=== PATIENT | female | born 1940 | race Caucasian/White ===

== ENCOUNTER → 2016-11-06 | Outpatient (CLI) | payer BC ==
[~2016-11-06] MED LIST: AMLO-114 PO; ATEN25TA PO; CALC-279 PO; CHOLCAP5 PO; CYAN100020 PO; DICL-201 PO; DICL1GEL12 TOP; LEVO88TA3 PO; MULTTAB58 PO; NEPA0.6D OPR; OMEG100046 PO; PANT1TAB48 PO; PRED1SUS3 OPR; SIMV10TA5 PO
[2016-11-06 11:33] LABS: BLOOD UREA NITROGEN 28 mg/dl (7-18); BUN/CREATININE RATIO 33.3 (10-20); CALCIUM 9.2 mg/dl (8.5-10.1); CARBON DIOXIDE 29 mmol/L (21-32); CHLORIDE 109 mmol/L (98-107); CREATININE 0.84 mg/dl (0.60-1.20); GLUCOSE 101 mg/dl (70-99); HDL CHOLESTEROL 52 mg/dl; POTASSIUM 5.1 mmol/L (3.5-5.1); SODIUM 142 mmol/L (136-145)
[2016-11-06 11:45] LABS: CHOLESTEROL 123 mg/dl (0-200); CHOLESTEROL/HDL RATIO 2.4; LDL CHOLESTEROL CALCULATED 47 mg/dl; THYROID STIMULATING HORMONE 0.797 uIu/ml (0.300-4.500); TRIGLYCERIDES 122 mg/dl (0-150); VERY LOW DENSITY LIPOPROT CALC 24 mg/dl
--- NOTE | 2016-11-11 11:12 | CODING QUERY MEDICAL NECESSITY ---
SUPPORTING DIAGNOSIS NEEDED A supporting diagnosis is required for the test/procedure performed on this patient in order for us to be reimbursed by the patient's insurance. Please provide a supporting diagnosis for the following test/procedure listed below next to the test name along with your signature. *If there is no additional diagnosis for this patient that would support the following test/procedure please document that below next to the test/procedure. Test(s)/Procedure(s) that require a supporting diagnosis: DOS 11/06 * Vitamin B12 DIAGNOSIS: Provider Signature: Date: Thank you Mary Anne Martinez Health Information Management Once completed, please kindly fax back to [phone] For questions please call [phone]
== END | disposition home or self-care (01) ==
LOC: C.LABBC 08:35
PROVIDERS: ATTEND Internal Medicine
DX: E03.9 Hypothyroidism, unspecified (principal); E78.00 Pure hypercholesterolemia, unspecified; G62.9 Polyneuropathy, unspecified

== ENCOUNTER → 2016-11-17 | Outpatient (CLI) | payer BC ==
--- NOTE | 2016-11-17 18:08 | DIAGNOSTIC IMAGING REPORT ---
MRI OF THE CERVICAL SPINE WITHOUT IV CONTRAST CLINICAL HISTORY: Cervical radiculopathy. COMPARISON STUDY: No priors. TECHNIQUE: MRI of the cervical spine is performed utilizing various T1 and T2-weighted sequences in the axial and sagittal planes. IV contrast was not administered for this examination. FINDINGS: Cervical spine: Vertebral body height is maintained throughout the cervical spine. There is 7 mm of anterolisthesis at C7-T1. Minimal retrolisthesis is seen at C5-C6 and C6-C7. There is straightening of cervical lordosis with reversal centered at C6. The spinous processes appear intact. Atlantodental articulation appears preserved. Degenerative endplate sclerosis and edema is present at C7-T1. Milder degenerative changes seen from C4-C5 through C6-C7. No destructive bony lesion is identified. Intervertebral discs: There is advanced degenerative disc desiccation and loss of height throughout the cervical spine. This is severe from C4-C5 through C7-T1. Spinal cord: There is significant myelomalacia identified in the lower cervical cord seen from C5 through T1, likely related to severe spinal stenosis. C2-C3: Unremarkable. C3-C4: Uncovertebral and facet arthropathy cause mild to moderate right neural foraminal stenosis. The left neural foramen and the central canal appears clear. C4-C5: A posterior disc osteophyte complex eccentric to the left abuts the ventral cord. Uncovertebral and facet arthropathy cause severe bilateral neural foraminal stenosis. C5-C6: A posterior disc osteophyte complex effaces the ventral cord. Uncovertebral and facet arthropathy cause severe bilateral neural foraminal stenosis. C6-C7: A posterior disc osteophyte complex effaces the ventral subarachnoid space. Uncovertebral and facet arthropathy cause mild to moderate bilateral neural foraminal stenosis, left greater than right. C7-T1: Anterolisthesis and degenerative disc disease cause severe spinal stenosis with effacement of the ventral cord. There is also severe bilateral neural foraminal stenosis at this level. T1-T2: Unremarkable. Soft tissues: The prevertebral and paraspinous soft tissues are normal as visualized. Brain parenchyma: Partially imaged brain parenchyma at the skull base is within normal limits. IMPRESSION: 1. Advanced multilevel cervical spondylosis, greatest at C7-T1 where anterolisthesis and disc disease cause severe acquired compromise of the central canal and effacement of the cord. 2. See above discussion for detailed level by level analysis. 3. There is myelomalacia involving the cervical cord seen extending from C5 through T1, likely related to severe spinal stenosis. Dictated: 11/17/2016 5:00 PM Transcribed: 11/17/2016 6:08 PM [email or web address] Electronically signed by: David Sheth M.D. 11/17/2016 7:08 PM Dictated Date/Time: 11/17/2016 5:00 PM
== END | disposition home or self-care (01) ==
LOC: C.MRIBC 14:58
PROVIDERS: ATTEND Psychiatry & Neurology Neurology
DX: M48.02 Spinal stenosis, cervical region (principal); M47.22 Other spondylosis with radiculopathy, cervical region; M47.23 Other spondylosis with radiculopathy, cervicothoracic region; G95.89 Other specified diseases of spinal cord

== ENCOUNTER → 2016-12-23 | Outpatient (CLI) | payer BC ==
[2016-12-23 14:47] LABS: URINE APPEARANCE CLEAR (CLEAR); URINE BILIRUBIN NEG (NEG); URINE COLOR DK YELLOW; URINE EPITHELIAL CELL AUTO >30 /lpf (0-5); URINE NITRITE NEG (NEG); URINE SPECIFIC GRAVITY 1.021 (1.000-1.030); UROBILINOGEN NEG (NEG); ZZUR CULT IF INDIC CLEAN CATCH NO
[2016-12-23 15:02] LABS: MANUAL MICROSCOPIC REQUIRED? NO; REVIEW REQ? NO
== END | disposition home or self-care (01) ==
LOC: C.LABSPEC 13:41
PROVIDERS: ATTEND Physician Assistant
DX: R35.0 Frequency of micturition (principal)

== ENCOUNTER → 2016-12-30 | Outpatient (CLI) | payer BC ==
[2016-12-30 16:42] LABS: URINE APPEARANCE CLEAR (CLEAR); URINE BILIRUBIN NEG (NEG); URINE COLOR YELLOW; URINE EPITHELIAL CELL AUTO >30 /lpf (0-5); URINE NITRITE POS (NEG); URINE SPECIFIC GRAVITY 1.022 (1.000-1.030); UROBILINOGEN NEG (NEG)
[2016-12-30 16:43] LABS: MANUAL MICROSCOPIC REQUIRED? NO; REVIEW REQ? NO
== END | disposition home or self-care (01) ==
LOC: C.LABSPEC 14:22
PROVIDERS: ATTEND Physician Assistant
DX: N39.0 Urinary tract infection, site not specified (principal)

== ENCOUNTER → 2017-01-15 | Outpatient (CLI) | payer BC ==
[2017-01-15 12:54] LABS: URINE APPEARANCE CLEAR (CLEAR); URINE BILIRUBIN NEG (NEG); URINE COLOR YELLOW; URINE EPITHELIAL CELL AUTO >30 /lpf (0-5); URINE NITRITE POS (NEG); URINE SPECIFIC GRAVITY 1.018 (1.000-1.030); UROBILINOGEN NEG (NEG); ZZUR CULT IF INDIC CLEAN CATCH YES
[2017-01-15 12:59] LABS: MANUAL MICROSCOPIC REQUIRED? NO; REVIEW REQ? NO
== END | disposition home or self-care (01) ==
LOC: C.LABSPEC 12:13
PROVIDERS: ATTEND Physician Assistant
DX: N39.0 Urinary tract infection, site not specified (principal)

== ENCOUNTER → 2017-01-30 | Outpatient (CLI) | payer BC ==
[2017-01-30 12:11] LABS: URINE APPEARANCE CLEAR (CLEAR); URINE BILIRUBIN NEG (NEG); URINE COLOR YELLOW; URINE EPITHELIAL CELL AUTO 20-30 /lpf (0-5); URINE NITRITE POS (NEG); URINE SPECIFIC GRAVITY 1.017 (1.000-1.030); UROBILINOGEN NEG (NEG); ZZUR CULT IF INDIC CLEAN CATCH YES
[2017-01-30 12:19] LABS: MANUAL MICROSCOPIC REQUIRED? NO; REVIEW REQ? NO
== END | disposition home or self-care (01) ==
LOC: C.LABSPEC 10:02
PROVIDERS: ATTEND Physician Assistant
DX: N39.0 Urinary tract infection, site not specified (principal); A49.8 Other bacterial infections of unspecified site

== ENCOUNTER → 2017-03-06 | Outpatient (CLI) | payer BC ==
[2017-03-06 12:53] LABS: URINE APPEARANCE CLEAR (CLEAR); URINE BILIRUBIN NEG (NEG); URINE COLOR YELLOW; URINE NITRITE POS (NEG); URINE PH 5.5 (4.5-7.5); URINE SPECIFIC GRAVITY 1.017 (1.000-1.030); UROBILINOGEN NEG (NEG)
[2017-03-06 13:13] LABS: MANUAL MICROSCOPIC REQUIRED? NO; REVIEW REQ? NO; URINE EPITHELIAL CELL AUTO >30 /lpf (0-5)
[2017-03-06 13:14] LABS: ZZUR CULT IF INDIC CLEAN CATCH YES
== END | disposition home or self-care (01) ==
LOC: C.LABSPEC 10:47
PROVIDERS: ATTEND Internal Medicine
DX: N39.0 Urinary tract infection, site not specified (principal)

== ENCOUNTER → 2017-05-04 | Outpatient (CLI) | payer BC ==
[2017-05-04 11:38] LABS: ESTIMATED AVERAGE GLUCOSE 111 mg/dl; HA1C FLAG Normal (Normal)
[2017-05-04 11:53] LABS: ALT/SGPT 17 U/L (12-78); AST/SGOT 10 U/L (15-37); BLOOD UREA NITROGEN 27 mg/dl (7-18); BUN/CREATININE RATIO 35.4 (10-20); CALCIUM 8.5 mg/dl (8.5-10.1); CARBON DIOXIDE 24 mmol/L (21-32); CHLORIDE 110 mmol/L (98-107); CREATININE 0.76 mg/dl (0.60-1.20); GLUCOSE 89 mg/dl (70-99); POTASSIUM 4.5 mmol/L (3.5-5.1); SODIUM 142 mmol/L (136-145); TRIGLYCERIDES 145 mg/dl (0-150); VERY LOW DENSITY LIPOPROT CALC 29 mg/dl
[2017-05-04 12:15] LABS: CHOLESTEROL 119 mg/dl (0-200); CHOLESTEROL/HDL RATIO 2.4; HDL CHOLESTEROL 49 mg/dl; LDL CHOLESTEROL CALCULATED 41 mg/dl
== END | disposition home or self-care (01) ==
LOC: C.LABBC 08:41
PROVIDERS: ATTEND Internal Medicine
DX: E78.00 Pure hypercholesterolemia, unspecified (principal); E03.9 Hypothyroidism, unspecified; I10 Essential (primary) hypertension; R73.9 Hyperglycemia, unspecified

== ENCOUNTER → 2017-05-12 | Outpatient (CLI) | payer BC ==
--- NOTE | 2017-05-12 15:17 | MAMMOGRAPHY REPORT ---
BILATERAL DIGITAL SCREENING MAMMOGRAM WITH CAD: 05/12/2017 CLINICAL HISTORY: Routine screening. TECHNIQUE: Bilateral CC, MLO cannot repeat right CC and MLO views were obtained. Current study was a lso evaluated with a Computer Aided Detection (CAD) system. COMPARISON: Comparison is made to exams dated: 05/06/2016 mammogram, 05/01/2015 mammogram, 04/25/2014 mammogram, 04/19/2013 mammogram, 04/15/2012 mammogram, and 04/14/2011 mammogram - [facility]. BREAST COMPOSITION: The tissue of both breasts is almost entirely fatty. FINDINGS: There are mild vascular calcifications in the breasts. A few benign rim calcifications in the right breast, and a stable asymmetry and lymph node in the lateral left breast. No new suspiciou s mass, architectural distortion or cluster of microcalcifications is seen. IMPRESSION: ACR BI-RADS CATEGORY 2: BENIGN There is no mammographic evidence of malignancy. A 1 year screening mammogram is recommended. The pa tient will receive written notification of the results. Approximately 10% of breast cancers are not detected with mammography. A negative mammographic report should not delay biopsy if a clinically suggestive mass is present. Mita Mock M.D. ay/:05/12/2017 14:06:44 Clinical Dietetic Technician: Cecy ARMSTRONG)(M), [facility] letter sent: Normal 1/2 BI-RADS Code: ACR BI-RADS Category 2: Benign
== END | disposition home or self-care (01) ==
LOC: C.MAMM 08:58
PROVIDERS: ATTEND Obstetrics & Gynecology
DX: Z12.31 Encounter for screening mammogram for malignant neoplasm of breast (principal)

== ENCOUNTER → 2017-10-29 | Outpatient (CLI) | payer BC ==
[~2017-10-29] MED LIST changes: +PANT1TAB3 PO; -PANT1TAB48 PO
[2017-10-29 13:35] LABS: HEMOGLOBIN A1C 5.8 % (4.5-5.6)
[2017-10-29 14:09] LABS: ALT/SGPT 17 U/L (12-78); AST/SGOT 11 U/L (15-37); BLOOD UREA NITROGEN 27 mg/dl (7-18); CARBON DIOXIDE 25 mmol/L (21-32); CHOLESTEROL 116 mg/dl (0-200); CREATININE 0.74 mg/dl (0.60-1.20); GLUCOSE 96 mg/dl (70-99); SODIUM 141 mmol/L (136-145)
[2017-10-29 14:20] LABS: LDL CHOLESTEROL CALCULATED 38 mg/dl
== END | disposition home or self-care (01) ==
LOC: C.LABBC 08:55
PROVIDERS: ATTEND Internal Medicine
DX: R73.9 Hyperglycemia, unspecified (principal); I10 Essential (primary) hypertension; E87.5 Hyperkalemia; E03.9 Hypothyroidism, unspecified

== ENCOUNTER → 2017-11-09 | Outpatient (CLI) | payer BC | END | disposition home or self-care (01) | LOC: C.LABSPEC 16:40 | PROVIDERS: ATTEND Internal Medicine | DX: R35.0 Frequency of micturition (principal) ==

== ENCOUNTER → 2018-02-16 | Outpatient (CLI) | payer BC ==
[~2018-02-16] MED LIST changes: -AMLO-114 PO; +AMLO10TA3 PO; +ASPI81TA28 PO; +CLBPO15 TOP; +CYM/30 PO; -MULTTAB58 PO; -NEPA0.6D OPR; -PRED1SUS3 OPR
--- NOTE | 2018-02-16 11:04 | DIAGNOSTIC IMAGING REPORT ---
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 FINDINGS: Lumbar scoliosis. Grade 1 anterolisthesis of L4 on L5 as well as L5 on S1. Considerable degenerative disc change throughout. No evidence for compression deformity. IMPRESSION: Considerable degenerative change. Grade 1 anterolisthesis of L4 on L5 as well as L5 on S1 considered degenerative. Scoliosis. The above report was generated using voice recognition software. It may contain grammatical, syntax or spelling errors. Electronically signed by: Reagan Pathak M.D. 02/16/2018 11:03 AM Dictated Date/Time: 02/16/2018 11:02 AM
== END | disposition home or self-care (01) ==
LOC: C.RADBC 10:34
PROVIDERS: ATTEND Neurological Surgery
DX: M47.816 Spondylosis without myelopathy or radiculopathy, lumbar region (principal); M43.16 Spondylolisthesis, lumbar region; M48.061 Spinal stenosis, lumbar region without neurogenic claudication

== ENCOUNTER 2021-07-05 20:29 | Inpatient (IN) ==
--- NOTE | 2021-07-05 21:14 | XRay Report ---
XR chest 1V portable HISTORY: 81 years-old Female Fever acute fever COMPARISON: Chest radiograph 12/20/2018 TECHNIQUE: Semierect AP view of the chest FINDINGS: Cardiac silhouette is enlarged. Chronic interstitial coarsening. No pneumothorax. Unchanged blunting of the costophrenic angles with mild bibasilar densities. Eventration of the right hemidiaphragm. Deg enerative changes of the shoulders and spine. Cervical spinal fusion hardware. Calcified left hilar l ymph nodes. IMPRESSION: 1. Cardiomegaly without pulmonary edema. 2. Chronic interstitial coarsening with unchanged bibasilar densities, likely atelectatic. ACT 112: Negative or not required by law. The above report was generated using voice recognition software. It may contain grammatical, syntax o r spelling errors. Electronically signed by: Olegario Merida M.D. 07/05/2021 9:13 PM
[2021-07-05] MEDS ORDERED: cefTRIAXone SODIUM 2,000 MG/70 ML BAG IV STA (21:17)
[2021-07-05 21:22] LABS: Eosinophils # (auto) 0.11 K/uL (0-0.5); Eosinophils % (auto) 0.9 %; Hematocrit (blood only) 36.5 % (37-47); Hemoglobin 11.5 g/dL (12.0-16.0); Immature Granulocytes # (auto) 0.04 K/uL (0.00-0.02); Immature Granulocytes % (auto) 0.3 %; Lymphocytes # (auto) 0.78 K/uL (1.2-3.4); Lymphocytes % (auto) 6.5 %; Mean Corpuscular Hemoglobin 30.2 pg (25-34); Mean Corpuscular Hgb Conc 31.5 g/dL (32-36); Mean Corpuscular Volume 95.8 fL (80-100); Monocytes % (auto) 7.5 %; Neutrophils % (auto) 84.8 %; Platelet Count 319 K/uL (130-400); RDW Coefficient of Variation 13.7 % (11.5-14.5); RDW Standard Deviation 47.8 fL (36.4-46.3); Red Blood Count 3.81 M/uL (4.2-5.4); White Blood Count 12.03 K/uL (4.8-10.8)
[2021-07-05 21:38] LABS: Albumin Level 2.8 gm/dl (3.4-5.0); BUN Creatinine Ratio 38.1 (10-20); Calcium 9.4 mg/dl (8.5-10.1); Creatinine Clr Calc Pharmacy 45.3 ml/min; Est GFR (African American) 55.1 ml/min; Est GFR (Non-African American) 47.6 ml/min; Potassium 4.6 mmol/L (3.5-5.1)
[2021-07-05 21:45] LABS: Albumin Globulin Ratio 0.6 (0.9-2); Bilirubin,Total 0.5 mg/dl (0.2-1); C Reactive Protein 23.2 mg/dl (0-0.29); Globulin 4.9 gm/dl (2.5-4.0); Total Protein 7.7 gm/dl (6.4-8.2)
--- NOTE | 2021-07-05 21:45 | CT Scan Report ---
CT head/brain wo con CLINICAL HISTORY: 81 years-old Female with fall, CHI. Acute head trauma status post fall TECHNIQUE: Multiple axial CT images of the head were obtained without contrast. A dose lowering tech nique was utilized adhering to the principles of ALARA. CT DOSE: 773.57 mGy.cm COMPARISON: Brain MRI 06/25/2021 FINDINGS: No acute intracranial hemorrhage, midline shift, intracranial mass, hydrocephalus, territorial ischem ia or abnormal extra-axial collection. Age-related involutional changes. White matter hypodensities s uggest chronic microvascular ischemic disease. Cerebral vascular calcifications. Chronic lacunar infa rct of the left cerebellar hemisphere redemonstrated. The calvarium is intact. The paranasal sinuses, mastoid air cells, and middle ear cavities are clear . IMPRESSION: No acute intracranial abnormality. ACT 112: Negative or not required by law. The above report was generated using voice recognition software. It may contain grammatical, syntax o r spelling errors. Electronically signed by: Olegario Merida M.D. 07/05/2021 9:44 PM
--- NOTE | 2021-07-05 21:56 | Emergency Department Note ---
Impression & Plan Cellulitis of right lower leg, Lymphedema of lower extremity, Fever, Fall, CHI (closed head injury) ED Provider Note INFORMANT: Patient and EMS ED PROVIDER(S): Bruce Sy MD CHIEF COMPLAINT: Leg swelling PLAN: Disposition: Admitted Condition: Good Outpatient prescription management: none Referral: None MEDICAL DECISION MAKING: Patient presented because of leg swelling, weakness and falls. She underwent head CT imaging which was negative. Chest x-ray did not show any acute f indings. Physical examination was concerning for cellulitis. Patient has a leukocytosis on her CBC. She was treated with IV Rocephin after blood cultures. The patient underwent ultrasound imaging to rule out DVT. She does have an elevated BNP concerning for a component of CHF given the lower extremity edema. Further management in the hospital will be necessary. Consultation was made with Dr. Bojorquez of the hospitalist service. Patient was evaluated in the ER and admitted. We did discuss antibiotic regimen and she did ask for a dose of daptomycin. This was ordered. Triage Nursing notes reviewed and agree them. Vital Signs: reviewed and remarkable for no significant abnormalities Differential diagnosis: Infection, dehydration, metabolic abnormality, hypo/hyperglycemia, electrolyte disturbance, anemia, hypoxia, cardiac sources, intracerebral event, toxicologic, neurologic, as well as other pathologies. Diagnostics interpreted by me: ECG: none Cardiac Monitoring: Cardiac monitoring ordered by me: The patient was placed on continuous cardiac monitoring and observed. It revealed a normal sinus rhythm at a 78 beats per minute without ectopy or evidence of dysrhythmia. Imaging studies: Chest x-ray reveals cardiomegaly without overt pulmonary edema. There is mild bibasilar atelectasis. Ultrasound imaging negative for DVT. HPI: The patient is a 81 year old female who presents to the Emergency Room with complaints of right leg swelling. This started this week and is worsening. The patient also notes the following associated symptoms, fever, generalized weakness and 2 falls this evening. The patient was diagnosed with cellulitis of the right lower extremity. She notes she always has more edema on the right than the left but this has worsened this week. She was placed on Keflex. She was feeling weak and wobbly tonight and fell. She did bump her head on the cabinet. She takes aspirin but denies any other blood thinners. The patient states she fell a second time but denies any injury at that point. EMS was summoned and she was brought to the ER for further evaluation. The patient has been given no medication by EMS for relieving factors. Current pain is rated as 2/10. Pt denies LOC, headache, diaphoresis, visual changes, neck pain, chest pain, breathing difficulties, nausea, vomiting, abdominal pain, back pain, melena, hematochezia, urinary symptoms, numbness, weakness, lymphadenopathy, rash, or other complaints. ROS: See above HPI for pertinent positives & negatives. A total of 10 systems reviewed and were otherwise negative. PAST MEDICAL HISTORY:See Below , hypertension, diabetes PAST SURGICAL HISTORY:See Below, cervical laminectomy FAMILY HISTORY:See Below SOCIAL HISTORY:See Below, retired HOME MEDICATIONS:See Below ALLERGIES:See Below VITALS:See Below PHYSICAL EXAMINATION: GENERAL: Awake, alert, well-appearing, in no distress HENT: Normocephalic, atraumatic in appearance Oropharynx unremarkable. EYES: Normal conjunctiva. Sclera non-icteric. NECK: Inspection normal. Non-tender. Supple. No nuchal rigidity. FROM. No masses. RESPIRATORY: Clear to auscultation. No wheezes. No rales. Normal respiratory effort. CARDIAC: Normal rate. Normal rhythm. No murmurs. No rubs. Extremities warm and well perfused. Pulses equal. No JVD. GI: Soft, non-distended. No tenderness to palpation. No rebound or guarding. No masses. RECTAL: Deferred. MUSCULOSKELETAL: Atraumatic. Chest examination reveals no tenderness. The back is symmetrical on inspection without obvious abnormality. There is no CVA tenderness to palpation. No joint edema. LOWER EXTREMITIES: There is erythema, warmth and tenderness of the right lower extremity involving the foot up to the knee. There is no knee joint involv ement. There is 3+ lower extremity edema on the right and 1-2+ on the left. No hip tenderness. NEURO: Normal sensorium. No focal sensory or motor deficits noted. SKIN: No rash or jaundice noted. Bruce Sy MD Past Med/Surg History Medical History Anxiety Cervical cord myelomalacia Depression Diverticulosis of colon (without mention of hemorrhage) Exposure to COVID-19 virus History of gastrointestinal ulcer History of pancreatitis Hypercholesterolemia Hypertension Hypothyroidism IBS (irritable bowel syndrome) Osteoarthritis Peripheral neuropathy Spinal stenosis Tremor Surgical History H/O gastric bypass History of bilateral tubal ligation History of cataract surgery History of cholecystectomy History of colonoscopy History of esophagogastroduodenoscopy (EGD) History of eyelid surgery History of fusion of cervical spine History of hysterectomy History of pharyngoplasty History of tonsillectomy History of total knee arthroplasty S/P laminectomy with spinal fusion Family History Mother Family history of diabetes mellitus Breast cancer Father Family history of diabetes mellitus Heart disease Family/Other Family history of diabetes mellitus Sister Congestive heart failure Breast cancer Stroke syndrome Brother Coronary heart disease Myocardial infarction Denies family history of Ovarian cancer Prostate cancer Colorectal cancer Social History Smoking Status: Never smoker Second Hand Exposure: No; Hx Alcohol Use: Yes Alcohol type: wine Hx Substance Use: No Preferred Language: Nauruan Communication Ability: Effective Visual Impairment: No Limitations Hearing Ability: Normal Inventory Representative Required: No Beliefs That Will Affect Care: None and Shinto Shinto Beliefs: CONFUCIANISM marital status: Current Living Situation: Spouse Current Living Situation Comment: LIVES AT [facility], [place] current occupational status: retired Feels Safe at Home: Yes Childhood Exposure to Second-Hand Smoke: No Dental Care, Regularly: Yes Physical Activity Frequency: Does not Exercise Seatbelt Use: always Sunscreen Use: Yes Assistive Devices: Glasses, Hearing Aid - Bilateral and Walker Allergies Allergies Allergy/AdvReac Type Severity Reaction Status Date / Time Bactrim Allergy Intermediate RASH Verified 01/28/18 14:04 pneumococcal vaccine Allergy Unknown REDNESS , Verified 07/05/21 21:42 CHILLS, HIVES sulfamethoxazole Allergy Unknown RASH Verified 07/05/21 21:42 trimethoprim Allergy Unknown RASH Verified 07/05/21 21:42 Home Meds Home Medications Medication Instructions Recorded Confirmed aspirin 81 mg tablet,delayed 81 mg PO HS 03/29/18 07/05/21 release calcium citrate 200 mg 1 tab PO BID 03/29/18 07/05/21 calcium-vitamin D3 6.25 mcg (250 unit) tablet omega-3 fatty acids 1,000 mg 1,000 mg PO BID 03/29/18 07/05/21 capsule cholecalciferol (vitamin D3) 125 5,000 units PO 5XWK cap 05/31/18 07/05/21 mcg (5,000 unit) capsule mecobalamin (vitamin B12) 1,000 1,000 mcg SL 3XWK tab 05/31/18 07/05/21 mcg disintegrating tablet,sublingual ferrous sulfate 27 mg iron tablet 27 mg PO DAILY tab 12/27/18 07/05/21 (High Potency Iron) cranberry 500 mg capsule 500 mg PO DAILY cap 11/07/19 07/05/21 latanoprost 0.005 % eye drops 1 drops OP HS 02/21/20 07/05/21 levothyroxine 88 mcg tablet 88 mcg PO QAM 02/21/21 07/05/21 propranolol 160 mg capsule,24 160 mg PO QAM 02/21/21 07/05/21 hr,extended release amlodipine 10 mg tablet 20 mg PO QAM tab 07/01/21 07/05/21 Previous Rx's Medication Instructions Recorded diclofenac sodium 1 % topical gel 1 - 2 gm TOP BID PRN #100 gm 10/13/19 (Voltaren) pantoprazole 40 mg tablet,delayed 40 mg PO QAM #90 tab 07/05/20 release (Protonix) simvastatin 10 mg tablet (Zocor) 10 mg PO HS #90 tab 08/03/20 diclofenac sodium 75 mg 75 mg PO BID #180 tab 08/21/20 tablet,delayed release fluoxetine 20 mg tablet 20 mg PO DAILY #30 tab 05/28/21 gabapentin 100 mg capsule 100 mg PO TID #90 cap 06/05/21 diazepam 5 mg tablet (Valium) 5 mg PO .COMPLEX PRN #2 tab 06/25/21 fluoxetine 10 mg capsule 10 mg PO DAILY #30 cap 06/27/21 cephalexin 500 mg capsule 500 mg PO TID #30 cap 07/01/21 furosemide 20 mg tablet 20 mg PO DAILY #5 tab 07/01/21 Results & Data (ED) Vital Signs Vital Signs - 24 hr 07/05/21 20:20 Temperature 37.1 C Temperature Source Oral Pulse Rate 78 Pulse Rhythm Regular Pulse Strength Normal Respiratory Rate 20 Respiratory Effort / Characteristics Non-Labored Respiratory Depth Normal Blood Pressure 149/6 H Blood Pressure Mean 53 Blood Pressure Position Lying Pulse Oximetry 96 Oxygen Delivery Method Room Air Sepsis Recent Fever Within 48 Hours Yes Sepsis New/Unexplained Change in Mental Status No Sepsis Action Taken by Nursing No Action Required Laboratory Data Result diagrams: 07/05/21 21:00 07/05/21 21:00 Lab Results 07/05/21 07/05/21 07/05/21 Range/Units 21:00 21:00 21:00 WBC 12.03 H (4.8-10.8) K/uL RBC 3.81 L (4.2-5.4) M/uL Hgb 11.5 L (12.0-16.0) g/dL Hct 36.5 L (37-47) % MCV 95.8 (80-100) fL MCH 30.2 (25-34) pg MCHC 31.5 L (32-36) g/dL RDW Std Deviation 47.8 H (36.4-46.3) fL RDW Coeff of Danielle 13.7 (11.5-14.5) % Plt Count 319 (130-400) K/uL MPV 9.0 (7.4-10.4) fL Immature Gran % (Auto) 0.3 % Neut % (Auto) 84.8 % Lymph % (Auto) 6.5 % Bond % (Auto) 7.5 % Eos % (Auto) 0.9 % Baso % (Auto) 0.0 % Neut # (Auto) 10.20 H (1.4-6.5) K/uL Lymph # (Auto) 0.78 L (1.2-3.4) K/uL Bond # (Auto) 0.90 H (0.11-0.59) K/uL Eos # (Auto) 0.11 (0-0.5) K/uL Baso # (Auto) 0.00 (0-0.2) K/uL Immature Gran # (Auto) 0.04 H (0.00-0.02) K/uL Sodium 136 (136-145) mmol/L Potassium 4.6 (3.5-5.1) mmol/L Chloride 105 (98-107) mmol/L Carbon Dioxide 24 (21-32) mmol/L Anion Gap 8.0 (3-11) BUN 42 H (7-18) mg/dl Creatinine 1.09 (0.6-1.2) mg/dl Est Cr Clr Drug Dosing 45.3 ml/min Est GFR ( Amer) 55.1 ml/min Est GFR (Non-Af Amer) 47.6 ml/min BUN/Creatinine Ratio 38.1 H (10-20) Glucose 110 H (70-99) mg/dl Lactate 0.8 (0.4-2.0) mmol/L Calcium 9.4 (8.5-10.1) mg/dl Total Bilirubin 0.5 (0.2-1) mg/dl AST 30 (15-37) U/L ALT 58 (12-78) Alkaline Phosphatase 125 H D (45-117) U/L C-Reactive Protein 23.20 H (0-0.29) mg/dl NT-Pro-B Natriuret Pep 3498 H (0-1800) pg/ml Total Protein 7.7 (6.4-8.2) gm/dl Albumin 2.8 L (3.4-5.0) gm/dl Globulin 4.9 H (2.5-4.0) gm/dl Albumin/Globulin Ratio 0.6 L (0.9-2) SARS-CoV-2, RNA, NAAT (NEGATIVE) 07/05/21 Range/Units 21:00 WBC (4.8-10.8) K/uL RBC (4.2-5.4) M/uL Hgb (12.0-16.0) g/dL Hct (37-47) % MCV (80-100) fL MCH (25-34) pg MCHC (32-36) g/dL RDW Std Deviation (36.4-46.3) fL RDW Coeff of Danielle (11.5-14.5) % Plt Count (130-400) K/uL MPV (7.4-10.4) fL Immature Gran % (Auto) % Neut % (Auto) % Lymph % (Auto) % Bond % (Auto) % Eos % (Auto) % Baso % (Auto) % Neut # (Auto) (1.4-6.5) K/uL Lymph # (Auto) (1.2-3.4) K/uL Bond # (Auto) (0.11-0.59) K/uL Eos # (Auto) (0-0.5) K/uL Baso # (Auto) (0-0.2) K/uL Immature Gran # (Auto) (0.00-0.02) K/uL Sodium (136-145) mmol/L Potassium (3.5-5.1) mmol/L Chloride (98-107) mmol/L Carbon Dioxide (21-32) mmol/L Anion Gap (3-11) BUN (7-18) mg/dl Creatinine (0.6-1.2) mg/dl Est Cr Clr Drug Dosing ml/min Est GFR ( Amer) ml/min Est GFR (Non-Af Amer) ml/min BUN/Creatinine Ratio (10-20) Glucose (70-99) mg/dl Lactate (0.4-2.0) mmol/L Calcium (8.5-10.1) mg/dl Total Bilirubin (0.2-1) mg/dl AST (15-37) U/L ALT (12-78) Alkaline Phosphatase (45-117) U/L C-Reactive Protein (0-0.29) mg/dl NT-Pro-B Natriuret Pep (0-1800) pg/ml Total Protein (6.4-8.2) gm/dl Albumin (3.4-5.0) gm/dl Globulin (2.5-4.0) gm/dl Albumin/Globulin Ratio (0.9-2) SARS-CoV-2, RNA, NAAT NEGATIVE (NEGATIVE) Administered Medications Discontinued Medications Ceftriaxone Sodium (Rocephin) 2,000 mg in 70 mls @ 140 mls/hr IV NOW STA Stop: 07/05/21 21:46 Last Admin: 07/05/21 21:55 Dose: 140 mls/hr Documented by: [id number] Imaging Data Radiologist's Impression: Venous Doppler Study 07/05/21 20:43 US venous doppler LE RT HISTORY: 81 years-old Female swelling, eval for DVT acute pain and swelling of the right lower leg COMPARISON: Doppler study 07/01/2021 TECHNIQUE: Multiple real-time sonographic images of the right lower extremity deep venous structures were obtained assessing grayscale appearance, color and spectral flow. FINDINGS: Normal flow, compressibility, phasicity and augmentation. Subcutaneous edema limits evaluation of the calf veins. IMPRESSION: No sonographic evidence of deep venous thrombosis. ACT 112: Negative or not required by law. The above report was generated using voice recognition software. It may contain grammatical, syntax or spelling errors. Electronically signed by: Olegario Merida M.D. 07/05/2021 10:33 PM Chest X-Ray 07/05/21 20:45 XR chest 1V portable HISTORY: 81 years-old Female Fever acute fever COMPARISON: Chest radiograph 12/20/2018 TECHNIQUE: Semierect AP view of the chest FINDINGS: Cardiac silhouette is enlarged. Chronic interstitial coarsening. No pneumothor ax. Unchanged blunting of the costophrenic angles with mild bibasilar densities. Eventration of the right hemidiaphragm. Degenerative changes of the shoulders and spine. Cervical spinal fusion hardware. Calcified left hilar lymph nodes. IMPRESSION: 1. Cardiomegaly without pulmonary edema. 2. Chronic interstitial coarsening with unchanged bibasilar densities, likely atelectatic. ACT 112: Negative or not required by law. The above report was generated using voice recognition software. It may contain grammatical, syntax or spelling errors. Electronically signed by: Olegario Merida M.D. 07/05/2021 9:[address] 07/05/21 20:45 CT head/brain wo con CLINICAL HISTORY: 81 years-old Female with fall, CHI. Acute head trauma status post fall TECHNIQUE: Multiple axial CT images of the head were obtained without contrast. A dose lowering technique was utilized adhering to the principles of ALARA. CT DOSE: 773.57 mGy.cm COMPARISON: Brain MRI 06/25/2021 FINDINGS: No acute intracranial hemorrhage, midline shift, intracranial mass, hydrocephalus, territorial ischemia or abnormal extra-axial collection. Age- related involutional changes. White matter hypodensities suggest chronic microvascular ischemic disease. Cerebral vascular calcifications. Chronic lacunar infarct of the left cerebellar hemisphere redemonstrated. The calvarium is intact. The paranasal sinuses, mastoid air cells, and middle ear cavities are clear. IMPRESSION: No acute intracranial abnormality. ACT 112: Negative or not required by law. The above report was generated using voice recognition software. It may contain grammatical, syntax or spelling errors. Electronically signed by: Olegario Merida M.D. 07/05/2021 9:44 PM Discharge Plan Visit Data Chief Complaint: Swelling/Edema to Extremity Stated Complaint: Fall, Weakness, Fever ED Provider: Bruce Sy Discharge Problem: Cellulitis of right lower leg, Lymphedema of lower extremity, Fever, Fall, CHI (closed head injury) Forms Stand Alone Forms: My [facility] Prescriptions Prescriptions: No Action cholecalciferol (vitamin D3) 5,000 unit capsule 5,000 units PO 5XWK RF: 0 omega-3 fatty acids 1,000 mg capsule 1,000 mg PO BID RF: 0 aspirin 81 mg tablet,delayed release (DR/EC) 81 mg PO HS RF: 0 calcium citrate-vitamin D3 200 mg calcium -250 unit tablet 1 tab PO BID RF: 0 mecobalamin (vitamin B12) 1,000 mcg tablet,disintegrating 1,000 mcg SL 3XWK RF: 0 diclofenac sodium [Voltaren] 1 % gel 1 - 2 gm TOP BID PRN (Reason: Pain) Qty: 100 RF: 12 pantoprazole [Protonix] 40 mg tablet,delayed release (DR/EC) 40 mg PO QAM Qty: 90 RF: 3 simvastatin [Zocor] 10 mg tablet 10 mg PO HS Qty: 90 RF: 3 diclofenac sodium 75 mg tablet,delayed release (DR/EC) 75 mg PO BID Qty: 180 RF: 3 diazepam [Valium] 5 mg tablet 5 mg PO .COMPLEX PRN (Reason: anxiety) Qty: 2 RF: 0 High Potency Iron 27 mg iron tablet 27 mg PO DAILY RF: 0 cranberry 500 mg capsule 500 mg PO DAILY RF: 0 fluoxetine 10 mg capsule 10 mg PO DAILY Qty: 30 RF: 0 amlodipine 10 mg tablet 20 mg PO QAM RF: 0 cephalexin 500 mg capsule 500 mg PO TID Qty: 30 RF: 0 furosemide 20 mg tablet 20 mg PO DAILY Qty: 5 RF: 0 fluoxetine 20 mg tablet 20 mg PO DAILY Qty: 30 RF: 2 latanoprost 0.005 % drops 1 drops OP HS RF: 0 gabapentin 100 mg capsule 100 mg PO TID Qty: 90 RF: 2 propranolol 160 mg capsule,extended release 24 hr 160 mg PO QAM RF: 0 levothyroxine 88 mcg tablet 88 mcg PO QAM RF: 0 Referrals Referrals: Stefano Rodriguez MD [Primary Care Provider] -
--- NOTE | 2021-07-05 22:34 | Ultrasound Report ---
US venous doppler LE RT HISTORY: 81 years-old Female swelling, eval for DVT acute pain and swelling of the right lower leg COMPARISON: Doppler study 07/01/2021 TECHNIQUE: Multiple real-time sonographic images of the right lower extremity deep venous structures were obtained assessing grayscale appearance, color and spectral flow. FINDINGS: Normal flow, compressibility, phasicity and augmentation. Subcutaneous edema limits evaluation of the calf veins. IMPRESSION: No sonographic evidence of deep venous thrombosis. ACT 112: Negative or not required by law. The above report was generated using voice recognition software. It may contain grammatical, syntax o r spelling errors. Electronically signed by: Olegario Merida M.D. 07/05/2021 10:33 PM
[2021-07-05] MEDS ORDERED: DAPTOmycin 275 MG in SYRINGE 0 ML IV ONE (23:00)
[2021-07-05] MEDS ORDERED: FUROSEMIDE 40 MG/4 ML VIAL IV STA (23:18)
--- NOTE | 2021-07-05 23:28 | History & Physical Report ---
Date of Service July 05, 2021 Assessment & Plan (1) Lymphedema of lower extremity: Plan: 81 yo F with hx HFpEF, TIA, depression admitted for cellulitis and lower extremity swelling that failed outpatient treatment. Cellulitis - reportedly febrile at home, no fevers thus far in hospital stay. WBC elevated to 12k, CRP 23 - not septic appearing. Blood cultures drawn in ER - MRSA nares pending, on Daptomycin daily for G+ coverage including MRSA. Failed outpatient treatment with keflex - trend CBC, CRP Peripheral Edema with hx HFpEF - hold amlodipine 20 mg daily, likely contibuting to edema - lasix 40 mg x1, possible component of fluid build up however no signs of decompensated heart failure - TTE in 2019 showing mild MR, EF 55-60% - external urinary catheter for I/O monitoring - proBNP 3498, CXR negative for pulmonary edema - elevate lower extremities, BREANA stockings, pressure ulcer precautions Weakness - progressively worse this last week with worsening cellulitis/swelling - uses walker at baseline for ambulation - PT eval - lives at [facility] with , no home health or PT services at this time Chronic Conditions hx TIA - continue daily ASA, statin HTN - holding amlodipine as above, continue propranolol. may benefit from switch to metoprolol. GERD - continue pantoprazole daily Hypothyroidism - continue levothyroxine Peripheral Neuropathy - continue gabapentin 100 mg TID Depression/Anxiety - continue fluoxetine 30 mg daily Arthritis - diclofenac 75 mg BID PRN DVT ppx: heparin sq bid FEN/GI: low salt diet, on pantoprazole Bowel regimen: prn milk of mag Code Status: Full Code Dispo: med/surg, PT eval for difficulty ambulating. (2) Cellulitis of right lower leg: (3) Anxiety: (4) Depressive disorder: (5) DM w/o complication type II: History of Present Illness Primary Care Provider: Stefano Rodriguez MD 81 yo F with PMH HFpEF (55-60%) in ER for complaints of worsening peripheral edema and cellulitis. Was seen by her PCP on 07/01, started on lasix 20 mg PO daily and keflex 500 TID. She attests to having taken the medications as prescribed, but denies any improvements in symptoms. Has been trying to elevate legs during the day, but without much improvement in swelling. Denies any sx of orthopnea, PND, SOB, MENDES. 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 She did have a fever of 100.7 at home measured by oral thermometer, but has been afebrile thus far in the ER. ER Course: CT head negative, LE US negative, Daptomycin x1, Ceftriaxone x1, Lasix 40 mg x1 Allergies Allergy/AdvReac Type Severity Reaction Status Date / Time Bactrim Allergy Intermediate RASH Verified 01/28/18 14:04 pneumococcal vaccine Allergy Unknown REDNESS , Verified 07/05/21 21:42 CHILLS, HIVES sulfamethoxazole Allergy Unknown RASH Verified 07/05/21 21:42 trimethoprim Allergy Unknown RASH Verified 07/05/21 21:42 Home Medications Medication Instructions Recorded Confirmed Type aspirin 81 mg tablet,delayed 81 mg PO HS 03/29/18 07/05/21 History release calcium citrate 200 mg 1 tab PO BID 03/29/18 07/05/21 History calcium-vitamin D3 6.25 mcg (250 unit) tablet omega-3 fatty acids 1,000 mg 1,000 mg PO BID 03/29/18 07/05/21 History capsule cholecalciferol (vitamin D3) 125 5,000 units PO 5XWK cap 05/31/18 07/05/21 History mcg (5,000 unit) capsule mecobalamin (vitamin B12) 1,000 1,000 mcg SL 3XWK tab 05/31/18 07/05/21 History mcg disintegrating tablet,sublingual ferrous sulfate 27 mg iron tablet 27 mg PO DAILY tab 12/27/18 07/05/21 History (High Potency Iron) diclofenac sodium 1 % topical gel 1 - 2 gm TOP BID PRN #100 gm 10/13/19 07/05/21 Rx (Voltaren) cranberry 500 mg capsule 500 mg PO DAILY cap 11/07/19 07/05/21 History latanoprost 0.005 % eye drops 1 drops OP HS 02/21/20 07/05/21 History pantoprazole 40 mg tablet,delayed 40 mg PO QAM #90 tab 07/05/20 07/05/21 Rx release (Protonix) simvastatin 10 mg tablet (Zocor) 10 mg PO HS #90 tab 08/03/20 07/05/21 Rx diclofenac sodium 75 mg 75 mg PO BID #180 tab 08/21/20 07/05/21 Rx tablet,delayed release levothyroxine 88 mcg tablet 88 mcg PO QAM 02/21/21 07/05/21 History propranolol 160 mg capsule,24 160 mg PO QAM 02/21/21 07/05/21 History hr,extended release fluoxetine 20 mg tablet 20 mg PO DAILY #30 tab 05/28/21 07/05/21 Rx gabapentin 100 mg capsule 100 mg PO TID #90 cap 06/05/21 07/05/21 Rx diazepam 5 mg tablet (Valium) 5 mg PO .COMPLEX PRN #2 tab 06/25/21 07/05/21 Rx fluoxetine 10 mg capsule 10 mg PO DAILY #30 cap 06/27/21 07/05/21 Rx amlodipine 10 mg tablet 20 mg PO QAM tab 07/01/21 07/05/21 History cephalexin 500 mg capsule 500 mg PO TID #30 cap 07/01/21 07/05/21 Rx furosemide 20 mg tablet 20 mg PO DAILY #5 tab 07/01/21 07/05/21 Rx Past Med/Surg History Medical History Anxiety Cervical cord myelomalacia Depression Diverticulosis of colon (without mention of hemorrhage) Exposure to COVID-19 virus History of gastrointestinal ulcer History of pancreatitis Hypercholesterolemia Hypertension Hypothyroidism IBS (irritable bowel syndrome) Osteoarthritis Peripheral neuropathy Spinal stenosis Tremor Surgical History H/O gastric bypass History of bilateral tubal ligation History of cataract surgery History of cholecystectomy History of colonoscopy History of esophagogastroduodenoscopy (EGD) History of eyelid surgery History of fusion of cervical spine History of hysterectomy History of pharyngoplasty History of tonsillectomy History of total knee arthroplasty S/P laminectomy with spinal fusion Family History Mother Family history of diabetes mellitus Breast cancer Father Family history of diabetes mellitus Heart disease Family/Other Family history of diabetes mellitus Sister Congestive heart failure Breast cancer Stroke syndrome Brother Coronary heart disease Myocardial infarction Denies family history of Ovarian cancer Prostate cancer Colorectal cancer Social History Smoking Status: Never smoker Second Hand Exposure: No; Hx Alcohol Use: Yes Alcohol type: wine Hx Substance Use: No Preferred Language: [place] Communication Ability: Effective Visual Impairment: No Limitations Hearing Ability: Normal Conservation Science Officer Required: No Beliefs That Will Affect Care: None and Religion 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 marital status: Current Living Situation: Spouse Current Living Situation Comment: LIVES AT [facility] current occupational status: retired Feels Safe at Home: Yes Childhood Exposure to Second-Hand Smoke: No Dental Care, Regularly: Yes Physical Activity Frequency: Does not Exercise Seatbelt Use: always Sunscreen Use: Yes Assistive Devices: Glasses, Hearing Aid - Bilateral and Walker Review of Systems Constitutional: + fever and + weakness; no chills, no body aches and no fatigue Respiratory: no cough and no dyspnea Cardiovascular: no chest pain, no dyspnea and no edema Gastrointestinal: no abdominal pain, no nausea, no vomiting, no constipation and no diarrhea/loose stools Genitourinary: no dysuria Integumentary: + erythema Neurologic: no tingling, no numbness, no dizziness and no confusion Physical Exam Physical Exam: Constitutional: pleasant obese elderly female, in no apparent distress,laying comfortably in bed. Eyes: EOMI, pupils equal and reactive bilaterally, no scleral icterus Cardiac: RRR, 3/6 murmur at LLSB, no gallops or rubs. Normal S1, S2 Pulm: CTA BL, no wheezes, rhonchi, crackles or rubs, moving air well throughout both lungs Abd: soft, nontender, nondistended, normal bowel sounds, no rebound or guarding Extremities:pulses difficult to palpate due to severe edema, 4+ pitting edema of right foot, 2+ pitting edema of left foot, Skin: erythematous, warm, tender area over right anterior martinez Neuro: no focal deficits, moving all 4 limbs, A&Ox3 Results & Data Results & Data ([facility]) Vital Signs (Past 12 Hours) Vital Signs Temp Pulse Resp BP Pulse Ox 07/05/21 20:20 37.1 C 78 20 149/6 H 96 Laboratory Results Laboratory Results WBC 12.03 K/uL (4.8-10.8) H 07/05/21 21:00 RBC 3.81 M/uL (4.2-5.4) L 07/05/21 21:00 Hgb 11.5 g/dL (12.0-16.0) L 07/05/21 21:00 Hct 36.5 % (37-47) L 07/05/21 21:00 MCV 95.8 fL (80-100) 07/05/21 21:00 MCH 30.2 pg (25-34) 07/05/21 21:00 MCHC 31.5 g/dL (32-36) L 07/05/21 21:00 RDW Std Deviation 47.8 fL (36.4-46.3) H 07/05/21 21:00 RDW Coeff of Danielle 13.7 % (11.5-14.5) 07/05/21 21:00 Plt Count 319 K/uL (130-400) 07/05/21 21:00 MPV 9.0 fL (7.4-10.4) 07/05/21 21:00 Immature Gran % (Auto) 0.3 % 07/05/21 21:00 Neut % (Auto) 84.8 % 07/05/21 21:00 Lymph % (Auto) 6.5 % 07/05/21 21:00 [place] % (Auto) 7.5 % 07/05/21 21:00 Eos % (Auto) 0.9 % 07/05/21 21:00 Baso % (Auto) 0.0 % 07/05/21 21:00 Neut # (Auto) 10.20 K/uL (1.4-6.5) H 07/05/21 21:00 Lymph # (Auto) 0.78 K/uL (1.2-3.4) L 07/05/21 21:00 [place] # (Auto) 0.90 K/uL (0.11-0.59) H 07/05/21 21:00 Eos # (Auto) 0.11 K/uL (0-0.5) 07/05/21 21:00 Baso # (Auto) 0.00 K/uL (0-0.2) 07/05/21 21:00 Immature Gran # (Auto) 0.04 K/uL (0.00-0.02) H 07/05/21 21:00 Sodium 136 mmol/L (136-145) 07/05/21 21:00 Potassium 4.6 mmol/L (3.5-5.1) 07/05/21 21:00 Chloride 105 mmol/L (98-107) 07/05/21 21:00 Carbon Dioxide 24 mmol/L (21-32) 07/05/21 21:00 Anion Gap 8.0 (3-11) 07/05/21 21:00 BUN 42 mg/dl (7-18) H 07/05/21 21:00 Creatinine 1.09 mg/dl (0.6-1.2) 07/05/21 21:00 Est Cr Clr Drug Dosing 45.3 ml/min 07/05/21 21:00 Est GFR ( Amer) 55.1 ml/min 07/05/21 21:00 Est GFR (Non-Af Amer) 47.6 ml/min 07/05/21 21:00 BUN/Creatinine Ratio 38.1 (10-20) H 07/05/21 21:00 Glucose 110 mg/dl (70-99) H 07/05/21 21:00 Lactate 0.8 mmol/L (0.4-2.0) 07/05/21 21:00 Calcium 9.4 mg/dl (8.5-10.1) 07/05/21 21:00 Total Bilirubin 0.5 mg/dl (0.2-1) 07/05/21 21:00 AST 30 U/L (15-37) 07/05/21 21:00 ALT 58 (12-78) 07/05/21 21:00 Alkaline Phosphatase 125 U/L (45-117) H D 07/05/21 21:00 C-Reactive Protein 23.20 mg/dl (0-0.29) H 07/05/21 21:00 NT-Pro-B Natriuret Pep 3498 pg/ml (0-1800) H 07/05/21 21:00 Total Protein 7.7 gm/dl (6.4-8.2) 07/05/21 21:00 Albumin 2.8 gm/dl (3.4-5.0) L 07/05/21 21:00 Globulin 4.9 gm/dl (2.5-4.0) H 07/05/21 21:00 Albumin/Globulin Ratio 0.6 (0.9-2) L 07/05/21 21:00 SARS-CoV-2, RNA, NAAT NEGATIVE (NEGATIVE) 07/05/21 21:00 Impressions Venous Doppler Study 07/05/21 20:43 US venous doppler LE RT HISTORY: 81 years-old Female swelling, eval for DVT acute pain and swelling of the right lower leg COMPARISON: Doppler study 07/01/2021 TECHNIQUE: Multiple real-time sonographic images of the right lower extremity deep venous structures were obtained assessing grayscale appearance, color and spectral flow. FINDINGS: Normal flow, compressibility, phasicity and augmentation. Subcutaneous edema limits evaluation of the calf veins. IMPRESSION: No sonographic evidence of deep venous thrombosis. ACT 112: Negative or not required by law. The above report was generated using voice recognition software. It may contain grammatical, syntax or spelling errors. Electronically signed by: Olegario Merida M.D. 07/05/2021 10:33 PM Chest X-Ray 07/05/21 20:45 XR chest 1V portable HISTORY: 81 years-old Female Fever acute fever COMPARISON: Chest radiograph 12/20/2018 TECHNIQUE: Semierect AP view of the chest FINDINGS: Cardiac silhouette is enlarged. Chronic interstitial coarsening. No pneumothorax. Unchanged blunting of the costophrenic angles with mild bibasilar densities. Eventration of the right hemidiaphragm. Degenerative changes of the shoulders and spine. Cervical spinal fusion hardware. Calcified left hilar lymph nodes. IMPRESSION: 1. Cardiomegaly without pulmonary edema. 2. Chronic interstitial coarsening with unchanged bibasilar densities, likely atelectatic. ACT 112: Negative or not required by law. The above report was generated using voice recognition software. It may contain grammatical, syntax or spelling errors. Electronically signed by: Olegario Merida M.D. 07/05/2021 9:[address] 07/05/21 20:45 CT head/brain wo con CLINICAL HISTORY: 81 years-old Female with fall, CHI. Acute head trauma status post fall TECHNIQUE: Multiple axial CT images of the head were obtained without contrast. A dose lowering technique was utilized adhering to the principles of ALARA. CT DOSE: 773.57 mGy.cm COMPARISON: Brain MRI 06/25/2021 FINDINGS: No acute intracranial hemorrhage, midline shift, intracranial mass, hydrocephalus, territorial ischemia or abnormal extra-axial collection. Age- related involutional changes. White matter hypodensities suggest chronic microvascular ischemic disease. Cerebral vascular calcifications. Chronic lacunar infarct of the left cerebellar hemisphere redemonstrated. The calvarium is intact. The paranasal sinuses, mastoid air cells, and middle ear cavities are clear. IMPRESSION: No acute intracranial abnormality. ACT 112: Negative or not required by law. The above report was generated using voice recognition software. It may contain grammatical, syntax or spelling errors. Electronically signed by: Olegario Merida M.D. 07/05/2021 9:44 PM Supervising Physician Co-Signing Physician Notes Patient seen and examined, chart reviewed, case discussed with Dr. Sales and I agree with her assessment and plan as documented above. In brief, patient is an 81yo female with history of lymphedema, CHF presenting with worsening LE edema, redness and pain in RLE as well as documented fever at home. Patient had been on Keflex as well as PO lasix per PCP with no improvement. On exams she is afebrile, HD stable, NAD Skin - RLE with small amount of redness on lateral leg, warmth and tenderness to touch, no crepitus/bullae/lymphangitic streaking HEENT - NC/AT, PERRL, MMM, Neck supple Heart - +S1/S2, regular, no m/r/g Lungs - CTA Abd - +BS, soft, NT/ND Ext - 3+ edema of RLE with warmth, redness and tenderness, 2+ edema of LLE Labs and images reviewed - WBC=12.03, CRP=23.2 Doppler NEGATIVE for acute DVT Assessment/Plan - RLE cellulitis with leukocytosis, elevated CRP, documented fever from home - failed outpatient keflex Patient is afebrile, HD stable, NAD nd non-toxic in appearance -Follow cultures -Patient may benefit from being taken off Amlodipine in the outpatient setting - may be contributing to her peripheral edema -Daptomycin -Management of chronic medical problems as above Resident Activity Tracking Resident Involvement: Resident Care Provided Care Provided: Adult Hospital Medicine
--- NOTE | 2021-07-05 23:48 | Billing Data ---
Date of Service July 05, 2021 Coding Level of Care Code 93533 Initial Inpt Care Lvl 3
[2021-07-06] MEDS ORDERED: ONDANSETRON INJ 2 MG/ML 2 ML VIAL IV PRN (03:20)
[2021-07-06] MEDS ORDERED: MELATONIN 3 MG TAB PO PRN (03:20)
[2021-07-06] MEDS ORDERED: MAGNESIUM HYDROXIDE SUSP 30 ML UDC PO PRN (03:20)
[2021-07-06] MEDS: LEVOTHYROXINE SODIUM 88 MCG TABLET PO SCH (06:18)
[2021-07-06 07:47] LABS: Basophils # (auto) 0.01 K/uL (0-0.2); Basophils % (auto) 0.1 %; Eosinophils # (auto) 0.11 K/uL (0-0.5); Eosinophils % (auto) 1.2 %; Hematocrit (blood only) 34.5 % (37-47); Hemoglobin 10.8 g/dL (12.0-16.0); Immature Granulocytes # (auto) 0.02 K/uL (0.00-0.02); Immature Granulocytes % (auto) 0.2 %; Lymphocytes # (auto) 1.11 K/uL (1.2-3.4); Lymphocytes % (auto) 11.7 %; Mean Corpuscular Hemoglobin 30.3 pg (25-34); Mean Corpuscular Hgb Conc 31.3 g/dL (32-36); Mean Corpuscular Volume 96.9 fL (80-100); Monocytes # (auto) 0.87 K/uL (0.11-0.59); Monocytes % (auto) 9.2 %; Neutrophils # (auto) 7.38 K/uL (1.4-6.5); Neutrophils % (auto) 77.6 %; Platelet Count 312 K/uL (130-400); RDW Coefficient of Variation 13.6 % (11.5-14.5); Red Blood Count 3.56 M/uL (4.2-5.4)
[2021-07-06 08:15] LABS: Calcium 9.3 mg/dl (8.5-10.1); Creatinine Clr Calc Pharmacy 55.7 ml/min; Est GFR (African American) 75.5 ml/min; Est GFR (Non-African American) 65.2 ml/min; Potassium 4.2 mmol/L (3.5-5.1)
[2021-07-06] MEDS: PANTOprazole 40 MG TAB PO SCH (09:41)
[2021-07-06] MEDS: FLUoxetine HCL 10 MG CAP PO SCH (09:41)
[2021-07-06] MEDS: GABAPENTIN 100 MG CAP PO SCH ×3 (09:42→20:30)
[2021-07-06] MEDS: PROPRANOLOL HCL LA 80 MG CAPCR PO SCH (09:42)
[2021-07-06] MEDS: HEPARIN SOD 5,000 UNIT/0.5 ML VIAL SQ SCH ×2 (09:42→20:33)
[2021-07-06] MEDS: FLUoxetine HCL 20 MG CAP PO SCH (09:42)
--- NOTE | 2021-07-06 11:31 | Hospitalist Progress Note ---
Date of Service July 06, 2021 Assessment & Plan (1) Lymphedema of lower extremity: Plan: 81 yo F with hx HFpEF, TIA, depression admitted for cellulitis and lower extremity swelling that failed outpatient treatment. Cellulitis - Reportedly febrile at home but has been afebrile since hospital admission. - WBC elevated at 12.03 on admission, resolved and is 9.5 this morning. - Lactate wnl. - CRP elevated at 23.2 on admission. - RLE doppler 07/05 negative for DVT - Patient not septic on admission. Blood cultures are pending. - MRSA nares negative. However, given that she failed outpatient management with Keflex, will continue Daptomycin at this point. - Trend CBC and CRP Peripheral Edema sec to acute on chronic HFpEF - Hold amlodipine 20 mg daily, likely contributing to edema - Lasix 40 mg x1 on admission due to possible component of fluid build. Additional dose of lasix 40mg x1 administered today, 07/06. - TTE in 2019 showing mild MR, EF 55-60% - External urinary catheter for I/O monitoring - proBNP 3498, CXR negative for pulmonary edema - Recommend that patient continue to elevate lower extremities and use BREANA stockings. Pressure ulcer precautions. Weakness - Progressively worsening over the past week w/ worsening cellulitis/swelling - Uses walker at baseline for ambulation - PT/OT evals, pending - lives at [facility] with , no home health or PT services at this time Chronic Conditions hx TIA - continue daily ASA, statin HTN - holding amlodipine as above, continue propranolol. Can consider switch to metoprolol. GERD - continue pantoprazole daily Hypothyroidism - continue levothyroxine Peripheral Neuropathy - continue gabapentin 100 mg TID Depression/Anxiety - continue fluoxetine 30 mg daily Arthritis - diclofenac 75 mg BID PRN DVT ppx: heparin sq bid FEN/GI: low salt diet, on pantoprazole Bowel regimen: prn milk of mag Code Status: Full Code Dispo: med/surg, PT eval for difficulty ambulating. (2) Cellulitis of right lower leg: (3) Anxiety: (4) Depressive disorder: (5) DM w/o complication type II: Admission and Anticipated Discharge Date Admission Date: July 05, 2021 Supervising Physician Co-Signing Physician Notes Resident Physician Supervision Note: I independently interviewed and examined the patient and verified the varma history and physical, reviewed labs and image studies and agree with resident Dr. Nick findings and care plan. Subjective Patient admitted overnight for cellulitis and LE edema that failed outpatient management. Patient reports overall doing well today. No acute events overnight since admission. Is eating well w/o abdominal pain, nausea, or vomiting. Notes persistent pain, warmth, swelling, and erythema over the right martinez. Denies CP or SOB. Review of Systems Review of Systems: See HPI Physical Exam Physical Exam: GENERAL: Pleasant elderly female in no acute distress. Well developed and well nourished. Vital signs reviewed as above. EYES: EOMI. Anicteric sclerae. HENT: Moist mucous membranes. RESPIRATORY: Clear to auscultation bilaterally. No wheezing, rales, or rhonchi. CARDIOVASCULAR: Regular rate and rhythm. + murmur. ABDOMEN: Soft, non-tender and non-distended. No palpable masses. Normal bowel sounds. EXTREMITIES: 3-4+ pitting edema to RLE w/ tenderness to palpation. 2+ pitting edema to LLE w/o tenderness to palpation. . SKIN: Warm, dry. Erythema, warmth, and tenderness over right anterior martinez. NEUROLOGIC: A/O x3. No focal neurological deficits. PSYCHIATRIC: Cooperative. Appropriate mood and affect. Results & Data Results & Data ([facility]) Vital Signs (Past 12 Hours) Vital Signs Temp Pulse Pulse Resp BP BP Pulse Ox 07/06/21 06:59 37.1 C 68 18 128/76 97 07/06/21 03:20 37.2 C 75 20 129/74 97 07/06/21 00:43 68 16 127/63 89 L Laboratory Results 07/06/21 07/06/21 07/06/21 Range/Units 07:22 07:22 00:01 WBC 9.50 (4.8-10.8) K/uL RBC 3.56 L (4.2-5.4) M/uL Hgb 10.8 L (12.0-16.0) g/dL Hct 34.5 L (37-47) % MCV 96.9 (80-100) fL MCH 30.3 (25-34) pg MCHC 31.3 L (32-36) g/dL RDW Std Deviation 49.0 H (36.4-46.3) fL RDW Coeff of Danielle 13.6 (11.5-14.5) % Plt Count 312 (130-400) K/uL MPV 9.0 (7.4-10.4) fL Immature Gran % (Auto) 0.2 % Neut % (Auto) 77.6 % Lymph % (Auto) 11.7 % [place] % (Auto) 9.2 % Eos % (Auto) 1.2 % Baso % (Auto) 0.1 % Neut # (Auto) 7.38 H (1.4-6.5) K/uL Lymph # (Auto) 1.11 L (1.2-3.4) K/uL [place] # (Auto) 0.87 H (0.11-0.59) K/uL Eos # (Auto) 0.11 (0-0.5) K/uL Baso # (Auto) 0.01 (0-0.2) K/uL Immature Gran # (Auto) 0.02 (0.00-0.02) K/uL Sodium 140 (136-145) mmol/L Potassium 4.2 (3.5-5.1) mmol/L Chloride 106 (98-107) mmol/L Carbon Dioxide 26 (21-32) mmol/L Anion Gap 8.0 (3-11) BUN 36 H (7-18) mg/dl Creatinine 0.84 (0.6-1.2) mg/dl Est Cr Clr Drug Dosing 55.7 ml/min Est GFR ( Amer) 75.5 ml/min Est GFR (Non-Af Amer) 65.2 ml/min BUN/Creatinine Ratio 43.0 H (10-20) Glucose 98 (70-99) mg/dl Lactate (0.4-2.0) mmol/L Calcium 9.3 (8.5-10.1) mg/dl Total Bilirubin (0.2-1) mg/dl AST (15-37) U/L ALT (12-78) Alkaline Phosphatase (45-117) U/L C-Reactive Protein (0-0.29) mg/dl NT-Pro-B Natriuret Pep (0-1800) pg/ml Total Protein (6.4-8.2) gm/dl Albumin (3.4-5.0) gm/dl Globulin (2.5-4.0) gm/dl Albumin/Globulin Ratio (0.9-2) Nasal Screen MRSA (PCR) Negative (Negative) SARS-CoV-2, RNA, NAAT (NEGATIVE) 07/05/21 07/05/21 07/05/21 Range/Units 21:00 21:00 21:00 WBC 12.03 H (4.8-10.8) K/uL RBC 3.81 L (4.2-5.4) M/uL Hgb 11.5 L (12.0-16.0) g/dL Hct 36.5 L (37-47) % MCV 95.8 (80-100) fL MCH 30.2 (25-34) pg MCHC 31.5 L (32-36) g/dL RDW Std Deviation 47.8 H (36.4-46.3) fL RDW Coeff of Danielle 13.7 (11.5-14.5) % Plt Count 319 (130-400) K/uL MPV 9.0 (7.4-10.4) fL Immature Gran % (Auto) 0.3 % Neut % (Auto) 84.8 % Lymph % (Auto) 6.5 % [place] % (Auto) 7.5 % Eos % (Auto) 0.9 % Baso % (Auto) 0.0 % Neut # (Auto) 10.20 H (1.4-6.5) K/uL Lymph # (Auto) 0.78 L (1.2-3.4) K/uL [place] # (Auto) 0.90 H (0.11-0.59) K/uL Eos # (Auto) 0.11 (0-0.5) K/uL Baso # (Auto) 0.00 (0-0.2) K/uL Immature Gran # (Auto) 0.04 H (0.00-0.02) K/uL Sodium (136-145) mmol/L Potassium (3.5-5.1) mmol/L Chloride (98-107) mmol/L Carbon Dioxide (21-32) mmol/L Anion Gap (3-11) BUN (7-18) mg/dl Creatinine (0.6-1.2) mg/dl Est Cr Clr Drug Dosing ml/min Est GFR ( Amer) ml/min Est GFR (Non-Af Amer) ml/min BUN/Creatinine Ratio (10-20) Glucose (70-99) mg/dl Lactate 0.8 (0.4-2.0) mmol/L Calcium (8.5-10.1) mg/dl Total Bilirubin (0.2-1) mg/dl AST (15-37) U/L ALT (12-78) Alkaline Phosphatase (45-117) U/L C-Reactive Protein (0-0.29) mg/dl NT-Pro-B Natriuret Pep (0-1800) pg/ml Total Protein (6.4-8.2) gm/dl Albumin (3.4-5.0) gm/dl Globulin (2.5-4.0) gm/dl Albumin/Globulin Ratio (0.9-2) Nasal Screen MRSA (PCR) (Negative) SARS-CoV-2, RNA, NAAT NEGATIVE (NEGATIVE) 07/05/21 Range/Units 21:00 WBC (4.8-10.8) K/uL RBC (4.2-5.4) M/uL Hgb (12.0-16.0) g/dL Hct (37-47) % MCV (80-100) fL MCH (25-34) pg MCHC (32-36) g/dL RDW Std Deviation (36.4-46.3) fL RDW Coeff of Danielle (11.5-14.5) % Plt Count (130-400) K/uL MPV (7.4-10.4) fL Immature Gran % (Auto) % Neut % (Auto) % Lymph % (Auto) % [place] % (Auto) % Eos % (Auto) % Baso % (Auto) % Neut # (Auto) (1.4-6.5) K/uL Lymph # (Auto) (1.2-3.4) K/uL [place] # (Auto) (0.11-0.59) K/uL Eos # (Auto) (0-0.5) K/uL Baso # (Auto) (0-0.2) K/uL Immature Gran # (Auto) (0.00-0.02) K/uL Sodium 136 (136-145) mmol/L Potassium 4.6 (3.5-5.1) mmol/L Chloride 105 (98-107) mmol/L Carbon Dioxide 24 (21-32) mmol/L Anion Gap 8.0 (3-11) BUN 42 H (7-18) mg/dl Creatinine 1.09 (0.6-1.2) mg/dl Est Cr Clr Drug Dosing 45.3 ml/min Est GFR ( Amer) 55.1 ml/min Est GFR (Non-Af Amer) 47.6 ml/min BUN/Creatinine Ratio 38.1 H (10-20) Glucose 110 H (70-99) mg/dl Lactate (0.4-2.0) mmol/L Calcium 9.4 (8.5-10.1) mg/dl Total Bilirubin 0.5 (0.2-1) mg/dl AST 30 (15-37) U/L ALT 58 (12-78) Alkaline Phosphatase 125 H D (45-117) U/L C-Reactive Protein 23.20 H (0-0.29) mg/dl NT-Pro-B Natriuret Pep 3498 H (0-1800) pg/ml Total Protein 7.7 (6.4-8.2) gm/dl Albumin 2.8 L (3.4-5.0) gm/dl Globulin 4.9 H (2.5-4.0) gm/dl Albumin/Globulin Ratio 0.6 L (0.9-2) Nasal Screen MRSA (PCR) (Negative) SARS-CoV-2, RNA, NAAT (NEGATIVE) Diagnostic Findings US venous doppler LE RT HISTORY: 81 years-old Female swelling, eval for DVT acute pain and swelling of the right lower leg COMPARISON: Doppler study 07/01/2021 TECHNIQUE: Multiple real-time sonographic images of the right lower extremity deep venous structures were obtained assessing grayscale appearance, color and spectral flow. FINDINGS: Normal flow, compressibility, phasicity and augmentation. Subcutaneous edema limits evaluation of the calf veins. IMPRESSION: No sonographic evidence of deep venous thrombosis. ACT 112: Negative or not required by law. The above report was generated using voice recognition software. It may contain grammatical, syntax or spelling errors. Electronically signed by: Olegario Merida M.D. 07/05/2021 10:33 PM XR chest 1V portable HISTORY: 81 years-old Female Fever acute fever COMPARISON: Chest radiograph 12/20/2018 TECHNIQUE: Semierect AP view of the chest FINDINGS: Cardiac silhouette is enlarged. Chronic interstitial coarsening. No pneumoth orax. Unchanged blunting of the costophrenic angles with mild bibasilar densities. Eventration of the right hemidiaphragm. Degenerative changes of the shoulders and spine. Cervical spinal fusion hardware. Calcified left hilar lymph nodes. IMPRESSION: 1. Cardiomegaly without pulmonary edema. 2. Chronic interstitial coarsening with unchanged bibasilar densities, likely atelectatic. ACT 112: Negative or not required by law. The above report was generated using voice recognition software. It may contain grammatical, syntax or spelling errors. Electronically signed by: Olegario Merida M.D. 07/05/2021 9:[address] head/brain wo con CLINICAL HISTORY: 81 years-old Female with fall, CH[facility]. Acute head trauma status post fall TECHNIQUE: Multiple axial CT images of the head were obtained without contrast. A dose lowering technique was utilized adhering to the principles of ALARA. CT DOSE: 773.57 mGy.cm COMPARISON: Brain MRI 06/25/2021 FINDINGS: No acute intracranial hemorrhage, midline shift, intracranial mass, hydrocephalus, territorial ischemia or abnormal extra-axial collection. Age- related involutional changes. White matter hypodensities suggest chronic microvascular ischemic disease. Cerebral vascular calcifications. Chronic lacunar infarct of the left cerebellar hemisphere redemonstrated. The calvarium is intact. The paranasal sinuses, mastoid air cells, and middle ear cavities are clear. IMPRESSION: No acute intracranial abnormality. ACT 112: Negative or not required by law. The above report was generated using voice recognition software. It may contain grammatical, syntax or spelling errors. Electronically signed by: Olegario Merida M.D. 07/05/2021 9:44 PM Resident Activity Tracking Resident Involvement: Resident Care Provided Care Provided: [facility]
[2021-07-06] MEDS ORDERED: FUROSEMIDE 40 MG/4 ML VIAL IV ONE ×2 (12:59→15:32)
[2021-07-06] MEDS: SIMVASTATIN 10 MG TAB PO SCH (20:30)
[2021-07-06] MEDS: ASPIRIN 81 MG ECTAB PO SCH (20:30)
[2021-07-06] MEDS: LATANOPROST 0.005% OP SOLN 2.5 ML BTL OP SCH (22:35)
[2021-07-06] MEDS: DAPTOmycin 275 MG in SYRINGE 0 ML IV SCH (22:39)
[2021-07-06] MEDS: ACETAMINOPHEN 325 MG TAB PO PRN (22:43)
[2021-07-07] MEDS: LEVOTHYROXINE SODIUM 88 MCG TABLET PO SCH (05:34)
[2021-07-07 06:27] LABS: Hematocrit (blood only) 35.5 % (37-47); Hemoglobin 11.2 g/dL (12.0-16.0); Mean Corpuscular Hemoglobin 30.3 pg (25-34); Mean Corpuscular Hgb Conc 31.5 g/dL (32-36); Mean Corpuscular Volume 95.9 fL (80-100); Mean Platelet Volume 9.2 fL (7.4-10.4); Platelet Count 344 K/uL (130-400); RDW Coefficient of Variation 13.6 % (11.5-14.5); RDW Standard Deviation 48.3 fL (36.4-46.3); White Blood Count 10.57 K/uL (4.8-10.8)
--- NOTE | 2021-07-07 06:51 | Hospitalist Progress Note ---
Date of Service July 07, 2021 Assessment & Plan (1) Lymphedema of lower extremity: Plan: 81 yo F with hx HFpEF, TIA, depression admitted for cellulitis and lower extremity swelling that failed outpatient treatment. Cellulitis of RLE w/ lymphedema. Clinically improving - Spiked fever 38.6C 07/06 PM. Ordered UA. - WBC elevated at 12.03 on admission, resolved and is 9.5 this morning. - Lactate wnl. - CRP elevated at 23.2 on admission. Improving. - RLE doppler 07/05 negative for DVT - Patient not septic on admission. Blood cultures neg x 24 hrs - MRSA nares negative. However, given that she failed outpatient management with Keflex, will continue Daptomycin at this point. - Trend CBC Acute hospital delirium, resolved Overnight 07/06-07/07, s/p room change Peripheral Edema sec to acute on chronic HFpEF - Hold amlodipine 20 mg daily, likely contributing to edema - TTE in 2018 showing mild MR, EF 55-60% - Lasix 40 mg x1 on admission due to possible component of fluid build. A dditional doses of lasix 40mg IV provided 07/06 and 07/07 - External urinary catheter for I/O monitoring - proBNP 3498, CXR negative for pulmonary edema - Recommend that patient continue to elevate lower extremities and use BREANA stockings. Pressure ulcer precautions. Weakness - Progressively worsening over the past week w/ worsening cellulitis/swelling - Uses walker at baseline for ambulation - PT/OT evals, pending - lives at [facility] with , no home health or PT services at this time Chronic Conditions hx TIA - continue daily ASA, statin HTN - holding amlodipine as above, continue propranolol. Can consider switch to metoprolol. Propranolol 160 mg ER halved to 80mg in setting of soft BP 93/59; hold parameter 100 systolic GERD - continue pantoprazole daily Hypothyroidism - continue levothyroxine Peripheral Neuropathy - continue gabapentin 100 mg TID Depression/Anxiety - continue fluoxetine 30 mg daily Arthritis - diclofenac 75 mg BID PRN DVT ppx: heparin sq bid FEN/GI: low salt diet, on pantoprazole. Not on IV fluids. Bowel regimen: prn milk of mag Code Status: Full Code Dispo: med/surg, PT eval for difficulty ambulating. (2) Cellulitis of right lower leg: (3) Anxiety: (4) Depressive disorder: (5) DM w/o complication type II: Admission and Anticipated Discharge Date Admission Date: July 05, 2021 Supervising Physician Co-Signing Physician Notes Resident Physician Supervision Note: I independently interviewed and examined the patient and verified the varma history and physical, reviewed labs and image studies and agree with resident Dr Gustabo Ag findings and care plan. Subjective Main complaint is leg is very sore. Wobbly when ambulating. Ate breakfast. + BM today. Had confusion overnight during room change. No current confusion. Review of Systems Review of Systems: All systems reviewed & are unremarkable except as noted in HPI & below Constitutional: Denies fever, chills. chills yesterday, rsolved Eyes: Denies blurry vision, vision changes ENT: Denies sore throat Cardiovascular: Denies chest pain, palpitations Respiratory: Denies shortness of breath Gastrointestinal: Denies abdominal pain, nausea, vomiting, constipation, diarrhea Genitourinary: Denies urinary symptoms including dysuria Musculoskeletal: See HPI Neurological: Denies headache, numbness, tingling, focal weakness Physical Exam Physical Exam: General: A&Ox4. NAD. Cooperative. HEENT: Atraumatic, normocephalic. EOMI Pulm: CTAB. -wheezes, -rales, -rhonchi. No respiratory distress. Cardiac: RRR, -mrg. Radial pulses intact and symmetrical. Abdominal: Nontender, nondistended, soft. Integ: Chronic lymphadema of R. R leg swollen,sore. Mild erythema. mostly dull, w/ slight bright. Results & Data Results & Data ([facility]) Vital Signs (Past 12 Hours) Vital Signs Tmax 38.6C 2307. afebrile this AM. Intermittent HR ~100. weaned from 2L to room air 90-94 sat. Temp Pulse Resp BP Pulse Ox 07/07/21 02:03 37.7 C H 78 16 107/71 90 07/07/21 01:08 37.1 C 07/06/21 23:07 38.6 C H 102 H 20 129/75 90 Laboratory Results wbc 12.03->9.5->10.57. Hb stable 11.2. bmp reviewed. Cr .8. BUN/Cr 36.4H. CRP 32.2->17.9. BNP 3498 on 07/05/21. nasal mrsa neg. Diagnostic Findings 07/05/[address] for fall: no acute. 07/05 neg dvt on venous doppler. 07/05 cxr: see previous note. 07/05 BC NG x24hrs. 04/11/19 echo EF 55-60 Resident Activity Tracking Resident Involvement: Resident Care Provided Care Provided: Adult Hospital Medicine
[2021-07-07 07:10] LABS: BUN Creatinine Ratio 36.4 (10-20); C Reactive Protein 17.9 mg/dl (0-0.29); Calcium 9.2 mg/dl (8.5-10.1); Creatinine Clr Calc Pharmacy 58.5 ml/min; Est GFR (African American) 80.1 ml/min; Est GFR (Non-African American) 69.1 ml/min
[2021-07-07] MEDS: FLUoxetine HCL 20 MG CAP PO SCH (08:22)
[2021-07-07] MEDS: PANTOprazole 40 MG TAB PO SCH (08:22)
[2021-07-07] MEDS: GABAPENTIN 100 MG CAP PO SCH ×3 (08:22→21:19)
[2021-07-07] MEDS: FLUoxetine HCL 10 MG CAP PO SCH (08:22)
[2021-07-07] MEDS: PROPRANOLOL HCL LA 80 MG CAPCR PO SCH (08:23)
[2021-07-07] MEDS: DICLOFENAC SODIUM 75 MG TABCR PO PRN (08:23)
[2021-07-07] MEDS: HEPARIN SOD 5,000 UNIT/0.5 ML VIAL SQ SCH ×2 (08:24→21:19)
[2021-07-07] MEDS ORDERED: FUROSEMIDE 40 MG/4 ML VIAL IV STA (14:01)
[2021-07-07] MEDS: ASPIRIN 81 MG ECTAB PO SCH (21:19)
[2021-07-07] MEDS: SIMVASTATIN 10 MG TAB PO SCH (21:20)
[2021-07-07] MEDS: LATANOPROST 0.005% OP SOLN 2.5 ML BTL OP SCH (21:20)
[2021-07-07 21:29] LABS: Appearance Urine Cloudy (Clear); Bacteria Urine Automated Negative (Negative); Bilirubin Urine Negative (Negative); Blood Urine Negative (Negative); Color Urine Yellow; Epithelial Cell Urine Auto >30 /lpf (0-5); Glucose Urine UA Negative (Negative); Ketones Urine Negative (Negative); Leukocyte Esterase Urine Negative (Negative); Nitrite Urine Negative (Negative); Protein Urine Negative (Negative); Specific Gravity Urine 1.011 (1.000-1.030); Urobilinogen Urine Negative (Negative)
[2021-07-08] MEDS: LEVOTHYROXINE SODIUM 88 MCG TABLET PO SCH (05:29)
--- NOTE | 2021-07-08 07:04 | Hospitalist Progress Note ---
Date of Service July 08, 2021 Assessment & Plan (1) Cellulitis of right lower leg: Plan: Patient is an 81 year old female with PMHx Anxiety, Depression, DM2, HTN, admitted for R lower extremity cellulitis after failing outpatient Keflex 500mg TID started on 07/01/21. RLE Cellulitis -Failed outpatient course of Keflex 500mg TID -CRP elevated 23.2 on admission - down to 15.86 this AM -RLE Doppler 07/05 negative for DVT -Blood cultures negative x48 hours -Improving on Daptomycin IV, though still fairly tender and erythematous today -Will add CTX 2g loading dose now and continue CTX 1g QD -Plan for treatment total course 10-14 days of antibiotic therapy pending patients clinical status in AM -Repeat CRP and CBC in AM, if both labs and over all clinically improved, consider transition to PO Doxy and Omnicef for discharge home Peripheral Edema -Holding home amlodipine, pressures appropriate -Continue LE elevation -As cellulitis improves, recommend resuming BREANA stockings -Had received Lasix 40mg IV on admission and further doses on 07/06, 07/07 Weakness -PT/OT ordered HTN -Holding Amlodipine -Propranolol 80mg QD, reduced from home dose of 160mg for soft pressures while inpatient GERD -Continue Pantoprazole Hypothyroidism -Continue Levothyroxine Peripheral Neuropathy -Continue Gabapentin Anxiety/Depression -Continue Fluoxetine Dispo: Med/Surg FEN: HH low Na diet DVT: Heparin subq Code: Full Admission and Anticipated Discharge Date Admission Date: July 05, 2021 Supervising Physician Co-Signing Physician Notes Patient seen and examined, chart reviewed, case discussed with Dr. Cerda and I agree with the assessment and plan as above except as otherwise noted 81-year-old female with a history of depression, diabetes type 2, hypertension, and heart failure with preserved ejection fraction admitted for right lower extremity cellulitis which did not improve on Keflex. CRP downtrending, on clinical exam patient reports leg does not seem to have changed and remains erythematous and tender on exam. Given lack of clinical improvement on Dapto monotherapy, will broaden to include gram-negative coverage with ceftriaxone. Blood cultures remain negative.? Stasis fluid with difficult mobilization contributing to presentation, although surface of skin is notably tender and warm today. Once improving, gentle compression to help mobilize fluid and continue Lasix as tolerated. Amlodipine held for contribution to edema, remains normotensive today with propranolol also dose reduced. Ultrasound negative for DVT. Subjective Patient evaluated at the bedside this AM. Patient noting that her RLE was still fairly tender to palpation and felt her swelling had changed minimally since yesterday. She does note over all improvement in her redness, however, since starting the daptomycin. Patient does continue to note over all weakness, and is glad to hear that she will be seeing PT and OT. She otherwise feels wells, deneldon s any NVD, SOB, fever, chills, chest pain, chest pressure, abdominal pain. Review of Systems Review of Systems: All systems reviewed & are unremarkable except as noted in Subjective Physical Exam Constitutional: WD/WN, vitals as above Eyes: PERRL, conjunctivae normal, anicteric sclerae ENMT: external ear and nose normal, oropharynx normal Neck: trachea midline, no thyromegaly Respiratory: normal respiratory effort, lungs clear to auscultation Cardiovascular: Rate/Rhythm: regular rate and regular rhythm Extremities: + edema (trace to 1+ b/l, R>L ) Gastrointestinal (Abdomen): normal bowel sounds, soft, nontender, no hepatosplenomegaly Musculoskeletal: Head/Neck/Chest: normocephalic and head atraumatic Skin: + erythema (RLE mid martinez to post ankle with TTP ) Neurologic: moves all extremities Psychiatric: A+Ox3, euthymic affect Resident Activity Tracking Resident Involvement: Resident Care Provided Care Provided: Adult Hospital Medicine
[2021-07-08 08:10] LABS: Basophils # (auto) 0.02 K/uL (0-0.2); Basophils % (auto) 0.2 %; Eosinophils # (auto) 0.19 K/uL (0-0.5); Eosinophils % (auto) 1.9 %; Hemoglobin 10.7 g/dL (12.0-16.0); Immature Granulocytes # (auto) 0.08 K/uL (0.00-0.02); Immature Granulocytes % (auto) 0.8 %; Lymphocytes # (auto) 1.25 K/uL (1.2-3.4); Lymphocytes % (auto) 12.5 %; Mean Corpuscular Hemoglobin 30.1 pg (25-34); Mean Corpuscular Hgb Conc 31.5 g/dL (32-36); Mean Corpuscular Volume 95.8 fL (80-100); Mean Platelet Volume 9.2 fL (7.4-10.4); Monocytes # (auto) 0.98 K/uL (0.11-0.59); Monocytes % (auto) 9.8 %; Neutrophils # (auto) 7.47 K/uL (1.4-6.5); Neutrophils % (auto) 74.8 %; Platelet Count 328 K/uL (130-400); RDW Coefficient of Variation 13.6 % (11.5-14.5); RDW Standard Deviation 47.5 fL (36.4-46.3); Red Blood Count 3.55 M/uL (4.2-5.4); White Blood Count 9.99 K/uL (4.8-10.8)
[2021-07-08 08:29] LABS: Albumin Level 2.1 gm/dl (3.4-5.0); BUN Creatinine Ratio 31.3 (10-20); C Reactive Protein 15.8 mg/dl (0-0.29); Calcium 9.2 mg/dl (8.5-10.1); Creatinine Clr Calc Pharmacy 56.4 ml/min; Est GFR (African American) 76.6 ml/min; Est GFR (Non-African American) 66.1 ml/min; Potassium 4.5 mmol/L (3.5-5.1)
[2021-07-08 08:35] LABS: Albumin Globulin Ratio 0.5 (0.9-2); Bilirubin,Total 0.4 mg/dl (0.2-1); Globulin 4.6 gm/dl (2.5-4.0); Total Protein 6.7 gm/dl (6.4-8.2)
[2021-07-08] MEDS: FLUoxetine HCL 20 MG CAP PO SCH (09:01)
[2021-07-08] MEDS: FLUoxetine HCL 10 MG CAP PO SCH (09:01)
[2021-07-08] MEDS: GABAPENTIN 100 MG CAP PO SCH ×3 (09:01→20:22)
[2021-07-08] MEDS: HEPARIN SOD 5,000 UNIT/0.5 ML VIAL SQ SCH ×2 (09:02→20:23)
[2021-07-08] MEDS: PROPRANOLOL HCL LA 80 MG CAPCR PO SCH (09:04)
[2021-07-08] MEDS: ACETAMINOPHEN 325 MG TAB PO PRN (09:05)
[2021-07-08] MEDS: PANTOprazole 40 MG TAB PO SCH (09:05)
[2021-07-08] MEDS ORDERED: cefTRIAXone SODIUM 2,000 MG in DEXTROSE 5% 50 ML IV ONE (12:00)
[2021-07-08] MEDS: SIMVASTATIN 10 MG TAB PO SCH (20:22)
[2021-07-08] MEDS: ASPIRIN 81 MG ECTAB PO SCH (20:23)
[2021-07-08] MEDS: LATANOPROST 0.005% OP SOLN 2.5 ML BTL OP SCH (20:23)
[2021-07-08] MEDS: DAPTOmycin 275 MG in SYRINGE 0 ML IV SCH ×2 (22:17)
[2021-07-09] MEDS: LEVOTHYROXINE SODIUM 88 MCG TABLET PO SCH (05:49)
[2021-07-09 06:07] LABS: Basophils # (auto) 0.02 K/uL (0-0.2); Basophils % (auto) 0.2 %; Eosinophils # (auto) 0.19 K/uL (0-0.5); Eosinophils % (auto) 2.1 %; Hematocrit (blood only) 33.2 % (37-47); Hemoglobin 10.4 g/dL (12.0-16.0); Immature Granulocytes # (auto) 0.12 K/uL (0.00-0.02); Immature Granulocytes % (auto) 1.3 %; Lymphocytes # (auto) 1.34 K/uL (1.2-3.4); Lymphocytes % (auto) 14.9 %; Mean Corpuscular Hemoglobin 30.1 pg (25-34); Mean Corpuscular Hgb Conc 31.3 g/dL (32-36); Mean Corpuscular Volume 96.2 fL (80-100); Mean Platelet Volume 8.8 fL (7.4-10.4); Monocytes # (auto) 0.76 K/uL (0.11-0.59); Monocytes % (auto) 8.5 %; Neutrophils # (auto) 6.56 K/uL (1.4-6.5); Platelet Count 343 K/uL (130-400); RDW Coefficient of Variation 13.6 % (11.5-14.5); RDW Standard Deviation 48.1 fL (36.4-46.3); Red Blood Count 3.45 M/uL (4.2-5.4); White Blood Count 8.99 K/uL (4.8-10.8)
[2021-07-09 06:39] LABS: BUN Creatinine Ratio 29.7 (10-20); Calcium 9.2 mg/dl (8.5-10.1); Creatinine Clr Calc Pharmacy 70.9 ml/min; Est GFR (Non-African American) 82.8 ml/min; Potassium 4.3 mmol/L (3.5-5.1)
[2021-07-09 06:42] LABS: C Reactive Protein 14.7 mg/dl (0-0.29)
[2021-07-09] MEDS ORDERED: cefTRIAXone SODIUM 2,000 MG in DEXTROSE 5% 50 ML IV SCH (09:00)
[2021-07-09] MEDS: GABAPENTIN 100 MG CAP PO SCH ×3 (09:14→20:03)
[2021-07-09] MEDS: FLUoxetine HCL 20 MG CAP PO SCH (09:14)
[2021-07-09] MEDS: PANTOprazole 40 MG TAB PO SCH (09:15)
[2021-07-09] MEDS: PROPRANOLOL HCL LA 80 MG CAPCR PO SCH (09:15)
[2021-07-09] MEDS: FLUoxetine HCL 10 MG CAP PO SCH (09:15)
[2021-07-09] MEDS: HEPARIN SOD 5,000 UNIT/0.5 ML VIAL SQ SCH ×2 (09:16→20:03)
--- NOTE | 2021-07-09 10:29 | Hospitalist Progress Note ---
Date of Service July 09, 2021 Assessment & Plan (1) Cellulitis of right lower leg: Plan: Patient is an 81 year old female with PMHx Anxiety, Depression, DM2, HTN, admitted for R lower extremity cellulitis after failing outpatient Keflex 500mg TID started on 07/01/21. RLE Cellulitis -Failed outpatient course of Keflex 500mg TID -CRP elevated 23.2 on admission - down to 14.70 this AM -RLE Doppler 07/05 negative for DVT -Blood cultures negative x72 hours -Improving on Daptomycin IV, though still fairly tender and erythematous today -Despite addition of CTX day prior, tenderness still appears present. Erythema mildly improved. -Will escalate to Cefepime for pseudomonal coverage as well, 2g q12h -R Leg CT this AM negative for abscess or underlying osteomyelitis by CT standards. Peripheral Edema -Holding home amlodipine, pressures appropriate -Continue LE elevation -As cellulitis improves, recommend resuming BREANA stockings -Had received Lasix 40mg IV on admission and further doses on 07/06, 07/07 Weakness -PT/OT ordered HTN -Holding Amlodipine -Propranolol 80mg QD, reduced from home dose of 160mg for soft pressures while inpatient GERD -Continue Pantoprazole Hypothyroidism -Continue Levothyroxine Peripheral Neuropathy -Continue Gabapentin Anxiety/Depression -Continue Fluoxetine Dispo: Med/Surg FEN: HH low Na diet DVT: Heparin subq Code: Full Admission and Anticipated Discharge Date Admission Date: July 05, 2021 Supervising Physician Co-Signing Physician Notes Patient seen and examined, chart reviewed, case discussed with Dr. Cerda and I agree with the assessment and plan as above except as otherwise noted 81-year-old female with a history of depression, diabetes type 2, hypertension, and heart failure with preserved ejection fraction admitted for right lower extremity cellulitis which did not improve on Keflex. At bedside patient reports he continues to have right leg pain, otherwise feels similar to prior. No chest pain, no fevers, no chills. Is attempting to ambulate with PT/OT, has some pain in her distal right leg past the knee. On physical exam right lower extremity is slightly warm, prominently tender at the skin surface, and remains slightly erythematous. Dressing removed to reveal continued ulceration of anterior leg without purulent discharge. At this point she has not had adequate clinical improvement, remains with pain and tenderness and clinical signs of cellulitis. CT of the lower extremity to evaluate for underlying fluid collection/abscess/deeper spread obtained, shows soft tissue swelling of the calf but without underlying osteo or drainable fluid collection. Has been covered so far for general gram-negative's and MRSA, given her failure to clinically improve will broaden antibiotics to include Pseudomonas coverage with cefepime. Defer anaerobic coverage at this time. Subjective Patient evaluated in bed this AM. Patient noting that she hasn't had much change in regards to the pain in her leg, and also felt she was still having difficulties getting up and walking around. She feels that mentally she is more clear. She denies any fever, chills, SOB, chest pain, chest pressure, abdominal pain, NVD. Review of Systems Review of Systems: All systems reviewed & are unremarkable except as noted in Subjective Physical Exam Constitutional: WD/WN, vitals as above Eyes: PERRL, conjunctivae normal, anicteric sclerae ENMT: external ear and nose normal, oropharynx normal Neck: trachea midline, no thyromegaly Respiratory: normal respiratory effort, lungs clear to auscultation Cardiovascular: Rate/Rhythm: regular rate and regular rhythm Extremities: + edema (trace to 1+ b/l, R>L ) Gastrointestinal (Abdomen): normal bowel sounds, soft, nontender, no hepatosplenomegaly Musculoskeletal: Head/Neck/Chest: normocephalic and head atraumatic Skin: + ecchymosis (noted on the anterior thigh,appears slightly enlarged compared previous day) and + erythema (RLE mid martinez to post ankle with TTP, improved) Neurologic: moves all extremities Psychiatric: A+Ox3, euthymic affect Results & Data Results & Data ([facility]) Vital Signs (Past 12 Hours) Vital Signs Temp Pulse Resp BP Pulse Ox 07/09/21 07:17 37.0 C 76 14 153/84 H 96 Resident Activity Tracking Resident Involvement: Resident Care Provided Care Provided: Adult Hospital Medicine
--- NOTE | 2021-07-09 11:32 | CT Scan Report ---
CT tib/fib RT wo con CLINICAL HISTORY: Worsening anterior mid tib cellulitis bruise TECHNIQUE: Multidetector row helical CT of the right tibia and fibula was performed without intraveno us contrast. Coronal and sagittal reformations were obtained. Automated dose lowering techniques and/ or adjustment according to patient size were utilized for this examination. Comparison: None available at the time of this dictation. FINDINGS: Patient is status post total knee arthroplasty. Soft tissue stranding and skin thickening is seen abo ut the calf. No evidence of bony erosion to suggest osteomyelitis. IMPRESSION: Soft tissue swelling about the calf without evidence of underlying osteomyelitis or drainable fluid c ollection. ACT 112: Negative or not required by law. Electronically signed by: Valentín Borden M.D. 07/09/2021 11:31 AM
[2021-07-09] MEDS: ACETAMINOPHEN 325 MG TAB PO PRN (13:36)
[2021-07-09] MEDS: SACCHAROMYCES BOULARDII 250 MG CAP PO SCH (16:20)
[2021-07-09] MEDS: CEFEPIME 2,000 MG in SYRINGE 0 ML IV SCH (20:03)
[2021-07-09] MEDS: ASPIRIN 81 MG ECTAB PO SCH (20:03)
[2021-07-09] MEDS: SIMVASTATIN 10 MG TAB PO SCH (20:03)
[2021-07-09] MEDS: LATANOPROST 0.005% OP SOLN 2.5 ML BTL OP SCH (20:04)
[2021-07-09] MEDS: DAPTOmycin 275 MG in SYRINGE 0 ML IV SCH (22:12)
[2021-07-10] MEDS: LEVOTHYROXINE SODIUM 88 MCG TABLET PO SCH (06:06)
[2021-07-10 06:15] LABS: Basophils # (auto) 0.01 K/uL (0-0.2); Basophils % (auto) 0.1 %; Eosinophils # (auto) 0.23 K/uL (0-0.5); Eosinophils % (auto) 2.2 %; Hematocrit (blood only) 35.1 % (37-47); Immature Granulocytes # (auto) 0.19 K/uL (0.00-0.02); Immature Granulocytes % (auto) 1.8 %; Lymphocytes # (auto) 1.65 K/uL (1.2-3.4); Lymphocytes % (auto) 15.9 %; Mean Corpuscular Hemoglobin 30.1 pg (25-34); Mean Corpuscular Hgb Conc 31.3 g/dL (32-36); Mean Corpuscular Volume 96.2 fL (80-100); Monocytes # (auto) 1.01 K/uL (0.11-0.59); Monocytes % (auto) 9.7 %; Neutrophils # (auto) 7.32 K/uL (1.4-6.5); Neutrophils % (auto) 70.3 %; Platelet Count 384 K/uL (130-400); RDW Coefficient of Variation 13.6 % (11.5-14.5); RDW Standard Deviation 47.7 fL (36.4-46.3); Red Blood Count 3.65 M/uL (4.2-5.4); White Blood Count 10.41 K/uL (4.8-10.8)
[2021-07-10 07:03] LABS: BUN Creatinine Ratio 29.3 (10-20); Calcium 9.2 mg/dl (8.5-10.1); Creatinine Clr Calc Pharmacy 62.4 ml/min; Est GFR (African American) 86.6 ml/min; Est GFR (Non-African American) 74.8 ml/min; Potassium 4.5 mmol/L (3.5-5.1)
[2021-07-10 07:05] LABS: C Reactive Protein 12.7 mg/dl (0-0.29)
[2021-07-10] MEDS: ACETAMINOPHEN 325 MG TAB PO PRN ×2 (07:45→13:32)
[2021-07-10] MEDS: DICLOFENAC SODIUM 75 MG TABCR PO PRN ×2 (07:46→20:34)
[2021-07-10] MEDS: GABAPENTIN 100 MG CAP PO SCH ×3 (07:47→20:33)
[2021-07-10] MEDS: HEPARIN SOD 5,000 UNIT/0.5 ML VIAL SQ SCH ×2 (07:48→20:35)
[2021-07-10] MEDS: FLUoxetine HCL 10 MG CAP PO SCH (07:49)
[2021-07-10] MEDS: PROPRANOLOL HCL LA 80 MG CAPCR PO SCH (07:49)
[2021-07-10] MEDS: PANTOprazole 40 MG TAB PO SCH (07:49)
[2021-07-10] MEDS: FLUoxetine HCL 20 MG CAP PO SCH (07:49)
[2021-07-10] MEDS: SACCHAROMYCES BOULARDII 250 MG CAP PO SCH (07:50)
[2021-07-10] MEDS: CEFEPIME 2,000 MG in SYRINGE 0 ML IV SCH (07:58)
[2021-07-10] MEDS ORDERED: PIPERACILL/TAZOBAC CONSULT ACTIVE PRN (08:11)
[2021-07-10] MEDS ORDERED: PIPERACILLIN/TAZOBACTAM 3.375 GM in DEXTROSE 5% 100 ML IV ONE (08:30)
--- NOTE | 2021-07-10 13:20 | Hospitalist Progress Note ---
Date of Service July 10, 2021 Assessment & Plan (1) Cellulitis of right lower leg: Plan: Patient is an 81 year old female with PMHx Anxiety, Depression, DM2, HTN, admitted for R lower extremity cellulitis after failing outpatient Keflex 500mg TID started on 07/01/21. RLE Cellulitis -Failed outpatient course of Keflex 500mg TID -CRP elevated 23.2 on admission - down to 12.70 this AM -RLE Doppler 07/05 negative for DVT -Blood cultures negative to date -Has had some improvement on Daptomycin -Cefepime added yesterday for pseudomonal coverage with relatively unchanged tenderness today -Will D/C Cefepime and replace with Zosyn for further anaerobic coverage as well. -R Leg CT on 07/09/21 negative for abscess or underlying osteomyelitis by CT standards. -As serous fluid was draining from the anterior martinez wound/bruise, will send for culture. Limited utility unless unique bacterial growth noted as patient has been on antibiotics for several days now. Peripheral Edema -Holding home amlodipine, pressures appropriate -Continue LE elevation -As cellulitis improves, recommend resuming BREANA stockings -Had received Lasix 40mg IV on admission and further doses on 07/06, 07/07 Weakness -PT/OT ordered HTN -Holding Amlodipine -Propranolol 80mg QD, reduced from home dose of 160mg for soft pressures while inpatient GERD -Continue Pantoprazole Hypothyroidism -Continue Levothyroxine Peripheral Neuropathy -Continue Gabapentin Anxiety/Depression -Continue Fluoxetine Dispo: Med/Surg FEN: HH low Na diet DVT: Heparin subq Code: Full Admission and Anticipated Discharge Date Admission Date: July 05, 2021 Supervising Physician Co-Signing Physician Notes Patient seen and examined, chart reviewed, case discussed with Dr. Cerda and I agree with the assessment and plan as above except as otherwise noted 81-year-old female with a history of depression, diabetes type 2, hypertension, and heart failure with preserved ejection fraction admitted for right lower extremity cellulitis which did not improve on Keflex. Patient with continued pain and inadequate clinical improvement, and persistent erythema/warmth last night with antibiotics expanded to Zosyn this morning.No fever/chills/sweats. No nausea/vomiting, tolerating meals well. Some improvement on reassessment, midday right lower extremity with clear serous discharge from ulceration, surrounding warmth/erythema slightly improved from morning. Symmetrical chest rise, breathing unlabored, radial pulse intact with regular rate. Visual acuity/hearing grossly intact. Sensation intact in distal extremities bilaterally. Continue antibiotics at this time and follow for clinical improvement, expect somewhat delayed response with mobilization of inflammatory fluid. No leukocytosis, afebrile. Continue to follow cultures. Subjective Patient evaluated at the bedside this AM. Patient noted she was having RLE pain as she had been in the chair and only recently got back into the bed. She notes that the pain has not really improved since yesterday and she does still have concerns in regards to getting around once home if her pain would continue on like this. She notes that she has had some difficulty participating with PT because of the pain. She otherwise denies any fever, chills, SOB, chest pain, chest pressure, abdominal pain, dysuria. Review of Systems Review of Systems: All systems reviewed & are unremarkable except as noted in Subjective Physical Exam Constitutional: WD/WN, vitals as above Eyes: PERRL, conjunctivae normal, anicteric sclerae ENMT: external ear and nose normal, oropharynx normal Neck: trachea midline, no thyromegaly Respiratory: normal respiratory effort, lungs clear to auscultation Cardiovascular: Rate/Rhythm: regular rate and regular rhythm Extremities: + edema (trace to 1+ b/l, R>L ) Gastrointestinal (Abdomen): normal bowel sounds, soft, nontender, no hepatosplenomegaly Musculoskeletal: Head/Neck/Chest: normocephalic and head atraumatic Skin: + ecchymosis (noted on the anterior martinez, with serous drainage) and + erythema (RLE mid martinez to post ankle with TTP, stable) Neurologic: moves all extremities Psychiatric: A+Ox3, euthymic affect Results & Data Results & Data ([facility]) Vital Signs (Past 12 Hours) Vital Signs Temp Pulse Resp BP Pulse Ox 07/10/21 07:13 36.5 C 95 H 18 128/77 96 Resident Activity Tracking Resident Involvement: Resident Care Provided Care Provided: Adult Hospital Medicine
[2021-07-10] MEDS: PIPERACILLIN/TAZOBACTAM 4.5 GM in DEXTROSE 5% 100 ML IV SCH ×2 (13:27→20:35)
[2021-07-10] MEDS ORDERED: SODIUM CHLORIDE 0.9% 1000ML 500 ML IV ONE (16:01)
--- NOTE | 2021-07-10 17:17 | Billing Data ---
Date of Service July 10, 2021 Coding Level of Care Code 92390 Subseq Hosp Care Lvl 2
[2021-07-10] MEDS: ASPIRIN 81 MG ECTAB PO SCH (20:33)
[2021-07-10] MEDS: SIMVASTATIN 10 MG TAB PO SCH (20:35)
[2021-07-10] MEDS: LATANOPROST 0.005% OP SOLN 2.5 ML BTL OP SCH (20:36)
[2021-07-10] MEDS: DAPTOmycin 275 MG in SYRINGE 0 ML IV SCH (23:08)
[2021-07-11] MEDS: LEVOTHYROXINE SODIUM 88 MCG TABLET PO SCH (05:44)
[2021-07-11] MEDS: PIPERACILLIN/TAZOBACTAM 4.5 GM in DEXTROSE 5% 100 ML IV SCH (05:44)
--- NOTE | 2021-07-11 07:19 | Hospitalist Progress Note ---
Date of Service July 11, 2021 Assessment & Plan (1) Cellulitis of right lower leg: Plan: Patient is an 81 year old female with PMHx Anxiety, Depression, DM2, HTN, admitted for R lower extremity cellulitis after failing outpatient Keflex 500mg TID started on 07/01/21. RLE Cellulitis -Failed outpatient course of Keflex 500mg TID -CRP elevated 23.2 on admission - down to 12.70 this AM -RLE Doppler 07/05 negative for DVT -Blood cultures negative to date -Has had some improvement on Daptomycin -Cefepime added yesterday for pseudomonal coverage with relatively unchanged tenderness today -Will D/C Cefepime and replace with Zosyn for further anaerobic coverage as well. -R Leg CT on 07/09/21 negative for abscess or underlying osteomyelitis by CT standards. -As serous fluid was draining from the anterior martinez wound/bruise, will send for culture. Limited utility unless unique bacterial growth noted as patient has been on antibiotics for several days now. Peripheral Edema -Holding home amlodipine, pressures appropriate -Continue LE elevation -As cellulitis improves, recommend resuming BREANA stockings -Had received Lasix 40mg IV on admission and further doses on 07/06, 07/07 Weakness -PT/OT ordered HTN -Holding Amlodipine -Propranolol 80mg QD, reduced from home dose of 160mg for soft pressures while inpatient GERD -Continue Pantoprazole Hypothyroidism -Continue Levothyroxine Peripheral Neuropathy -Continue Gabapentin Anxiety/Depression -Continue Fluoxetine Dispo: Med/Surg FEN: HH low Na diet DVT: Heparin subq Code: Full Admission and Anticipated Discharge Date Admission Date: July 05, 2021 Subjective Patient evaluated this AM while seated next to the bed and eating breakfast. Patient noted that she was feeling "pretty good" this morning. She notes she was able to ambulate to the bathroom and back to her chair with minimal pain. She did still note tenderness to palpation, but otherwise was feeling well. Denied any NVD, SOB, chest pain, fever, chills, abdominal pain. Review of Systems Review of Systems: All systems reviewed & are unremarkable except as noted in Subjective Physical Exam Constitutional: WD/WN, vitals as above Eyes: PERRL, conjunctivae normal, anicteric sclerae ENMT: external ear and nose normal, oropharynx normal Neck: trachea midline, no thyromegaly Respiratory: normal respiratory effort, lungs clear to auscultation Cardiovascular: Rate/Rhythm: regular rate and regular rhythm Extremities: + edema (trace to 1+ b/l, R>L ) Gastrointestinal (Abdomen): normal bowel sounds, soft, nontender, no hepatosplenomegaly Musculoskeletal: Head/Neck/Chest: normocephalic and head atraumatic Skin: + ecchymosis (noted on the anterior martinez, with serous drainage, bandaged) and + erythema (RLE mid martinez to post ankle with TTP, improved) Neurologic: moves all extremities Psychiatric: A+Ox3, euthymic affect Results & Data Results & Data ([facility]) Vital Signs (Past 12 Hours) Vital Signs Temp Pulse Resp BP Pulse Ox 07/10/21 22:59 36.4 C L 62 18 146/81 H 96
[2021-07-11] MEDS: PANTOprazole 40 MG TAB PO SCH (07:58)
[2021-07-11] MEDS: PROPRANOLOL HCL LA 80 MG CAPCR PO SCH (07:58)
[2021-07-11] MEDS: FLUoxetine HCL 20 MG CAP PO SCH (07:58)
[2021-07-11] MEDS: FLUoxetine HCL 10 MG CAP PO SCH (07:58)
[2021-07-11] MEDS: SACCHAROMYCES BOULARDII 250 MG CAP PO SCH (07:58)
[2021-07-11] MEDS: HEPARIN SOD 5,000 UNIT/0.5 ML VIAL SQ SCH (07:59)
[2021-07-11] MEDS: GABAPENTIN 100 MG CAP PO SCH ×2 (07:59→13:59)
[2021-07-11] MEDS: ACETAMINOPHEN 325 MG TAB PO PRN (08:01)
[2021-07-11] MEDS: DICLOFENAC SODIUM 75 MG TABCR PO PRN (08:15)
[2021-07-11 09:03] LABS: Basophils # (auto) 0.02 K/uL (0-0.2); Basophils % (auto) 0.2 %; Eosinophils # (auto) 0.23 K/uL (0-0.5); Eosinophils % (auto) 2.1 %; Hematocrit (blood only) 34.5 % (37-47); Hemoglobin 10.8 g/dL (12.0-16.0); Immature Granulocytes # (auto) 0.24 K/uL (0.00-0.02); Immature Granulocytes % (auto) 2.2 %; Lymphocytes # (auto) 1.14 K/uL (1.2-3.4); Lymphocytes % (auto) 10.6 %; Mean Corpuscular Hemoglobin 30.1 pg (25-34); Mean Corpuscular Hgb Conc 31.3 g/dL (32-36); Mean Corpuscular Volume 96.1 fL (80-100); Mean Platelet Volume 8.8 fL (7.4-10.4); Monocytes # (auto) 0.51 K/uL (0.11-0.59); Monocytes % (auto) 4.7 %; Neutrophils # (auto) 8.66 K/uL (1.4-6.5); Neutrophils % (auto) 80.2 %; Platelet Count 315 K/uL (130-400); RDW Coefficient of Variation 13.6 % (11.5-14.5); RDW Standard Deviation 47.6 fL (36.4-46.3); Red Blood Count 3.59 M/uL (4.2-5.4)
[2021-07-11 09:24] LABS: BUN Creatinine Ratio 23.5 (10-20); C Reactive Protein 10.8 mg/dl (0-0.29); Calcium 8.8 mg/dl (8.5-10.1); Est GFR (African American) 49.1 ml/min; Est GFR (Non-African American) 42.4 ml/min; Potassium 4.4 mmol/L (3.5-5.1)
[2021-07-11] MEDS ORDERED: CIPROFLOXACIN 500 MG TAB PO SCH (12:00)
[2021-07-11] MEDS ORDERED: metroNIDAZOLE 500 MG TAB PO SCH (14:00)
--- NOTE | 2021-07-11 17:14 | Discharge Summary ---
Date of Service July 11, 2021 Admission HPI Per Admitting Provider 81 yo F with PMH HFpEF (55-60%) in ER for complaints of worsening peripheral edema and cellulitis. Was seen by her PCP on 07/01, started on lasix 20 mg PO daily and keflex 500 TID. She attests to having taken the medications as prescribed, but denies any improvements in symptoms. Has been trying to elevate legs during the day, but without much improvement in swelling. Denies any sx of orthopnea, PND, SOB, MENDES. 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 She did have a fever of 100.7 at home measured by oral thermometer, but has been afebrile thus far in the ER. ER Course: CT head negative, LE US negative, Daptomycin x1, Ceftriaxone x1, Lasix 40 mg x1 Admission Exam Per Admitting Provider Constitutional: pleasant obese elderly female, in no apparent distress,laying comfortably in bed. Eyes: EOMI, pupils equal and reactive bilaterally, no scleral icterus Cardiac: RRR, 3/6 murmur at LLSB, no gallops or rubs. Normal S1, S2 Pulm: CTA BL, no wheezes, rhonchi, crackles or rubs, moving air well throughout both lungs Abd: soft, nontender, nondistended, normal bowel sounds, no rebound or guarding Extremities:pulses difficult to palpate due to severe edema, 4+ pitting edema of right foot, 2+ pitting edema of left foot, Skin: erythematous, warm, tender area over right anterior martinez Neuro: no focal deficits, moving all 4 limbs, A&Ox3 Principal Diagnosis Right Lower Extremity Cellulitis Discharge Exam Constitutional WD/WN, vitals as above Eyes PERRL, conjunctivae normal, anicteric sclerae ENMT external ear and nose normal, oropharynx normal Neck trachea midline, no thyromegaly Respiratory normal respiratory effort, lungs clear to auscultation Cardiovascular Rate/Rhythm: regular rate and regular rhythm Heart Sounds: no murmur Extremities: + edema (trace b/l, r>L) Gastrointestinal (Abdomen) normal bowel sounds, soft, nontender, no hepatosplenomegaly Musculoskeletal R distal LE with slight swelling. Also notable for mild erythema, improving. Anterior martinez bruising with minimal serous discharge Neurologic PERRL, EOMI, accommodation nl, no face palsy, no dysarthria Psychiatric A+Ox3, euthymic affect Discharge Data Allergies Allergy/AdvReac Type Severity Reaction Status Date / Time Bactrim Allergy Intermediate RASH Verified 01/28/18 14:04 pneumococcal vaccine Allergy Unknown REDNESS , Verified 07/05/21 21:42 CHILLS, HIVES sulfamethoxazole Allergy Unknown RASH Verified 07/05/21 21:42 trimethoprim Allergy Unknown RASH Verified 07/05/21 21:42 Consultations 07/05/21 23:01 ED Decision to Admit Stat Ordered Studies 07/05/21 20:43 US venous doppler LE RT Stat 07/05/21 20:45 CT head/brain wo con Stat 07/09/21 09:49 CT tib/fib RT wo con Urgent Hospital Course (1) Cellulitis of right lower leg: Patient is an 81 year old female with PMHx Anxiety, Depression, DM2, HTN, admitted for R lower extremity cellulitis after failing outpatient Keflex 500mg TID started on 07/01/21. To Do Outpatient: 1) Follow up in 1 week with PCP to assess leg swelling/erythema/pain 2) Repeat BMP to monitor kidney function, last Creatinine 1.2 at discharge 3) Repeat CRP, 10.8 on day of discharge 4) Recheck blood pressures outpatient, were relatively stable when inpatient while Amlodipine was held, was 162/80 on discharge so resumed. RLE Cellulitis -Failed outpatient course of Keflex 500mg TID -CRP elevated 23.2 on admission - down to 10.8 on day of discharge -RLE Doppler 07/05 negative for DVT -Blood cultures negative to date -Received 5 total days of MRSA coverage with Daptomycin. -Further improvement was noted primarily with addition of Pseudomonas and Anaerobic Coverage -Patient had recieved 1 day of Cefepime and 1 of Zosyn -Patient switched to Orals, Ciprofloxacin 500mg BID x8 days and Metronidazole 500mg TID x9 days for total 10 day coverage for pseudomonas and anaerobes -R Leg CT on 07/09/21 negative for abscess or underlying osteomyelitis by CT standards. Peripheral Edema -Held home amlodipine, pressures appropriate -Continued LE elevation -As cellulitis improves, recommend resuming BREANA stockings -Had received Lasix 40mg IV on admission and further doses on 07/06, 07/07 -Amlodipine resumed at discharge as BP 162/80 Weakness -PT/OT ordered HTN -Held Amlodipine -Propranolol 80mg QD, reduced from home dose of 160mg for soft pressures while inpatient -Resumed both at previous dosages on discharge as BP elevated GERD -Continued Pantoprazole Hypothyroidism -Continued Levothyroxine Peripheral Neuropathy -Continued Gabapentin Anxiety/Depression -Continued Fluoxetine Total Time Total Time Spent Total Time Spent (In Minutes): see attending attestation Discharge Plan Discharge Items Patient Disposition: Home - Self-Care Reason For Visit: LE CELLULITIS Discharge Diagnosis: R lower Extremity Cellulitis Activity: Resume your previous activity Non-emergency contact: Primary Care Provider Call non-emergency contact if: you have any medication questions, your symptoms worsen, your pain is not controlled, your pain is worsening and your temperature is above 101.5 Follow-up/Referrals: Stefano Rodriguez MD [Primary Care Provider] - 07/25/21 10:30 am Diet: Low Sodium (2gm) Addtl Attending Provider Instructions: Ms. Baires, It was our pleasure caring for you at [facility] from 07/05 - 07/11/21 in regards to your Right Lower extremity cellulitis. While here, fortunately your blood cultures have been negative and over all you have felt well. You were started on IV antibiotics with notable improvement in the swelling and redness of your leg. You may still experience some discomfort, but this is likely due more to the swelling and inflammatory fluid still in your leg more so than infection. As you are able to move around more, this should improve. You are also being sent home with two (2) antibiotics to complete your treatment course. Please see below on your medication changes. Please also see below for other instructions. -Please follow up with your PCP to have your leg checked in the next 1 week, ea rly next week if possible. -Please berry picker the below antibiotics: -Ciprofloxacin 500mg 1 tablet twice (2) a day for eight (8) days -Metronidazole 500mg 1 tablet three (3) times a day for nine (9) days -If your symptoms worsen, you develop a fever, or your pain is uncontrolled, please return to the ED for reevaluation. -Please continue your home medications as prescribed. Pending Studies at Discharge: No Stand-Alone Forms: My [facility], Smoking Cessation Medications and DC Order Prescriptions: New metronidazole 500 mg Tablet 500 mg PO TID 9 Days Qty: 27 RF: 0 ciprofloxacin HCl 500 mg Tablet 500 mg PO BID 8 Days Qty: 16 RF: 0 Continued cholecalciferol (vitamin D3) 5,000 unit capsule 5,000 units PO 5XWK RF: 0 omega-3 fatty acids 1,000 mg capsule 1,000 mg PO BID RF: 0 aspirin 81 mg tablet,delayed release (DR/EC) 81 mg PO HS RF: 0 calcium citrate-vitamin D3 200 mg calcium -250 unit tablet 1 tab PO BID RF: 0 mecobalamin (vitamin B12) 1,000 mcg tablet,disintegrating 1,000 mcg SL 3XWK RF: 0 diclofenac sodium [Voltaren] 1 % gel 1 - 2 gm TOP BID PRN (Reason: Pain) Qty: 100 RF: 12 pantoprazole [Protonix] 40 mg tablet,delayed release (DR/EC) 40 mg PO QAM Qty: 90 RF: 3 simvastatin [Zocor] 10 mg tablet 10 mg PO HS Qty: 90 RF: 3 diclofenac sodium 75 mg tablet,delayed release (DR/EC) 75 mg PO BID Qty: 180 RF: 3 diazepam [Valium] 5 mg tablet 5 mg PO .COMPLEX PRN (Reason: anxiety) Qty: 2 RF: 0 High Potency Iron 27 mg iron tablet 27 mg PO DAILY RF: 0 cranberry 500 mg capsule 500 mg PO DAILY RF: 0 fluoxetine 10 mg capsule 10 mg PO DAILY Qty: 30 RF: 0 amlodipine 10 mg tablet 20 mg PO QAM RF: 0 cephalexin 500 mg capsule 500 mg PO TID Qty: 30 RF: 0 furosemide 20 mg tablet 20 mg PO DAILY Qty: 5 RF: 0 fluoxetine 20 mg tablet 20 mg PO DAILY Qty: 30 RF: 2 latanoprost 0.005 % drops 1 drops OP HS RF: 0 gabapentin 100 mg capsule 100 mg PO TID Qty: 90 RF: 2 propranolol 160 mg capsule,extended release 24 hr 160 mg PO QAM RF: 0 levothyroxine 88 mcg tablet 88 mcg PO QAM RF: 0 Discharge Orders: Discharge Order (Routine); Ordered 07/11/21 Ordered By: Hernan Gatica/Other Patient Handouts: ED Cellulitis Admission Data Admit Date/Time: 07/05/21 23:15 Attending Provider: Donavon Kaiser Admit Provider: Stephanie Sales Primary Care Provider: Stefano Rodriguez Other Providers: Jo Ann Bojorquez Other Interventions: Discharge Summary Assessment (RN) Last Done: 07/11/21 14:31 Supervising Physician Co-Signing Physician Notes Patient seen and examined, chart reviewed, case discussed with Dr. hernandez and I agree with the assessment and plan as above except as otherwise noted General: A&Ox3. NAD. Cooperative. HEENT: Atraumatic, normocephalic. Visual acuity/hearing intact Pulm: Symmetrical chest rise. No increase work of breathing. No respiratory d istress. Cardiac: RRR Abdominal: Nontender, nondistended, soft. BS present. Extremities, right lower extremity with minimal/nearly absent erythema, no surface tenderness, mild tenderness to squeeze and with pitting edema. Improved from prior, anterior ulceration with dressing in place and no discharge. Lower extremity with edema, without erythema/tenderness. As above patient is an 81-year-old female who presented with right lower extremity cellulitis which failed outpatient Keflex. She was expanded to MRSA coverage with failure to clinically improve, was then expanded to Pseudomonas and anaerobic coverage with gradual clinical improvement and downtrending CRP. She had a slight delay in overall improvement, but with steady decrease in CRP and suspect that clinical lack was likely due to mobilization of inflammatory fluid. Overall she was in minimal pain, with improvement of her erythema and no surface tenderness on day of discharge. Was cleared by PT, and discharged to complete 8 additional days of Cipro/Flagyl for Pseudomonas and anaerobic coverage of cellulitis and with follow-up to her PCP for additional blood work as noted above. Resident Activity Tracking Resident Involvement: Resident Care Provided Care Provided: Adult Hospital Medicine
--- NOTE | 2021-07-11 18:41 | Billing Data ---
Date of Service July 11, 2021 Coding Level of Care Code D/C DAY MANAGEMENT >30 MINS
--- NOTE | 2021-07-12 08:25 | Electrocardiogram Report ---
Test Reason : Blood Pressure : / mmHG Vent. Rate : 061 BPM Atrial Rate : 061 BPM P-R Int : 184 ms QRS Dur : 084 ms QT Int : 424 ms P-R-T Axes : 070 042 052 degrees QTc Int : 426 ms Normal sinus rhythm Normal ECG When compared with ECG of 26-OCT-2013 07:37, No significant change was found Confirmed by Ha Hurtado ([id number]) on 07/12/2021 8:25:24 AM Referred By: REFERRED SELF Confirmed By:Ha Hurtado
== END 2021-07-11 16:21 | disposition home or self-care (01) | DRG 602 ==
LOC: ED 20:29 → 2N 23:15 → SUATTDRO 23:15 → 2N 07-06 02:20 → 3E 07-07 01:48

== ENCOUNTER 2021-07-15 15:31 | Inpatient (IN) ==
[2021-07-15 19:58] LABS: Basophils # (auto) 0.04 K/uL (0-0.2); Basophils % (auto) 0.3 %; Eosinophils # (auto) 0.29 K/uL (0-0.5); Eosinophils % (auto) 2.4 %; Hematocrit (blood only) 36.2 % (37-47); Hemoglobin 11.2 g/dL (12.0-16.0); Immature Granulocytes # (auto) 0.47 K/uL (0.00-0.02); Mean Corpuscular Hgb Conc 30.9 g/dL (32-36); Mean Corpuscular Volume 97.1 fL (80-100); Mean Platelet Volume 8.8 fL (7.4-10.4); Monocytes # (auto) 1.18 K/uL (0.11-0.59); Neutrophils # (auto) 7.97 K/uL (1.4-6.5); Neutrophils % (auto) 67.3 %; Platelet Count 539 K/uL (130-400); RDW Coefficient of Variation 13.9 % (11.5-14.5); RDW Standard Deviation 49.4 fL (36.4-46.3); Red Blood Count 3.73 M/uL (4.2-5.4); White Blood Count 11.85 K/uL (4.8-10.8)
[2021-07-15 20:17] LABS: Alanine Aminotransferase 32 (12-78); Albumin Level 2.8 gm/dl (3.4-5.0); Aspartate Aminotransferase 23 U/L (15-37); Blood Urea Nitrogen 37 mg/dl (7-18); Calcium 9.1 mg/dl (8.5-10.1); Carbon Dioxide 27 mmol/L (21-32); Chloride 99 mmol/L (98-107); Est GFR (African American) 36.3 ml/min; Est GFR (Non-African American) 31.3 ml/min; Glucose 116 mg/dl (70-99); Potassium 4.6 mmol/L (3.5-5.1); Sodium 131 mmol/L (136-145)
[2021-07-15 20:19] LABS: Albumin Globulin Ratio 0.6 (0.9-2); Alkaline Phosphatase 83 U/L (45-117); Bilirubin,Total 0.3 mg/dl (0.2-1); Globulin 4.9 gm/dl (2.5-4.0); Total Protein 7.7 gm/dl (6.4-8.2)
--- NOTE | 2021-07-15 22:49 | Emergency Department Note ---
History of Present Illness General Chief complaint: Wound Stated complaint: CELLUTIIS FLARE, EDEMA, R LEG W/ OPEN WOUND Time Seen by Provider: 07/15/21 22:28 History of Present Illness Maximum Pain Intensity: 2 This is an 81-year-old female that presents to the emergency department via pr ivate vehicle accompanied by with complaints of "cellulitis flare, edema, right leg with open wound". The patient states that almost 2 weeks ago she began with redness and swelling to the right lower extremity. She presented here and was evaluated. She was diagnosed with cellulitis to the right lower extremity. She was started on antibiotics. She was admitted. She then was discharged just before the holiday. She was discharged on ciprofloxacin and metronidazole antibiotics which she has been compliant with. The has been doing dressing changes and notes that now the wound is enlarged, the right lower extremity is more edematous and now there is a purulence from the wound. They reached out to the PCPs office and spoke to a nurse today and were recommended to come here for further evaluation and management. Patient denies any fevers. She notes that she has been compliant with the prescribed antibiotic regimen. Home Medications Medication Instructions Recorded Confirmed Type aspirin 81 mg tablet,delayed 81 mg PO HS 03/29/18 07/15/21 History release calcium citrate 200 mg 1 tab PO BID 03/29/18 07/15/21 History calcium-vitamin D3 6.25 mcg (250 unit) tablet omega-3 fatty acids 1,000 mg 1,000 mg PO BID 03/29/18 07/15/21 History capsule cholecalciferol (vitamin D3) 125 5,000 units PO 5XWK cap 05/31/18 07/15/21 History mcg (5,000 unit) capsule mecobalamin (vitamin B12) 1,000 1,000 mcg SL 3XWK tab 05/31/18 07/15/21 History mcg disintegrating tablet,sublingual ferrous sulfate 27 mg iron tablet 27 mg PO DAILY tab 12/27/18 07/15/21 History (High Potency Iron) cranberry 500 mg capsule 500 mg PO DAILY cap 11/07/19 07/15/21 History latanoprost 0.005 % eye drops 1 drops OP HS 02/21/20 07/15/21 History pantoprazole 40 mg tablet,delayed 40 mg PO QAM #90 tab 07/05/20 07/15/21 Rx release (Protonix) simvastatin 10 mg tablet (Zocor) 10 mg PO HS #90 tab 08/03/20 07/15/21 Rx diclofenac sodium 75 mg 75 mg PO BID #180 tab 08/21/20 07/15/21 Rx tablet,delayed release levothyroxine 88 mcg tablet 88 mcg PO QAM 02/21/21 07/15/21 History propranolol 160 mg capsule,24 160 mg PO QAM 02/21/21 07/15/21 History hr,extended release fluoxetine 20 mg tablet 20 mg PO DAILY #30 tab 05/28/21 07/15/21 Rx gabapentin 100 mg capsule 100 mg PO TID #90 cap 06/05/21 07/15/21 Rx fluoxetine 10 mg capsule 10 mg PO DAILY #30 cap 06/27/21 07/15/21 Rx amlodipine 10 mg tablet 20 mg PO QAM tab 07/01/21 07/15/21 History cephalexin 500 mg capsule 500 mg PO TID #30 cap 07/01/21 07/15/21 Rx furosemide 20 mg tablet 20 mg PO DAILY #5 tab 07/01/21 07/15/21 Rx ciprofloxacin HCl 500 mg tablet 500 mg PO BID 8 Days #16 tab 07/11/21 07/15/21 Rx metronidazole 500 mg tablet 500 mg PO TID 9 Days #27 tab 07/11/21 07/15/21 Rx diclofenac sodium 1 % topical gel 1 - 2 g TOPICAL BID PRN 07/15/21 07/15/21 History Allergies Allergy/AdvReac Type Severity Reaction Status Date / Time pneumococcal vaccine Allergy Unknown REDNESS , Verified 07/15/21 23:22 CHILLS, HIVES sulfamethoxazole Allergy Unknown RASH Verified 07/15/21 23:22 trimethoprim Allergy Unknown RASH Verified 07/15/21 23:22 Past Med/Surg History Medical History (Updated 07/16/21 @ 06:32 by Donaldo Diallo PA-C) Anxiety Cervical cord myelomalacia Depression Diverticulosis of colon (without mention of hemorrhage) Exposure to COVID-19 virus History of gastrointestinal ulcer History of pancreatitis Hypercholesterolemia Hypertension Hypothyroidism IBS (irritable bowel syndrome) WITH DIARRHEA, ONGOING FOR LAST YR - REASON FOR UPCOMING PROCEDURE Osteoarthritis Peripheral neuropathy HANDS AND FEET Spinal stenosis HX LUMBAR Tremor BENIGN ESSENTIAL LEFT HAND X 5 YRS-NO DX. NO BETTER NO WORSE PER PT. Surgical History H/O gastric bypass History of bilateral tubal ligation History of cataract surgery R/L History of cholecystectomy History of colonoscopy History of esophagogastroduodenoscopy (EGD) History of eyelid surgery History of fusion of cervical spine C5-T2 2017 - MILD ROM LIMITATION History of hysterectomy History of pharyngoplasty History of tonsillectomy History of total knee arthroplasty R/L S/P laminectomy with spinal fusion HX Family History Mother Family history of diabetes mellitus Breast cancer Father Family history of diabetes mellitus Heart disease Family/Other Family history of diabetes mellitus Sister Congestive heart failure Breast cancer Stroke syndrome Brother Coronary heart disease Myocardial infarction Denies family history of Ovarian cancer Prostate cancer Colorectal cancer Social History Smoking Status: Never smoker Second Hand Exposure: No; Hx Alcohol Use: No Hx Substance Use: No Preferred Language: Citizen Of [place] Communication Ability: Effective Visual Impairment: No Limitations Hearing Ability: Normal Microsoft Architect Required: No Beliefs That Will Affect Care: None and Protestant Protestant Beliefs: RESTORATIONIST marital status: Current Living Situation: Spouse Current Living Situation Comment: LIVES AT [facility] current occupational status: retired Feels Safe at Home: Yes Childhood Exposure to Second-Hand Smoke: No Dental Care, Regularly: Yes Physical Activity Frequency: Does not Exercise Seatbelt Use: always Sunscreen Use: Yes Assistive Devices: Glasses and Hearing Aid - Bilateral Review of Systems A total of 10 systems reviewed and were otherwise negative Physical Exam Vital Signs Vital Signs - 24 hr 07/15/21 16:24 07/15/21 22:25 Temperature 36.5 C Temperature Source Temporal Artery Scan Pulse Rate 86 Pulse Rate [Apical] 55 L Respiratory Rate 20 19 Respiratory Effort / Characteristics Non-Labored Non-Labored Spontaneous Respiratory Depth Normal Normal Respiratory Pattern Regular Blood Pressure 110/60 Blood Pressure [Left Arm] 146/70 H Blood Pressure Mean 76 Blood Pressure Mean [Left Arm] 95 Blood Pressure Position [Left Arm] Lying Pulse Oximetry 96 96 Oxygen Delivery Method Room Air Room Air Sepsis Recent Fever Within 48 Hours No Sepsis New/Unexplained Change in Mental Status N/A Sepsis Action Taken by Nursing No Action Required VITAL SIGNS - Vital signs and nursing notes were reviewed. Stable and afebrile. GENERAL -81-year-old female appearing her stated age who is in no acute distress. Communicates well with provider and answers questions appropriately. SKIN -there is a wound noted to the right lower extremity, anterior portion of the martinez region. This is dark red in color and there is a yellowish purulence. There is also a clearish/straw-colored fluid noted from the area with the lymphedema. No lymphangitic streaking. No fluctuance. Pitting edema to the right lower extremity noted. HEAD - NC/AT. EYES - Sclera anicteric. EARS - No deformities of external structures noted on gross examination bilaterally. LUNGS - Chest wall symmetric without accessory muscle use, intercostals retra ctions, or central cyanosis. Normal vesicular breath sounds CTA B/L. No wheezes, rales, or rhonchi appreciated. CARDIAC - RRR EXTREMITIES -skin as above. Patient sensory intact in the right lower ex tremity. Wound as above. +5/5 strength noted in UE/LE bilaterally. Patient is neurovascularly intact in the right lower extremity. PSYCH - A&O, and cooperates fully with examiner. Pt is very pleasant and interacts well with examiner. Course Administered Medications Sodium Chloride (Nss) 500 mls @ 125 mls/hr IV .Q4H TONY Stop: 08/14/21 23:14 Last Admin: 07/16/21 03:17 Dose: 125 mls/hr Documented by: [id number] Infusion: 07/16/21 03:17 Dose: 125 mls/hr Documented by: [id number] Admin: 07/15/21 23:27 Dose: 125 mls/hr Documented by: [id number] Meropenem 500 mg/ Syringe 10 mls @ 2 mls/min IV Q8H TONY; Protocol Stop: 07/23/21 03:59 Last Admin: 07/16/21 04:21 Dose: 2 mls/min Documented by: [id number] Medical Decision Making Laboratory Data Result diagrams: 07/16/21 05:31 07/15/21 19:36 Lab Results 07/15/21 07/15/21 07/15/21 Range/Units 19:36 19:36 19:36 WBC 11.85 H (4.8-10.8) K/uL RBC 3.73 L (4.2-5.4) M/uL Hgb 11.2 L (12.0-16.0) g/dL Hct 36.2 L (37-47) % MCV 97.1 (80-100) fL MCH 30.0 (25-34) pg MCHC 30.9 L (32-36) g/dL RDW Std Deviation 49.4 H (36.4-46.3) fL RDW Coeff of Danielle 13.9 (11.5-14.5) % Plt Count 539 H (130-400) K/uL MPV 8.8 (7.4-10.4) fL Immature Gran % (Auto) 4.0 % Neut % (Auto) 67.3 % Lymph % (Auto) 16.0 % Morgan % (Auto) 10.0 % Eos % (Auto) 2.4 % Baso % (Auto) 0.3 % Neut # (Auto) 7.97 H (1.4-6.5) K/uL Lymph # (Auto) 1.90 (1.2-3.4) K/uL Morgan # (Auto) 1.18 H (0.11-0.59) K/uL Eos # (Auto) 0.29 (0-0.5) K/uL Baso # (Auto) 0.04 (0-0.2) K/uL Immature Gran # (Auto) 0.47 H (0.00-0.02) K/uL ESR 107 H (0-30) mm/hr Sodium 131 L (136-145) mmol/L Potassium 4.6 (3.5-5.1) mmol/L Chloride 99 (98-107) mmol/L Carbon Dioxide 27 (21-32) mmol/L Anion Gap 5.0 (3-11) BUN 37 H (7-18) mg/dl Creatinine 1.54 H (0.6-1.2) mg/dl Est Cr Clr Drug Dosing Not Reportable Est GFR ( Amer) 36.3 ml/min Est GFR (Non-Af Amer) 31.3 ml/min BUN/Creatinine Ratio 24.0 H (10-20) Glucose 116 H (70-99) mg/dl Calcium 9.1 (8.5-10.1) mg/dl Total Bilirubin 0.3 (0.2-1) mg/dl AST 23 (15-37) U/L ALT 32 (12-78) Alkaline Phosphatase 83 (45-117) U/L C-Reactive Protein 5.43 H (0-0.29) mg/dl Total Protein 7.7 (6.4-8.2) gm/dl Albumin 2.8 L (3.4-5.0) gm/dl Globulin 4.9 H (2.5-4.0) gm/dl Albumin/Globulin Ratio 0.6 L (0.9-2) Procalcitonin (0-0.5) ng/ml SARS-CoV-2, RNA, NAAT (NEGATIVE) 07/15/21 07/15/21 Range/Units 19:36 Unknown WBC (4.8-10.8) K/uL RBC (4.2-5.4) M/uL Hgb (12.0-16.0) g/dL Hct (37-47) % MCV (80-100) fL MCH (25-34) pg MCHC (32-36) g/dL RDW Std Deviation (36.4-46.3) fL RDW Coeff of Danielle (11.5-14.5) % Plt Count (130-400) K/uL MPV (7.4-10.4) fL Immature Gran % (Auto) % Neut % (Auto) % Lymph % (Auto) % Morgan % (Auto) % Eos % (Auto) % Baso % (Auto) % Neut # (Auto) (1.4-6.5) K/uL Lymph # (Auto) (1.2-3.4) K/uL Morgan # (Auto) (0.11-0.59) K/uL Eos # (Auto) (0-0.5) K/uL Baso # (Auto) (0-0.2) K/uL Immature Gran # (Auto) (0.00-0.02) K/uL ESR (0-30) mm/hr Sodium (136-145) mmol/L Potassium (3.5-5.1) mmol/L Chloride (98-107) mmol/L Carbon Dioxide (21-32) mmol/L Anion Gap (3-11) BUN (7-18) mg/dl Creatinine (0.6-1.2) mg/dl Est Cr Clr Drug Dosing Est GFR ( Amer) ml/min Est GFR (Non-Af Amer) ml/min BUN/Creatinine Ratio (10-20) Glucose (70-99) mg/dl Calcium (8.5-10.1) mg/dl Total Bilirubin (0.2-1) mg/dl AST (15-37) U/L ALT (12-78) Alkaline Phosphatase (45-117) U/L C-Reactive Protein (0-0.29) mg/dl Total Protein (6.4-8.2) gm/dl Albumin (3.4-5.0) gm/dl Globulin (2.5-4.0) gm/dl Albumin/Globulin Ratio (0.9-2) Procalcitonin < 0.05 (0-0.5) ng/ml SARS-CoV-2, RNA, NAAT NEGATIVE (NEGATIVE) MDM Narrative Patient was seen and evaluated as above in room C09. Review was performed of nursing notes and vital signs. I did review pertinent previous visits and patient history. After obtaining a thorough history and physical examination the above work up was performed. Patient presents to us today with worsening edema to the right lower extremity with increased drainage from the area. The year is erythema noted to the right lower extremity with evidence of a wound. Patient is currently on ciprofloxacin and metronidazole. She has been compliant with these medications. No evidence of necrotizing condition on exam. Options of care were discussed with the patient. Patient was seen during a period of high volume and acuity during the COVID-19 pandemic. Labs reveal no leukocytosis. Mild anemia noted. No emergent metabolic disturbance other than mild EDSON noted. Covid testing negative. Pro-[facility] negative. The patient notes that she is here because they reached out to the PCPs office and were recommended to come here for further evaluation and management. She is already on oral antibiotics. She notes worsening edema and redness to the wound and this is confirmed by her . Attending physician also evaluated the gene ent. At this time I do believe that further evaluation and management is warranted in the inpatient setting. Case discussed with the hospitalist. Please refer to further documentation regarding her stay. GCS: 15 In the evaluation and treatment of this patient the following differential diagnoses were entertained: Cellulitis, venous stasis ulcer, lymphedema, abscess, necrotizing fasciitis, among others. Impression & Plan Edema of right lower extremity, Erythema of lower extremity, Increased wound drainage Discharge Plan Visit Data Chief Complaint: Wound Stated Complaint: CELLUTIIS FLARE, EDEMA, R LEG W/ OPEN WOUND ED Provider: Genie Farmer ED Midlevel Provider: Donaldo Diallo Discharge Problem: Edema of right lower extremity, Erythema of lower extremity, Increased wound drainage Patient Disposition: Admitted As Inpatient Condition: Good Discharge Instructions Interventions: ED Discharge Assessment Last Done: 07/16/21 02:57
[2021-07-15] MEDS: SODIUM CHLORIDE 0.9% 500 ML IV SCH (23:27)
[2021-07-16 00:11] LABS: C Reactive Protein 5.43 mg/dl (0-0.29)
--- NOTE | 2021-07-16 00:24 | History & Physical Report ---
Date of Service July 16, 2021 Assessment & Plan (1) Cellulitis of right lower leg: Plan: Mrs. Baires is an 81 yo woman with a PMHx of chronic R LE lymphedema and type II diabetes who presents for failed outpatient management of RLE cellulitis. - SIRS criteria not met, patient not septic - WBC 11.85, up from 10.8 on 07/11 discharge. Wound Culture pending. Blood Cultures pending. - Procal neg. CRP 5.43, down from 10 on 07/11 discharge. ESR 107 - unsure of why gram positive coverage was not included with home oral regimen upon hospital discharge from 07/11 - I will start patient on meropenum, which provides MRSA and pseudomonas coverage (the latter implicated due to diabetes mellitus comorbidity). Narrow with culture results. - wound care nurse consulted - venous doppler of R LE ordered to rule out DVT - trend CBC (2) Elevated serum creatinine: Plan: - Cr elevated to 1.54, BUN at 37 - Cr was 1.20 at discharge on 07/11 - suspect pre-renal etiology - NSS ordered - trend BMP (3) Type II diabetes mellitus: Plan: - A1c from 05/2021 was 5.5, technically in pre-diabetic range - BSG ACHS with loose SSI parameters - patient does not appear to be on home oral agent at his time - continue daily baby ASA - of note patient is not on a high intensity statin - consider escalating from simvastatin to Lipitor or Crestor - carb consistent diet (4) Hyponatremia: Plan: - Na 131 on admission, down from 133 on discharge from 07/11/21 - NSS ordered - trend BMP (5) Hypothyroidism: Plan: - continue home dose levothyroxine (6) Depressive disorder: Plan: - continue home fluoxetine (7) Gastroesophageal reflux disease: Plan: - continue home dose protonix (8) Hypertension: Plan: - hold home amlodipine in the presence of acute on chronic LE edema - continue home propranolol (9) Peripheral neuropathy: Plan: - continue home gabapentin dose Diet: Carb consistent DVT ppx: Heparin 5,000units SQ q12 Dispo: Med/Surg. PT/OT placed - expresses desire for home health services upon discharge Code: Full, I discussed with patient. History of Present Illness Primary Care Provider: Stefano Rodriguez MD Mrs. Baires is an 81 yo woman with a PMHx of chronic lymphedema of the right lower extremity and type II diabetes mellitus who came to the [facility] ED for evaluation of acute worsening of her R LE cellulitis. Of note, she was admitted to [facility] from 07/05/21 to 07/11/21 for failed outpatient ma nagement of R LE cellulitis (she failed PO Keflex course). During her previous admission, she received 5 days of IV Daptomycin, 1 day of IV Cefepime, and 1 day of IV Zosyn. She was discharged on the following oral regimen: Ciprofloxacin 500mg BID x8 days and Metronidazole 500mg TID x9 days for total 10 day coverage for pseudomonas and anaerobes. Her wound culture and blood cultures from last admission finalized negative. She had a CT fo the R LE to assess for underlying abscess and osteomyelitis, however no evidence was shown of either. She insists she has been compliant with her home antibiotic regimen. This morning, her - who has been changing her bandage everyday- noted a dramatic increase in the wound size along with purulent drainage and acute worsening of her chronic R LE edema. She contacted her PCP who directed her to the ED for further evaluation. Never before in her life has she had a wound like this -upon discharge on 07/11/21, she reports only a small pore on the right martinez through which serosanguineous fluid was draining. Her chronic lymphedema has been present since she had a R knee replacement followed by a revision procedure. She denies any fever/chills. In the ED, she was afebrile, HR was 55bpm, BP was 146/70, breathing well on room air. WBC was 11.85. COVID 19 neg. Procal neg. CRP 5.43. ESR 107. Blood cultures drawn. Wound culture obtained. Cr 1.54, BUN at 37. Na at 131; electrolytes otherwise WNL. She was started on NSS at 125mls/hr. Allergies Allergy/AdvReac Type Severity Reaction Status Date / Time pneumococcal vaccine Allergy Unknown REDNESS , Verified 07/15/21 23:22 CHILLS, HIVES sulfamethoxazole Allergy Unknown RASH Verified 07/15/21 23:22 trimethoprim Allergy Unknown RASH Verified 07/15/21 23:22 Home Medications Medication Instructions Recorded Confirmed Type aspirin 81 mg tablet,delayed 81 mg PO HS 03/29/18 07/15/21 History release calcium citrate 200 mg 1 tab PO BID 03/29/18 07/15/21 History calcium-vitamin D3 6.25 mcg (250 unit) tablet omega-3 fatty acids 1,000 mg 1,000 mg PO BID 03/29/18 07/15/21 History capsule cholecalciferol (vitamin D3) 125 5,000 units PO 5XWK cap 05/31/18 07/15/21 History mcg (5,000 unit) capsule mecobalamin (vitamin B12) 1,000 1,000 mcg SL 3XWK tab 05/31/18 07/15/21 History mcg disintegrating tablet,sublingual ferrous sulfate 27 mg iron tablet 27 mg PO DAILY tab 12/27/18 07/15/21 History (High Potency Iron) cranberry 500 mg capsule 500 mg PO DAILY cap 11/07/19 07/15/21 History latanoprost 0.005 % eye drops 1 drops OP HS 02/21/20 07/15/21 History pantoprazole 40 mg tablet,delayed 40 mg PO QAM #90 tab 07/05/20 07/15/21 Rx release (Protonix) simvastatin 10 mg tablet (Zocor) 10 mg PO HS #90 tab 08/03/20 07/15/21 Rx diclofenac sodium 75 mg 75 mg PO BID #180 tab 08/21/20 07/15/21 Rx tablet,delayed release levothyroxine 88 mcg tablet 88 mcg PO QAM 02/21/21 07/15/21 History propranolol 160 mg capsule,24 160 mg PO QAM 02/21/21 07/15/21 History hr,extended release fluoxetine 20 mg tablet 20 mg PO DAILY #30 tab 05/28/21 07/15/21 Rx gabapentin 100 mg capsule 100 mg PO TID #90 cap 06/05/21 07/15/21 Rx fluoxetine 10 mg capsule 10 mg PO DAILY #30 cap 06/27/21 07/15/21 Rx amlodipine 10 mg tablet 20 mg PO QAM tab 07/01/21 07/15/21 History cephalexin 500 mg capsule 500 mg PO TID #30 cap 07/01/21 07/15/21 Rx furosemide 20 mg tablet 20 mg PO DAILY #5 tab 07/01/21 07/15/21 Rx ciprofloxacin HCl 500 mg tablet 500 mg PO BID 8 Days #16 tab 07/11/21 07/15/21 Rx metronidazole 500 mg tablet 500 mg PO TID 9 Days #27 tab 07/11/21 07/15/21 Rx diclofenac sodium 1 % topical gel 1 - 2 g TOPICAL BID PRN 07/15/21 07/15/21 History Past Med/Surg History Medical History (Updated 07/16/21 @ 06:32 by Donaldo Diallo PA-C) Anxiety Cervical cord myelomalacia Depression Diverticulosis of colon (without mention of hemorrhage) Exposure to COVID-19 virus History of gastrointestinal ulcer History of pancreatitis Hypercholesterolemia Hypertension Hypothyroidism IBS (irritable bowel syndrome) WITH DIARRHEA, ONGOING FOR LAST YR - REASON FOR UPCOMING PROCEDURE Osteoarthritis Peripheral neuropathy HANDS AND FEET Spinal stenosis HX LUMBAR Tremor BENIGN ESSENTIAL LEFT HAND X 5 YRS-NO DX. NO BETTER NO WORSE PER PT. Surgical History H/O gastric bypass History of bilateral tubal ligation History of cataract surgery R/L History of cholecystectomy History of colonoscopy History of esophagogastroduodenoscopy (EGD) History of eyelid surgery History of fusion of cervical spine C5-T2 2016 - MILD ROM LIMITATION History of hysterectomy History of pharyngoplasty History of tonsillectomy History of total knee arthroplasty R/L S/P laminectomy with spinal fusion HX Family History Mother Family history of diabetes mellitus Breast cancer Father Family history of diabetes mellitus Heart disease Family/Other Family history of diabetes mellitus Sister Congestive heart failure Breast cancer Stroke syndrome Brother Coronary heart disease Myocardial infarction Denies family history of Ovarian cancer Prostate cancer Colorectal cancer Social History Smoking Status: Never smoker Second Hand Exposure: No; Hx Alcohol Use: No Hx Substance Use: No Preferred Language: Greek Communication Ability: Effective Visual Impairment: No Limitations Hearing Ability: Normal Wheel Assembler Required: No Beliefs That Will Affect Care: None and Latter-Day Latter-Day Beliefs: BAPTISM marital status: Current Living Situation: Spouse Current Living Situation Comment: [facility] AT [facility] current occupational status: retired Feels Safe at Home: Yes Childhood Exposure to Second-Hand Smoke: No Dental Care, Regularly: Yes Physical Activity Frequency: Does not Exercise Seatbelt Use: always Sunscreen Use: Yes Assistive Devices: Glasses and Hearing Aid - Bilateral Review of Systems Constitutional: no fever Physical Exam Constitutional: WD/WN, vitals as above + obese and cooperative; no acute distress Eyes: PERRL, conjunctivae normal, anicteric sclerae ENMT: external ear and nose normal, oropharynx normal Neck: normal visual inspection and trachea midline Respiratory: normal respiratory effort, lungs clear to auscultation Cardiovascular: Rate/Rhythm: regular rate and regular rhythm Heart Sounds: normal S1 and normal S2 Extremities: + pedal edema (non-pitting) Gastrointestinal (Abdomen): normal bowel sounds, soft, nontender, no hepatosplenomegaly Musculoskeletal: Head/Neck/Chest: normocephalic and head atraumatic Skin: no rashes, warm and dry + wound (R martinez, oozing purulent fluid) Neurologic: moves all extremities Psychiatric: A+Ox3, euthymic affect Results & Data Results & Data ([facility]) Vital Signs (Past 12 Hours) Vital Signs Temp Pulse Pulse Resp BP BP Pulse Ox 07/15/21 22:25 55 L 19 146/70 H 96 07/15/21 16:24 36.5 C 86 20 110/60 96 Supervising Physician Co-Signing Physician Notes Patient seen and examined, chart reviewed, case discussed with Dr. Moore and I agree with her assessment and plan as above. RLE area of cellulitis is significantly worsened - now with wound, serosanguinous drainage and fluctuance Afebrile, HD stable, NAD Nontoxic in appearance with no signs of systemic infection Labs and images reviewed. Slightly increased WBCs from prior Assessment/plan RLE cellullitis s/p failed outpatient Keflex s/p inpatient treatment returning with worsening wound, drainage -Ceftaroline -Wound care -Check doppler, ?fluid collection -Remainder of plan as above Resident Activity Tracking Resident Involvement: Resident Care Provided Care Provided: Adult Hospital Medicine
[2021-07-16] MEDS ORDERED: DEXTROSE 50% 50 ML SYRINGE IV PRN (02:58)
[2021-07-16] MEDS ORDERED: ONDANSETRON INJ 2 MG/ML 2 ML VIAL IV PRN (02:58)
[2021-07-16] MEDS ORDERED: GLUCOSE 10 TABS/TUBE PO PRN (02:58)
[2021-07-16] MEDS ORDERED: POLYETHYLENE (MIRALAX) 17 GM PACK PO PRN (02:58)
[2021-07-16] MEDS ORDERED: MEROPENEM CONSULT ACTIVE PRN (02:58)
[2021-07-16] MEDS ORDERED: GLUCOSE 40% GEL 15 GM TUBE PO PRN (02:58)
[2021-07-16] MEDS ORDERED: CARBOHYDRATES FOR HYPOGLYCEMIA PO PRN (02:58)
[2021-07-16] MEDS ORDERED: diazePAM 5 MG TABLET PO PRN (02:58)
[2021-07-16] MEDS ORDERED: GLUCAGON FOR INJ 1 MG VIAL SQ PRN (02:58)
[2021-07-16] MEDS: SODIUM CHLORIDE 0.9% 500 ML IV SCH ×2 (03:17→06:38)
[2021-07-16] MEDS: MEROPENEM 500 MG in SYRINGE 0 ML IV SCH ×3 (04:21→20:12)
[2021-07-16 05:54] LABS: Basophils # (auto) 0.01 K/uL (0-0.2); Basophils % (auto) 0.1 %; Eosinophils # (auto) 0.25 K/uL (0-0.5); Eosinophils % (auto) 3.3 %; Hematocrit (blood only) 34.9 % (37-47); Hemoglobin 10.7 g/dL (12.0-16.0); Immature Granulocytes % (auto) 3.9 %; Lymphocytes # (auto) 1.43 K/uL (1.2-3.4); Lymphocytes % (auto) 18.7 %; Mean Corpuscular Hemoglobin 29.8 pg (25-34); Mean Corpuscular Hgb Conc 30.7 g/dL (32-36); Mean Corpuscular Volume 97.2 fL (80-100); Mean Platelet Volume 8.7 fL (7.4-10.4); Monocytes # (auto) 0.75 K/uL (0.11-0.59); Monocytes % (auto) 9.8 %; Neutrophils # (auto) 4.91 K/uL (1.4-6.5); Neutrophils % (auto) 64.2 %; Platelet Count 457 K/uL (130-400); RDW Coefficient of Variation 13.8 % (11.5-14.5); RDW Standard Deviation 49.3 fL (36.4-46.3); Red Blood Count 3.59 M/uL (4.2-5.4); White Blood Count 7.65 K/uL (4.8-10.8)
[2021-07-16 06:27] LABS: BUN Creatinine Ratio 27.4 (10-20); Calcium 9.2 mg/dl (8.5-10.1); Creatinine Clr Calc Pharmacy 39.1 ml/min; Est GFR (African American) 53.9 ml/min; Est GFR (Non-African American) 46.5 ml/min; Potassium 4.5 mmol/L (3.5-5.1)
[2021-07-16] MEDS: LEVOTHYROXINE SODIUM 88 MCG TABLET PO SCH (06:37)
--- NOTE | 2021-07-16 07:24 | Ultrasound Report ---
US venous doppler LE RT CLINICAL HISTORY: Right leg pain and swelling COMPARISON: None available at the time of this dictation. TECHNIQUE: Right lower extremity real-time compression venous ultrasound with Color Doppler imaging. Utilizing real-time ultrasonic imaging multiple real time high-resolution ultrasonic images with comp ression and noncompression maneuvers of the deep venous system in addition to color doppler imaging w ere performed from the common femoral vein through the proximal calf veins. FINDINGS: Currently there is normal compressibility of the deep venous system from the common femoral vein thro ugh the proximal calf veins. No current evidence of acute thrombosis is identified. There is diffuse edema throughout the right lower extremity. There is limited visualization of the ca lf veins due to the swelling present. Impression: No evidence of deep venous thrombus. Diffuse subcutaneous edema. ACT 112: Negative or not required by law. Electronically signed by: Souleymane Burnham M.D. 07/16/2021 7:23 AM
--- NOTE | 2021-07-16 07:33 | Hospitalist Progress Note ---
Date of Service July 16, 2021 Assessment & Plan (1) Cellulitis of right lower leg: Plan: Mrs. Baires is an 81 yo woman with a PMHx of chronic R LE lymphedema and prediabetes who presents for failed outpatient management of RLE cellulitis. Cellulitis of right lower leg: - WBC 11.85, up from 10.8 on 07/11 discharge. Wound Culture pending. Blood Cultures pending. - Procal neg. CRP 5.43, down from 10 on 07/11 discharge. ESR 107 - unsure of why gram positive coverage was not included with home oral regimen upon hospital discharge from 07/11 - Continue meropenem and add daptomycin for broad-spectrum coverage. Narrow with culture results. - wound care nurse consulted - Venous Doppler of R LE 07/16 showing normal compressibility of deep venous system from common femoral vein through proximal calf veins, no current evidence of acute thrombosis. There is diffuse edema throughout the RLE, limited visualization of the calf veins due to swelling. - Consulted General Surgery for concern of abscess and possible I&D--cont IV abx, recommend ortho c/s, no surgical intervention at this time, elevate lower extremities - Ortho consulted per recs above - CT of leg w/o evidence of abscess - trend CBC Elevated serum creatinine: - Cr was 1.20 at discharge on 07/11 - Elevated to 1.54, BUN at 37 on admission - suspect pre-renal etiology - Cr down to 1.11 today - NSS discontinued, encourage PO hydration - trend BMP Pre-diabetes: - A1c from 05/2021 was 5.5, technically in pre-diabetic range - BSG ACHS with loose SSI parameters - patient does not appear to be on home oral agent at his time - continue daily baby ASA - of note patient is not on a high intensity statin - consider escalating from simvastatin to Lipitor or Crestor - carb consistent diet Hyponatremia: - Na 131 on admission, down from 133 on discharge from 07/11/21 - Received NSS IV, improved to 134 - trend BMP Hypothyroidism: - continue home dose levothyroxine Depressive disorder: - continue home fluoxetine Gastroesophageal reflux disease: - continue home dose Protonix Hypertension: - hold home amlodipine in the presence of acute on chronic LE edema - continue home propranolol Peripheral neuropathy: - continue home gabapentin dose Diet: Carb consistent DVT ppx: Heparin 5,000units SQ q12 Dispo: Med/Surg. PT/OT placed - expressed desire for home health services upon discharge Code: Full (2) Elevated serum creatinine: (3) Type II diabetes mellitus: (4) Hyponatremia: (5) Hypothyroidism: (6) Depressive disorder: (7) Hypertension: (8) Gastroesophageal reflux disease: (9) Peripheral neuropathy: Admission and Anticipated Discharge Date Admission Date: July 16, 2021 Supervising Physician Co-Signing Physician Notes I also saw the patient confirmed varma portions of the history and physical examination. The patient was admitted the same date; please see Dr. Bojorquez's attestation for additional information. Since admission, the patient is remained afebrile. When compared to her previous admission, the wound on the right lower extremity (anterior tib-fib) looks more erythematous and now with serosanguineous drainage. There also appears to be a raised area with questionable fluctuance, difficult to tell if this is merely interstitial fluid or a discrete fluid collection. right lower extremity cellulitis Consult surgery ID consult Wound care consult CT right lower extremity Trend white count Continue meropenem and daptomycin pending ID consult and wound cultures Subjective Seen at bedside this AM. Reports pain in her leg and says wound worsening since she was discharged. Her was cleaning with alcohol and covering with a bandage. She reports she was not instructed on wound care prior to DC last time. Denies fever, chills, n/v, abd pain, SOB, cough. Review of Systems Review of Systems: Per subjective Physical Exam Physical Exam: GENERAL: A&Ox3. NAD. CHEST/LUNGS: CTAB A/P. No crackles, wheezes, rales, ronchi. HEART: RRR. No m/g/r. No carotid bruits. ABDOMEN: NT/ND, soft. BS+ x4 EXTREMITIES: No cyanosis, no clubbing, no edema SKIN: Right leg with ~2x2in wound on anterior martinez, which is draining purulent fluid. Leg is TTP up to 2in below knee. There is induration surrounding the wound. PSYCHIATRIC: Euthymic affect, no SI, no pressured speech, no hallucinations NEUROLOGIC: No FND. CN II-XII grossly intact. Results & Data Results & Data ([facility]) Vital Signs (Past 12 Hours) Vital Signs Pulse Pulse Resp BP Pulse Ox 07/16/21 04:38 56 L 93 07/16/21 03:16 55 L 91 07/16/21 03:00 55 L 91 07/16/21 02:07 52 L 157/72 H 07/15/21 22:25 55 L 19 146/70 H 96 Resident Activity Tracking Resident Involvement: Resident Care Provided Care Provided: Adult Hospital Medicine
--- NOTE | 2021-07-16 07:47 | Billing Data ---
Date of Service July 16, 2021 Coding Level of Care Code INT OBSERVATION CARE 70M LVL 3
[2021-07-16] MEDS ORDERED: [UNRECOGNIZED DRUG - OTHER] PO SCH (09:00)
[2021-07-16] MEDS: PROPRANOLOL HCL LA 80 MG CAPCR PO SCH (09:08)
[2021-07-16] MEDS: GABAPENTIN 100 MG CAP PO SCH ×3 (09:09→21:02)
[2021-07-16] MEDS: DICLOFENAC SODIUM 75 MG TABCR PO SCH ×2 (09:09→21:02)
[2021-07-16] MEDS: FUROSEMIDE 20 MG TAB PO SCH (09:10)
[2021-07-16] MEDS: FLUoxetine HCL 10 MG CAP PO SCH (09:10)
[2021-07-16] MEDS: FLUoxetine HCL 20 MG CAP PO SCH (09:11)
[2021-07-16] MEDS: PANTOprazole 40 MG TAB PO SCH (09:12)
[2021-07-16] MEDS: HEPARIN SOD 5,000 UNIT/0.5 ML VIAL SQ SCH ×2 (09:12→21:03)
[2021-07-16] MEDS: INSULIN ASPART PER UNIT SC SCH ×4 (09:29→20:18)
--- NOTE | 2021-07-16 12:42 | CT Scan Report ---
CT SCAN OF THE RIGHT TIBIA AND FIBULA WITHOUT IV CONTRAST CLINICAL HISTORY: Right lower extremity wound. COMPARISON STUDY: CT scan of the right tibia and fibula dated 07/09/2021. TECHNIQUE: CT scan of the right tibia and fibula is performed from the knee joint to the foot. Images are reviewed in the axial, sagittal, and coronal planes. IV contrast was not administered for this e xamination. Note that the examination is suboptimal without IV contrast and without plain from correl ate. A dose lowering technique was utilized adhering to the principles of ALARA. There is streak tara fact from a right knee arthroplasty. FINDINGS: The skeletal structures are osteopenic. A right knee arthroplasty is in place. No fracture is identified. No bony erosion is seen. Benign appearing periostitis is noted along the proximal tibi al metaphysis. The ankle mortise appears maintained. There is advanced atherosclerotic calcification of the regional arteries. The regional musculature is atrophic. Diffuse soft tissue edema and subcuta neous fluid is seen throughout the right lower extremity. There is no evidence of organized fluid col lection to suggest abscess on this unenhanced examination. No soft tissue gas is seen. The Achilles t endon is intact as imaged. IMPRESSION: 1. No acute bony abnormality is identified involving the right tibia or fibula. 2. There is diffuse soft tissue edema with subcutaneous fluid seen throughout the right lower extremi ty. No organized fluid collection is identified to suggest abscess. ACT 112: Negative or not required by law. Electronically signed by: David Sheth M.D. 07/16/2021 12:41 PM
[2021-07-16] MEDS ORDERED: DAPTOmycin 550 MG in SYRINGE 0 ML IV SCH (13:00)
--- NOTE | 2021-07-16 15:27 | Surgery Consultation ---
Date of Consultation July 16, 2021 Assessment & Plan (1) Cellulitis of right lower leg: (2) Lymphedema of lower extremity: (3) Wound of right lower extremity: 81 year-old female with history of recent admission for RLE cellulitis now with wound of right anterior martinez and associated cellulitis. Chronic lymphedema present. On exam there is drainage from wound when expressed but looks slightly cloudy/serosanguineous drainage, ? Lymphatic fluid. No organized fluid collection on CT to suggest abscess. Plan: Continue IV antibiotics wound care nurse consulted Would recommend ortho consultation given history of knee replacement , hardware and history of infection of hardware No surgical intervention recommended at this time elevate lower extremities will follow Dr. Sands has seen and examined pt, agrees with above. History of Present Illness Reason for Consultation: RLE cellulitis, possible abscess Requesting Physician: DO Melanie Attending Physician: Levon Navarro DO History of Present Illness Shraddha is a 81 year-old female with history of chronic right lower extremity lymphedema and recent admission here at [facility] for right lower extremity cellulitis who was discharged on 07/11/21 presents to emergency room with increasing cellulitis and now wound on right lower leg. States she was not instructed on any wound care once discharged. She denies of any fever or chills. She is having some pain in the right lower leg at site of the wound. States she has had multiple surgeries on her right knee in the past 3 years with replacement and then developed an infection which require removal and replacement. Ortho has not seen her during this issue with cellulitis of her RLE. Allergies Allergy/AdvReac Type Severity Reaction Status Date / Time pneumococcal vaccine Allergy Unknown REDNESS , Verified 07/15/21 23:22 CHILLS, HIVES sulfamethoxazole Allergy Unknown RASH Verified 07/15/21 23:22 trimethoprim Allergy Unknown RASH Verified 07/15/21 23:22 Home Medications Medication Instructions Recorded Confirmed Type aspirin 81 mg tablet,delayed 81 mg PO HS 03/29/18 07/15/21 History release calcium citrate 200 mg 1 tab PO BID 03/29/18 07/15/21 History calcium-vitamin D3 6.25 mcg (250 unit) tablet omega-3 fatty acids 1,000 mg 1,000 mg PO BID 03/29/18 07/15/21 History capsule cholecalciferol (vitamin D3) 125 5,000 units PO 5XWK cap 05/31/18 07/15/21 History mcg (5,000 unit) capsule mecobalamin (vitamin B12) 1,000 1,000 mcg SL 3XWK tab 05/31/18 07/15/21 History mcg disintegrating tablet,sublingual ferrous sulfate 27 mg iron tablet 27 mg PO DAILY tab 12/27/18 07/15/21 History (High Potency Iron) cranberry 500 mg capsule 500 mg PO DAILY cap 11/07/19 07/15/21 History latanoprost 0.005 % eye drops 1 drops OP HS 02/21/20 07/15/21 History pantoprazole 40 mg tablet,delayed 40 mg PO QAM #90 tab 07/05/20 07/15/21 Rx release (Protonix) simvastatin 10 mg tablet (Zocor) 10 mg PO HS #90 tab 08/03/20 07/15/21 Rx diclofenac sodium 75 mg 75 mg PO BID #180 tab 08/21/20 07/15/21 Rx tablet,delayed release levothyroxine 88 mcg tablet 88 mcg PO QAM 02/21/21 07/15/21 History propranolol 160 mg capsule,24 160 mg PO QAM 02/21/21 07/15/21 History hr,extended release fluoxetine 20 mg tablet 20 mg PO DAILY #30 tab 05/28/21 07/15/21 Rx gabapentin 100 mg capsule 100 mg PO TID #90 cap 06/05/21 07/15/21 Rx fluoxetine 10 mg capsule 10 mg PO DAILY #30 cap 06/27/21 07/15/21 Rx amlodipine 10 mg tablet 20 mg PO QAM tab 07/01/21 07/15/21 History cephalexin 500 mg capsule 500 mg PO TID #30 cap 07/01/21 07/15/21 Rx furosemide 20 mg tablet 20 mg PO DAILY #5 tab 07/01/21 07/15/21 Rx ciprofloxacin HCl 500 mg tablet 500 mg PO BID 8 Days #16 tab 07/11/21 07/15/21 Rx metronidazole 500 mg tablet 500 mg PO TID 9 Days #27 tab 07/11/21 07/15/21 Rx diclofenac sodium 1 % topical gel 1 - 2 g TOPICAL BID PRN 07/15/21 07/15/21 History Patient History Medical History (Updated 07/16/21 @ 15:35 by Jazmyn Mena PA-C) Anxiety Cervical cord myelomalacia Depression Diverticulosis of colon (without mention of hemorrhage) Exposure to COVID-19 virus History of gastrointestinal ulcer History of pancreatitis Hypercholesterolemia Hypertension Hypothyroidism IBS (irritable bowel syndrome) WITH DIARRHEA, ONGOING FOR LAST YR - REASON FOR UPCOMING PROCEDURE Osteoarthritis Peripheral neuropathy HANDS AND FEET Spinal stenosis HX LUMBAR Tremor BENIGN ESSENTIAL LEFT HAND X 5 YRS-NO DX. NO BETTER NO WORSE PER PT. Surgical History H/O gastric bypass History of bilateral tubal ligation History of cataract surgery R/L History of cholecystectomy History of colonoscopy History of esophagogastroduodenoscopy (EGD) History of eyelid surgery History of fusion of cervical spine C5-T2 2016 - MILD ROM LIMITATION History of hysterectomy History of pharyngoplasty History of tonsillectomy History of total knee arthroplasty R/L S/P laminectomy with spinal fusion HX Family History Mother Family history of diabetes mellitus Breast cancer Father Family history of diabetes mellitus Heart disease Family/Other Family history of diabetes mellitus Sister Congestive heart failure Breast cancer Stroke syndrome Brother Coronary heart disease Myocardial infarction Denies family history of Ovarian cancer Prostate cancer Colorectal cancer Social History Smoking Status: Never smoker Second Hand Exposure: No; Hx Alcohol Use: No Hx Substance Use: No Preferred Language: Ukrainian Communication Ability: Effective Visual Impairment: No Limitations Hearing Ability: Normal Money Room Teller Required: No Beliefs That Will Affect Care: None and Orthodox Orthodox Beliefs: NONDENOMINATIONAL marital status: Current Living Situation: Spouse Current Living Situation Comment: LIVES AT [facility] current occupational status: retired Feels Safe at Home: Yes Childhood Exposure to Second-Hand Smoke: No Dental Care, Regularly: Yes Physical Activity Frequency: Does not Exercise Seatbelt Use: always Sunscreen Use: Yes Assistive Devices: Glasses and Hearing Aid - Bilateral Physical Exam Constitutional: WD/WN, vitals as above + obese; no acute distress and not ill appearing Respiratory: normal respiratory effort Musculoskeletal: Right lower extremity with chronic lymphedema, larger than left lower extremity. There is scar of the right knee from prior replacement surgery. There is 5 x 5 cm wound of the anterior right lower martinez with some mild eschar at edges and surrounding induration and erythema. Medial aspect of wound probed with q-tip and slightly cloudy serosanguineous/lymphatic drainage expressed. Pitting edema of the right lower extremity and right foot. Psychiatric: Orientation: alert and oriented x 3 Results & Data ([facility]) Vital Signs (Past 12 Hours) Vital Signs Temp Pulse Resp BP Pulse Ox 07/16/21 14:00 62 20 108/62 98 07/16/21 07:46 36.7 C 60 20 124/65 95 07/16/21 04:38 56 L 93 Laboratory Results 07/16/21 07/16/21 07/16/21 Range/Units 13:04 09:16 05:31 WBC (4.8-10.8) K/uL RBC (4.2-5.4) M/uL Hgb (12.0-16.0) g/dL Hct (37-47) % MCV (80-100) fL MCH (25-34) pg MCHC (32-36) g/dL RDW Std Deviation (36.4-46.3) fL RDW Coeff of Danielle (11.5-14.5) % Plt Count (130-400) K/uL MPV (7.4-10.4) fL Immature Gran % (Auto) % Neut % (Auto) % Lymph % (Auto) % Bosque % (Auto) % Eos % (Auto) % Baso % (Auto) % Neut # (Auto) (1.4-6.5) K/uL Lymph # (Auto) (1.2-3.4) K/uL Bosque # (Auto) (0.11-0.59) K/uL Eos # (Auto) (0-0.5) K/uL Baso # (Auto) (0-0.2) K/uL Immature Gran # (Auto) (0.00-0.02) K/uL ESR (0-30) mm/hr Sodium 134 L (136-145) mmol/L Potassium 4.5 (3.5-5.1) mmol/L Chloride 103 (98-107) mmol/L Carbon Dioxide 26 (21-32) mmol/L Anion Gap 5.0 (3-11) BUN 30 H (7-18) mg/dl Creatinine 1.11 D (0.6-1.2) mg/dl Est Cr Clr Drug Dosing 39.1 Est GFR ( Amer) 53.9 ml/min Est GFR (Non-Af Amer) 46.5 ml/min BUN/Creatinine Ratio 27.4 H (10-20) Glucose 92 (70-99) mg/dl POC Glucose 88 71 (70-99) mg/dl Calcium 9.2 (8.5-10.1) mg/dl Total Bilirubin (0.2-1) mg/dl AST (15-37) U/L ALT (12-78) Alkaline Phosphatase (45-117) U/L C-Reactive Protein (0-0.29) mg/dl Total Protein (6.4-8.2) gm/dl Albumin (3.4-5.0) gm/dl Globulin (2.5-4.0) gm/dl Albumin/Globulin Ratio (0.9-2) Procalcitonin (0-0.5) ng/ml SARS-CoV-2, RNA, NAAT (NEGATIVE) 07/16/21 07/15/21 07/15/21 Range/Units 05:31 Unknown 19:36 WBC 7.65 (4.8-10.8) K/uL RBC 3.59 L (4.2-5.4) M/uL Hgb 10.7 L (12.0-16.0) g/dL Hct 34.9 L (37-47) % MCV 97.2 (80-100) fL MCH 29.8 (25-34) pg MCHC 30.7 L (32-36) g/dL RDW Std Deviation 49.3 H (36.4-46.3) fL RDW Coeff of Danielle 13.8 (11.5-14.5) % Plt Count 457 H (130-400) K/uL MPV 8.7 (7.4-10.4) fL Immature Gran % (Auto) 3.9 % Neut % (Auto) 64.2 % Lymph % (Auto) 18.7 % Bosque % (Auto) 9.8 % Eos % (Auto) 3.3 % Baso % (Auto) 0.1 % Neut # (Auto) 4.91 (1.4-6.5) K/uL Lymph # (Auto) 1.43 (1.2-3.4) K/uL Bosque # (Auto) 0.75 H (0.11-0.59) K/uL Eos # (Auto) 0.25 (0-0.5) K/uL Baso # (Auto) 0.01 (0-0.2) K/uL Immature Gran # (Auto) 0.30 H (0.00-0.02) K/uL ESR (0-30) mm/hr Sodium (136-145) mmol/L Potassium (3.5-5.1) mmol/L Chloride (98-107) mmol/L Carbon Dioxide (21-32) mmol/L Anion Gap (3-11) BUN (7-18) mg/dl Creatinine (0.6-1.2) mg/dl Est Cr Clr Drug Dosing Est GFR ( Amer) ml/min Est GFR (Non-Af Amer) ml/min BUN/Creatinine Ratio (10-20) Glucose (70-99) mg/dl POC Glucose (70-99) mg/dl Calcium (8.5-10.1) mg/dl Total Bilirubin (0.2-1) mg/dl AST (15-37) U/L ALT (12-78) Alkaline Phosphatase (45-117) U/L C-Reactive Protein (0-0.29) mg/dl Total Protein (6.4-8.2) gm/dl Albumin (3.4-5.0) gm/dl Globulin (2.5-4.0) gm/dl Albumin/Globulin Ratio (0.9-2) Procalcitonin < 0.05 (0-0.5) ng/ml SARS-CoV-2, RNA, NAAT NEGATIVE (NEGATIVE) 07/15/21 07/15/21 07/15/21 Range/Units 19:36 19:36 19:36 WBC 11.85 H (4.8-10.8) K/uL RBC 3.73 L (4.2-5.4) M/uL Hgb 11.2 L (12.0-16.0) g/dL Hct 36.2 L (37-47) % MCV 97.1 (80-100) fL MCH 30.0 (25-34) pg MCHC 30.9 L (32-36) g/dL RDW Std Deviation 49.4 H (36.4-46.3) fL RDW Coeff of Danielle 13.9 (11.5-14.5) % Plt Count 539 H (130-400) K/uL MPV 8.8 (7.4-10.4) fL Immature Gran % (Auto) 4.0 % Neut % (Auto) 67.3 % Lymph % (Auto) 16.0 % Bosque % (Auto) 10.0 % Eos % (Auto) 2.4 % Baso % (Auto) 0.3 % Neut # (Auto) 7.97 H (1.4-6.5) K/uL Lymph # (Auto) 1.90 (1.2-3.4) K/uL Bosque # (Auto) 1.18 H (0.11-0.59) K/uL Eos # (Auto) 0.29 (0-0.5) K/uL Baso # (Auto) 0.04 (0-0.2) K/uL Immature Gran # (Auto) 0.47 H (0.00-0.02) K/uL ESR 107 H (0-30) mm/hr Sodium 131 L (136-145) mmol/L Potassium 4.6 (3.5-5.1) mmol/L Chloride 99 (98-107) mmol/L Carbon Dioxide 27 (21-32) mmol/L Anion Gap 5.0 (3-11) BUN 37 H (7-18) mg/dl Creatinine 1.54 H (0.6-1.2) mg/dl Est Cr Clr Drug Dosing Not Reportable Est GFR ( Amer) 36.3 ml/min Est GFR (Non-Af Amer) 31.3 ml/min BUN/Creatinine Ratio 24.0 H (10-20) Glucose 116 H (70-99) mg/dl POC Glucose (70-99) mg/dl Calcium 9.1 (8.5-10.1) mg/dl Total Bilirubin 0.3 (0.2-1) mg/dl AST 23 (15-37) U/L ALT 32 (12-78) Alkaline Phosphatase 83 (45-117) U/L C-Reactive Protein 5.43 H (0-0.29) mg/dl Total Protein 7.7 (6.4-8.2) gm/dl Albumin 2.8 L (3.4-5.0) gm/dl Globulin 4.9 H (2.5-4.0) gm/dl Albumin/Globulin Ratio 0.6 L (0.9-2) Procalcitonin (0-0.5) ng/ml SARS-CoV-2, RNA, NAAT (NEGATIVE) Microbiology 07/16/21 00:06 Gram Stain - Final Leg,Right Diagnostic Findings CT SCAN OF THE RIGHT TIBIA AND FIBULA WITHOUT IV CONTRAST CLINICAL HISTORY: Right lower extremity wound. COMPARISON STUDY: CT scan of the right tibia and fibula dated 07/09/2021. TECHNIQUE: CT scan of the right tibia and fibula is performed from the knee joint to the foot. Images are reviewed in the axial, sagittal, and coronal planes. IV contrast was not administered for this examination. Note that the examination is suboptimal without IV contrast and without plain from correlate. A dose lowering technique was utilized adhering to the principles of ALARA. There is streak artifact from a right knee arthroplasty. FINDINGS: The skeletal structures are osteopenic. A right knee arthroplasty is in place. No fracture is identified. No bony erosion is seen. Benign appearing periostitis is noted along the proximal tibial metaphysis. The ankle mortise appears maintained. There is advanced atherosclerotic calcification of the regional arteries. The regional musculature is atrophic. Diffuse soft tissue edema and subcutaneous fluid is seen throughout the right lower extremity. There is no evidence of organized fluid collection to suggest abscess on this unenhanced examination. No soft tissue gas is seen. The Achilles tendon is intact as imaged. IMPRESSION: 1. No acute bony abnormality is identified involving the right tibia or fibula. 2. There is diffuse soft tissue edema with subcutaneous fluid seen throughout the right lower extremity. No organized fluid collection is identified to suggest abscess.
--- NOTE | 2021-07-16 17:47 | Electrocardiogram Report ---
Test Reason : Blood Pressure : / mmHG Vent. Rate : 056 BPM Atrial Rate : 056 BPM P-R Int : 160 ms QRS Dur : 072 ms QT Int : 436 ms P-R-T Axes : 069 047 051 degrees QTc Int : 420 ms Poor data quality, interpretation may be adversely affected Sinus bradycardia When compared with ECG of 11-JUL-2021 10:43, No significant change was found Confirmed by Silvano Gant ([id number]) on 07/16/2021 5:47:48 PM Referred By: Stefano Rodriguez Confirmed By:Yusef Gant
--- NOTE | 2021-07-16 17:47 | Electrocardiogram Report ---
Test Reason : Blood Pressure : / mmHG Vent. Rate : 054 BPM Atrial Rate : 054 BPM P-R Int : 160 ms QRS Dur : 078 ms QT Int : 450 ms P-R-T Axes : 070 045 052 degrees QTc Int : 426 ms Poor data quality, interpretation may be adversely affected Sinus bradycardia Otherwise normal ECG When compared with ECG of 16-JUL-2021 01:01, (unconfirmed) No significant change was found Confirmed by Silvano Gant ([id number] on 07/16/2021 5:47:37 PM Referred By: Stefano Rodriguez Confirmed By:Yusef Gant
--- NOTE | 2021-07-16 18:07 | Orthopedic Consultation ---
Date of Consultation July 16, 2021 Assessment & Plan (1) Wound of right lower extremity: She has an obvious infected wound of her right lower extremity with purulent drainage. This has the appearance of a decompressed abscess with overlying necrotic skin. Based on her history, it sounds like this is progressively worsening. We discussed treatment options in great detail. I would recommend irrigation and debridement surgery, likely with placement of a wound VAC. She will likely require serial wound VAC changes and hopefully decrease the wound size enough that she can eventually undergo primary closure of the wound. However, I cautioned her that she may require additional surgical procedures such as skin grafting or even flap coverage. She expressed several times that she really does not want any surgery. We discussed alternatives, including continued wound care and continued antibiotic treatment. I advised her that this may eventually heal up with nonoperative treatment, but it may also worsen, which could lead to spread of the infection up her leg into her total knee, requiring amputation or even sepsis and . She stated that she cannot make this sort of decision, and asked me to discuss this with her . Her is in agreement and is recommending to her to have surgery. We will start the process, make her n.p.o. after midnight, and posterior for the operating room, and they can hopefully make a final decision tomorrow. History of Present Illness Reason for Consultation: Right lower leg infection Attending Physician: Levon Navarro DO History of Present Illness Ms. Baires is an 81-year old female who has a draining infected wound on her right lower leg. She is a very poor historian, and it was difficult to get an accurate history from her, and history was partly obtained from medical records. She has had chronic lymphedema in that right lower leg, at least 5 years. She reports that she developed cellulitis in that right lower leg at least a month ago. It is very unclear how long she has had an open wound, but it sounds like several weeks. There is some documentation that she had a very small wound upon discharge from her recent hospitalization for inpatient treatment of cellulitis. It sounds like the wound has progressively worsened. Orthopedics was consulted due to concern for purulent drainage from the wound. Of note, she does have a history of bilateral total knee arthroplasty performed in [place] [address] Patiño. This then became infected and she underwent a stage I of a two-stage exchange with removal of her implant and placement of an antibiotic cement spacer in December 2000, followed by stage II revision total knee in February 2001 with long stem tibial and femoral components. She does report chronic weakness in her right lower leg. She did make some mention of a possible stroke, but again her history was very unclear. Allergies Allergy/AdvReac Type Severity Reaction Status Date / Time pneumococcal vaccine Allergy Unknown REDNESS , Verified 07/15/21 23:22 CHILLS, HIVES sulfamethoxazole Allergy Unknown RASH Verified 07/15/21 23:22 trimethoprim Allergy Unknown RASH Verified 07/15/21 23:22 Home Medications Medication Instructions Recorded Confirmed Type aspirin 81 mg tablet,delayed 81 mg PO HS 03/29/18 07/15/21 History release calcium citrate 200 mg 1 tab PO BID 03/29/18 07/15/21 History calcium-vitamin D3 6.25 mcg (250 unit) tablet omega-3 fatty acids 1,000 mg 1,000 mg PO BID 03/29/18 07/15/21 History capsule cholecalciferol (vitamin D3) 125 5,000 units PO 5XWK cap 05/31/18 07/15/21 History mcg (5,000 unit) capsule mecobalamin (vitamin B12) 1,000 1,000 mcg SL 3XWK tab 05/31/18 07/15/21 History mcg disintegrating tablet,sublingual ferrous sulfate 27 mg iron tablet 27 mg PO DAILY tab 12/27/18 07/15/21 History (High Potency Iron) cranberry 500 mg capsule 500 mg PO DAILY cap 11/07/19 07/15/21 History latanoprost 0.005 % eye drops 1 drops OP HS 02/21/20 07/15/21 History pantoprazole 40 mg tablet,delayed 40 mg PO QAM #90 tab 07/05/20 07/15/21 Rx release (Protonix) simvastatin 10 mg tablet (Zocor) 10 mg PO HS #90 tab 08/03/20 07/15/21 Rx diclofenac sodium 75 mg 75 mg PO BID #180 tab 08/21/20 07/15/21 Rx tablet,delayed release levothyroxine 88 mcg tablet 88 mcg PO QAM 02/21/21 07/15/21 History propranolol 160 mg capsule,24 160 mg PO QAM 02/21/21 07/15/21 History hr,extended release fluoxetine 20 mg tablet 20 mg PO DAILY #30 tab 05/28/21 07/15/21 Rx gabapentin 100 mg capsule 100 mg PO TID #90 cap 06/05/21 07/15/21 Rx fluoxetine 10 mg capsule 10 mg PO DAILY #30 cap 06/27/21 07/15/21 Rx amlodipine 10 mg tablet 20 mg PO QAM tab 07/01/21 07/15/21 History cephalexin 500 mg capsule 500 mg PO TID #30 cap 07/01/21 07/15/21 Rx furosemide 20 mg tablet 20 mg PO DAILY #5 tab 07/01/21 07/15/21 Rx ciprofloxacin HCl 500 mg tablet 500 mg PO BID 8 Days #16 tab 07/11/21 07/15/21 Rx metronidazole 500 mg tablet 500 mg PO TID 9 Days #27 tab 07/11/21 07/15/21 Rx diclofenac sodium 1 % topical gel 1 - 2 g TOPICAL BID PRN 07/15/21 07/15/21 History Patient History Medical History (Updated 07/16/21 @ 15:35 by Jazmyn Mena PA-C) Anxiety Cervical cord myelomalacia Depression Diverticulosis of colon (without mention of hemorrhage) Exposure to COVID-19 virus History of gastrointestinal ulcer History of pancreatitis Hypercholesterolemia Hypertension Hypothyroidism IBS (irritable bowel syndrome) WITH DIARRHEA, ONGOING FOR LAST YR - REASON FOR UPCOMING PROCEDURE Osteoarthritis Peripheral neuropathy HANDS AND FEET Spinal stenosis HX LUMBAR Tremor BENIGN ESSENTIAL LEFT HAND X 5 YRS-NO DX. NO BETTER NO WORSE PER PT. Surgical History H/O gastric bypass History of bilateral tubal ligation History of cataract surgery R/L History of cholecystectomy History of colonoscopy History of esophagogastroduodenoscopy (EGD) History of eyelid surgery History of fusion of cervical spine C5-T2 2016 - MILD ROM LIMITATION History of hysterectomy History of pharyngoplasty History of tonsillectomy History of total knee arthroplasty R/L S/P laminectomy with spinal fusion HX Family History Mother Family history of diabetes mellitus Breast cancer Father Family history of diabetes mellitus Heart disease Family/Other Family history of diabetes mellitus Sister Congestive heart failure Breast cancer Stroke syndrome Brother Coronary heart disease Myocardial infarction Denies family history of Ovarian cancer Prostate cancer Colorectal cancer Social History Smoking Status: Never smoker Second Hand Exposure: No; Hx Alcohol Use: No Hx Substance Use: No Preferred Language: [place] Communication Ability: Effective Visual Impairment: No Limitations Hearing Ability: Normal Cell Plasterer Required: No Beliefs That Will Affect Care: None and Voodoo Voodoo Beliefs: AMISH marital status: Current Living Situation: Spouse Current Living Situation Comment: LIVES AT THE [place] current occupational status: retired Feels Safe at Home: Yes Childhood Exposure to Second-Hand Smoke: No Dental Care, Regularly: Yes Physical Activity Frequency: Does not Exercise Seatbelt Use: always Sunscreen Use: Yes Assistive Devices: Glasses and Hearing Aid - Bilateral Physical Exam Physical Exam: Examination of the right lower leg reveals very diffuse and very pronounced lymphedema, worse on the right leg than the left. There is an area of necrotic skin approximately 2 cm in height and 10 cm in width at the anterior aspect of the right lower leg. There is an open wound on the most medial aspect of this area of necrotic skin approximately 2 cm in height and 5 mm in width. There is easily expressible and abundant purulent fluid draining from this area. It feels like there is a area of a likely draining abscess deep to the area of necrotic skin. There is some relatively mild diffuse surrounding erythema. Further proximally, she has a well-healed extensile anterior knee incision. No significant swelling, erythema, warmth, or induration around the knee. No palpable knee effusion. Results & Data ([facility]) Vital Signs (Past 12 Hours) Vital Signs Temp Pulse Resp BP Pulse Ox 07/16/21 14:00 62 20 108/62 98 07/16/21 07:46 36.7 C 60 20 124/65 95 Laboratory Results WBC 7.65, CRP 5.43, ESR [address] scan was reviewed. Revision total knee implants were noted. No obvious abscess or fluid collection is seen.
[2021-07-16] MEDS: SIMVASTATIN 10 MG TAB PO SCH (21:02)
[2021-07-16] MEDS: ASPIRIN 81 MG ECTAB PO SCH (21:02)
[2021-07-16] MEDS: LATANOPROST 0.005% OP SOLN 2.5 ML BTL OP SCH (23:30)
[2021-07-16] MEDS ORDERED: Nursing to Pharmacy Communication SCH (23:30)
[2021-07-17] MEDS: MEROPENEM 500 MG in SYRINGE 0 ML IV SCH (03:29)
[2021-07-17] MEDS: INSULIN ASPART PER UNIT SC SCH ×3 (06:11→18:09)
[2021-07-17] MEDS: LEVOTHYROXINE SODIUM 88 MCG TABLET PO SCH (06:24)
[2021-07-17 07:39] LABS: Basophils # (auto) 0.03 K/uL (0-0.2); Basophils % (auto) 0.4 %; Eosinophils # (auto) 0.22 K/uL (0-0.5); Eosinophils % (auto) 2.8 %; Hematocrit (blood only) 36.5 % (37-47); Hemoglobin 11.2 g/dL (12.0-16.0); Immature Granulocytes # (auto) 0.17 K/uL (0.00-0.02); Immature Granulocytes % (auto) 2.2 %; Lymphocytes % (auto) 17.7 %; Mean Corpuscular Hemoglobin 29.6 pg (25-34); Mean Corpuscular Hgb Conc 30.7 g/dL (32-36); Mean Corpuscular Volume 96.3 fL (80-100); Mean Platelet Volume 8.6 fL (7.4-10.4); Monocytes # (auto) 0.73 K/uL (0.11-0.59); Monocytes % (auto) 9.3 %; Neutrophils # (auto) 5.34 K/uL (1.4-6.5); Neutrophils % (auto) 67.6 %; Platelet Count 496 K/uL (130-400); RDW Coefficient of Variation 13.8 % (11.5-14.5); RDW Standard Deviation 48.3 fL (36.4-46.3); Red Blood Count 3.79 M/uL (4.2-5.4); White Blood Count 7.89 K/uL (4.8-10.8)
--- NOTE | 2021-07-17 07:45 | Hospitalist Progress Note ---
Date of Service July 17, 2021 Assessment & Plan (1) Cellulitis of right lower leg: Plan: Mrs. Baires is an 81 yo woman with a PMHx of chronic R LE lymphedema and prediabetes who presents for failed outpatient management of RLE cellulitis. Cellulitis of right lower leg: - WBC 11.85, up from 10.8 on 07/11 discharge. Wound Culture pending. Blood Cultures pending. - Procal neg. CRP 5.43, down from 10 on 07/11 discharge. ESR 107 - unsure of why gram positive coverage was not included with home oral regimen upon hospital discharge from 07/11 - Continue meropenem and daptomycin. Narrow with culture results. - wound care nurse consulted - Venous Doppler of R LE 07/16 showing normal compressibility of deep venous system from common femoral vein through proximal calf veins, no current evidence of acute thrombosis. There is diffuse edema throughout the RLE, limited visualization of the calf veins due to swelling. - CT of leg w/o evidence of abscess - Consulted General Surgery for concern of abscess and possible I&D--cont IV abx, recommend ortho c/s, no surgical intervention at this time, elevate lower extremities - Ortho consulted -- recommend irrigation and debridement surgery, likely with placement of a wound VAC, cautioned her that she may require additional surgical procedures such as skin grafting or even flap coverage - ID consulted for antibiotic guidance -- recommending stopping dapto & meropenem in favor of IV vanco & cefepime plus oral flagyl - trend CBC Elevated serum creatinine -- resolved - Cr was 1.20 at discharge on 07/11 - Elevated to 1.54, BUN at 37 on admission - suspect pre-renal etiology - Cr normalized as of 07/16 continue to monitor - NSS discontinued, encourage PO hydration - trend BMP Pre-diabetes: - A1c from 05/2021 was 5.5, technically in pre-diabetic range - BSG ACHS with loose SSI parameters - patient does not appear to be on home oral agent at his time - continue daily baby ASA - of note patient is not on a high intensity statin - consider escalating from simvastatin to Lipitor or Crestor - carb consistent diet Hyponatremia: - Na 131 on admission, down from 133 on discharge from 07/11/21 - Received NSS IV, improved to 134 - trend BMP Hypothyroidism: - continue home dose levothyroxine Depressive disorder: - continue home fluoxetine Gastroesophageal reflux disease: - continue home dose Protonix Hypertension: - hold home amlodipine in the presence of acute on chronic LE edema - continue home propranolol Peripheral neuropathy: - continue home gabapentin dose Diet: Carb consistent DVT ppx: Heparin 5,000units SQ q12 Dispo: Med/Surg. PT/OT placed - expressed desire for home health services upon discharge Code: Full (2) Elevated serum creatinine: (3) Type II diabetes mellitus: (4) Hyponatremia: (5) Hypothyroidism: (6) Depressive disorder: (7) Hypertension: (8) Gastroesophageal reflux disease: (9) Peripheral neuropathy: Admission and Anticipated Discharge Date Admission Date: July 16, 2021 Supervising Physician Co-Signing Physician Notes I also saw the patient confirmed varma portions of the history and physical examination. With the resident saw the patient this evening, she was recent return to her room postoperatively. She complains of a 'burning sensation' at the operative site, and she is in the process of receiving some pain medication as we spoke. Her is at bedside. 150/71, 57, 16, 36.4, 93% on room air She is pleasant and alert. She does note the pain although is in no outward distress. Heart regular Respirations nonlabored Data Hemoglobin 11.2, WBC 7.89. Sodium 137, potassium 4.7, BUN 23, creatinine 0.84. right lower extremity cellulitis Status post irrigation debridement, wound VAC placement Continue vancomycin, cefepime and metronidazole, pending wound and surgical cultures Anticipate second procedure in 2 to 3 days for either secondary closure or repacking Else per resident documentation Subjective Seen at bedside this morning. Patient laying in bed comfortably in no acute distress. She reports no significant pain or discomfort. She reports being somewhat anxious about her surgery today, but feels this is the best option as this is likely to help her heal better. Denies fever, chills, shortness of breath, cough, chest pain, palpitations, abdominal pain, leg pain. Review of Systems Review of Systems: Per subjective Physical Exam Physical Exam: GENERAL: A&Ox3. NAD. CHEST/LUNGS: CTAB A/P. No crackles, wheezes, rales, ronchi. HEART: RRR. No m/g/r. No carotid bruits. ABDOMEN: NT/ND, soft. BS+ x4 EXTREMITIES: No cyanosis, no clubbing, no edema SKIN: Right leg with ~2x2in wound on anterior martinez, which is draining purulent fluid. Leg is TTP up to 2in below knee. There is induration surrounding the wound. PSYCHIATRIC: Euthymic affect, no SI, no pressured speech, no hallucinations NEUROLOGIC: No FND. CN II-XII grossly intact. Results & Data Results & Data ([facility]) Vital Signs (Past 12 Hours) Vital Signs Temp Pulse Resp BP Pulse Ox 07/17/21 07:17 36.5 C 63 16 148/67 H 95 07/16/21 22:15 37.0 C 61 16 161/84 H 91 Resident Activity Tracking Resident Involvement: Resident Care Provided Care Provided: Adult Hospital Medicine
[2021-07-17 08:14] LABS: BUN Creatinine Ratio 26.8 (10-20); Creatinine Clr Calc Pharmacy 51.6 ml/min; Est GFR (African American) 75.5 ml/min; Est GFR (Non-African American) 65.2 ml/min; Potassium 4.7 mmol/L (3.5-5.1)
[2021-07-17] MEDS: FLUoxetine HCL 20 MG CAP PO SCH (08:26)
[2021-07-17] MEDS: FLUoxetine HCL 10 MG CAP PO SCH (08:27)
[2021-07-17] MEDS: FUROSEMIDE 20 MG TAB PO SCH (08:27)
[2021-07-17] MEDS: GABAPENTIN 100 MG CAP PO SCH ×3 (08:28→21:19)
[2021-07-17] MEDS: PROPRANOLOL HCL LA 80 MG CAPCR PO SCH (08:29)
[2021-07-17] MEDS: PANTOprazole 40 MG TAB PO SCH (08:29)
[2021-07-17] MEDS: DICLOFENAC SODIUM 75 MG TABCR PO SCH ×2 (08:30→21:18)
[2021-07-17] MEDS: HEPARIN SOD 5,000 UNIT/0.5 ML VIAL SQ SCH ×2 (08:32→21:19)
[2021-07-17] MEDS ORDERED: MEROPENEM 500 MG in SYRINGE 0 ML IV SCH (10:00)
[2021-07-17] MEDS ORDERED: VANCOMYCIN CONSULT ACTIVE PRN (11:53)
--- NOTE | 2021-07-17 12:10 | Anesthesiology Consultation ---
Date of Service July 17, 2021 Assessment & Plan (1) Encounter for pre-operative examination: Chart Review Chart Review: Acceptable Risk for Surgery History Surgery Operation Date: 07/17/21 12:00 Proposed Procedures p Right Lower Extremity Incision and Drainage with Application of Wound Vac - Naren Porter M.D. Height/Weight Height: 4 ft 10 in Weight: 94.3 kg Allergies Allergy/AdvReac Type Severity Reaction Status Date / Time pneumococcal vaccine Allergy Unknown REDNESS , Verified 07/15/21 23:22 CHILLS, HIVES sulfamethoxazole Allergy Unknown RASH Verified 07/15/21 23:22 trimethoprim Allergy Unknown RASH Verified 07/15/21 23:22 Medications Home Medications Medication Instructions Recorded Confirmed Last Taken aspirin 81 mg tablet,delayed 81 mg PO HS 03/29/18 07/15/21 07/14/21 release calcium citrate 200 mg 1 tab PO BID 03/29/18 07/15/21 07/15/21 08:00 calcium-vitamin D3 6.25 mcg (250 unit) tablet omega-3 fatty acids 1,000 mg 1,000 mg PO BID 03/29/18 07/15/21 07/15/21 08:00 capsule cholecalciferol (vitamin D3) 125 5,000 units PO 5XWK cap 05/31/18 07/15/21 07/15/21 mcg (5,000 unit) capsule mecobalamin (vitamin B12) 1,000 1,000 mcg SL 3XWK tab 05/31/18 07/15/21 07/15/21 mcg disintegrating tablet,sublingual ferrous sulfate 27 mg iron tablet 27 mg PO DAILY tab 12/27/18 07/15/21 07/15/21 (High Potency Iron) cranberry 500 mg capsule 500 mg PO DAILY cap 11/07/19 07/15/21 07/15/21 latanoprost 0.005 % eye drops 1 drops OP HS 02/21/20 07/15/21 07/14/21 pantoprazole 40 mg tablet,delayed 40 mg PO QAM #90 tab 07/05/20 07/15/21 07/15/21 release (Protonix) simvastatin 10 mg tablet (Zocor) 10 mg PO HS #90 tab 08/03/20 07/15/21 07/14/21 diclofenac sodium 75 mg 75 mg PO BID #180 tab 08/21/20 07/15/21 07/15/21 08:00 tablet,delayed release levothyroxine 88 mcg tablet 88 mcg PO QAM 02/21/21 07/15/21 07/15/21 propranolol 160 mg capsule,24 160 mg PO QAM 02/21/21 07/15/21 07/15/21 hr,extended release fluoxetine 20 mg tablet 20 mg PO DAILY #30 tab 05/28/21 07/15/21 07/15/21 gabapentin 100 mg capsule 100 mg PO TID #90 cap 06/05/21 07/15/21 07/15/21 14:00 fluoxetine 10 mg capsule 10 mg PO DAILY #30 cap 06/27/21 07/15/21 07/15/21 amlodipine 10 mg tablet 20 mg PO QAM tab 07/01/21 07/15/21 07/15/21 cephalexin 500 mg capsule 500 mg PO TID #30 cap 07/01/21 07/15/21 07/15/21 14:00 furosemide 20 mg tablet 20 mg PO DAILY #5 tab 07/01/21 07/15/21 07/15/21 ciprofloxacin HCl 500 mg tablet 500 mg PO BID 8 Days #16 tab 07/11/21 07/15/21 07/15/21 08:00 metronidazole 500 mg tablet 500 mg PO TID 9 Days #27 tab 07/11/21 07/15/21 07/15/21 14:00 diclofenac sodium 1 % topical gel 1 - 2 g TOPICAL BID PRN 07/15/21 07/15/21 Unknown Active Medications Generic Name Dose Route Start Last Admin Trade Name Keyshawn PRN Reason Stop Dose Admin Aspirin 81 mg 07/16/21 21:00 07/16/21 21:02 Aspirin 81 Mg Ectab PO 08/15/21 20:59 81 mg HS TONY Administration Diclofenac Sodium 75 mg 07/16/21 09:00 07/17/21 08:30 Diclofenac Sodium 75 Mg Tabcr PO 08/15/21 08:59 75 mg BID TONY Administration Fluoxetine HCl 10 mg 07/16/21 09:00 07/17/21 08:27 Fluoxetine Hcl 10 Mg Cap PO 08/15/21 08:59 10 mg DAILY TONY Administration Fluoxetine HCl 20 mg 07/16/21 09:00 07/17/21 08:26 Fluoxetine Hcl 20 Mg Cap PO 08/15/21 08:59 20 mg DAILY TONY Administration Furosemide 20 mg 07/16/21 09:00 07/17/21 08:27 Furosemide 20 Mg Tab PO 08/15/21 08:59 20 mg DAILY TONY Administration Gabapentin 100 mg 07/16/21 09:00 07/17/21 08:28 Gabapentin 100 Mg Cap PO 08/15/21 08:59 100 mg TID TONY Administration Heparin Sodium (Porcine) 5,000 units 07/16/21 09:00 07/17/21 08:32 Heparin Sod 5,000 Unit/0.5 Ml Vial SQ 08/15/21 08:59 5,000 units Q12 TONY Administration Insulin Aspart 0 units 07/17/21 06:00 07/17/21 06:11 Insulin Aspart Per Unit SC 08/16/21 05:59 Not Given Q6 TONY Latanoprost 1 drops 07/16/21 21:00 07/16/21 23:30 Latanoprost 0.005% Op Soln 2.5 Ml Btl OP 08/15/21 20:59 1 drops HS TONY Administration Levothyroxine Sodium 88 mcg 07/16/21 06:30 07/17/21 06:24 Levothyroxine Sodium 88 Mcg Tablet PO 08/15/21 06:29 88 mcg DAILYBB TONY Administration Pantoprazole Sodium 40 mg 07/16/21 09:00 07/17/21 08:29 Pantoprazole 40 Mg Tab PO 08/15/21 08:59 40 mg QAM TONY Administration Propranolol HCl 160 mg 07/16/21 09:00 07/17/21 08:29 Propranolol Hcl La 80 Mg Capcr PO 08/15/21 08:59 160 mg QAM TONY Administration Simvastatin 10 mg 07/16/21 21:00 07/16/21 21:02 Simvastatin 10 Mg Tab PO 08/15/21 20:59 10 mg HS TONY Administration Past Medical History Medical History Anxiety Cervical cord myelomalacia Depression Diverticulosis of colon (without mention of hemorrhage) Exposure to COVID-19 virus History of gastrointestinal ulcer History of pancreatitis Hypercholesterolemia Hypertension Hypothyroidism IBS (irritable bowel syndrome) WITH DIARRHEA, ONGOING FOR LAST YR - REASON FOR UPCOMING PROCEDURE Osteoarthritis Peripheral neuropathy HANDS AND FEET Spinal stenosis HX LUMBAR Tremor BENIGN ESSENTIAL LEFT HAND X 5 YRS-NO DX. NO BETTER NO WORSE PER PT. Past Family History Family History Mother Family history of diabetes mellitus Breast cancer Father Family history of diabetes mellitus Heart disease Family/Other Family history of diabetes mellitus Sister Congestive heart failure Breast cancer Stroke syndrome Brother Coronary heart disease Myocardial infarction Denies family history of Ovarian cancer Prostate cancer Colorectal cancer Past Surgical History Surgical History H/O gastric bypass History of bilateral tubal ligation History of cataract surgery R/L History of cholecystectomy History of colonoscopy History of esophagogastroduodenoscopy (EGD) History of eyelid surgery History of fusion of cervical spine C5-T2 2017 - MILD ROM LIMITATION History of hysterectomy History of pharyngoplasty History of tonsillectomy History of total knee arthroplasty R/L S/P laminectomy with spinal fusion HX Social History Smoking Status: Never smoker Hx Alcohol Use: No Alcohol type: wine alcohol intake frequency: holidays/special occasions only Hx Substance Use: No substance use type: does not use Physical Exam Vital Signs Last Vital Signs Temp 36.5 C 07/17/21 07:17 Pulse 63 07/17/21 07:17 Resp 16 07/17/21 07:17 BP 148/67 H 07/17/21 07:17 Pulse Ox 95 07/17/21 07:17 Testing Laboratory Results 07/17/21 07:06 07/17/21 07:06 07/16/21 00:06 Gram Stain - Final Leg,Right Deep Wound Culture - Preliminary No growth to date. 07/15/21 23:50 Aerobic Blood Culture - Preliminary Blood No growth in Aerobic bottle after 24 hours. Anaerobic Blood Culture - Preliminary No growth in Anaerobic bottle after 24 hours. 07/15/21 19:36 Aerobic Blood Culture - Preliminary Blood No growth in Aerobic bottle after 24 hours. Anaerobic Blood Culture - Preliminary No growth in Anaerobic bottle after 24 hours. 07/17/21 07/17/21 07/17/21 08:16 06:00 00:29 POC Glucose 79 88 92 Electrocardiogram Date: 07/16/21 Findings: + SB @ (54) Chest X-Ray Date: 07/05/21 Findings: + atelectasis (likely) and + cardiomegaly Echocardiogram Date: 04/11/19 EF: 55-60% LV Function: normal RWMA: + none Valvular Disease: + no significant valvular disease
[2021-07-17] MEDS ORDERED: LIDOCAINE 2% 2 ML VIAL/AMP(20MG/ML) INFIL ONE (12:50)
[2021-07-17] MEDS ORDERED: SUCCINYLCHOLINE 100MG/5ML SYR IV ONE (12:50)
[2021-07-17] MEDS ORDERED: fentaNYL citrate 100 MCG/2 ML VIAL ONE (12:50)
[2021-07-17] MEDS ORDERED: PROPOFOL IV EMULSION 10 MG/ML 20 ML VIAL IV ONE (12:50)
--- NOTE | 2021-07-17 12:55 | Pharmacy Report ---
Pharmacy Vanc AUC Short Note - Date of Service July 17, 2021 - Assessment & Plan Assessment 81 year old F receiving vancomycin for treatment of SSTI. Pertinent microbiologic data includes: N/A. Day # 1 of antimicrobial therapy. Plan Vancomycin * AUC/KATYA is the preferred PK/PD target for vancomycin * AUC guided dosing is effective and associated with decreased risk of nephrotoxicity compared to traditional trough targets * vancomycin 2000 mg (21 mg/kg) IV x1 then vancomycin 1250 mg IV q24 hours. * According to [employer] this will produce an AUC of 583 mg.L/hr with a 12% risk of nephrotoxicity. * Trough prior to third dose to ensure no accumulation and that projections are still accurate. Pharmacy will continue to follow and will adjust dose/frequency as necessary. Thank you.
[2021-07-17] MEDS ORDERED: VANCOMYCIN HCL 2,000 MG in SODIUM CHLORIDE 0.9% 500 ML IV ONE (13:00)
--- NOTE | 2021-07-17 13:39 | Surgery Progress Note ---
Date of Service July 17, 2021 Assessment & Plan (1) Cellulitis of right lower leg: (2) Lymphedema of lower extremity: (3) Wound of right lower extremity: Plan: 81 year-old female with history of recent admission for RLE cellulitis now with wound of right anterior martinez and associated cellulitis. Chronic lymphedema present. On exam there is drainage from wound when expressed but looks slightly cloudy/serosanguineous drainage, ? Lymphatic fluid. No organized fluid collection on CT to suggest abscess. Plan: Continue IV antibiotics wound care nurse consulted Would recommend ortho consultation given history of knee replacement , hardware and history of infection of hardware No surgical intervention recommended at this time elevate lower extremities will follow Dr. Sands has seen and examined pt, agrees with above. 07/17/2021 1:36PM Dr. Guzman pt is stable, orthopedic surgeon will do I/d the wound today. base on deep infection sign off today, please call with questions, thanks, Admission and Anticipated Discharge Date Admission Date: July 16, 2021 Supervising Physician Co-Signing Physician Notes I also saw the patient confirmed varma portions of the history and physical examination. The patient was admitted the same date; please see Dr. Bojorquez's attestation for additional information. Since admission, the patient is remained afebrile. When compared to her previous admission, the wound on the right lower extremity (anterior tib-fib) looks more erythematous and now with serosanguineous drainage. There also appears to be a raised area with questionable fluctuance, difficult to tell if this is merely interstitial fluid or a discrete fluid collection. right lower extremity cellulitis Consult surgery ID consult Wound care consult CT right lower extremity Trend white count Continue meropenem and daptomycin pending ID consult and wound cultures Subjective Seen at bedside this morning. Patient laying in bed comfortably in no acute distress. She reports no significant pain or discomfort. She reports being somewhat anxious about her surgery today, but feels this is the best option as this is likely to help her heal better. Denies fever, chills, shortness of breath, cough, chest pain, palpitations, abdominal pain, leg pain. 07/17/2021 1:34PM Dr. Guzman F/U RLL wound, pt is stable, no fever, Physical Exam Constitutional: WD/WN, vitals as above Eyes: PERRL, conjunctivae normal, anicteric sclerae Neck: trachea midline, no thyromegaly Respiratory: normal respiratory effort, lungs clear to auscultation Cardiovascular: RRR, no murmur, no edema Musculoskeletal: RLL wound, some redness, drainage, Neurologic: patellar DTR's 2+ bilat, sensation intact Psychiatric: A+Ox3, euthymic affect Results & Data ([facility]) Vital Signs (Past 12 Hours) Vital Signs Temp Pulse Resp BP Pulse Ox 07/17/21 07:17 36.5 C 63 16 148/67 H 95 Laboratory Results Abnormal lab results 07/17/21 07/17/21 Range/Units 07:06 07:06 RBC 3.79 L (4.2-5.4) M/uL Hgb 11.2 L (12.0-16.0) g/dL Hct 36.5 L (37-47) % MCHC 30.7 L (32-36) g/dL RDW Std Deviation 48.3 H (36.4-46.3) fL Plt Count 496 H (130-400) K/uL [place] # (Auto) 0.73 H (0.11-0.59) K/uL Immature Gran # (Auto) 0.17 H (0.00-0.02) K/uL BUN 23 H (7-18) mg/dl BUN/Creatinine Ratio 26.8 H (10-20)
[2021-07-17] MEDS ORDERED: ONDANSETRON INJ 2 MG/ML 2 ML VIAL IV PRN (13:53)
[2021-07-17] MEDS ORDERED: ATROPINE SULFATE 0.1 MG/ML 10ML SYR IV PRN (13:53)
[2021-07-17] MEDS ORDERED: ePHEDrine sulfate 50 MG/ML AMP IV PRN (13:53)
[2021-07-17] MEDS ORDERED: fentaNYL citrate 100 MCG/2 ML VIAL IV PRN (13:53)
--- NOTE | 2021-07-17 14:57 | History & Physical Bridge Note ---
Date of Service July 17, 2021 History & Physical Bridge Note I have examined the patient, reviewed the History & Physical and in the interval since the performance of the History & Physical I have noted the following changes of clinical significance: no changes noted. After further discussion with her , the patient decided to proceed with surgical debridement of her infection as recommended. Risks, benefits, and alternatives of surgery were explained in detail. The surgical procedure, as well as postoperative recovery and rehabilitation, was also explained in detail. Risks include bleeding; persistent infection; damage to surrounding structures such as nerves, blood vessels, and tendons that run in the area; persistent pain, weakness, or stiffness; or need for further surgery. The patient understands all of this and wishes to proceed with surgery. Informed consent was obtained.
[2021-07-17] MEDS ORDERED: SUCCINYLCHOLINE CHLORIDE 20 MG/ML 10 ML VIAL IV ONE (15:18)
[2021-07-17] MEDS ORDERED: ePHEDrine sulfate 50 MG/ML SYR ONE (15:18)
[2021-07-17] MEDS ORDERED: ONDANSETRON INJ 2 MG/ML 2 ML VIAL ONE (15:18)
[2021-07-17] MEDS ORDERED: PHENYLEPHRINE 100MCG/ML 5ML SYR ONE (15:29)
--- NOTE | 2021-07-17 16:10 | Post Operative Brief Note ---
Immediate Post Op Note v1 Date of Surgery July 17, 2021 Pre & Post Diagnosis Operation Date: 07/17/21 12:00 Pre-Op Diagnosis: Right lower leg infected wound Post-Op Diagnosis: Right lower leg infected wound with extensive subcutaneous fat necrosis I identified the patient and participated in the time-out.: Yes Procedure Operation Date: 07/17/21 12:00 Actual Procedures Irrigation and Debridement Right lower Extremity Wound VAC placement - Naren Porter M.D. Surgeon Naren Porter [employer] Insurance Biller None Estimated Blood Loss 5 Findings Consistent with Post-Op Diagnosis
--- NOTE | 2021-07-17 16:33 | Operative Report ---
Post Operative Report Pre & Post Diagnosis Operation Date: 07/17/21 12:00 Pre-Op Diagnosis: Right lower leg infected wound Post-Op Diagnosis: Right lower leg infected wound with extensive subcutaneous fat necrosis I identified the patient and participated in the time-out.: Yes Procedure Operation Date: 07/17/21 12:00 Actual Procedures Right lower leg irrigation and debridement of necrotic skin and subcutaneous fat, 9x7cm (47173, [id number]) Placement of Wound VAC, 9x7cm (02553) - Naren Porter M.D. Surgeon Naren Porter Training Developer None Estimated Blood Loss 5 Findings Consistent with Post-Op Diagnosis Specimens Culture swab and soft tissue specimen for Gram stain, aerobic culture, anaerobic culture Drains Wound VAC Anesthesia Type General Complications none Disposition Disposition: Recovery Room Indications Ms. Baires is an 81 year old female who has had right lower extremity lymphedema for at least 5 years, cellulitis for 1 to 2 months, and then open wound for abo ut 2 weeks, all with progressive worsening. History, clinical exam, and imaging were consistent with the above diagnosis. Risks, benefits, and alternatives of surgery were explained in detail. The patient understood all this and wished to proceed. Description of Procedure Patient was identified in the preoperative holding area. Operative extremity was marked. Patient was then brought back to the operating room, and general anesthesia was induced without complication. Tourniquet was placed on the right upper leg. Leg was then prepped and draped in a standard sterile fashion using Betadine prep due to the open wound. The leg was then exsanguinated with an Esmarch starting proximal to the area of infection, and the tourniquet was inflated. I first inspected the wound. There was an oval-shaped area of obvious skin necrosis in the anterior aspect of the right lower leg. The skin was very dark and necrotic looking, and I was able to easily push through this necrotic skin. This necrotic area of the skin was sharply excised with knife. The area of skin necrosis measured 6 cm in width and 2.5 cm in height. Immediately upon incising this necrotic skin, there was obvious gross purulent fluid in the area. A sample of this fluid was obtained on culture swab and sent for Gram stain, aerobic culture, and anaerobic culture. After excising the necrotic skin, quickly became clear that there was a very extensive area of necrotic fat and subcutaneous tissue. There was extensive gross liquefication of the subcutaneous fat layer. The obviously necrotic subcutaneous fat was aggressively debrided with curette and rongeur. I also sent a sample of this soft tissue, again for Gram stain, aerobic culture, and anaerobic culture. The area of infection and necrotic tissue extended all the way down to the deep fascial layer, but did not appear to invade the deep fascia, muscle, or bone. The infection did track quite a ways proximally and laterally. She does have a very thick adipose tissue layer at baseline. After complete debridement of the necrotic tissue, the deep wound measured 9 cm in length, 7 cm in width, and 2.5 cm in depth. After aggressive debridement was complete, I then copiously irrigated the wound with sterile saline via gravity irrigation. After debridement and irrigation was complete, I then plan for wound management. I selected a silver impregnated wound VAC sponge to help reduce edema within the surrounding soft tissues, evacuate any further purulent fluid, and contract the surrounding skin and subcutaneous layer to hopefully allow for later primary closure. The wound VAC sponge was trimmed to the pattern of the deep wound, then placed within the wound. Wound VAC dressings and suction were then applied. Suction was set at 125 mmHg continuous suction at medium intensity. The drapes were removed, the patient was awakened from anesthesia, and taken to the Post Anesthesia Care Unit in stable condition. There were no immediate complications from the procedure. I was present and scrubbed for the entire procedure. This patient will require a second washout procedure, wound VAC change versus removal, and possible primary wound closure, likely in about 2 to 3 days. I attest to the content of the Intraoperative Record and any orders documented therein. Any exceptions are noted below.
[2021-07-17] MEDS: ACETAMINOPHEN 325 MG TAB PO PRN (17:53)
--- NOTE | 2021-07-17 20:05 | Anesthesiology Progress Note ---
Date of Service July 17, 2021 Anesthesia Post Procedure Vital Signs Vital Signs: Temp Pulse Pulse Resp BP BP Pulse Ox 07/17/21 20:04 36.8 C 56 L 16 145/73 H 91 07/17/21 19:04 36.8 C 58 L 16 118/69 91 07/17/21 18:02 36.4 C L 57 L 16 150/71 H 93 07/17/21 17:42 36.3 C L 57 L 16 136/73 91 07/17/21 16:55 36.4 C L 62 14 136/66 95 07/17/21 16:40 36.5 C 61 14 133/77 93 07/17/21 16:30 60 14 126/55 L 93 07/17/21 16:20 60 16 139/58 L 98 07/17/21 16:11 36.7 C 60 12 137/60 99 07/17/21 13:55 36.8 C 56 L 18 07/17/21 07:17 36.5 C 63 16 148/67 H 95 07/16/21 22:15 37.0 C 61 16 161/84 H 91 Pain Intensity Right Leg: Pain Intensity: 5 Transfer of Care Handoff Completed per policy Notes Mental Status: alert / awake / arousable Patient Amnestic to Procedure: Yes Nausea / Vomiting: adequately controlled Pain: adequately controlled Airway Patency, RR, SpO2: stable & adequate BP & HR: stable & adequate Hydration State: stable & adequate Anesthetic Complications: no major complications apparent
[2021-07-17] MEDS: CEFEPIME 2,000 MG in SYRINGE 0 ML IV SCH (21:15)
[2021-07-17] MEDS: SIMVASTATIN 10 MG TAB PO SCH (21:17)
[2021-07-17] MEDS: metroNIDAZOLE 500 MG TAB PO SCH (21:17)
[2021-07-17] MEDS: LATANOPROST 0.005% OP SOLN 2.5 ML BTL OP SCH (21:17)
[2021-07-17] MEDS: ASPIRIN 81 MG ECTAB PO SCH (21:18)
[2021-07-17] MEDS ORDERED: Nursing to Pharmacy Communication SCH (22:00)
[2021-07-18] MEDS: LEVOTHYROXINE SODIUM 88 MCG TABLET PO SCH (06:00)
[2021-07-18] MEDS: CEFEPIME 2,000 MG in SYRINGE 0 ML IV SCH ×2 (06:00→17:05)
[2021-07-18 06:21] LABS: Basophils # (auto) 0.02 K/uL (0-0.2); Basophils % (auto) 0.3 %; Eosinophils # (auto) 0.26 K/uL (0-0.5); Eosinophils % (auto) 3.5 %; Hematocrit (blood only) 34.3 % (37-47); Hemoglobin 10.4 g/dL (12.0-16.0); Immature Granulocytes # (auto) 0.06 K/uL (0.00-0.02); Immature Granulocytes % (auto) 0.8 %; Lymphocytes # (auto) 1.66 K/uL (1.2-3.4); Lymphocytes % (auto) 22.6 %; Mean Corpuscular Hemoglobin 29.7 pg (25-34); Mean Corpuscular Hgb Conc 30.3 g/dL (32-36); Mean Platelet Volume 8.2 fL (7.4-10.4); Monocytes # (auto) 0.47 K/uL (0.11-0.59); Monocytes % (auto) 6.4 %; Neutrophils # (auto) 4.86 K/uL (1.4-6.5); Neutrophils % (auto) 66.4 %; Platelet Count 459 K/uL (130-400); RDW Coefficient of Variation 13.9 % (11.5-14.5); RDW Standard Deviation 48.9 fL (36.4-46.3); White Blood Count 7.33 K/uL (4.8-10.8)
[2021-07-18 06:54] LABS: BUN Creatinine Ratio 20.9 (10-20); Calcium 8.9 mg/dl (8.5-10.1); Creatinine Clr Calc Pharmacy 53.5 ml/min; Est GFR (African American) 78.9 ml/min; Est GFR (Non-African American) 68.1 ml/min; Potassium 4.6 mmol/L (3.5-5.1)
--- NOTE | 2021-07-18 08:13 | Hospitalist Progress Note ---
Date of Service July 18, 2021 Assessment & Plan (1) Cellulitis of right lower leg: Plan: Mrs. Baires is an 81 yo woman with a PMHx of chronic R LE lymphedema and prediabetes who presents for failed outpatient management of RLE cellulitis. Cellulitis of right lower leg - s/p I&D 07/17 - WBC 11.85, up from 10.8 on 07/11 discharge. Wound Culture pending. Blood Cultures pending. - Procal neg. CRP 5.43, down from 10 on 07/11 discharge. ESR 107 - unsure of why gram positive coverage was not included with home oral regimen upon hospital discharge from 07/11 - Continue meropenem and daptomycin. Narrow with culture results. - wound care nurse consulted - Venous Doppler of R LE 07/16 showing normal compressibility of deep venous system from common femoral vein through proximal calf veins, no current evidence of acute thrombosis. There is diffuse edema throughout the RLE, limited visualization of the calf veins due to swelling. - CT of leg w/o evidence of abscess - Consulted General Surgery for concern of abscess and possible I&D--cont IV abx, recommend ortho c/s, no surgical intervention at this time, elevate lower extremities - Ortho consulted: -Plan is for return to the OR 07/19 or 07/20 for repeat I&D - NPO at midnight - ID consulted for antibiotic guidance -- recommend stopping dapto & meropenem in favor of IV vanco & cefepime plus oral flagyl; duration at least 14 days if not longer depending on clinical response - trend CBC Elevated serum creatinine -- resolved - Cr was 1.20 at discharge on 07/11 - Elevated to 1.54, BUN at 37 on admission - suspect pre-renal etiology - Cr normalized as of 07/16 continue to monitor - NSS discontinued, encourage PO hydration - trend BMP Pre-diabetes: - A1c from 05/2021 was 5.5, technically in pre-diabetic range - BSG ACHS with loose SSI parameters - patient does not appear to be on home oral agent at his time - continue daily baby ASA - of note patient is not on a high intensity statin - consider escalating from simvastatin to Lipitor or Crestor - carb consistent diet Hyponatremia: - Na 131 on admission, down from 133 on discharge from 07/11/21 - Received NSS IV, improved to 134 - trend BMP Hypothyroidism: - continue home dose levothyroxine Depressive disorder: - continue home fluoxetine Gastroesophageal reflux disease: - continue home dose Protonix Hypertension: - hold home amlodipine in the presence of acute on chronic LE edema - continue home propranolol Peripheral neuropathy: - continue home gabapentin dose Diet: Carb consistent DVT ppx: Heparin 5,000units SQ q12 Dispo: Med/Surg. PT/OT placed - expressed desire for home health services upon discharge Code: Full (2) Elevated serum creatinine: (3) Type II diabetes mellitus: (4) Hyponatremia: (5) Hypothyroidism: (6) Depressive disorder: (7) Hypertension: (8) Gastroesophageal reflux disease: (9) Peripheral neuropathy: Admission and Anticipated Discharge Date Admission Date: July 17, 2021 Supervising Physician Co-Signing Physician Notes Also saw the patient with the resident physician confirmed varma portions of the history and physical examination. I agree with the impression and plan as noted, with additional below. Upon our exam, she is seated in the bedside chair. She really has no complaints. It sounds as if orthopedic surgery has already been in this morning to discuss the plan moving forward. Wound VAC remains in place Exam 128/70, 65, 16, 36.7, 90% on room air She is pleasant and alert. She does note the pain although is in no outward distress. Heart regular Respirations nonlabored Data Hemoglobin 10.4, platelet count 459 Sodium 136, potassium 4.6, BUN 17, creatinine 0.81 right lower extremity cellulitis Status post irrigation debridement, wound VAC placement (07/17) Reevaluation in the OR 07/19 or 07/20, with either repacking and wound VAC or closure over drains Continue vancomycin, cefepime and metronidazole, pending wound and surgical cultures Else per resident documentation Subjective Patient seen at bedside. Laying in bed comfortably in the a.m. Reports that her pain is very well controlled. Feels that undergoing surgery was the right choice. Denies fever, chills, nausea, vomiting, shortness of breath, cough, chest pain, palpitations. Review of Systems Review of Systems: Per subjective Physical Exam Physical Exam: GENERAL: A&Ox3. NAD. CHEST/LUNGS: CTAB A/P. No crackles, wheezes, rales, ronchi. HEART: RRR. No m/g/r. No carotid bruits. ABDOMEN: NT/ND, soft. BS+ x4 EXTREMITIES: No cyanosis, no clubbing, no edema SKIN: Right leg with ~2x2in wound on anterior martinez, which is draining purulent fluid. Leg is TTP up to 2in below knee. There is induration surrounding the wound. PSYCHIATRIC: Euthymic affect, no SI, no pressured speech, no hallucinations NEUROLOGIC: No FND. CN II-XII grossly intact. Results & Data Results & Data ([facility]) Vital Signs (Past 12 Hours) Vital Signs Temp Pulse Resp BP Pulse Ox 07/18/21 07:26 36.5 C 57 L 16 134/64 93 07/18/21 04:56 36.9 C 59 L 16 149/67 H 91 07/17/21 22:19 36.8 C 54 L 16 123/65 92 Resident Activity Tracking Resident Involvement: Resident Care Provided Care Provided: Adult Hospital Medicine
[2021-07-18] MEDS: DICLOFENAC SODIUM 75 MG TABCR PO SCH ×2 (08:17→21:19)
[2021-07-18] MEDS: FUROSEMIDE 20 MG TAB PO SCH (08:18)
[2021-07-18] MEDS: FLUoxetine HCL 10 MG CAP PO SCH (08:18)
[2021-07-18] MEDS: FLUoxetine HCL 20 MG CAP PO SCH (08:18)
[2021-07-18] MEDS: metroNIDAZOLE 500 MG TAB PO SCH ×2 (08:19→21:21)
[2021-07-18] MEDS: GABAPENTIN 100 MG CAP PO SCH ×3 (08:19→21:21)
[2021-07-18] MEDS: PANTOprazole 40 MG TAB PO SCH (08:20)
[2021-07-18] MEDS: PROPRANOLOL HCL LA 80 MG CAPCR PO SCH (08:21)
[2021-07-18] MEDS: HEPARIN SOD 5,000 UNIT/0.5 ML VIAL SQ SCH ×2 (08:23→21:20)
[2021-07-18] MEDS: INSULIN ASPART PER UNIT SC SCH ×4 (10:28→21:20)
[2021-07-18] MEDS: VANCOMYCIN HCL 1,250 MG in SODIUM CHLORIDE 0.9% 250 ML IV SCH (11:15)
--- NOTE | 2021-07-18 11:36 | Orthopedic Progress Note ---
Date of Service July 18, 2021 Assessment & Plan (1) Wound of right lower extremity: Plan: She again had a fairly extensive infection on the anterior aspect of her right lower leg, with an area of skin necrosis about 6 cm wide and 2 cm in height, but a much larger area of underlying subcutaneous fat necrosis and infection. Wound VAC is currently in place. Plan for her is to take her back to the operating room tomorrow versus Thursday. I spoke with Dr. Culver, who can do her case tomorrow if he is available. If not, I will do it on Thursday. We will plan for repeat irrigation and debridement and evaluation of the wound. If it looks like there is progressive infection or tissue necrosis, or if the skin will not close yet without undue tension, will place another wound VAC. If the infection and necrosis looks controlled, and the skin is pliable enough, we can remove the wound VAC and close the wound over drains. N.p.o. after midnight tonight for possible surgery tomorrow. Admission and Anticipated Discharge Date Admission Date: July 17, 2021 Subjective Patient sitting in bed and resting comfortably. She denies any pain in her right leg. No specific problems since surgery. Physical Exam Physical Exam: Examination of right lower leg reveals the wound VAC functioning and in place. There is still some diffuse erythema around the right lower leg around the open wound. Results & Data ([facility]) Vital Signs (Past 12 Hours) Vital Signs Temp Pulse Resp BP Pulse Ox 07/18/21 07:26 36.5 C 57 L 16 134/64 93 07/18/21 04:56 36.9 C 59 L 16 149/67 H 91 Laboratory Results Cultures obtained in the operating room yesterday show many white cells on Gram stain, but no organisms are seen. No growth on cultures to date.
[2021-07-18] MEDS: LATANOPROST 0.005% OP SOLN 2.5 ML BTL OP SCH (21:19)
[2021-07-18] MEDS: ASPIRIN 81 MG ECTAB PO SCH (21:20)
[2021-07-18] MEDS: SIMVASTATIN 10 MG TAB PO SCH (21:21)
[2021-07-19] MEDS: LEVOTHYROXINE SODIUM 88 MCG TABLET PO SCH (05:34)
[2021-07-19] MEDS: CEFEPIME 2,000 MG in SYRINGE 0 ML IV SCH ×2 (05:34→18:46)
--- NOTE | 2021-07-19 07:27 | Hospitalist Progress Note ---
Date of Service July 19, 2021 Assessment & Plan (1) Cellulitis of right lower leg: Plan: Mrs. Baires is an 81 yo woman with a PMHx of chronic R LE lymphedema and prediabetes who presents for failed outpatient management of RLE cellulitis. Cellulitis of right lower leg - s/p I&D 07/17 - WBC 11.85, up from 10.8 on 07/11 discharge. Wound Culture pending. Blood Cultures pending. - Procal neg. CRP 5.43, down from 10 on 07/11 discharge. ESR 107 - unsure of why gram positive coverage was not included with home oral regimen upon hospital discharge from 07/11 - Continue meropenem and daptomycin. Narrow with culture results. - wound care nurse consulted - Venous Doppler of R LE 07/16 showing normal compressibility of deep venous system from common femoral vein through proximal calf veins, no current evidence of acute thrombosis. There is diffuse edema throughout the RLE, limited visualization of the calf veins due to swelling. - CT of leg w/o evidence of abscess - Consulted General Surgery for concern of abscess and possible I&D--cont IV abx, recommend ortho c/s, no surgical intervention at this time, elevate lower extremities - Ortho consulted: -I&D performed 07/17 with repeat on 07/19 -- wound unable to be closed after second surgery - Wound vac in place - ID consulted for antibiotic guidance -- recommend stopping dapto & meropenem in favor of IV vanco & cefepime plus oral flagyl; duration at least 14 days if not longer depending on clinical response - trend CBC Elevated serum creatinine -- resolved - Cr was 1.20 at discharge on 07/11 - Elevated to 1.54, BUN at 37 on admission - suspect pre-renal etiology - Cr normalized as of 07/16 continue to monitor - NSS discontinued, encourage PO hydration - trend BMP Pre-diabetes: - A1c from 05/2021 was 5.5, technically in pre-diabetic range - BSG ACHS with loose SSI parameters - patient does not appear to be on home oral agent at his time - continue daily baby ASA - of note patient is not on a high intensity statin - consider escalating from simvastatin to Lipitor or Crestor - carb consistent diet Hyponatremia: - Na 131 on admission, down from 133 on discharge from 07/11/21 - Received NSS IV, improved to 134 - trend BMP Hypothyroidism: - continue home dose levothyroxine Depressive disorder: - continue home fluoxetine Gastroesophageal reflux disease: - continue home dose Protonix Hypertension: - hold home amlodipine in the presence of acute on chronic LE edema - continue home propranolol Peripheral neuropathy: - continue home gabapentin dose Diet: Carb consistent DVT ppx: Heparin 5,000units SQ q12 Dispo: Med/Surg. PT/OT placed - expressed desire for home health services upon discharge Code: Full (2) Elevated serum creatinine: (3) Type II diabetes mellitus: (4) Hyponatremia: (5) Hypothyroidism: (6) Depressive disorder: (7) Hypertension: (8) Gastroesophageal reflux disease: (9) Peripheral neuropathy: Admission and Anticipated Discharge Date Admission Date: July 17, 2021 Supervising Physician Co-Signing Physician Notes Attending attestation Pt seen and examined in concert with Dr. Rosenbaum. In agreement with the documented findings as noted in the resident documentation with any exceptions or additions as noted here. Without acute complaint, wound vac in place. Spouse requesting update re: procedure and expected course. On examination, S1/S2 nl RRR no MCG. CTAB. Abd NT/ND BS+ve RLE Cellulitis w/ wound VAC - ortho consult - continue abx regimen and f/u cultures Else see resident documentation as noted. Subjective Seen s/p surgery at bedside. Wound vac in place. Patient comfortable and pain free. Denies fever, chills, n/v, SOB, CP, palp. Hoping for update on her surgery from orthopedics. I suggested that the surgeon may have had other cases and might be by to discuss later on. Review of Systems Review of Systems: Per subjective Physical Exam Physical Exam: GENERAL: A&Ox3. NAD. CHEST/LUNGS: CTAB A/P. No crackles, wheezes, rales, ronchi. HEART: RRR. No m/g/r. No carotid bruits. ABDOMEN: NT/ND, soft. BS+ x4 EXTREMITIES: No cyanosis, no clubbing, no edema. Right leg with ~ 4x7cm incision with wound vac in place. C/d/i. PSYCHIATRIC: Euthymic affect, no SI, no pressured speech, no hallucinations NEUROLOGIC: No FND. CN II-XII grossly intact. Results & Data Results & Data ([facility]) Vital Signs (Past 12 Hours) Vital Signs Temp Pulse Resp BP BP Pulse Ox 07/19/21 06:57 37.3 C 60 20 183/69 H 93 07/19/21 06:27 36.5 C 60 16 148/82 H 91 07/18/21 21:54 36.8 C 63 19 137/69 93 Resident Activity Tracking Resident Involvement: Resident Care Provided Care Provided: Adult Hospital Medicine
[2021-07-19] MEDS ORDERED: ONDANSETRON INJ 2 MG/ML 2 ML VIAL ONE (07:42)
[2021-07-19] MEDS ORDERED: PROPOFOL IV EMULSION 10 MG/ML 20 ML VIAL IV ONE (07:42)
[2021-07-19] MEDS ORDERED: fentaNYL citrate 100 MCG/2 ML VIAL ONE ×2 (07:43→09:14)
--- NOTE | 2021-07-19 07:55 | History & Physical Bridge Note ---
Date of Service July 19, 2021 History & Physical Bridge Note I have examined the patient, reviewed the History & Physical and in the interval since the performance of the History & Physical I have noted the following changes of clinical significance: no changes noted plan for OR today for repeat irrigation and debridement of right lower extremity with possible wound VAC versus primary closure.
[2021-07-19] MEDS ORDERED: ePHEDrine sulfate 50 MG/ML AMP IV PRN (08:02)
[2021-07-19] MEDS ORDERED: PROMETHAZINE HCL 6.25 MG in SODIUM CHLORIDE 0.9% 50 ML IV PRN (08:02)
[2021-07-19] MEDS ORDERED: ONDANSETRON INJ 2 MG/ML 2 ML VIAL IV PRN (08:02)
[2021-07-19] MEDS ORDERED: ATROPINE SULFATE 0.1 MG/ML 10ML SYR IV PRN (08:02)
--- NOTE | 2021-07-19 08:02 | Anesthesiology Consultation ---
Date of Service July 19, 2021 Assessment & Plan Chart Review Chart Review: Acceptable Risk for Surgery and Patient NOT seen in Pre Admission Testing Consults Requested none ASA ASA3 Proposed Anesthesia Anesthesia Type: General Risk / Benefits Reviewed With: PT / POA / Parent / Guardian, Accepts Plan and Informed Consent Obtained History Surgery Operation Date: 07/17/21 12:00 Proposed Procedures p Right Lower Extremity Incision and Drainage with Application of Wound Vac - Naren Porter M.D. Operation Date: 07/19/21 08:05 Proposed Procedures p Right Repeat Leg Incision and Drainage, Possible Wound Vac - Olegario Culver, Height/Weight Height: 4 ft 10 in Weight: 91.4 kg Allergies Allergy/AdvReac Type Severity Reaction Status Date / Time pneumococcal vaccine Allergy Unknown REDNESS , Verified 07/15/21 23:22 CHILLS, HIVES sulfamethoxazole Allergy Unknown RASH Verified 07/15/21 23:22 trimethoprim Allergy Unknown RASH Verified 07/15/21 23:22 Medications Home Medications Medication Instructions Recorded Confirmed Last Taken aspirin 81 mg tablet,delayed 81 mg PO HS 03/29/18 07/15/21 07/14/21 release calcium citrate 200 mg 1 tab PO BID 03/29/18 07/15/21 07/15/21 08:00 calcium-vitamin D3 6.25 mcg (250 unit) tablet omega-3 fatty acids 1,000 mg 1,000 mg PO BID 03/29/18 07/15/21 07/15/21 08:00 capsule cholecalciferol (vitamin D3) 125 5,000 units PO 5XWK cap 05/31/18 07/15/21 07/15/21 mcg (5,000 unit) capsule mecobalamin (vitamin B12) 1,000 1,000 mcg SL 3XWK tab 05/31/18 07/15/21 07/15/21 mcg disintegrating tablet,sublingual ferrous sulfate 27 mg iron tablet 27 mg PO DAILY tab 12/27/18 07/15/21 07/15/21 (High Potency Iron) cranberry 500 mg capsule 500 mg PO DAILY cap 11/07/19 07/15/21 07/15/21 latanoprost 0.005 % eye drops 1 drops OP HS 02/21/20 07/15/21 07/14/21 pantoprazole 40 mg tablet,delayed 40 mg PO QAM #90 tab 07/05/20 07/15/21 07/15/21 release (Protonix) simvastatin 10 mg tablet (Zocor) 10 mg PO HS #90 tab 08/03/20 07/15/21 07/14/21 diclofenac sodium 75 mg 75 mg PO BID #180 tab 08/21/20 07/15/21 07/15/21 08:00 tablet,delayed release levothyroxine 88 mcg tablet 88 mcg PO QAM 02/21/21 07/15/21 07/15/21 propranolol 160 mg capsule,24 160 mg PO QAM 02/21/21 07/15/21 07/15/21 hr,extended release fluoxetine 20 mg tablet 20 mg PO DAILY #30 tab 05/28/21 07/15/21 07/15/21 gabapentin 100 mg capsule 100 mg PO TID #90 cap 06/05/21 07/15/21 07/15/21 14:00 fluoxetine 10 mg capsule 10 mg PO DAILY #30 cap 06/27/21 07/15/21 07/15/21 amlodipine 10 mg tablet 20 mg PO QAM tab 07/01/21 07/15/21 07/15/21 cephalexin 500 mg capsule 500 mg PO TID #30 cap 07/01/21 07/15/21 07/15/21 14:00 furosemide 20 mg tablet 20 mg PO DAILY #5 tab 07/01/21 07/15/21 07/15/21 ciprofloxacin HCl 500 mg tablet 500 mg PO BID 8 Days #16 tab 07/11/21 07/15/21 07/15/21 08:00 metronidazole 500 mg tablet 500 mg PO TID 9 Days #27 tab 07/11/21 07/15/21 07/15/21 14:00 diclofenac sodium 1 % topical gel 1 - 2 g TOPICAL BID PRN 07/15/21 07/15/21 Unknown Active Medications Generic Name Dose Route Start Last Admin Trade Name Freq PRN Reason Stop Dose Admin Acetaminophen 650 mg 07/16/21 02:58 07/17/21 17:53 Acetaminophen 325 Mg Tab PO 08/15/21 02:57 650 mg Q4H PRN Administration Pain or Fever Aspirin 81 mg 07/16/21 21:00 07/18/21 21:20 Aspirin 81 Mg Ectab PO 08/15/21 20:59 81 mg HS TONY Administration Diclofenac Sodium 75 mg 07/16/21 09:00 07/18/21 21:19 Diclofenac Sodium 75 Mg Tabcr PO 08/15/21 08:59 75 mg BID TONY Administration Fluoxetine HCl 10 mg 07/16/21 09:00 07/18/21 08:18 Fluoxetine Hcl 10 Mg Cap PO 08/15/21 08:59 10 mg DAILY TONY Administration Fluoxetine HCl 20 mg 07/16/21 09:00 07/18/21 08:18 Fluoxetine Hcl 20 Mg Cap PO 08/15/21 08:59 20 mg DAILY TONY Administration Furosemide 20 mg 07/16/21 09:00 07/18/21 08:18 Furosemide 20 Mg Tab PO 08/15/21 08:59 20 mg DAILY TONY Administration Gabapentin 100 mg 07/16/21 09:00 07/18/21 21:21 Gabapentin 100 Mg Cap PO 08/15/21 08:59 100 mg TID TONY Administration Heparin Sodium (Porcine) 5,000 units 07/16/21 09:00 07/18/21 21:20 Heparin Sod 5,000 Unit/0.5 Ml Vial SQ 08/15/21 08:59 5,000 units Q12 TONY Administration Vancomycin HCl 1,250 mg/ 275 mls @ 200 mls/hr 07/18/21 09:00 07/18/21 13:55 Sodium Chloride IV 07/25/21 08:59 Infused Q24H TONY Infusion Protocol Cefepime HCl 2,000 mg/ Syringe 20 mls @ 5 mls/min 07/17/21 18:00 07/19/21 05:34 IV 07/24/21 11:59 5 mls/min Q12H TONY Administration Protocol Insulin Aspart 0 units 07/18/21 07:30 07/18/21 21:20 Insulin Aspart Per Unit SC 08/17/21 07:29 Not Given ACHS TONY Latanoprost 1 drops 07/16/21 21:00 07/18/21 21:19 Latanoprost 0.005% Op Soln 2.5 Ml Btl OP 08/15/21 20:59 1 drops HS TONY Administration Levothyroxine Sodium 88 mcg 07/16/21 06:30 07/19/21 05:34 Levothyroxine Sodium 88 Mcg Tablet PO 08/15/21 06:29 88 mcg DAILYBB TONY Administration Metronidazole 500 mg 07/17/21 21:00 07/18/21 21:21 Metronidazole 500 Mg Tab PO 07/24/21 20:59 500 mg BID TONY Administration Pantoprazole Sodium 40 mg 07/16/21 09:00 07/18/21 08:20 Pantoprazole 40 Mg Tab PO 08/15/21 08:59 40 mg QAM TONY Administration Propranolol HCl 160 mg 07/16/21 09:00 07/18/21 08:21 Propranolol Hcl La 80 Mg Capcr PO 08/15/21 08:59 Not Given QAM TONY Simvastatin 10 mg 07/16/21 21:00 07/18/21 21:21 Simvastatin 10 Mg Tab PO 08/15/21 20:59 10 mg HS TONY Administration NPO Date Last Intake of Fluids: 07/18/21 Time Last Intake of Fluids: 20:00 Date Last Intake of Solids: 07/18/21 Time Last Intake of Solids: 20:00 Past Medical History Medical History Anxiety Cervical cord myelomalacia Depression Diverticulosis of colon (without mention of hemorrhage) Exposure to COVID-19 virus History of gastrointestinal ulcer History of pancreatitis Hypercholesterolemia Hypertension Hypothyroidism IBS (irritable bowel syndrome) WITH DIARRHEA, ONGOING FOR LAST YR - REASON FOR UPCOMING PROCEDURE Osteoarthritis Peripheral neuropathy HANDS AND FEET Spinal stenosis HX LUMBAR Tremor BENIGN ESSENTIAL LEFT HAND X 5 YRS-NO DX. NO BETTER NO WORSE PER PT. Exercise / Class Metabolic Activity II 4-5 Yardwork/Stairs/Walk up hill Past Family History Family History Mother Family history of diabetes mellitus Breast cancer Father Family history of diabetes mellitus Heart disease Family/Other Family history of diabetes mellitus Sister Congestive heart failure Breast cancer Stroke syndrome Brother Coronary heart disease Myocardial infarction Denies family history of Ovarian cancer Prostate cancer Colorectal cancer Past Surgical History Surgical History H/O gastric bypass History of bilateral tubal ligation History of cataract surgery R/L History of cholecystectomy History of colonoscopy History of esophagogastroduodenoscopy (EGD) History of eyelid surgery History of fusion of cervical spine C5-T2 2017 - MILD ROM LIMITATION History of hysterectomy History of pharyngoplasty History of tonsillectomy History of total knee arthroplasty R/L S/P laminectomy with spinal fusion HX Past Anesthesia History No Hx of Anesthesia Complications and No Family Hx of Anesthesia Complications History of PONV No Hx of PONV and No Hx of Motion Sickness Social History Smoking Status: Never smoker Hx Alcohol Use: No Alcohol type: wine alcohol intake frequency: holidays/special occasions only Hx Substance Use: No substance use type: does not use Physical Exam Vital Signs Last Vital Signs Temp 37.3 C 07/19/21 06:57 Pulse 60 07/19/21 06:57 Resp 20 07/19/21 06:57 BP 183/69 H 07/19/21 06:57 Pulse Ox 93 07/19/21 06:57 Constitutional + obese ENMT Mouth: no dentition abnormality Thyromental Distance: > or= 3.5 Finger Breadths Mallampati Class: II Neck normal visual inspection Respiratory normal respiratory effort Auscultation: lungs clear to auscultation bilaterally Cardiovascular Rate/Rhythm: regular rate and regular rhythm Psychiatric Orientation: alert Testing Laboratory Results 07/18/21 06:09 07/18/21 06:09 07/16/21 00:06 Gram Stain - Final Leg,Right Deep Wound Culture - Preliminary Pin-point growth present, reincubating. 07/17/21 15:51 Gram Stain - Final Leg,Right Aerobic and Anaerobic Culture - Preliminary No growth to date. 07/17/21 15:51 Gram Stain - Final Leg,Right Aerobic and Anaerobic Culture - Preliminary No growth to date. 07/15/21 23:50 Aerobic Blood Culture - Preliminary Blood No growth in Aerobic bottle after 48 hours. Anaerobic Blood Culture - Preliminary No growth in Anaerobic bottle after 48 hours. 07/15/21 19:36 Aerobic Blood Culture - Preliminary Blood No growth in Aerobic bottle after 48 hours. Anaerobic Blood Culture - Preliminary No growth in Anaerobic bottle after 48 hours. 07/19/21 07/18/21 06:14 20:48 POC Glucose 92 92 Electrocardiogram Date: 07/16/21 Findings: + SB @ (54) Chest X-Ray Date: 07/05/21 Findings: + atelectasis (likely) and + cardiomegaly Echocardiogram Date: 04/11/19 EF: 55-60% LV Function: normal RWMA: + none Valvular Disease: + no significant valvular disease
[2021-07-19] MEDS ORDERED: LIDOCAINE 2% 2 ML VIAL/AMP(20MG/ML) INFIL ONE (08:30)
[2021-07-19] MEDS ORDERED: VANCOMYCIN TROUGH ONE (08:30)
[2021-07-19] MEDS ORDERED: ePHEDrine sulfate 50 MG/ML SYR ONE (08:41)
--- NOTE | 2021-07-19 09:04 | Post Operative Brief Note ---
Immediate Post Op Note v1 Date of Surgery July 19, 2021 Pre & Post Diagnosis Operation Date: 07/17/21 12:00 Pre-Op Diagnosis: Wound of right lower extremity Post-Op Diagnosis: Wound of right lower extremity Operation Date: 07/19/21 08:05 Pre-Op Diagnosis: Right Anterior Tibial Wound Post-Op Diagnosis: Right Anterior Tibial Wound I identified the patient and participated in the time-out.: Yes Procedure Operation Date: 07/17/21 12:00 Actual Procedures p Irrigation and Debridement Right lower Extremity(Right) - Naren Porter M.D. Operation Date: 07/19/21 08:05 Actual Procedures p Right Repeat Leg Incision and Drainage, Wound Vac Application(Right) - Olegario Culver DO Surgeon Olegario Culver DO Ultrasonic Welding Machine Operator None Estimated Blood Loss 5 Findings Consistent with Post-Op Diagnosis See dictation Drains Other Anesthesia Type General Complications None Disposition Disposition: Recovery Room
--- NOTE | 2021-07-19 09:05 | Operative Report ---
Post Operative Report Pre & Post Diagnosis Operation Date: 07/17/21 12:00 Pre-Op Diagnosis: Wound of right lower extremity Post-Op Diagnosis: Wound of right lower extremity Operation Date: 07/19/21 08:05 Pre-Op Diagnosis: Right Anterior Tibial Wound Post-Op Diagnosis: Right Anterior Tibial Wound I identified the patient and participated in the time-out.: Yes Procedure Operation Date: 07/17/21 12:00 Actual Procedures p Irrigation and Debridement Right lower Extremity(Right) - Naren Porter M.D. Operation Date: 07/19/21 08:05 Actual Procedures p Right Repeat Leg Incision and Drainage, Wound Vac Application(Right) - Olegario Culver DO Surgeon Olegario Culver DO Power Plant Supervisor Reagan Bates PAC Estimated Blood Loss 5 Findings Consistent with Post-Op Diagnosis Distal third anterior tibial wound Specimens Deep wound soft tissue culture Drains Wound VAC Complications None Description of Procedure Patient was properly marked and identified in the preoperative holding area. They were then taken back to the operative suite where they were positioned supine on a regular OR table. Wound VAC was then removed the patient was then prepped and draped in the standard orthopedic fashion using Betadine and timeout was then performed. Anterior tibial wound approximately 4 x 7 cm was copiously irrigated and debrided. Deep soft tissue cultures were taken and sent for analysis. A curette was used to debride any devitalized tissue down to good bleeding surface. 3 L of normal saline solution was then irrigated. The wound was unable to be closed therefore a wound VAC was placed. Wound VAC was assessed and noted to have a good suction without any leaks. The patient tolerated the procedure well and was taken to the recovery room in hemodynamically stable condition. I attest to the content of the Intraoperative Record and any orders documented therein. Any exceptions are noted below.
[2021-07-19] MEDS ORDERED: MIDAZOLAM HCL 1 MG/ML 2ML VIAL ONE (09:14)
[2021-07-19] MEDS: fentaNYL citrate 100 MCG/2 ML VIAL IV PRN ×2 (09:23→09:31)
[2021-07-19] MEDS: DICLOFENAC SODIUM 75 MG TABCR PO SCH ×2 (10:44→21:08)
[2021-07-19] MEDS: FLUoxetine HCL 20 MG CAP PO SCH (10:45)
[2021-07-19] MEDS: FUROSEMIDE 20 MG TAB PO SCH (10:45)
[2021-07-19] MEDS: FLUoxetine HCL 10 MG CAP PO SCH (10:50)
[2021-07-19] MEDS: GABAPENTIN 100 MG CAP PO SCH ×3 (10:52→21:09)
[2021-07-19] MEDS: metroNIDAZOLE 500 MG TAB PO SCH ×2 (10:53→21:08)
[2021-07-19] MEDS: PANTOprazole 40 MG TAB PO SCH (10:54)
[2021-07-19] MEDS: VANCOMYCIN HCL 1,250 MG in SODIUM CHLORIDE 0.9% 250 ML IV SCH (11:16)
[2021-07-19 11:19] LABS: Basophils # (auto) 0.02 K/uL (0-0.2); Basophils % (auto) 0.3 %; Eosinophils # (auto) 0.24 K/uL (0-0.5); Eosinophils % (auto) 3.7 %; Hemoglobin 10.3 g/dL (12.0-16.0); Immature Granulocytes # (auto) 0.06 K/uL (0.00-0.02); Immature Granulocytes % (auto) 0.9 %; Lymphocytes # (auto) 1.12 K/uL (1.2-3.4); Mean Corpuscular Hemoglobin 29.5 pg (25-34); Mean Corpuscular Hgb Conc 30.3 g/dL (32-36); Mean Corpuscular Volume 97.4 fL (80-100); Mean Platelet Volume 8.2 fL (7.4-10.4); Monocytes # (auto) 0.53 K/uL (0.11-0.59); Monocytes % (auto) 8.1 %; Platelet Count 448 K/uL (130-400); RDW Coefficient of Variation 13.9 % (11.5-14.5); RDW Standard Deviation 49.4 fL (36.4-46.3); Red Blood Count 3.49 M/uL (4.2-5.4); White Blood Count 6.57 K/uL (4.8-10.8)
[2021-07-19] MEDS: HEPARIN SOD 5,000 UNIT/0.5 ML VIAL SQ SCH ×2 (11:22→21:09)
[2021-07-19] MEDS: INSULIN ASPART PER UNIT SC SCH ×4 (11:25→21:21)
[2021-07-19] MEDS: PROPRANOLOL HCL LA 80 MG CAPCR PO SCH (11:26)
[2021-07-19 11:43] LABS: Calcium 8.8 mg/dl (8.5-10.1); Creatinine Clr Calc Pharmacy 48.9 ml/min; Est GFR (African American) 72.4 ml/min; Est GFR (Non-African American) 62.5 ml/min; Potassium 4.3 mmol/L (3.5-5.1)
--- NOTE | 2021-07-19 12:29 | Pharmacy Report ---
Pharmacy Vanc AUC Short Note - Date of Service July 19, 2021 - Assessment & Plan Assessment 81 year old F receiving vancomycin/cefepime/Flagyl for treatment of necrotic skin infection. Pertinent microbiologic data includes: N/A. Day # 3 of antimicrobial therapy. Plan Vancomycin * AUC/KATYA is the preferred PK/PD target for vancomycin * AUC guided dosing is effective and associated with decreased risk of nephrotoxicity compared to traditional trough targets * Trough level of 16.3 mcg/mL is predicted to achieve > AUC/KATYA of 400-600 mg/L.hr and may be associated with a 15 % risk of nephrotoxicity * Change to 1000 mg IV every 24 hours (predicted AUC/KATYA of 432 mg/L.hr with 10% renal toxicity) * Trough ordered for: 07/21/21 Pharmacy will continue to follow and will adjust dose/frequency as necessary. Thank you.
[2021-07-19] MEDS: SIMVASTATIN 10 MG TAB PO SCH (21:09)
[2021-07-19] MEDS: LATANOPROST 0.005% OP SOLN 2.5 ML BTL OP SCH (21:09)
[2021-07-19] MEDS: ASPIRIN 81 MG ECTAB PO SCH (21:09)
[2021-07-19] MEDS: ACETAMINOPHEN 325 MG TAB PO PRN (22:35)
[2021-07-20] MEDS: LEVOTHYROXINE SODIUM 88 MCG TABLET PO SCH (05:51)
[2021-07-20] MEDS: CEFEPIME 2,000 MG in SYRINGE 0 ML IV SCH ×2 (05:51→17:49)
--- NOTE | 2021-07-20 06:47 | Hospitalist Progress Note ---
Date of Service July 20, 2021 Assessment & Plan (1) Cellulitis of right lower leg: Plan: Mrs. Baires is an 81 yo woman with a PMHx of chronic R LE lymphedema and prediabetes who presents for failed outpatient management of RLE cellulitis. Cellulitis of right lower leg -s/p I&D 07/17 - Continue meropenem and daptomycin. Narrow with culture results. - wound care nurse consulted - Venous Doppler of R LE 07/16 showing normal compressibility of deep venous system from common femoral vein through proximal calf veins, no current evidence of acute thrombosis. There is diffuse edema throughout the RLE, limited visualization of the calf veins due to swelling. - CT of leg w/o evidence of abscess - Consulted General Surgery for concern of abscess and possible I&D--cont IV abx, recommend ortho c/s, no surgical intervention at this time, elevate lower extremities - Ortho consulted: -I&D performed 07/17 with repeat on 07/19 -- wound unable to be closed after second surgery - Wound vac in place - ID consulted for antibiotic guidance -- recommend stopping dapto & meropenem in favor of IV vanco & cefepime plus oral flagyl; duration at least 14 days if not longer depending on clinical response - trend CBC Elevated serum creatinine --resolved - Cr was 1.20 at discharge on 07/11 - Elevated to 1.54, BUN at 37 on admission - suspect pre-renal etiology - Cr normalized as of 07/16 continue to monitor - NSS discontinued, encourage PO hydration - trend BMP Pre-diabetes: - A1c from 05/2021 was 5.5, technically in pre-diabetic range - BSG ACHS with loose SSI parameters - patient does not appear to be on home oral agent at his time - continue daily baby ASA - of note patient is not on a high intensity statin - consider escalating from simvastatin to Lipitor or Crestor - carb consistent diet Hyponatremia: - Na 131 on admission, down from 133 on discharge from 07/11/21 - Received NSS IV, improved to 134 - trend BMP Hypothyroidism: - continue home dose levothyroxine Depressive disorder: - continue home fluoxetine Gastroesophageal reflux disease: - continue home dose Protonix Hypertension: - hold home amlodipine in the presence of acute on chronic LE edema - continue home propranolol Peripheral neuropathy: - continue home gabapentin dose Diet: Carb consistent DVT ppx: Heparin 5,000units SQ q12 Dispo: Med/Surg. PT/OT placed - expressed desire for home health services upon discharge Code: Full Admission and Anticipated Discharge Date Admission Date: July 17, 2021 Supervising Physician Co-Signing Physician Notes Attending attestation Pt seen and examined in concert with Dr. Huang. In agreement with the documented findings as noted in the resident documentation with any exceptions or additions as noted here. Mild pain well controlled on present regimen, wound vac in place. On examination, S1/S2 nl RRR no MCG. CTAB. Abd NT/ND BS+ve RLE Cellulitis w/ wound VAC - ortho consult - continue abx regimen and f/u cultures. NPO p MN Else see resident documentation as noted. 40 minutes spent face to face with patient and discussion with spouse regarding prognosis and course of care including previous I&D, impending closure attempt tomorrow, possible consultation with plastics if closure fails, continued use of wound vac and the possibility of amputation for continued failure with concern for future quality of life. Spouse requests to be included in conversations such as this by facetime or phone. Subjective Patient seen and evaluated at bedside this morning. No acute events overnight. Patient denies pain at this time. No other symptoms. Patient denies CP, SOB, abdominal pain, nausea, vomiting, lightheadedness, dizziness, and diarrhea. Review of Systems Review of Systems: See HPI Physical Exam Physical Exam: Constitutional: well-appearing, no acute distress HEENT: NCAT, no conjunctival injection CV: heart sounds distant Resp: CTABL, no wheezes/rales/rhonchi appreciated, no increased work of breathing Skin: wound vac in place on RLE with minimal surrounding erythema Neuro: alert, oriented, no focal neurologic deficit appreciated Results & Data Results & Data ([facility]) Vital Signs (Past 12 Hours) Vital Signs Temp Pulse Resp BP Pulse Ox Pulse Ox 07/20/21 05:53 94 94 07/20/21 04:49 36.4 C L 68 16 132/75 93 07/19/21 22:29 36.5 C 68 18 128/68 92 07/19/21 19:51 36.8 C 70 16 125/63 93 Resident Activity Tracking Resident Involvement: Resident Care Provided Care Provided: Adult Hospital Medicine
[2021-07-20 08:24] LABS: Est GFR (Non-African American) 38.8 ml/min
[2021-07-20] MEDS: INSULIN ASPART PER UNIT SC SCH ×4 (10:42→21:59)
[2021-07-20] MEDS: DICLOFENAC SODIUM 75 MG TABCR PO SCH ×2 (10:43→20:25)
[2021-07-20] MEDS: FLUoxetine HCL 10 MG CAP PO SCH (10:44)
[2021-07-20] MEDS: FLUoxetine HCL 20 MG CAP PO SCH (10:44)
[2021-07-20] MEDS: FUROSEMIDE 20 MG TAB PO SCH (10:44)
[2021-07-20] MEDS: metroNIDAZOLE 500 MG TAB PO SCH ×2 (10:45→20:23)
[2021-07-20] MEDS: PANTOprazole 40 MG TAB PO SCH (10:45)
[2021-07-20] MEDS: PROPRANOLOL HCL LA 80 MG CAPCR PO SCH (10:45)
[2021-07-20] MEDS: GABAPENTIN 100 MG CAP PO SCH ×3 (10:45→20:25)
[2021-07-20] MEDS: HEPARIN SOD 5,000 UNIT/0.5 ML VIAL SQ SCH ×2 (10:47→20:23)
[2021-07-20] MEDS ORDERED: VANCOMYCIN HCL 1,000 MG in SODIUM CHLORIDE 0.9% 250 ML IV SCH (11:00)
--- NOTE | 2021-07-20 12:44 | Orthopedic Progress Note ---
Date of Service July 20, 2021 Assessment & Plan (1) Wound of right lower extremity: Plan: She again has a very large infected wound in the skin and subcutaneous tissues in the right lower leg with a large soft tissue defect after excision of an extensive amount of skin and necrotic subcutaneous adipose tissue. She is now 3 days out from her initial debridement surgery, and had a repeat washout yesterday. In discussion with Dr. Culver, she had no further necrotic tissue or significant infection at her washout surgery yesterday, but the skin was still under too much tension to close primarily. We will plan for repeat washout surgery tomorrow, again with attempted closure of her skin. Advised the patient that if the skin is under too much tension to close tomorrow, we will have to get a plastic surgery consultation for coverage options. I did advise her that unfortunately the wound is very low on her anterior lower leg, likely too low for a gastrocnemius or soleus flap, and she likely would not be a good candidate for a free flap. She voiced understanding of all this. N.p.o. after midnight tonight. Admission and Anticipated Discharge Date Admission Date: July 17, 2021 Subjective Patient resting comfortably. She again denies any pain in her right lower leg. Physical Exam Physical Exam: Examination of right lower leg reveals wound VAC in place and functioning. Her erythema and swelling more diffusely in the lower leg looks slightly improved. Results & Data ([facility]) Vital Signs (Past 12 Hours) Vital Signs Temp Pulse Resp BP BP Pulse Ox Pulse Ox 07/20/21 12:32 36.6 C 74 18 118/77 96 07/20/21 07:37 36.6 C 68 16 127/77 93 07/20/21 05:53 94 94 07/20/21 04:49 36.4 C L 68 16 132/75 93
--- NOTE | 2021-07-20 14:39 | Pharmacy Report ---
Pharmacy Abx Dose Short Note - Date of Service July 20, 2021 - Assessment & Plan Assessment 81 year old F receiving vancomycin/cefepime/Flagyl for treatment of skin infection Day # 4 of antimicrobial therapy. Plan Vancomycin * Trough level of 20.8 mcg/mL is supratherapeutic-- this level is prior to steady state and was drawn due to acute kidney injury (serum creatinine increased from 0.87 mg/dL to 1.29 mg/dL). * Patient specific pharmacokinetics AT THIS POINT suggest half-life of 34 hours with elimination constant of 0.02 hr-1. * Project level to be 17 mcg/mL around 2000 tonight. Start vancomycin 750 mg IV q24 hours (8 mg/kg) at this point. * Goal trough level for skin infection : ~15 mcg/mL * Trough to be ordered again based upon kidney function and clinical picture Pharmacy will continue to follow and will adjust dose/frequency as necessary. Thank you.
[2021-07-20] MEDS ORDERED: VANCOMYCIN HCL 750 MG in SODIUM CHLORIDE 0.9% 250 ML IV SCH (20:00)
[2021-07-20] MEDS: ASPIRIN 81 MG ECTAB PO SCH (20:25)
[2021-07-20] MEDS: SIMVASTATIN 10 MG TAB PO SCH (20:26)
[2021-07-20] MEDS: LATANOPROST 0.005% OP SOLN 2.5 ML BTL OP SCH (20:26)
[2021-07-21] MEDS: LEVOTHYROXINE SODIUM 88 MCG TABLET PO SCH (05:28)
[2021-07-21] MEDS: CEFEPIME 2,000 MG in SYRINGE 0 ML IV SCH (05:28)
[2021-07-21] MEDS ORDERED: Nursing to Pharmacy Communication SCH (06:00)
[2021-07-21 06:18] LABS: Basophils # (auto) 0.02 K/uL (0-0.2); Basophils % (auto) 0.3 %; Eosinophils # (auto) 0.37 K/uL (0-0.5); Eosinophils % (auto) 4.7 %; Hematocrit (blood only) 32.4 % (37-47); Immature Granulocytes # (auto) 0.05 K/uL (0.00-0.02); Immature Granulocytes % (auto) 0.6 %; Lymphocytes # (auto) 1.45 K/uL (1.2-3.4); Lymphocytes % (auto) 18.5 %; Mean Corpuscular Hemoglobin 29.7 pg (25-34); Mean Corpuscular Hgb Conc 30.9 g/dL (32-36); Mean Corpuscular Volume 96.1 fL (80-100); Mean Platelet Volume 8.3 fL (7.4-10.4); Monocytes # (auto) 0.71 K/uL (0.11-0.59); Neutrophils # (auto) 5.25 K/uL (1.4-6.5); Neutrophils % (auto) 66.9 %; Platelet Count 390 K/uL (130-400); RDW Coefficient of Variation 14.2 % (11.5-14.5); Red Blood Count 3.37 M/uL (4.2-5.4); White Blood Count 7.85 K/uL (4.8-10.8)
[2021-07-21] MEDS ORDERED: INSULIN ASPART PER UNIT SC SCH ×2 (06:30→11:30)
[2021-07-21 06:50] LABS: BUN Creatinine Ratio 21.9 (10-20); Creatinine Clr Calc Pharmacy 26.9 ml/min; Est GFR (African American) 35.2 ml/min; Est GFR (Non-African American) 30.4 ml/min; Potassium 4.6 mmol/L (3.5-5.1)
--- NOTE | 2021-07-21 07:04 | Hospitalist Progress Note ---
Date of Service July 21, 2021 Assessment & Plan (1) Cellulitis of right lower leg: Plan: Mrs. Baires is an 81 yo woman with a PMHx of chronic R LE lymphedema and prediabetes who presents for failed outpatient management of RLE cellulitis. Cellulitis of right lower leg s/p I&D x3 (07/17, 07/19, and 07/21) - Initially treated with meropenem and daptomycin (regimen adjustments based on ID consult are detailed below) - Wound care nurse following - Venous Doppler of R LE 07/16 showing normal compressibility of deep venous system from common femoral vein through proximal calf veins, no current evidence of acute thrombosis. There is diffuse edema throughout the RLE, limited visualization of the calf veins due to swelling. - CT of leg w/o evidence of abscess - Consulted general surgery d/t concern of abscess - cont IV abx, recommend ortho c/s, no intervention at this time, elevate LE - Ortho consulted: -I&D performed 07/17, with repeat on 07/19 and additional I&D on 07/21 - Wound vac in place - ID consulted and recommends vancomycin IV, cefepime IV, and flagyl PO for a total of at least 14 days if not longer based on response - Trend daily CBC Elevated serum creatinine - Cr was 1.20 at discharge on 07/11; on admission, elevated to 1.54, BUN 37; suspect pre-renal etiology - Cr normalized as of 07/16, then began to climb again - Lasix held, vancomycin held per protocol, avoid other nephrotoxins - Not currently on IVF because patient's PO intake is adequate; reassess daily and encourage PO - Daily BMP Hyponatremia - resolved - Na 131 on admission, down from 133 on discharge from 07/11/21; resolved with NSS which has since been discontinued - Trend BMP Hypothyroidism - Continue home dose levothyroxine Depressive disorder - Continue home fluoxetine Gastroesophageal reflux disease: - Continue home dose protonix Hypertension: - Hold home amlodipine in the presence of acute on chronic LE edema - Continue home propranolol Peripheral neuropathy: - Continue home gabapentin dose Diet: carb consistent DVT ppx: heparin 5,000units SQ q12 Dispo: Med/Surg. PT/OT placed - expressed desire for home health serv ices upon discharge Code: Full Admission and Anticipated Discharge Date Admission Date: July 17, 2021 Supervising Physician Co-Signing Physician Notes Attending attestation Pt seen and examined in concert with Dr. Huang. In agreement with the documented findings as noted in the resident documentation with any exceptions or additions as noted here. Wound vac replaced following partial closure procedure. Tolerating pain well on current regimen. On examination, S1/S2 nl RRR no MCG. CTAB. Abd NT/ND BS+ve RLE Cellulitis w/ wound VAC - ortho consult - continue abx regimen and f/u cul tures. Vac in place - per previous d/w ortho, plastics C/S tomorrow. Else see resident documentation as noted. Spouse requests to be included in conversations by facetime or phone. Subjective Patient seen and evaluated at bedside this morning prior to repeat I&D. Patient had no complaints at this time. Patient then went for her procedure which was tolerated well. Tolerating PO well and pain is controlled. Patient denies CP, SOB, abdominal pain, nausea, vomiting, lightheadedness, dizziness, and diarrhea. Review of Systems Review of Systems: See HPI Physical Exam Physical Exam: Constitutional: well-appearing, no acute distress HEENT: NCAT, no conjunctival injection CV: heart sounds distant Resp: CTABL, no wheezes/rales/rhonchi appreciated, no increased work of breathing Skin: wound vac in place on RLE with minimal surrounding erythema Neuro: alert, oriented, no focal neurologic deficit appreciated Results & Data Results & Data ([facility]) Vital Signs (Past 12 Hours) Vital Signs Temp Pulse Resp BP BP Pulse Ox 07/21/21 05:30 36.7 C 74 16 106/64 92 07/20/21 22:40 36.3 C L 62 17 127/68 91 Resident Activity Tracking Resident Involvement: Resident Care Provided Care Provided: Adult Hospital Medicine
[2021-07-21] MEDS ORDERED: fentaNYL citrate 100 MCG/2 ML VIAL ONE (07:09)
[2021-07-21] MEDS ORDERED: LIDOCAINE 2% 2 ML VIAL/AMP(20MG/ML) INFIL ONE (07:10)
[2021-07-21] MEDS ORDERED: PROPOFOL IV EMULSION 10 MG/ML 20 ML VIAL IV ONE (07:10)
[2021-07-21] MEDS ORDERED: ONDANSETRON INJ 2 MG/ML 2 ML VIAL ONE (07:15)
--- NOTE | 2021-07-21 07:21 | Anesthesiology Consultation ---
Date of Service July 21, 2021 History Surgery Operation Date: 07/17/21 12:00 Proposed Procedures p Right Lower Extremity Incision and Drainage with Application of Wound Vac - Naren Porter M.D. Operation Date: 07/19/21 08:05 Proposed Procedures p Right Repeat Leg Incision and Drainage, Possible Wound Vac - Olegario Culver DO Operation Date: 07/21/21 07:30 Proposed Procedures p Incision and Drainage Extremity - Naren Porter M.D. Height/Weight Height: 4 ft 10 in Weight: 91.4 kg Allergies Allergy/AdvReac Type Severity Reaction Status Date / Time pneumococcal vaccine Allergy Unknown REDNESS , Verified 07/15/21 23:22 CHILLS, HIVES sulfamethoxazole Allergy Unknown RASH Verified 07/15/21 23:22 trimethoprim Allergy Unknown RASH Verified 07/15/21 23:22 Medications Home Medications Medication Instructions Recorded Confirmed Last Taken aspirin 81 mg tablet,delayed 81 mg PO HS 03/29/18 07/15/21 07/14/21 release calcium citrate 200 mg 1 tab PO BID 03/29/18 07/15/21 07/15/21 08:00 calcium-vitamin D3 6.25 mcg (250 unit) tablet omega-3 fatty acids 1,000 mg 1,000 mg PO BID 03/29/18 07/15/21 07/15/21 08:00 capsule cholecalciferol (vitamin D3) 125 5,000 units PO 5XWK cap 05/31/18 07/15/21 07/15/21 mcg (5,000 unit) capsule mecobalamin (vitamin B12) 1,000 1,000 mcg SL 3XWK tab 05/31/18 07/15/21 mcg disintegrating tablet,sublingual ferrous sulfate 27 mg iron tablet 27 mg PO DAILY tab 12/27/18 07/15/21 07/15/21 (High Potency Iron) cranberry 500 mg capsule 500 mg PO DAILY cap 11/07/19 07/15/21 07/15/21 latanoprost 0.005 % eye drops 1 drops OP HS 02/21/20 07/15/21 07/14/21 pantoprazole 40 mg tablet,delayed 40 mg PO QAM #90 tab 07/05/20 07/15/21 07/15/21 release (Protonix) simvastatin 10 mg tablet (Zocor) 10 mg PO HS #90 tab 08/03/20 07/15/21 07/14/21 diclofenac sodium 75 mg 75 mg PO BID #180 tab 08/21/20 07/15/21 07/15/21 08:00 tablet,delayed release levothyroxine 88 mcg tablet 88 mcg PO QAM 02/21/21 07/15/21 07/15/21 propranolol 160 mg capsule,24 160 mg PO QAM 02/21/21 07/15/21 07/15/21 hr,extended release fluoxetine 20 mg tablet 20 mg PO DAILY #30 tab 05/28/21 07/15/21 07/15/21 gabapentin 100 mg capsule 100 mg PO TID #90 cap 06/05/21 07/15/21 07/15/21 14:00 fluoxetine 10 mg capsule 10 mg PO DAILY #30 cap 06/27/21 07/15/21 07/15/21 amlodipine 10 mg tablet 20 mg PO QAM tab 07/01/21 07/15/21 07/15/21 cephalexin 500 mg capsule 500 mg PO TID #30 cap 07/01/21 07/15/21 07/15/21 14:00 furosemide 20 mg tablet 20 mg PO DAILY #5 tab 07/01/21 07/15/21 07/15/21 ciprofloxacin HCl 500 mg tablet 500 mg PO BID 8 Days #16 tab 07/11/21 07/15/21 07/15/21 08:00 metronidazole 500 mg tablet 500 mg PO TID 9 Days #27 tab 07/11/21 07/15/21 07/15/21 14:00 diclofenac sodium 1 % topical gel 1 - 2 g TOPICAL BID PRN 07/15/21 07/15/21 Unknown Active Medications Generic Name Dose Route Start Last Admin Trade Name Freq PRN Reason Stop Dose Admin Acetaminophen 650 mg 07/16/21 02:58 07/19/21 22:35 Acetaminophen 325 Mg Tab PO 08/15/21 02:57 650 mg Q4H PRN Administration Pain or Fever Aspirin 81 mg 07/16/21 21:00 07/20/21 20:25 Aspirin 81 Mg Ectab PO 08/15/21 20:59 81 mg HS TONY Administration Diclofenac Sodium 75 mg 07/16/21 09:00 07/20/21 20:25 Diclofenac Sodium 75 Mg Tabcr PO 08/15/21 08:59 75 mg BID TONY Administration Fluoxetine HCl 10 mg 07/16/21 09:00 07/20/21 10:44 Fluoxetine Hcl 10 Mg Cap PO 08/15/21 08:59 10 mg DAILY TONY Administration Fluoxetine HCl 20 mg 07/16/21 09:00 07/20/21 10:44 Fluoxetine Hcl 20 Mg Cap PO 08/15/21 08:59 20 mg DAILY TONY Administration Furosemide 20 mg 07/16/21 09:00 07/20/21 10:44 Furosemide 20 Mg Tab PO 08/15/21 08:59 20 mg DAILY TONY Administration Gabapentin 100 mg 07/16/21 09:00 07/20/21 20:25 Gabapentin 100 Mg Cap PO 08/15/21 08:59 100 mg TID TONY Administration Heparin Sodium (Porcine) 5,000 units 07/16/21 09:00 07/20/21 20:23 Heparin Sod 5,000 Unit/0.5 Ml Vial SQ 08/15/21 08:59 5,000 units Q12 TONY Administration Cefepime HCl 2,000 mg/ Syringe 20 mls @ 5 mls/min 07/17/21 18:00 07/21/21 05:28 IV 07/24/21 11:59 5 mls/min Q12H TONY Administration Protocol Vancomycin HCl 750 mg/ Sodium 265 mls @ 200 mls/hr 07/20/21 20:00 07/20/21 21:40 Chloride IV 07/27/21 14:44 Infused Q24H TONY Infusion Insulin Aspart 0 units 07/21/21 06:30 07/21/21 06:24 Insulin Aspart Per Unit SC 08/20/21 06:29 Not Given Q6 TONY Latanoprost 1 drops 07/16/21 21:00 07/20/21 20:26 Latanoprost 0.005% Op Soln 2.5 Ml Btl OP 08/15/21 20:59 1 drops HS TONY Administration Levothyroxine Sodium 88 mcg 07/16/21 06:30 07/21/21 05:28 Levothyroxine Sodium 88 Mcg Tablet PO 08/15/21 06:29 88 mcg DAILYBB TONY Administration Metronidazole 500 mg 07/17/21 21:00 07/20/21 20:23 Metronidazole 500 Mg Tab PO 07/24/21 20:59 500 mg BID TONY Administration Pantoprazole Sodium 40 mg 07/16/21 09:00 07/20/21 10:45 Pantoprazole 40 Mg Tab PO 08/15/21 08:59 40 mg QAM TONY Administration Propranolol HCl 160 mg 07/16/21 09:00 07/20/21 10:45 Propranolol Hcl La 80 Mg Capcr PO 08/15/21 08:59 160 mg QAM TONY Administration Simvastatin 10 mg 07/16/21 21:00 07/20/21 20:26 Simvastatin 10 Mg Tab PO 08/15/21 20:59 10 mg HS TONY Administration NPO Date Last Intake of Fluids: 07/21/21 Time Last Intake of Fluids: 06:00 Last Intake of Fluids Comment: sip with synthroid pill Date Last Intake of Solids: 07/20/21 Time Last Intake of Solids: 18:00 Past Medical History Medical History Anemia Anxiety Cervical cord myelomalacia Depression Diverticulosis of colon (without mention of hemorrhage) Exposure to COVID-19 virus History of gastrointestinal ulcer History of pancreatitis Hypercholesterolemia Hypertension Hypothyroidism IBS (irritable bowel syndrome) WITH DIARRHEA, ONGOING FOR LAST YR - REASON FOR UPCOMING PROCEDURE Osteoarthritis Peripheral neuropathy HANDS AND FEET Spinal stenosis HX LUMBAR Tremor BENIGN ESSENTIAL LEFT HAND X 5 YRS-NO DX. NO BETTER NO WORSE PER PT. Past Family History Family History Mother Family history of diabetes mellitus Breast cancer Father Family history of diabetes mellitus Heart disease Family/Other Family history of diabetes mellitus Sister Congestive heart failure Breast cancer Stroke syndrome Brother Coronary heart disease Myocardial infarction Denies family history of Ovarian cancer Prostate cancer Colorectal cancer Past Surgical History Surgical History H/O gastric bypass History of bilateral tubal ligation History of cataract surgery R/L History of cholecystectomy History of colonoscopy History of esophagogastroduodenoscopy (EGD) History of eyelid surgery History of fusion of cervical spine C5-T2 2017 - MILD ROM LIMITATION History of hysterectomy History of pharyngoplasty History of tonsillectomy History of total knee arthroplasty R/L S/P laminectomy with spinal fusion HX Social History Smoking Status: Never smoker Hx Alcohol Use: No Alcohol type: wine alcohol intake frequency: holidays/special occasions only Hx Substance Use: No substance use type: does not use Physical Exam Vital Signs Last Vital Signs Temp 36.7 C 07/21/21 05:30 Pulse 74 07/21/21 05:30 Resp 16 07/21/21 05:30 BP 106/64 07/21/21 05:30 Pulse Ox 92 07/21/21 05:30 Testing Laboratory Results 07/21/21 06:02 07/21/21 06:02 07/15/21 23:50 Aerobic Blood Culture - Final Blood No growth in Aerobic bottle after 5 days. Anaerobic Blood Culture - Final No growth in Anaerobic bottle after 5 days. 07/15/21 19:36 Aerobic Blood Culture - Final Blood No growth in Aerobic bottle after 5 days. Anaerobic Blood Culture - Final No growth in Anaerobic bottle after 5 days. 07/19/21 Unknown Gram Stain - Final Leg,Right Aerobic and Anaerobic Culture - Preliminary No growth to date. 07/16/21 00:06 Gram Stain - Final Leg,Right Deep Wound Culture - Final Corynebacterium species 07/17/21 15:51 Gram Stain - Final Leg,Right Aerobic and Anaerobic Culture - Preliminary No growth to date. 07/17/21 15:51 Gram Stain - Final Leg,Right Aerobic and Anaerobic Culture - Preliminary No growth to date. 07/21/21 07/20/21 06:03 20:36 POC Glucose 103 H 110 H Electrocardiogram Date: 07/16/21 Findings: + SB @ (54) Chest X-Ray Date: 07/05/21 Findings: + atelectasis (likely) and + cardiomegaly Echocardiogram Date: 04/11/19 EF: 55-60% LV Function: normal RWMA: + none Valvular Disease: + no significant valvular disease
[2021-07-21] MEDS ORDERED: ePHEDrine sulfate 50 MG/ML AMP IV PRN (07:22)
[2021-07-21] MEDS ORDERED: ATROPINE SULFATE 0.1 MG/ML 10ML SYR IV PRN (07:22)
[2021-07-21] MEDS ORDERED: fentaNYL citrate 100 MCG/2 ML VIAL IV PRN (07:22)
[2021-07-21] MEDS ORDERED: ONDANSETRON INJ 2 MG/ML 2 ML VIAL IV PRN (07:22)
[2021-07-21] MEDS ORDERED: HYDROmorphone INJ 1 MG/ML SYRINGE IV PRN (07:22)
--- NOTE | 2021-07-21 07:34 | History & Physical Bridge Note ---
Date of Service July 21, 2021 History & Physical Bridge Note I have examined the patient, reviewed the History & Physical and in the interval since the performance of the History & Physical I have noted the following changes of clinical significance: no changes noted
[2021-07-21] MEDS ORDERED: PHENYLEPHRINE 100MCG/ML 5ML SYR ONE (07:56)
[2021-07-21] MEDS ORDERED: ePHEDrine sulfate 50 MG/ML SYR ONE (07:56)
--- NOTE | 2021-07-21 08:58 | Post Operative Brief Note ---
Immediate Post Op Note v1 Date of Surgery July 21, 2021 Pre & Post Diagnosis Operation Date: 07/21/21 07:30 Pre-Op Diagnosis: Right lower leg open wound Post-Op Diagnosis: Right lower leg open wound I identified the patient and participated in the time-out.: Yes Procedure Operation Date: 07/21/21 07:30 Actual Procedures Right lower leg irrigation and debridement skin, subcutaneous tissue, and deep fascia 4 x 6 cm Local flap rearrangement Wound VAC placement 6 x 8 cm - Naren Porter M.D. Surgeon Naren Porter Sueding [employer] Buffing Machine Operator Reagan Bates PAC Estimated Blood Loss 10 Findings Consistent with Post-Op Diagnosis Drains Other Anesthesia Type General
--- NOTE | 2021-07-21 09:00 | Operative Report ---
Post Operative Report Pre & Post Diagnosis Operation Date: 07/21/21 07:30 Pre-Op Diagnosis: Right lower leg open wound Post-Op Diagnosis: Right lower leg open wound I identified the patient and participated in the time-out.: Yes Procedure Operation Date: 07/21/21 07:30 Actual Procedures 1. Right lower leg irrigation and debridement skin and subcutaneous fat 4 x 6 cm (58935, [id number]) 2. Local flap rearrangement 4 x 6 cm (60769, [id number]) 3. Wound VAC placement 6 x 8 cm (59792) - Naren Porter M.D. Surgeon Naren Porter Citizenship Instructor Reagan Bates PAC Estimated Blood Loss 10 Findings Consistent with Post-Op Diagnosis Specimens None Drains Wound VAC Anesthesia Type General Complications none Disposition Disposition: Recovery Room Indications Ms. Baires is an 81-year-old female with a large infected wound on her right lower leg. She has now undergone 2 previous irrigation and debridement surgeries with wound VAC placement. History, clinical exam, and imaging were consistent with the above diagnosis. Risks, benefits, and alternatives of surgery were explained in detail. The patient understood all this and wished to proceed. Description of Procedure Patient was identified in the preoperative holding area. Operative extremity was marked. Patient was then brought back to the operating room, and general anesthesia was induced without complication. Tourniquet was placed on the right upper leg. Right leg was then prepped and draped in a standard sterile fashion using Betadine prep. The leg was then exsanguinated with an Esmarch, and the tourniquet was inflated. Wound was inspected. There was some mild area of skin necrosis on the proximallateral corner of the previous wound that required sharp debridement. There is also some mild tissue necrosis of the subcutaneous fat at the perimeter of the wound, but no gross purulence was found or extensive tissue necrosis as was found at previous procedures. Repeat sharp debridement of skin and subcutaneous fat was performed with knife, curette, and rongeur. After thorough debridement was complete, I then copiously irrigated the wound with sterile saline via gravity irrigation. After thorough irrigation and debridement were complete, I then assessed the wound for potential closure. The skin defect measured about 4 cm in height and 6 cm in width. The underlying defect in the subcutaneous fat layer was substantially larger. Unfortunately, the skin was not terribly pliable and a direct closure from superior to inferior could not be performed without undue tension. I therefore decided proceed with a local tissue rearrangement. I created a random pattern flap by extending an incision laterally and curving it slightly proximally to swing the resultant skin flap into the wound. Numerous tension relieving sutures were placed with 0 Prolene suture. I was then able to approximate the skin edges without undue tension. Additional sutures were placed around the rim of the wound with 2-0 Prolene to complete the closure. I then decided to place a wound VAC bolster over top of the skin layer. Adaptic was placed directly over the skin, and the white wound VAC sponge was then trimmed to approximately 6 x 8 cm and placed over the skin flap rearrangement. VAC sponge was then sealed and placed at 75 mm Hg continuous suction. The drapes were removed, the patient was awakened from anesthesia, and taken to the Post Anesthesia Care Unit in stable condition. There were no immediate complications from the procedure. I was present and scrubbed for the entire procedure. Due to the complex nature of the procedure, the entire surgery was performed with the operational assistance of Reagan Bates PA-C. The community assistant, under direct supervision, was involved in the performance of all aspects of the surgical procedure including hemostasis, tissue incision and retraction, instrument management, patient positioning, and wound closure. I attest to the content of the Intraoperative Record and any orders documented therein. Any exceptions are noted below.
--- NOTE | 2021-07-21 09:57 | Anesthesiology Progress Note ---
Date of Service July 21, 2021 Anesthesia Post Procedure Vital Signs Vital Signs: Temp Pulse Pulse Resp BP BP Pulse Ox 07/21/21 09:50 68 16 141/72 H 98 07/21/21 09:40 72 16 164/61 H 98 07/21/21 09:30 36.6 C 68 16 155/69 H 98 07/21/21 09:20 67 16 154/76 H 99 07/21/21 09:10 69 16 146/70 H 99 07/21/21 09:00 36.7 C 66 16 140/63 99 07/21/21 05:30 36.7 C 74 16 106/64 92 07/20/21 22:40 36.3 C L 62 17 127/68 91 07/20/21 16:00 36.7 C 75 18 93/63 L 95 07/20/21 12:32 36.6 C 74 18 118/77 96 Pain Intensity Right Leg: Pain Intensity: 6 Transfer of Care Handoff Completed per policy Notes Mental Status: alert / awake / arousable and participated in evaluation Patient Amnestic to Procedure: Yes Nausea / Vomiting: adequately controlled Pain: adequately controlled Airway Patency, RR, SpO2: stable & adequate BP & HR: stable & adequate Hydration State: stable & adequate Anesthetic Complications: no major complications apparent and Pt Satisfied with anesthetic care
[2021-07-21] MEDS: PROPRANOLOL HCL LA 80 MG CAPCR PO SCH (10:16)
[2021-07-21] MEDS: DICLOFENAC SODIUM 75 MG TABCR PO SCH ×2 (10:16→20:26)
[2021-07-21] MEDS: GABAPENTIN 100 MG CAP PO SCH ×3 (10:16→20:26)
[2021-07-21] MEDS: metroNIDAZOLE 500 MG TAB PO SCH ×2 (10:17→20:26)
[2021-07-21] MEDS: FLUoxetine HCL 20 MG CAP PO SCH (10:17)
[2021-07-21] MEDS: FLUoxetine HCL 10 MG CAP PO SCH (10:17)
[2021-07-21] MEDS: FUROSEMIDE 20 MG TAB PO SCH (10:17)
[2021-07-21] MEDS: HEPARIN SOD 5,000 UNIT/0.5 ML VIAL SQ SCH ×2 (10:18→20:27)
[2021-07-21] MEDS: PANTOprazole 40 MG TAB PO SCH (10:18)
[2021-07-21] MEDS ORDERED: VANCOMYCIN TROUGH ONE (10:30)
[2021-07-21] MEDS ORDERED: LACTATED RINGER'S 1,000 ML IV SCH (12:45)
[2021-07-21] MEDS ORDERED: VANCOMYCIN CONSULT ACTIVE PRN (13:52)
[2021-07-21] MEDS ORDERED: VANCOMYCIN HCL 1,000 MG in SODIUM CHLORIDE 0.9% 250 ML IV SCH (14:00)
[2021-07-21] MEDS ORDERED: VANCOMYCIN HCL 750 MG in SODIUM CHLORIDE 0.9% 250 ML IV SCH (14:00)
[2021-07-21] MEDS: ACETAMINOPHEN 325 MG TAB PO PRN ×2 (19:28→23:09)
[2021-07-21] MEDS: ASPIRIN 81 MG ECTAB PO SCH (20:26)
[2021-07-21] MEDS: SIMVASTATIN 10 MG TAB PO SCH (20:28)
[2021-07-21] MEDS: LATANOPROST 0.005% OP SOLN 2.5 ML BTL OP SCH (20:28)
[2021-07-21] MEDS ORDERED: GABAPENTIN 100 MG CAP PO STA (22:49)
[2021-07-22] MEDS: CEFEPIME 2,000 MG in SYRINGE 0 ML IV SCH (05:30)
[2021-07-22] MEDS: LEVOTHYROXINE SODIUM 88 MCG TABLET PO SCH (05:30)
[2021-07-22] MEDS: ACETAMINOPHEN 325 MG TAB PO PRN ×2 (05:54→22:45)
[2021-07-22] MEDS: PROPRANOLOL HCL LA 80 MG CAPCR PO SCH (07:49)
[2021-07-22] MEDS: metroNIDAZOLE 500 MG TAB PO SCH ×2 (07:49→20:08)
[2021-07-22] MEDS: FLUoxetine HCL 20 MG CAP PO SCH (07:49)
[2021-07-22] MEDS: DICLOFENAC SODIUM 75 MG TABCR PO SCH ×2 (07:50→20:06)
[2021-07-22] MEDS: FLUoxetine HCL 10 MG CAP PO SCH (07:50)
[2021-07-22] MEDS: GABAPENTIN 100 MG CAP PO SCH ×3 (07:50→20:07)
[2021-07-22] MEDS: HEPARIN SOD 5,000 UNIT/0.5 ML VIAL SQ SCH ×2 (07:51→20:08)
[2021-07-22] MEDS: PANTOprazole 40 MG TAB PO SCH (07:51)
--- NOTE | 2021-07-22 07:59 | Hospitalist Progress Note ---
Date of Service July 22, 2021 Assessment & Plan (1) Cellulitis of right lower leg: Plan: Mrs. Baires is an 81 yo woman with a PMHx of chronic R LE lymphedema and prediabetes who presents for failed outpatient management of RLE cellulitis. Cellulitis of right lower leg s/p I&D x3 (07/17, 07/19, and 07/21) - Initially treated with meropenem and daptomycin (regimen adjustments based on ID consult are detailed below) - Wound care nurse following - Venous Doppler of R LE 07/16 showing normal compressibility of deep venous system from common femoral vein through proximal calf veins, no current evidence of acute thrombosis. There is diffuse edema throughout the RLE, limited visualization of the calf veins due to swelling. - CT of leg w/o evidence of abscess - Consulted general surgery d/t concern of abscess - cont IV abx, recommend ortho c/s, no intervention at this time, elevate LE - Ortho consulted: -I&D performed 07/17, with repeat on 07/19 and additional I&D on 07/21 - Wound vac in place - Possible need for wound vac after dc to SNF - ID consulted and recommends vancomycin IV, cefepime IV, and flagyl PO for a total of at least 14 days if not longer based on response - 07/22: Vanco Dc'd in favor of Dapto due to renal function - Trend daily CBC Elevated serum creatinine - Cr was 1.20 at discharge on 07/11; on admission, elevated to 1.54, BUN 37; suspect pre-renal etiology - Cr normalized as of 07/16, then began to climb again - Lasix held, vancomycin held per protocol, avoid other nephrotoxins - Not currently on IVF because patient's PO intake is adequate; reassess daily and encourage PO - Daily BMP Hyponatremia - resolved - Na 131 on admission, down from 133 on discharge from 07/11/21; resolved with NSS which has since been discontinued - Trend BMP Hypothyroidism - Continue home dose levothyroxine Depressive disorder - Continue home fluoxetine Gastroesophageal reflux disease: - Continue home dose Protonix Hypertension: - Hold home amlodipine in the presence of acute on chronic LE edema - Continue home propranolol Peripheral neuropathy: - Continue home gabapentin dose Diet: carb consistent DVT ppx: heparin 5,000units SQ q12 Dispo: Med/Surg. PT/OT placed - expressed desire for home health services upon discharge Code: Full Admission and Anticipated Discharge Date Admission Date: July 17, 2021 Supervising Physician Co-Signing Physician Notes Attending attestation Pt seen and examined in concert with Dr. Huang. In agreement with the documented findings as noted in the resident documentation with any exceptions or additions as noted here. Wound vac replaced following partial closure procedure. Tolerating pain well on current regimen. On examination, S1/S2 nl RRR no MCG. CTAB. Abd NT/ND BS+ve RLE Cellulitis w/ wound VAC - ortho consult - continue abx regimen and f/u cultures. Vac in place - per previous d/w ortho, plastics C/S -awaiting cultures. updated at bedside Else see resident documentation as noted. Spouse requests to be included in conversations by facetime or phone. Subjective No acute events overnight. Patient denying pain. She does not have fever, chills, nausea, vomiting, abdominal pain, diarrhea, shortness of breath, cough, chest pain, palpitations. Review of Systems Review of Systems: See HPI Physical Exam Physical Exam: GENERAL: A&Ox3. NAD. CHEST/LUNGS: CTAB A/P. No crackles, wheezes, rales, ronchi. HEART: RRR. No m/g/r. No carotid bruits. ABDOMEN: NT/ND, soft. BS+ x4 EXTREMITIES: No cyanosis, no clubbing, no edema. Right leg with ~ 4x7cm incision with wound vac in place. C/d/i. PSYCHIATRIC: Euthymic affect, no SI, no pressured speech, no hallucinations NEUROLOGIC: No FND. CN II-XII grossly intact. Results & Data Results & Data ([facility]) Vital Signs (Past 12 Hours) Vital Signs Temp Pulse Resp BP Pulse Ox 07/22/21 07:32 36.9 C 59 L 16 117/72 89 L 07/22/21 04:10 36.6 C 56 L 18 112/65 92 07/21/21 22:49 36.6 C 58 L 18 111/69 93 Resident Activity Tracking Resident Involvement: Resident Care Provided Care Provided: Adult Hospital Medicine
[2021-07-22 08:19] LABS: Basophils # (auto) 0.01 K/uL (0-0.2); Basophils % (auto) 0.1 %; Eosinophils # (auto) 0.42 K/uL (0-0.5); Eosinophils % (auto) 5.9 %; Hematocrit (blood only) 30.6 % (37-47); Hemoglobin 9.4 g/dL (12.0-16.0); Immature Granulocytes # (auto) 0.06 K/uL (0.00-0.02); Immature Granulocytes % (auto) 0.8 %; Lymphocytes # (auto) 1.42 K/uL (1.2-3.4); Lymphocytes % (auto) 19.8 %; Mean Corpuscular Hemoglobin 29.9 pg (25-34); Mean Corpuscular Hgb Conc 30.7 g/dL (32-36); Mean Corpuscular Volume 97.5 fL (80-100); Mean Platelet Volume 8.6 fL (7.4-10.4); Monocytes # (auto) 0.81 K/uL (0.11-0.59); Monocytes % (auto) 11.3 %; Neutrophils # (auto) 4.45 K/uL (1.4-6.5); Neutrophils % (auto) 62.1 %; Platelet Count 355 K/uL (130-400); RDW Coefficient of Variation 14.2 % (11.5-14.5); RDW Standard Deviation 50.6 fL (36.4-46.3); Red Blood Count 3.14 M/uL (4.2-5.4); White Blood Count 7.17 K/uL (4.8-10.8)
[2021-07-22 09:57] LABS: Albumin Globulin Ratio 0.5 (0.9-2); BUN Creatinine Ratio 26.2 (10-20); Calcium 8.9 mg/dl (8.5-10.1); Creatinine Clr Calc Pharmacy 28.4 ml/min; Est GFR (African American) 37.5 ml/min; Est GFR (Non-African American) 32.3 ml/min; Globulin 4.1 gm/dl (2.5-4.0); Potassium 4.7 mmol/L (3.5-5.1); Total Protein 6.1 gm/dl (6.4-8.2)
[2021-07-22 09:58] LABS: Bilirubin,Total 0.3 mg/dl (0.2-1)
--- NOTE | 2021-07-22 10:43 | Pharmacy Report ---
Pharmacy Vanc AUC Short Note - Date of Service July 22, 2021 - Assessment & Plan Assessment 81 year old F receiving Vancomycin, Cefepime and Metronidazole for treatment of cellulitis. * Day #6 of antimicrobial therapy. * [facility] ID on board and recommending at least 14 days of these abx. * Patient's renal fxn double yesterday. It improved slightly today (1.58--1.50 mg/dL). UO less than 0.1 mL/kg/hr yesterday per documentation. * Recommended transitioning back to Daptomycin given rapidly changing renal fxn causing difficulty maintaining therapeutic troughs. * Recommended increasing Metronidazole from BID to TID dosing to provide adequate anaerobic coverage. Plan Vancomycin * AUC/KATYA is the preferred PK/PD target for vancomycin * AUC guided dosing is effective and associated with decreased risk of nephrotoxicity compared to traditional trough targets * Trough level of 17.6 mcg/mL is predicted to achieve target AUC/KATYA of 400-600 mg/L.hr and may be associated with a 10% risk of * Change to 750 mg IV every 36 hours * No trough will be ordered at this time due to extended dosing interval and changing renal fxn. Pharmacy will continue to follow and will adjust dose/frequency as necessary. Thank you.
--- NOTE | 2021-07-22 11:03 | Orthopedic Progress Note ---
Date of Service July 22, 2021 Assessment & Plan (1) Wound of right lower extremity: Plan: POD 1 s/p 2nd I&D RLE with application of wound vac. Pt has been WBAT. Up with PT as able Will discuss case with Dr Porter about further care considering wound vac. Continue IV antibx Possible need for Wound Vac after dc to SNF Admission and Anticipated Discharge Date Admission Date: July 17, 2021 Subjective POD 1 s/p 2nd I&D RLE Pt sitting up in her chair sleeping. Easily awoken. No complaints today. Discussed plans for further wound checks. Physical Exam Physical Exam: Dressings intact. Wound vac functioning well. Minimal drainage in the tubing. Moderate swelling in the foot and ankle. Results & Data ([facility]) Vital Signs (Past 12 Hours) Vital Signs Temp Pulse Resp BP Pulse Ox 07/22/21 07:32 36.9 C 59 L 16 117/72 89 L 07/22/21 04:10 36.6 C 56 L 18 112/65 92
[2021-07-22] MEDS: VANCOMYCIN HCL 750 MG in SODIUM CHLORIDE 0.9% 250 ML IV SCH (11:29)
[2021-07-22] MEDS: ASPIRIN 81 MG ECTAB PO SCH (20:07)
[2021-07-22] MEDS: SIMVASTATIN 10 MG TAB PO SCH (20:08)
[2021-07-22] MEDS: LATANOPROST 0.005% OP SOLN 2.5 ML BTL OP SCH (20:08)
--- NOTE | 2021-07-22 20:54 | Billing Data ---
Date of Service July 22, 2021 Coding Level of Care Code 39438 Subseq Hosp Care Lvl 2
[2021-07-23] MEDS: CEFEPIME 2,000 MG in SYRINGE 0 ML IV SCH (06:32)
[2021-07-23] MEDS: LEVOTHYROXINE SODIUM 88 MCG TABLET PO SCH (06:33)
--- NOTE | 2021-07-23 07:57 | Hospitalist Progress Note ---
Date of Service July 23, 2021 Assessment & Plan (1) Cellulitis of right lower leg: Plan: Mrs. Baires is an 81 yo woman with a PMHx of chronic R LE lymphedema and prediabetes who presents for failed outpatient management of RLE cellulitis. Cellulitis of right lower leg s/p I&D x3 (07/17, 07/19, and 07/21) - Initially treated with meropenem and daptomycin (regimen adjustments based on ID consult are detailed below) - Wound care nurse following - Venous Doppler of R LE 07/16 showing normal compressibility of deep venous system from common femoral vein through proximal calf veins, no current evidence of acute thrombosis. There is diffuse edema throughout the RLE, limited visualization of the calf veins due to swelling. - CT of leg w/o evidence of abscess - Consulted general surgery d/t concern of abscess - cont IV abx, recommend ortho c/s, no intervention at this time, elevate LE - Ortho consulted: -I&D performed 07/17, with repeat on 07/19 and additional I&D on 07/21 - Dressing qod unless increased drainage noted. - Continue IV antibx - No further need for wound vac at this time. - Plan for SNF - ID consulted and recommends vancomycin IV, cefepime IV, and flagyl PO for a total of at least 14 days if not longer based on response - 07/22: Vanco Dc'd in favor of Dapto due to renal function - PT/OT to evaluate for rehabilitation needs -- CM to follow - Trend daily CBC Elevated serum creatinine - Cr was 1.20 at discharge on 07/11; on admission, elevated to 1.54, BUN 37; suspect pre-renal etiology - Cr normalized as of 07/16, then began to climb again - Lasix held, vancomycin held per protocol, avoid other nephrotoxins - Not currently on IVF because patient's PO intake is adequate; reassess daily and encourage PO - Daily BMP Hyponatremia - resolved - Na 131 on admission, down from 133 on discharge from 07/11/21; resolved with NSS which has since been discontinued - Trend BMP Hypothyroidism - Continue home dose levothyroxine Depressive disorder - Continue home fluoxetine Gastroesophageal reflux disease: - Continue home dose Protonix Hypertension: - Hold home amlodipine in the presence of acute on chronic LE edema - Continue home propranolol Peripheral neuropathy: - Continue home gabapentin dose Diet: carb consistent DVT ppx: heparin 5,000units SQ q12 Dispo: Med/Surg. PT/OT placed - expressed desire for home health services upon discharge Code: Full Admission and Anticipated Discharge Date Admission Date: July 17, 2021 Supervising Physician Co-Signing Physician Notes Attending attestation Pt seen and examined in concert with Dr. Freeman.. In agreement with the documented findings as noted in the resident documentation with any exceptions or additions as noted here. Wound vac replaced following partial closure procedure. Tolerating pain well on current regimen. On examination, S1/S2 nl RRR no MCG. CTAB. Abd NT/ND BS+ve RLE Cellulitis w/ wound VAC - ortho consult - continue abx regimen and f/u cultures. Vac in place - per previous d/w ortho, plastics C/S -awaiting cultures. remove wound vac. Else see resident documentation as noted. Subjective No acute events overnight. This AM patient apparently woke up confused, thought she'd be discharged, and pulled out her IV. She quickly reoriented and understood she was confused. Upon my conversation she was fully alert and oriented and apologetic. I reassured her this happens at times. She denies significant pain, n/v, SOB, cough, fever, chills, abd pain. Review of Systems Review of Systems: See HPI Physical Exam Physical Exam: GENERAL: A&Ox3. NAD. CHEST/LUNGS: CTAB A/P. No crackles, wheezes, rales, ronchi. HEART: RRR. No m/g/r. No carotid bruits. ABDOMEN: NT/ND, soft. BS+ x4 EXTREMITIES: No cyanosis, no clubbing, no edema. Right leg wrapped in OREN vandage with wound vac in place. C/d/i. PSYCHIATRIC: Euthymic affect, no SI, no pressured speech, no hallucinations NEUROLOGIC: No FND. CN II-XII grossly intact. Results & Data Results & Data ([facility]) Vital Signs (Past 12 Hours) Vital Signs Temp Pulse Resp BP Pulse Ox 07/23/21 07:37 36.9 C 64 16 133/72 92 07/22/21 20:10 36.9 C 66 18 128/53 L 95 Resident Activity Tracking Resident Involvement: Resident Care Provided Care Provided: Adult [facility] Medicine
[2021-07-23] MEDS: FLUoxetine HCL 20 MG CAP PO SCH (08:35)
[2021-07-23] MEDS: FLUoxetine HCL 10 MG CAP PO SCH (08:36)
[2021-07-23] MEDS: DICLOFENAC SODIUM 75 MG TABCR PO SCH ×2 (08:37→21:56)
[2021-07-23] MEDS: GABAPENTIN 100 MG CAP PO SCH ×3 (08:37→21:56)
[2021-07-23] MEDS: PANTOprazole 40 MG TAB PO SCH (08:38)
[2021-07-23] MEDS: PROPRANOLOL HCL LA 80 MG CAPCR PO SCH (08:39)
[2021-07-23] MEDS: metroNIDAZOLE 500 MG TAB PO SCH ×2 (08:40→21:56)
[2021-07-23] MEDS: PSYLLIUM 58.6% POWDER PACKET PO SCH (09:14)
[2021-07-23] MEDS: HEPARIN SOD 5,000 UNIT/0.5 ML VIAL SQ SCH ×2 (09:15→21:56)
[2021-07-23 09:25] LABS: Basophils # (auto) 0.01 K/uL (0-0.2); Basophils % (auto) 0.2 %; Eosinophils # (auto) 0.43 K/uL (0-0.5); Eosinophils % (auto) 6.5 %; Hematocrit (blood only) 34.7 % (37-47); Hemoglobin 10.5 g/dL (12.0-16.0); Immature Granulocytes # (auto) 0.07 K/uL (0.00-0.02); Immature Granulocytes % (auto) 1.1 %; Lymphocytes # (auto) 1.32 K/uL (1.2-3.4); Lymphocytes % (auto) 20.1 %; Mean Corpuscular Hemoglobin 29.2 pg (25-34); Mean Corpuscular Hgb Conc 30.3 g/dL (32-36); Mean Corpuscular Volume 96.7 fL (80-100); Mean Platelet Volume 8.7 fL (7.4-10.4); Monocytes # (auto) 0.36 K/uL (0.11-0.59); Monocytes % (auto) 5.5 %; Neutrophils # (auto) 4.39 K/uL (1.4-6.5); Neutrophils % (auto) 66.6 %; Platelet Count 356 K/uL (130-400); RDW Coefficient of Variation 14.1 % (11.5-14.5); RDW Standard Deviation 50.2 fL (36.4-46.3); Red Blood Count 3.59 M/uL (4.2-5.4); White Blood Count 6.58 K/uL (4.8-10.8)
[2021-07-23 09:55] LABS: BUN Creatinine Ratio 25.5 (10-20); Calcium 9.5 mg/dl (8.5-10.1); Creatinine Clr Calc Pharmacy 29.3 ml/min; Est GFR (Non-African American) 33.7 ml/min; Potassium 4.5 mmol/L (3.5-5.1)
--- NOTE | 2021-07-23 12:05 | Orthopedic Progress Note ---
Date of Service July 23, 2021 Assessment & Plan (1) Wound of right lower extremity: Plan: POD 2 s/p 2nd I&D RLE with application of wound vac. Pt has been WBAT. Up with PT as able Dressing qod unless increased drainage noted. Continue IV antibx No further need for wound vac at this time. Plan for SNF Admission and Anticipated Discharge Date Admission Date: July 17, 2021 Subjective POD 2 Pt sitting up in chair awake, alert. She apparently was a bit confused this AM and states she took out her IV thinking she was going home. No complaints presently. I discussed the case with Dr Porter. Plan for dc of wound vac today. Physical Exam Physical Exam: Wound vac removed. Wound continues to be well approximated. Some ecchymosis under the proximal portion of the wound. Mild serous drainage noted. Continues with mild erythema around the wound. Redressed with adaptic, 4x4's, ABD, kerlix wrap, and OREN wrap. Toes mobile. Continues with moderate foot swelling which she has had prior to admission. Foot warm to touch. Cap refill < 2 seconds. Results & Data ([facility]) Vital Signs (Past 12 Hours) Vital Signs Temp Pulse Resp BP Pulse Ox 07/23/21 07:37 36.9 C 64 16 133/72 92
--- NOTE | 2021-07-23 21:23 | Billing Data ---
Date of Service July 23, 2021 Coding Level of Care Code 66723 Subseq Hosp Care Lvl 2
[2021-07-23] MEDS: LATANOPROST 0.005% OP SOLN 2.5 ML BTL OP SCH (21:56)
[2021-07-23] MEDS: ASPIRIN 81 MG ECTAB PO SCH (21:56)
[2021-07-23] MEDS: SIMVASTATIN 10 MG TAB PO SCH (21:56)
[2021-07-23] MEDS: VANCOMYCIN HCL 750 MG in SODIUM CHLORIDE 0.9% 250 ML IV SCH (22:49)
[2021-07-24] MEDS: ACETAMINOPHEN 325 MG TAB PO PRN (02:37)
[2021-07-24] MEDS: CEFEPIME 2,000 MG in SYRINGE 0 ML IV SCH (06:09)
[2021-07-24] MEDS: LEVOTHYROXINE SODIUM 88 MCG TABLET PO SCH (06:09)
--- NOTE | 2021-07-24 07:24 | Hospitalist Progress Note ---
Date of Service July 24, 2021 Assessment & Plan (1) Cellulitis of right lower leg: Plan: Mrs. Baires is an 81 yo woman with a PMHx of chronic R LE lymphedema and prediabetes who presents for failed outpatient management of RLE cellulitis. Cellulitis of right lower leg s/p I&D x3 (07/17, 07/19, and 07/21) - Initially treated with meropenem and daptomycin (regimen adjustments based on ID consult are detailed below) - Wound care nurse following - Venous Doppler of R LE 07/16 showing normal compressibility of deep venous system from common femoral vein through proximal calf veins, no current evidence of acute thrombosis. There is diffuse edema throughout the RLE, limited visualization of the calf veins due to swelling. - CT of leg w/o evidence of abscess - Consulted general surgery d/t concern of abscess - cont IV abx, recommend ortho c/s, no intervention at this time, elevate LE - Ortho consulted: -I&D performed 07/17, with repeat on 07/19 and additional I&D on 07/21 - Dressing qod unless increased drainage noted. - Continue IV antibx - No further need for wound vac at this time. - Plan for SNF - ID consulted and recommends vancomycin IV, cefepime IV, and flagyl PO for a total of at least 14 days if not longer based on response - 07/22: Vanco Dc'd in favor of Dapto due to renal function - PT/OT to evaluate for rehabilitation needs -- SNF recommended - Per [facility] with bed available for her 07/25 -- insurance auth will be requested - US-guided IV placed for continuation of abx per ID -- end date on 07/31/21 - Trend daily CBC Elevated serum creatinine - Cr was 1.20 at discharge on 07/11; on admission, elevated to 1.54, BUN 37; suspect pre-renal etiology - Cr normalized as of 07/16, then began to climb again - Lasix held, vancomycin held per protocol, avoid other nephrotoxins - Will give additional 500mL NSS via IV at 125mL/hr today as Cr still elevated -- encourage PO intake - Daily BMP Hyponatremia - resolved - Na 131 on admission, down from 133 on discharge from 07/11/21; resolved with NSS which has since been discontinued - Trend BMP Hypothyroidism - Continue home dose levothyroxine Depressive disorder - Continue home fluoxetine Gastroesophageal reflux disease: - Continue home dose Protonix Hypertension: - Hold home amlodipine in the presence of acute on chronic LE edema - Continue home propranolol Peripheral neuropathy: - Continue home gabapentin dose Diet: carb consistent DVT ppx: heparin 5,000units SQ q12 Dispo: Med/Surg -- plan for SNF as above Code: Full Admission and Anticipated Discharge Date Admission Date: July 17, 2021 Supervising Physician Co-Signing Physician Notes Attending attestation Pt seen and examined in concert with Dr. Freeman.. In agreement with the documented findings as noted in the resident documentation with any exceptions or additions as noted here. Wound vac replaced following partial closure procedure. Tolerating pain well on current regimen. On examination, S1/S2 nl RRR no MCG. CTAB. Abd NT/ND BS+ve RLE Cellulitis w/ wound VAC - ortho consult - continue abx regimen and f/u cultures. Vac in place - per previous d/w ortho, plastics C/S -REMOVED WOUND VAC. continue IV antibiotics as stated above. Else see resident documentation as noted. Subjective NAEO. She is comfortable in bed today with no complaints. Denying any pain, f/c, n/v, diarrhea, SOB. Review of Systems Review of Systems: See subjective Physical Exam Physical Exam: GENERAL: A&Ox3. NAD. CHEST/LUNGS: CTAB A/P. No crackles, wheezes, rales, rhonchi. HEART: RRR. No m/g/r. No carotid bruits. ABDOMEN: NT/ND, soft. BS+ x4 EXTREMITIES: No cyanosis, no clubbing, no edema. Right leg wrapped in OREN bandage. C/d/i. PSYCHIATRIC: Euthymic affect, no SI, no pressured speech, no hallucinations Results & Data Results & Data ([facility]) Vital Signs (Past 12 Hours) Vital Signs Temp Pulse Resp BP Pulse Ox 07/24/21 07:18 36.9 C 62 16 147/68 H 91 07/23/21 22:26 36.6 C 57 L 19 130/85 95 Resident Activity Tracking Resident Involvement: Resident Care Provided Care Provided: Adult Hospital Medicine
[2021-07-24] MEDS: DICLOFENAC SODIUM 75 MG TABCR PO SCH ×2 (09:26→20:14)
[2021-07-24] MEDS: FLUoxetine HCL 20 MG CAP PO SCH (09:27)
[2021-07-24] MEDS: PANTOprazole 40 MG TAB PO SCH (09:27)
[2021-07-24] MEDS: PROPRANOLOL HCL LA 80 MG CAPCR PO SCH (09:28)
[2021-07-24] MEDS: GABAPENTIN 100 MG CAP PO SCH ×3 (09:28→20:14)
[2021-07-24] MEDS: FLUoxetine HCL 10 MG CAP PO SCH (09:28)
[2021-07-24] MEDS: HEPARIN SOD 5,000 UNIT/0.5 ML VIAL SQ SCH ×2 (09:29→20:14)
[2021-07-24] MEDS: metroNIDAZOLE 500 MG TAB PO SCH ×2 (09:29→20:14)
[2021-07-24] MEDS: PSYLLIUM 58.6% POWDER PACKET PO SCH (09:30)
--- NOTE | 2021-07-24 10:12 | Pharmacy Report ---
Pharmacy Vanc AUC Short Note - Date of Service July 24, 2021 - Assessment & Plan Assessment 81 year old F receiving vancomycin, cefepime and metronidazole for treatment of cellulitis. Day # 8 of antimicrobial therapy. Michaelisingbetsy CHRISTIE on board and recommending at least 14 days of these abx. Plan Continue vancomycin * Trough level of 16.6 mcg/mL is predicted to achieve target AUC/KATYA of 400-600 mg/L.hr * Estimated AUC of 430 mg/L.hr once regimen is at steady state * AUC/KATYA is the preferred PK/PD target for vancomycin * AUC guided dosing is effective and associated with decreased risk of nephrotoxicity compared to traditional trough targets * Continue current dose of 750 mg IV every 36 hours Pharmacy will continue to follow and will adjust dose/frequency as necessary. Thank you.
[2021-07-24] MEDS: SODIUM CHLORIDE 0.9% 500 ML IV SCH ×3 (11:21→20:13)
[2021-07-24] MEDS: LATANOPROST 0.005% OP SOLN 2.5 ML BTL OP SCH (20:13)
[2021-07-24] MEDS: ASPIRIN 81 MG ECTAB PO SCH (20:14)
[2021-07-24] MEDS: SIMVASTATIN 10 MG TAB PO SCH (20:14)
--- NOTE | 2021-07-24 20:53 | Billing Data ---
Date of Service July 24, 2021 Coding Level of Care Code 42011 Subseq Hosp Care Lvl 2
[2021-07-25] MEDS: SODIUM CHLORIDE 0.9% 500 ML IV SCH ×3 (00:26→06:19)
[2021-07-25] MEDS: CEFEPIME 2,000 MG in SYRINGE 0 ML IV SCH (06:19)
[2021-07-25] MEDS: LEVOTHYROXINE SODIUM 88 MCG TABLET PO SCH (06:19)
[2021-07-25 06:44] LABS: Basophils # (auto) 0.02 K/uL (0-0.2); Basophils % (auto) 0.4 %; Eosinophils # (auto) 0.47 K/uL (0-0.5); Eosinophils % (auto) 9.1 %; Hematocrit (blood only) 31.5 % (37-47); Hemoglobin 9.6 g/dL (12.0-16.0); Immature Granulocytes # (auto) 0.03 K/uL (0.00-0.02); Immature Granulocytes % (auto) 0.6 %; Mean Corpuscular Hemoglobin 29.7 pg (25-34); Mean Corpuscular Hgb Conc 30.5 g/dL (32-36); Mean Corpuscular Volume 97.5 fL (80-100); Mean Platelet Volume 9.2 fL (7.4-10.4); Monocytes # (auto) 0.72 K/uL (0.11-0.59); Monocytes % (auto) 13.9 %; Neutrophils # (auto) 2.54 K/uL (1.4-6.5); Platelet Count 291 K/uL (130-400); RDW Coefficient of Variation 14.3 % (11.5-14.5); RDW Standard Deviation 50.8 fL (36.4-46.3); Red Blood Count 3.23 M/uL (4.2-5.4); White Blood Count 5.18 K/uL (4.8-10.8)
[2021-07-25 07:09] LABS: BUN Creatinine Ratio 28.9 (10-20); Calcium 8.7 mg/dl (8.5-10.1); Creatinine Clr Calc Pharmacy 34.9 ml/min; Est GFR (African American) 48.1 ml/min; Est GFR (Non-African American) 41.5 ml/min; Potassium 4.8 mmol/L (3.5-5.1)
--- NOTE | 2021-07-25 08:11 | Discharge Summary ---
Date of Service July 25, 2021 Admission HPI Per Admitting Provider Mrs. Baires is an 81 yo woman with a PMHx of chronic lymphedema of the right lower extremity and type II diabetes mellitus who came to the [facility] ED for evaluation of acute worsening of her R LE cellulitis. Of note, she was admitted to [facility] from 07/05/21 to 07/11/21 for failed outpatient management of R LE cellulitis (she failed PO Keflex course). During her previous admission, she received 5 days of IV Daptomycin, 1 day of IV Cefepime, and 1 day of IV Zosyn. She was discharged on the following oral regimen: Ciprofloxacin 500mg BID x8 days and Metronidazole 500mg TID x9 days for total 10 day coverage for pseudomonas and anaerobes. Her wound culture and blood cultures from last admission finalized negative. She had a CT fo the R LE to assess for underlying abscess and osteomyelitis, however no evidence was shown of either. She insists she has been compliant with her home antibiotic regimen. This morning, her - who has been changing her bandage everyday- noted a dramatic increase in the wound size along with purulent drainage and acute worsening of her chronic R LE edema. She contacted her PCP who directed her to the ED for further evaluation. Never before in her life has she had a wound like this -upon discharge on 07/11/21, she reports only a small pore on the right martinez through which serosanguineous fluid was draining. Her chronic lymphedema has been present since she had a R knee replacement followed by a revision procedure. She denies any fever/chills. In the ED, she was afebrile, HR was 55bpm, BP was 146/70, breathing well on room air. WBC was 11.85. COVID 19 neg. Procal neg. CRP 5.43. ESR 107. Blood cultures drawn. Wound culture obtained. Cr 1.54, BUN at 37. Na at 131; electrolytes otherwise WNL. She was started on NSS at 125mls/hr. Principal Diagnosis Cellulitis Discharge Exam GENERAL: A&Ox3. NAD. CHEST/LUNGS: CTAB A/P. No crackles, wheezes, rales, rhonchi. HEART: RRR. No m/g/r. No carotid bruits. ABDOMEN: NT/ND, soft. BS+ x4 EXTREMITIES: No cyanosis, no clubbing, no edema. Right leg wrapped in OREN bandage. C/d/i. PSYCHIATRIC: Euthymic affect, no SI, no pressured speech, no hallucinations Discharge Data Allergies Allergy/AdvReac Type Severity Reaction Status Date / Time pneumococcal vaccine Allergy Unknown REDNESS , Verified 07/15/21 23:22 CHILLS, HIVES sulfamethoxazole Allergy Unknown RASH Verified 07/15/21 23:22 trimethoprim Allergy Unknown RASH Verified 07/15/21 23:22 Consultations 07/15/21 23:10 ED Decision to Admit Stat 07/16/21 10:47 Consult Infectious Diseases Routine 07/16/21 11:30 Consult General Surgery Routine 07/16/21 12:41 Consult Orthopedic Surgery Routine Procedures Performed Operation Date: 07/17/21 12:00 Actual Procedures p Irrigation and Debridement Right lower Extremity(Right) - Naren Porter M.D. Operation Date: 07/19/21 08:05 Actual Procedures p Right Repeat Leg Incision and Drainage, Wound Vac Application(Right) - Olegario Culver DO Operation Date: 07/21/21 07:30 Actual Procedures p Right leg irrigation and debridement, wound vac placement, local flap rearrangement(Right) - Naren Porter M.D. Ordered Studies 07/16/21 00:17 US venous doppler LE RT Urgent 07/16/21 11:45 CT tib/fib RT wo con Routine Hospital Course (1) Cellulitis of right lower leg: Mrs. Baires is an 81 yo woman with a PMHx of chronic R LE lymphedema and prediabetes who presents for failed outpatient management of RLE cellulitis. Cellulitis of right lower leg s/p I&D x3 (07/17, 07/19, and 07/21) - Initially treated with meropenem and daptomycin (regimen adjustments based on ID consult are detailed below) - Wound care nurse following - Venous Doppler of R LE 07/16 showing normal compressibility of deep venous system from common femoral vein through proximal calf veins, no current evidence of acute thrombosis. There is diffuse edema throughout the RLE, limited visualization of the calf veins due to swelling. - CT of leg w/o evidence of abscess - Consulted general surgery d/t concern of abscess - cont IV abx, recommend ortho c/s, no intervention at this time, elevate LE - Ortho consulted: -I&D performed 07/17, with repeat on 07/19 and additional I&D on 07/21 - Dressing qod unless increased drainage noted. - Continue IV antibx - No further need for wound vac at this time. - ID consulted and recommends vancomycin IV, cefepime IV, and flagyl PO for a total of at least 14 days (last day 07/31/21) - 07/22: Vanco Dc'd in favor of Dapto due to renal function - PT/OT to evaluate for rehabilitation needs -- SNF recommended - US-guided IV placed for continuation of abx per ID -- end date on 07/31/21 - DC to [facility] for rehabilitation Elevated serum creatinine - Cr was 1.20 at discharge on 07/11; on admission, elevated to 1.54, BUN 37; suspect pre-renal etiology - Cr normalized as of 07/16, then began to climb again - Downtrending to near normal (1.22) on date of DC, encourage PO hydration and recommend trending BMPs to ensure resolution Hyponatremia - resolved - Na 131 on admission, down from 133 on discharge from 07/11/21; resolved with NSS which has since been discontinued Hypothyroidism - Continue home dose levothyroxine Depressive disorder - Continue home fluoxetine Gastroesophageal reflux disease: - Continue home dose Protonix Hypertension: - Hold home amlodipine in the presence of acute on chronic LE edema - Continue home propranolol - Normotensive without amlodipine, continue to hold until evaluated by PCP Peripheral neuropathy: - Continue home gabapentin dose Dispo: DC to SNF Total Time Total Time Spent Total Time Spent (In Minutes): see attending attestation Discharge Plan Discharge Items Patient Disposition: Transfer Care Home Fac Reason For Visit: CELLULITIS Discharge Diagnosis: Cellulitis Condition on Discharge: Good Activity: Per Instructions section Non-emergency contact: Primary Care Provider and Surgeon Call non-emergency contact if: you have any medication questions, your symptoms worsen and your temperature is above 101 Follow-up/Referrals: Pro,Stefano Hernandez MD [Primary Care Provider] - Diet: Carb Consistent or DM2 and Heart Healthy Addtl Attending Provider Instructions: Mrs. Baires is an 81 yo woman with a PMHx of chronic R LE lymphedema and prediabetes who presents for failed outpatient management of RLE cellulitis. Cellulitis of right lower leg s/p I&D x3 (07/17, 07/19, and 07/21) - Initially treated with meropenem and daptomycin (regimen adjustments based on ID consult are detailed below) - Wound care nurse following - Venous Doppler of R LE 07/16 showing normal compressibility of deep venous sys tem from common femoral vein through proximal calf veins, no current evidence of acute thrombosis. There is diffuse edema throughout the RLE, limited visualization of the calf veins due to swelling. - CT of leg w/o evidence of abscess - Consulted general surgery d/t concern of abscess - cont IV abx, recommend ortho c/s, no intervention at this time, elevate LE - Ortho consulted: -I&D performed 07/17, with repeat on 07/19 and additional I&D on 07/21 - Dressing qod unless increased drainage noted. - Continue IV antibx - No further need for wound vac at this time. - ID consulted and recommends vancomycin IV, cefepime IV, and Flagyl PO for a total of at least 14 days (last day 07/31/21) - vancomycin adjusted for kidney fxn - PT/OT to evaluate for rehabilitation needs -- SNF recommended - US-guided IV placed for continuation of abx per ID -- end date on 07/31/21 - DC to [facility] for rehabilitation Elevated serum creatinine - Cr was 1.20 at discharge on 07/11; on admission, elevated to 1.54, BUN 37; suspect pre-renal etiology - Cr normalized as of 07/16, then began to climb again - Downtrending to near normal (1.22) on date of DC, encourage PO hydration and recommend trending BMPs to ensure resolution -- check Cr, CrCl, and vancomycin trough Hyponatremia - resolved - Na 131 on admission, down from 133 on discharge from 07/11/21; resolved with NSS which has since been discontinued Hypothyroidism - Continue home dose levothyroxine Depressive disorder - Continue home fluoxetine Gastroesophageal reflux disease: - Continue home dose Protonix Hypertension: - Hold home amlodipine in the presence of acute on chronic LE edema - Continue home propranolol - Normotensive without amlodipine, continue to hold until evaluated by PCP Peripheral neuropathy: - Continue home gabapentin dose Dispo: DC to SNF Addtl Booster Pump Operator Provider Instructions: Start Daily dressing changes. Please use adaptic, 4x4's, ABD, kerlix wrap, and oren wrap for mild compression. Keep RLE elevated when at rest to help with edema control. WBAT on RLE - Limit time ambulating for PT/OT, BR privileges, dining. Increase as tolerated. Call Dr Porter's office if you notice increased redness of wound, swelling, drainage, pain, wound dehiscence, temp of 101.5 or greater. Follow up in 10-[address] Porter for wound check. [phone] Pending Studies at Discharge: No Stand-Alone Forms: My [facility] Skilled Items Patient informed of condition?: Yes DNR: No Discharge Level of Care: Skilled Communicable Disease: No Discharge Prognosis: Improving Lines: Peripheral IV Urinary Catheter: No Medications and DC Order Prescriptions: New metronidazole 500 mg tablet 500 mg PO Q8H 6 Days Qty: 18 RF: 0 cefepime 2 gram recon soln 2 g IV DAILY 6 Days Qty: 6 RF: 0 vancomycin 1,000 mg recon soln 914 mg IV Q24H 6 Days Qty: 6 RF: 0 Continued cholecalciferol (vitamin D3) 5,000 unit capsule 5,000 units PO 5XWK RF: 0 omega-3 fatty acids 1,000 mg capsule 1,000 mg PO BID RF: 0 aspirin 81 mg tablet,delayed release (DR/EC) 81 mg PO HS RF: 0 calcium citrate-vitamin D3 200 mg calcium -250 unit tablet 1 tab PO BID RF: 0 mecobalamin (vitamin B12) 1,000 mcg tablet,disintegrating 1,000 mcg SL 3XWK RF: 0 pantoprazole [Protonix] 40 mg tablet,delayed release (DR/EC) 40 mg PO QAM Qty: 90 RF: 3 simvastatin [Zocor] 10 mg tablet 10 mg PO HS Qty: 90 RF: 3 diclofenac sodium 75 mg tablet,delayed release (DR/EC) 75 mg PO BID Qty: 180 RF: 3 High Potency Iron 27 mg iron tablet 27 mg PO DAILY RF: 0 cranberry 500 mg capsule 500 mg PO DAILY RF: 0 fluoxetine 10 mg capsule 10 mg PO DAILY Qty: 30 RF: 0 amlodipine 10 mg tablet 20 mg PO QAM RF: 0 furosemide 20 mg tablet 20 mg PO DAILY Qty: 5 RF: 0 fluoxetine 20 mg tablet 20 mg PO DAILY Qty: 30 RF: 2 latanoprost 0.005 % drops 1 drops OP HS RF: 0 gabapentin 100 mg capsule 100 mg PO TID Qty: 90 RF: 2 propranolol 160 mg capsule,extended release 24 hr 160 mg PO QAM RF: 0 levothyroxine 88 mcg tablet 88 mcg PO QAM RF: 0 diclofenac sodium 1 % Gel 1 - 2 g TOPICAL BID PRN (Reason: Pain) RF: 0 Discontinued cephalexin 500 mg capsule 500 mg PO TID Qty: 30 RF: 0 metronidazole 500 mg Tablet 500 mg PO TID 9 Days Qty: 27 RF: 0 ciprofloxacin HCl 500 mg Tablet 500 mg PO BID 8 Days Qty: 16 RF: 0 Discharge Orders: Discharge Order (Routine); Ordered 07/25/21 Ordered By: Sav Freeman Admission Data Admit Date/Time: 07/17/21 10:57 Attending Provider: Caleb Scott Admit Provider: Amber Moore Primary Care Provider: Stefano Rodriguez Other Providers: [facility] ; [facility] ; [facility] ; Jo Ann Bojorquez ; Karri Gomes ; Albertina Leyva ; Alexandr Bojorquez I. ; Carlos Manuel Tan II ; Marjorie Bae ; Reagan Frost ; Ezio Orr ; Jazmyn Mena ; Naren Porter Other Interventions: Discharge Summary Assessment (RN) Last Done: 07/25/21 12:26 Supervising Physician Co-Signing Physician Notes Attending attestation Pt seen and examined in concert with Dr. Freeman.. In agreement with the documented findings as noted in the resident documentation with any exceptions or additions as noted here. Wound vac replaced following partial closure procedure. Tolerating pain well on current regimen. On examination, S1/S2 nl RRR no MCG. CTAB. Abd NT/ND BS+ve RLE Cellulitis w/ wound VAC - ortho consult - continue abx regimen and f/u cult ures. Vac in place - per previous d/w ortho, plastics C/S -REMOVED WOUND VAC. continue antibiotics as stated above. Else see resident documentation as noted. Resident Activity Tracking Resident Involvement: Resident Care Provided Care Provided: Adult Hospital Medicine
[2021-07-25] MEDS: HEPARIN SOD 5,000 UNIT/0.5 ML VIAL SQ SCH (08:26)
[2021-07-25] MEDS: metroNIDAZOLE 500 MG TAB PO SCH (08:27)
[2021-07-25] MEDS: PANTOprazole 40 MG TAB PO SCH (08:27)
[2021-07-25] MEDS: PROPRANOLOL HCL LA 80 MG CAPCR PO SCH (08:27)
[2021-07-25] MEDS: FLUoxetine HCL 20 MG CAP PO SCH (08:27)
[2021-07-25] MEDS: FLUoxetine HCL 10 MG CAP PO SCH (08:27)
[2021-07-25] MEDS: PSYLLIUM 58.6% POWDER PACKET PO SCH (08:27)
[2021-07-25] MEDS: DICLOFENAC SODIUM 75 MG TABCR PO SCH (08:27)
[2021-07-25] MEDS: GABAPENTIN 100 MG CAP PO SCH (08:27)
[2021-07-25] MEDS: VANCOMYCIN HCL 750 MG in SODIUM CHLORIDE 0.9% 250 ML IV SCH (10:35)
[2021-07-25] MEDS ORDERED: CEFEPIME 2,000 MG in SYRINGE 0 ML IV SCH (18:00)
--- NOTE | 2021-07-28 16:48 | Billing Data ---
Date of Service July 25, 2021 Coding Level of Care Code D/C DAY MANAGEMENT >30 MINS Time Spent (min) 32
== END 2021-07-25 13:44 | DRG 571 ==
LOC: ED 15:31 → EDINP 15:31 → SUATTDRO 07-16 00:12 → EDINP 07-16 02:57 → 3N 07-16 22:21 → SUATTDRO 07-17 10:57

== ENCOUNTER 2023-05-18 15:28 | Inpatient (IN) ==
--- NOTE | 2023-05-18 16:07 | ED Triage Note ---
Date of Service May 18, 2023 History of Present Illness This patient was briefly evaluated while in triage. An abbreviated physical exam was performed. This patient is a 83-year-old Female who presents to the ED for evaluation of a UTI. The patient reports that her last urine sample was last Thursday, and had an additional sample collected on Thursday. The patient was started on an antibiotic on Thursday, and was recontacted on Thursday, and switch to another unknown antibiotic that was started on Thursday. Patient reports persistent symptoms. is concerned that she has had had confusion for quite a while. Patient currently denies any fever or chills, back pain, nausea or vomiting. Physical Exam CONSTITUTIONAL: Healthy and well nourished. Alert and oriented X 3. HEENT: No scleral icterus or conjunctival injection/pallor. RESPIRATORY: Clear to auscultation bilaterally with no wheezing, crackles, rhonchi or stridor. CARDIOVASCULAR: Regular rate and rhythm with no murmurs, rubs or gallops. GASTROINTESTINAL: Bowel sounds present in all quadrants. Negative CVA tenderness. INTEGUMENTARY: No rash or other significant dermatologic conditions noted. HEMATOLOGIC: No ecchymosis or petechiae. PSYCHIATRIC: Positive affect. NEUROLOGIC: No focal neurologic deficits noted. Initial orders for labs and / or imaging were placed and patient was placed in the waiting area until a bed is available. Please see further documentation for the full ED course.
[2023-05-18 16:36] LABS: Basophils # (auto) 0.04 K/uL (0.00-0.20); Basophils % (auto) 0.5 %; Eosinophils # (auto) 0.37 K/uL (0.00-0.50); Eosinophils % (auto) 4.5 %; Hematocrit (blood only) 41.6 % (37.0-47.0); Immature Granulocytes # (auto) 0.03 K/uL (0.01-0.20); Immature Granulocytes % (auto) 0.4 %; Lymphocytes # (auto) 1.66 K/uL (1.20-3.40); Lymphocytes % (auto) 20.1 %; Mean Corpuscular Hemoglobin 30.3 pg (25.0-34.0); Mean Corpuscular Hgb Conc 31.3 g/dL (32.0-36.0); Mean Platelet Volume 9.1 fL (9.4-12.4); Monocytes # (auto) 0.79 K/uL (0.11-0.59); Monocytes % (auto) 9.6 %; Neutrophils # (auto) 5.37 K/uL (1.40-6.50); Neutrophils % (auto) 64.9 %; Platelet Count 296 K/uL (130-400); RDW Coefficient of Variation 13.1 % (11.5-14.5); RDW Standard Deviation 46.4 fL (36.4-46.3); Red Blood Count 4.29 M/uL (4.20-5.40); White Blood Count 8.26 K/ul (4.8-10.8)
[2023-05-18 16:45] LABS: Appearance Urine Turbid (Clear); Bacteria Urine Automated 4+ (Negative); Blood Urine 3+ (Negative); Color Urine Orange; Epithelial Cell Urine Auto >30 /lpf (0-5); Glucose Urine UA Negative (Negative); Ketones Urine Trace (Negative); Leukocyte Esterase Urine 3+ (Negative); Nitrite Urine Negative (Negative); Urobilinogen Urine Negative (Negative); WBC Urine Automated >30 /hpf (0-5); pH Urine 8.5 (4.5-7.5)
[2023-05-18 16:48] LABS: Bilirubin Urine 1+ (Negative); Protein Urine 3+ (Negative)
[2023-05-18 16:57] LABS: Albumin Globulin Ratio 1.3 (0.9-2); Albumin Level 4.3 gm/dl (3.4-5.0); BUN Creatinine Ratio 30.7 (10-20); Bilirubin,Total 0.4 mg/dl (0.2-1.0); Calcium 9.4 mg/dl (8.6-10.3); Creatinine Clr Calc Pharmacy 26.4 ml/min; Est GFR (African American) 36.1 ml/min; Est GFR (Non-African American) 31.1 ml/min; Globulin 3.2 gm/dl (2.5-4.0); Potassium 5.7 mmol/L (3.5-5.1); Total Protein 7.5 gm/dl (6.0-8.3)
[2023-05-18 17:02] LABS: Mucus Urine Present (None Prsent); RBC Urine Automated >30 /hpf (0-4)
[2023-05-18] MEDS ORDERED: SODIUM CHLORIDE 0.9% 500 ML IV ONE ×2 (18:11→19:48)
[2023-05-18] MEDS ORDERED: ERTAPENEM SODIUM 500 MG in SYRINGE 0 ML IV ONE (18:16)
--- NOTE | 2023-05-18 18:21 | Emergency Department Note ---
Impression & Plan Acute UTI, EDSON (acute kidney injury), Confusion ED Provider Note Provider: Hossein Malcolm MD DATE OF SERVICE: 05/18/2023 CHIEF COMPLAINT: Ongoing urinary symptoms, confusion HISTORY OF PRESENT ILLNESS: Patient is a 83-year-old female history of hypertension, hypothyroidism, diabetes, lymphedema, PAD presenting here today with reporting ongoing urinary symptoms over the past week or 2. Several samples to the PCPs office initially on cefdinir then switched to Macrobid. New prescription for cefdinir received today but has not taken it yet. Still with urinary urge. No fevers. No falls. reports that she is intermittently had some confusion. Some decreased intake but denies nausea or vomiting. Denies significant abdominal pain otherwise. Denies low back pain. PAST MEDICAL HISTORY: As noted above MEDICATIONS: Reviewed home medication list SOCIAL HISTORY: Lives with PHYSICAL EXAM: GENERAL: alert and oriented in no acute distress on stretcher Head: normocephalic and atraumatic EYES: No injection, discharge or icterus. NECK: Trachea midline. ENT: Mucous membranes pink and moist. LUNGS: Airway patent. No retractions or tachypnea HEART: Regular rate and rhythm. ABDOMEN: Soft and non-tender, without guarding or rebound. No bilateral flank tenderness. SKIN: Acyanotic, warm, dry, without rashes EXTREMITIES: Without swelling, tenderness or deformity NEUROLOGICAL: No focal deficits. No aphasia. No facial droop or slurred speech. Normal strength and tone in the extremities. Sensation to gross touch normal. Ambulatory. Patient's laboratory studies reviewed. Differential includes Appendicitis, infections, diverticulitis, UTI, obstruct ion, mesenteric ischemia, aortic pathology, inflammatory bowel disease, renal colic, PUD, pancreatitis, biliary pathology, hernia, volvulus, constipation, as well as other pathologies. IMPRESSION/MEDICAL DECISION MAKING: Symptoms do not seem that consistent with kidney stone. No trauma. Denies significant back pain. Urinalysis from today still appears infected. Reviewed last microbiology for the past 2 weeks from the outpatient setting.. Initial ESBL and then Proteus. Ongoing symptoms. New EDSON today -- creatinine 1.5. Given some fluid but gently given her history of lymphedema. Doubt obstructive cause at this time. Benign abdomen otherwise. Blood work without signs of leukocytosis and doubt sepsis. reports that she has been confused to some degree. Given her age with the EDSON, reports of some confusion although she is moving at the needle and doubt CVA, and the recent very resistant ESBL in her microbiology, discussed with them staying for hydration and treatment to ensure improvement. Patient again not severely confused but the reports he is seeing subtle signs at times. They very much were in agreement with this. Discussed with pharmacy 500 cc of IV fluid bolus given. Given her decreased renal clearance and given a dose of ertapenem here. Discussed with hospitalist team for further care here at the hospital. DIAGNOSIS: Acute UTI, EDSON, hyperkalemia DISPOSITION: Hospitalist will evaluate Patient was agreeable with this plan. Past Med/Surg History Medical History Anxiety and depression Carotid artery plaque Cellulitis of right lower leg FRONT OF RT LOWER LEG (WOUND VAC FOR 2 MONTHS) REQUIRING SKIN GRAFT FOR C LOSURE Diverticulosis of colon (without mention of hemorrhage) Elevated serum creatinine Encounter for pre-operative examination Glaucoma History of anemia History of COVID-19 02/2020>MILD CASE PER PATIENT *RESOLVED History of gastrointestinal ulcer History of pancreatitis Hx of sleep apnea RESOLVED SINCE GASTRIC BYPASS AND TONSILLECTOMY Hypercholesterolemia Hypertension Hyponatremia Hypothyroidism IBS (irritable bowel syndrome) Irregular heart beat NO CARDS Leg wound, left Lymphedema RT LEG Nerve pain UPPER BACK AREA Osteoarthritis Spinal stenosis Transient ischemic attack (TIA) A LONG TIME AGO>STILL HAS MILD RT SIDED WEAKNESS (FOLLOWS WITH DR. VARGHESE) Tremor BENIGN ESSENTIAL LEFT HAND Wound of right lower extremity Surgical History H/O gastric bypass 2004 H/O oral surgery History of bilateral tubal ligation History of cataract surgery R/L History of cholecystectomy History of colonoscopy History of esophagogastroduodenoscopy (EGD) History of eyelid surgery History of fusion of cervical spine C5-T2 2017 - MILD ROM LIMITATION History of hysterectomy History of lumbar laminectomy History of pharyngoplasty History of tonsillectomy History of total knee arthroplasty R/L S/P angiogram of extremity Abdominal aortogram and proximal right lower extremity angiogram S/P debridement X 2 06/2021 *CELLULITUS RLE (WOUND CLINIC PT): grade 2 view, glidescope 3, ETT 7. No postop issues per anesthesia progress note. Family History Mother Family history of diabetes mellitus Breast cancer Father Family history of diabetes mellitus Heart disease Family/Other Family history of diabetes mellitus Sister Congestive heart failure Breast cancer Stroke syndrome Brother Coronary heart disease Myocardial infarction Other No family history of adverse response to anesthesia Denies family history of Ovarian cancer Prostate cancer Colorectal cancer Social History Smoking Status: Never smoker Second Hand Exposure: No; Do You Dip or Chew Tobacco: No; Hx Alcohol Use: No Preferred Language: Greek Communication Ability: Effective Visual Impairment: Partially Limited Hearing Ability: Use of Hearing Aid Natural Resource Economist Required: No Beliefs That Will Affect Care: Latter-Day Latter-Day Beliefs: ORTHODOXY marital status: Current Living Situation: Spouse Current Living Situation Comment: LIVES AT [facility]/ IS THE CAREGIVER current occupational status: retired Feels Safe at Home: Yes Childhood Exposure to Second-Hand Smoke: No Diet: regular Dental Care, Regularly: Yes Physical Activity Frequency: Does not Exercise Seatbelt Use: always Sunscreen Use: Yes Assistive Devices: Glasses, Hearing Aid - Bilateral and Walker Allergies Allergies Allergy/AdvReac Type Severity Reaction Status Date / Time pneumococcal vaccine Allergy Intermediate REDNESS , Verified 05/18/23 18:58 CHILLS, HIVES sulfamethoxazole Allergy Intermediate Hives Verified 05/18/23 18:58 trimethoprim Allergy Intermediate Hives Verified 05/18/23 18:58 Home Meds Home Medications Medication Instructions Recorded Confirmed calcium citrate 200 mg 1 tab PO BID 03/29/18 05/18/23 calcium-vitamin D3 6.25 mcg (250 unit) tablet cholecalciferol (vitamin D3) 125 5,000 units PO 5XWK 05/31/18 05/18/23 mcg (5,000 unit) capsule mecobalamin (vitamin B12) 1,000 1,000 mcg sublingual 3XWK 05/31/18 05/18/23 mcg disintegrating tablet,sublingual latanoprost 0.005 % eye drops 1 drops OPR HS 02/21/20 05/18/23 diclofenac sodium 1 % topical gel 1 - 2 g topical BID PRN Pain 07/15/21 05/18/23 Previous Rx's Medication Instructions Recorded amlodipine 10 mg tablet 10 mg PO QAM #90 tabs 08/05/22 diclofenac sodium 75 mg 75 mg PO BID #180 tabs 08/07/22 tablet,delayed release levothyroxine 88 mcg tablet 88 mcg PO QAM #90 tabs 08/21/22 simvastatin 10 mg tablet (Zocor) 10 mg PO HS #90 tabs 08/21/22 pantoprazole 40 mg tablet,delayed 40 mg PO QAM #90 tabs 08/25/22 release (Protonix) propranolol 160 mg capsule,24 160 mg PO QAM #90 caps 09/15/22 hr,extended release urinary incontinence pads #1 ea 09/30/22 econazole 1 % topical cream 1 applic topical BID #30 grams 01/27/23 fluoxetine 10 mg capsule 10 mg PO QAM #90 caps 05/11/23 fluoxetine 20 mg tablet 20 mg PO QAM #90 tabs 05/11/23 cefdinir 300 mg capsule 300 mg PO BID #14 caps 05/18/23 Results & Data (ED) Vital Signs Vital Signs - 24 hr 05/18/23 16:01 05/18/23 17:42 05/18/23 18:01 Temperature 36.9 C Temperature Source Temporal Artery Scan Pulse Rate 73 Pulse Rate [Finger] 61 71 Respiratory Rate 18 18 20 Respiratory Effort / Characteristics Non-Labored Spontaneous Non-Labored Spontaneous Non-Labored Respiratory Depth Normal Normal Normal Blood Pressure 151/85 H Blood Pressure [Left Arm] 163/76 H Blood Pressure Mean 107 Blood Pressure Mean [Left Arm] 105 Blood Pressure Position Sitting Pulse Oximetry 96 98 98 Oxygen Delivery Method Room Air Room Air Room Air Sepsis Recent Fever Within 48 Hours No Sepsis New/Unexplained Change in Mental Status N/A Sepsis Action Taken by Nursing No Action Required 05/18/23 18:05 Temperature Temperature Source Pulse Rate 102 H Pulse Rate [Finger] Respiratory Rate Respiratory Effort / Characteristics Respiratory Depth Blood Pressure Blood Pressure [Left Arm] Blood Pressure Mean Blood Pressure Mean [Left Arm] Blood Pressure Position Pulse Oximetry Oxygen Delivery Method Sepsis Recent Fever Within 48 Hours Sepsis New/Unexplained Change in Mental Status Sepsis Action Taken by Nursing Laboratory Data 05/18/23 16:09 05/18/23 16:09 Lab Results 05/18/23 05/18/23 05/18/23 Range/Units 16:09 16:09 16: WBC 8.26 (4.8-10.8) K/ul RBC 4.29 (4.20-5.40) M/uL Hgb 13.0 (12.0-16.0) g/dl Hct 41.6 (37.0-47.0) % MCV 97.0 (80.0-100.0) fL MCH 30.3 (25.0-34.0) pg MCHC 31.3 L (32.0-36.0) g/dL RDW Std Deviation 46.4 H (36.4-46.3) fL RDW Coeff of Danielle 13.1 (11.5-14.5) % Plt Count 296 (130-400) K/uL MPV 9.1 L (9.4-12.4) fL Immature Gran % (Auto) 0.4 % Neut % (Auto) 64.9 % Lymph % (Auto) 20.1 % Haakon % (Auto) 9.6 % Eos % (Auto) 4.5 % Baso % (Auto) 0.5 % Neut # (Auto) 5.37 (1.40-6.50) K/uL Lymph # (Auto) 1.66 (1.20-3.40) K/uL Haakon # (Auto) 0.79 H (0.11-0.59) K/uL Eos # (Auto) 0.37 (0.00-0.50) K/uL Baso # (Auto) 0.04 (0.00-0.20) K/uL Immature Gran # (Auto) 0.03 (0.01-0.20) K/uL Sodium 137 (136-145) mmol/L Potassium 5.7 H (3.5-5.1) mmol/L Chloride 110 H (98-107) mmol/L Carbon Dioxide 21 (21-32) mmol/L Anion Gap 6 (3-11) BUN 47 H (6-23) mg/dl Creatinine 1.53 H (0.6-1.2) mg/dl Est Cr Clr Drug Dosing 26.4 ml/min Est GFR ( Amer) 36.1 ml/min Est GFR (Non-Af Amer) 31.1 ml/min BUN/Creatinine Ratio 30.7 H (10-20) Glucose 95 (70-99(Fasting)) mg/dl Calcium 9.4 (8.6-10.3) mg/dl Total Bilirubin 0.4 (0.2-1.0) mg/dl AST 11 L (13-39) U/L ALT 9 (7-52) U/L Alkaline Phosphatase 93 (34-104) U/L Total Protein 7.5 (6.0-8.3) gm/dl Albumin 4.3 (3.4-5.0) gm/dl Globulin 3.2 (2.5-4.0) gm/dl Albumin/Globulin Ratio 1.3 (0.9-2) Lipase 44 (11-82) U/L Urine Color [place] Urine Appearance Turbid A (Clear) Urine pH 8.5 H (4.5-7.5) Ur Specific [place] 1.020 (1.000-1.030) Urine Protein 3+ H (Negative) Urine Glucose (UA) Negative (Negative) Urine Ketones Trace H (Negative) Urine Blood 3+ H (Negative) Urine Nitrite Negative (Negative) Urine Bilirubin 1+ H (Negative) Urine Urobilinogen Negative (Negative) Ur Leukocyte Esterase 3+ H (Negative) Urine WBC (Auto) >30 H (0-5) /hpf Urine RBC (Auto) >30 H (0-4) /hpf U Hyaline Cast (Auto) 5-10 H (0-5) /lpf U Epithel Cells (Auto) >30 H (0-5) /lpf Urine Bacteria (Auto) 4+ H (Negative) Urine Mucus Present A (None Prsent) Urine Yeast Not Reportable Administered Medications Discontinued Medications Sodium Chloride (Nss) 500 mls @ 999 mls/hr IV .Q31M ONE Stop: 05/18/23 18:41 Last Infusion: 05/18/23 20:31 Dose: 999 mls/hr Documented By: Admin: 05/18/23 19:31 Dose: 999 mls/hr Documented By: GAYATRI Ertapenem 500 mg/ Syringe 5 mls @ 2 mls/min IV ONCE ONE Stop: 05/18/23 18:18 Last Admin: 05/18/23 20:30 Dose: 2 mls/min Documented By: GAYATRI Discharge Plan Visit Data Chief Complaint: Urinary Symptoms Stated Complaint: URINARY SYMPTOMS ED Provider: Hossein Malcolm Discharge Problem: Acute UTI, EDSON (acute kidney injury), Confusion Patient Disposition: Being Evaluated by Hospitalist Forms Stand Alone Forms: [facility] Face to Face Live Prescriptions Prescriptions: No Action cholecalciferol (vitamin D3) 5,000 unit capsule 5,000 units PO 5XWK Hold Instructions: SURGERY calcium citrate-vitamin D3 200 mg calcium -250 unit tablet 1 tab PO BID Hold Instructions: SURGERY mecobalamin (vitamin B12) 1,000 mcg tablet,disintegrating 1,000 mcg SL 3XWK Hold Instructions: SURGERY Patient Comments: MON, WED, FRI OR SAT amlodipine 10 mg tablet 10 mg PO QAM Qty: 90 3RF diclofenac sodium 75 mg tablet,delayed release (DR/EC) 75 mg PO BID Qty: 180 3RF Hold Instructions: SURGERY Patient Comments: ON HOLD FOR SURGERY simvastatin [Zocor] 10 mg tablet 10 mg PO HS Qty: 90 3RF levothyroxine 88 mcg tablet 88 mcg PO QAM Qty: 90 3RF pantoprazole [Protonix] 40 mg tablet,delayed release (DR/EC) 40 mg PO QAM Qty: 90 3RF propranolol 160 mg capsule,extended release 24 hr 160 mg PO QAM Qty: 90 3RF fluoxetine 20 mg tablet 20 mg PO QAM Qty: 90 3RF Rx Instructions: TOTAL DOSE 30 MG--TAKES WITH 10 MG fluoxetine 10 mg capsule 10 mg PO QAM Qty: 90 3RF Rx Instructions: TOTAL DOSE 30 MG--TAKES WITH 20 MG TAB. cefdinir 300 mg capsule 300 mg PO BID Qty: 14 0RF Rx Instructions: Did not start yet (DME) urinary incontinence pads See Rx Instructions .Route .MEDSUPPLY Qty: 1 0RF Rx Instructions: As directed econazole 1 % cream 1 applic topical BID Qty: 30 0RF latanoprost 0.005 % drops 1 drops OPR HS Patient Comments: RIGHT EYE diclofenac sodium 1 % Gel 1 - 2 g TOPICAL BID PRN (Reason: Pain) Hold Instructions: URGERY Referrals Referrals: Pro,Stefano Hernandez MD [Primary Care Provider] -
--- NOTE | 2023-05-18 19:41 | History & Physical Report ---
Date of Service May 18, 2023 Assessment & Plan (1) Acute UTI: Plan: UTI, history of ESBL Patient has not improved on cefdinir, Macrobid denies history of ESBL E. coli Continued urinary symptoms for 2 weeks Due to extended spectrum of last culture, only options are carbapenems/beta- lactam antibiotics and patient has failed cefdinir treatment. Defer additional beta-lactam's. Do not recommend Macrobid due to age and GFR. We will continue ertapenem UA infected (2) EDSON (acute kidney injury): Plan: EDSON, hyperkalemia Patient reports some chronic hyperkalemia with her normal levels in fives. She has not had heart complications with this, and does not take any potassium medication With clinical volume contraction, infection and EDSON Patient does have chronic lymphedema, however otherwise MM tacky -500 cc NSS given, additional 500 cc on reassessment [id number] repeat pending. If K>6 or EKG changes +CaGluc 1g/Insulin 10u/Dex50 push. Trend K q4H. If K >6 or continuing to rise --> +1 dose patiromer EKG ordered - BMP q4h (3) Hypertension: Plan: Hypertension Continue amlodipine (4) Depressive disorder: Plan: Anxiety/depression Continue fluoxetine (5) Hypothyroidism: Plan: Hypothyroidism Continue Synthroid (6) Hyperlipidemia: Plan: Hyperlipidemia Continue statin (7) Hyperkalemia: Plan DVT prophylaxis: Heparin due to EDSON Diet: Low potassium, heart healthy Disposition: PCU due to hyperkalemia CODE STATUS: Full code History of Present Illness Primary Care Provider: Stefano Rodriguez MD Shraddha is an 83-year-old female with a past medical history of type 2 diabetes, hypothyroidism, hypertension, hypercholesterolemia, cerebral ischemia, PAD who presents with urinary pressure, polyuria, and with a history of ESBL on prior admission. No leukocytosis. Shraddha is seen at the bedside. She reports that she has had urinary pressure and difficulty urinating for the last 2 weeks. She was on a course of cefdinir and does not think this helped much. Has been taking Macrobid and this has also not helped. She does not have so much burning as a feeling of urgency and pressure, but is only able to void small amounts. She has not had any fever, chills, sweats, back pain, or flank pain. She notes that she has been peeing small amounts. She does have a problem with chronic urinary incontinence and wears adult diapers. She has seen urology for this and had cystoscopy which has not shown any abnormalities. She reports she has also had a history of high potassium numbers that go up to 7, she has no history of heart problems or heart disease and no kidney problems to her knowledge. She does not take any medications for high potassium, but notes that "in the fives is good for me ". Medical History: Reviewed Medications: Reviewed Surgical History: Reviewed Family history: Reviewed Allergies: Reviewed Social History: Reviewed Code Status: Full Allergies Allergy/AdvReac Type Severity Reaction Status Date / Time pneumococcal vaccine Allergy Intermediate REDNESS , Verified 05/18/23 18:58 CHILLS, HIVES sulfamethoxazole Allergy Intermediate Hives Verified 05/18/23 18:58 trimethoprim Allergy Intermediate Hives Verified 05/18/23 18:58 Home Medications Medication Instructions Recorded Confirmed Type calcium citrate 200 mg 1 tab PO BID 03/29/18 05/18/23 History calcium-vitamin D3 6.25 mcg (250 unit) tablet cholecalciferol (vitamin D3) 125 5,000 units PO 5XWK 05/31/18 05/18/23 History mcg (5,000 unit) capsule mecobalamin (vitamin B12) 1,000 1,000 mcg sublingual 3XWK 05/31/18 05/18/23 History mcg disintegrating tablet,sublingual latanoprost 0.005 % eye drops 1 drops OPR HS 02/21/20 05/18/23 History diclofenac sodium 1 % topical gel 1 - 2 g topical BID PRN Pain 07/15/21 05/18/23 History amlodipine 10 mg tablet 10 mg PO QAM #90 tabs 08/05/22 05/18/23 Rx diclofenac sodium 75 mg 75 mg PO BID #180 tabs 08/07/22 05/18/23 Rx tablet,delayed release levothyroxine 88 mcg tablet 88 mcg PO QAM #90 tabs 08/21/22 05/18/23 Rx simvastatin 10 mg tablet (Zocor) 10 mg PO HS #90 tabs 08/21/22 05/18/23 Rx pantoprazole 40 mg tablet,delayed 40 mg PO QAM #90 tabs 08/25/22 05/18/23 Rx release (Protonix) propranolol 160 mg capsule,24 160 mg PO QAM #90 caps 09/15/22 05/18/23 Rx hr,extended release urinary incontinence pads #1 ea 09/30/22 05/18/23 Rx econazole 1 % topical cream 1 applic topical BID #30 grams 01/27/23 05/18/23 Rx fluoxetine 10 mg capsule 10 mg PO QAM #90 caps 05/11/23 05/18/23 Rx fluoxetine 20 mg tablet 20 mg PO QAM #90 tabs 05/11/23 05/18/23 Rx cefdinir 300 mg capsule 300 mg PO BID #14 caps 05/18/23 05/18/23 Rx Past Med/Surg History Medical History Anxiety and depression Carotid artery plaque Cellulitis of right lower leg FRONT OF RT LOWER LEG (WOUND VAC FOR 2 MONTHS) REQUIRING SKIN GRAFT FOR CLOSURE Diverticulosis of colon (without mention of hemorrhage) Elevated serum creatinine Encounter for pre-operative examination Glaucoma History of anemia History of COVID-19 02/2020>MILD CASE PER PATIENT *RESOLVED History of gastrointestinal ulcer History of pancreatitis Hx of sleep apnea RESOLVED SINCE GASTRIC BYPASS AND TONSILLECTOMY Hypercholesterolemia Hypertension Hyponatremia Hypothyroidism IBS (irritable bowel syndrome) Irregular heart beat NO CARDS Leg wound, left Lymphedema RT LEG Nerve pain UPPER BACK AREA Osteoarthritis Spinal stenosis Transient ischemic attack (TIA) A LONG TIME AGO>STILL HAS MILD RT SIDED WEAKNESS (FOLLOWS WITH DR. VARGHESE) Tremor BENIGN ESSENTIAL LEFT HAND Wound of right lower extremity Surgical History H/O gastric bypass 2004 H/O oral surgery History of bilateral tubal ligation History of cataract surgery R/L History of cholecystectomy History of colonoscopy History of esophagogastroduodenoscopy (EGD) History of eyelid surgery History of fusion of cervical spine C5-T2 2017 - MILD ROM LIMITATION History of hysterectomy History of lumbar laminectomy History of pharyngoplasty History of tonsillectomy History of total knee arthroplasty R/L S/P angiogram of extremity Abdominal aortogram and proximal right lower extremity angiogram S/P debridement X 2 06/2021 *CELLULITUS RLE (WOUND CLINIC PT): grade 2 view, glidescope 3, ETT 7. No postop issues per anesthesia progress note. Family History Mother Family history of diabetes mellitus Breast cancer Father Family history of diabetes mellitus Heart disease Family/Other Family history of diabetes mellitus Sister Congestive heart failure Breast cancer Stroke syndrome Brother Coronary heart disease Myocardial infarction Other No family history of adverse response to anesthesia Denies family history of Ovarian cancer Prostate cancer Colorectal cancer Social History Smoking Status: Never smoker Second Hand Exposure: No; Do You Dip or Chew Tobacco: No; Hx Alcohol Use: No Preferred Language: German Communication Ability: Effective Visual Impairment: Partially Limited Hearing Ability: Use of Hearing Aid Silk Screen Etcher Required: No Beliefs That Will Affect Care: Caodaism Caodaism Beliefs: BAPTISM marital status: Current Living Situation: Spouse Current Living Situation Comment: LIVES AT [facility]/ IS THE CAREGIVER current occupational status: retired Feels Safe at Home: Yes Childhood Exposure to Second-Hand Smoke: No Diet: regular Dental Care, Regularly: Yes Physical Activity Frequency: Does not Exercise Seatbelt Use: always Sunscreen Use: Yes Assistive Devices: Glasses, Hearing Aid - Bilateral and Walker Physical Exam Physical Exam: General: A&Ox3. NAD. Cooperative. HEENT: Atraumatic, normocephalic. Vision and hearing grossly intact Pulm: CTAB A&P. -wheezes, -rales, -rhonchi. Symmetrical chest rise. No increased work of breathing. No respiratory distress. Cardiac: RRR, -mrg. Radial pulses intact and symmetrical. Abdominal: Nontender, nondistended, soft. BS present. Extremities: Bilateral pitting lymphedema through lower extremities is noted. Sensation and strength grossly intact Results & Data Results & Data Vital Signs (Past 12 Hours) Vital Signs Temp Pulse Pulse Resp BP BP Pulse Ox 05/18/23 18:05 102 H 05/18/23 18:01 71 20 98 05/18/23 17:42 61 18 163/76 H 98 05/18/23 16:01 36.9 C 73 18 151/85 H 96 O2 Del Method 05/18/23 18:05 05/18/23 18:01 Room Air 05/18/23 17:42 Room Air 05/18/23 16:01 Room Air PG Care Time/CCT Total # of Minutes Spent Total Time Spent with Patient: Total time spent is greater than 50% in coordination of care (as documented) at patient's floor/unit and/or counseling patient: Coding Level of Care Code 07882 INT INP/OBS CARE 375MIN Diagnoses Acute UTI N39.0 EDSON (acute kidney injury) N17.9 Hypertension I10 Depressive disorder F32.9 Hypothyroidism E03.9 Hyperlipidemia E78.5 Hyperkalemia E87.5
[2023-05-18] MEDS ORDERED: ACETAMINOPHEN 325 MG TAB PO PRN (19:43)
[2023-05-18] MEDS: SODIUM CHLORIDE 0.9% 1,000 ML IV SCH (21:25)
[2023-05-18] MEDS: HEPARIN SOD 5,000 UNIT/0.5 ML VIAL SQ SCH (21:59)
[2023-05-18] MEDS: SIMVASTATIN 10 MG TAB PO SCH (23:41)
[2023-05-18] MEDS: LATANOPROST 0.005% OP SOLN 2.5 ML BTL OPR SCH (23:41)
[2023-05-19 00:12] LABS: Calcium 8.8 mg/dl (8.6-10.3); Potassium 4.9 mmol/L (3.5-5.1)
[2023-05-19 00:18] LABS: BUN Creatinine Ratio 35.7 (10-20); Creatinine Clr Calc Pharmacy 36.6 ml/min; Est GFR (African American) 52.6 ml/min; Est GFR (Non-African American) 45.4 ml/min
[2023-05-19 03:39] LABS: Basophils # (auto) 0.03 K/uL (0.00-0.20); Basophils % (auto) 0.6 %; Eosinophils # (auto) 0.31 K/uL (0.00-0.50); Eosinophils % (auto) 5.7 %; Hematocrit (blood only) 38.3 % (37.0-47.0); Immature Granulocytes # (auto) 0.01 K/uL (0.01-0.20); Immature Granulocytes % (auto) 0.2 %; Lymphocytes # (auto) 1.41 K/uL (1.20-3.40); Lymphocytes % (auto) 26.1 %; Mean Corpuscular Hemoglobin 30.1 pg (25.0-34.0); Mean Corpuscular Hgb Conc 31.3 g/dL (32.0-36.0); Mean Platelet Volume 9.2 fL (9.4-12.4); Monocytes # (auto) 0.56 K/uL (0.11-0.59); Monocytes % (auto) 10.4 %; Neutrophils # (auto) 3.08 K/uL (1.40-6.50); Platelet Count 222 K/uL (130-400); RDW Coefficient of Variation 12.9 % (11.5-14.5); Red Blood Count 3.99 M/uL (4.20-5.40)
[2023-05-19 03:55] LABS: Calcium 8.8 mg/dl (8.6-10.3); Creatinine Clr Calc Pharmacy 44.6 ml/min; Est GFR (African American) 66.7 ml/min; Est GFR (Non-African American) 57.6 ml/min; Potassium 4.7 mmol/L (3.5-5.1)
[2023-05-19] MEDS: HEPARIN SOD 5,000 UNIT/0.5 ML VIAL SQ SCH ×3 (05:45→21:06)
[2023-05-19] MEDS: LEVOTHYROXINE SODIUM 88 MCG TABLET PO SCH (05:47)
[2023-05-19] MEDS: SODIUM CHLORIDE 0.9% 1,000 ML IV SCH ×2 (07:34→21:04)
[2023-05-19 07:40] LABS: Calcium 8.6 mg/dl (8.6-10.3); Potassium 4.8 mmol/L (3.5-5.1)
[2023-05-19 07:45] LABS: BUN Creatinine Ratio 39.7 (10-20); Creatinine Clr Calc Pharmacy 52.7 ml/min; Est GFR (African American) 81.5 ml/min; Est GFR (Non-African American) 70.3 ml/min
--- NOTE | 2023-05-19 07:52 | Hospitalist Progress Note ---
Date of Service May 19, 2023 Assessment & Plan (1) Acute UTI: Plan: UTI, history of ESBL( also earl sensitive proteus) Patient has not improved on cefdinir, Macrobid history of ESBL E. coli 05/04/23 prehospital urinary symptoms for 2 weeks ertapenem pending sensitivities of urine culture (2) EDSON (acute kidney injury): Plan: EDSON, hyperkalemia, hyperkalemia resolved 05/19/2023 Patient reports some chronic hyperkalemia with her normal levels in fives. She has not had heart complications with this, and does not take any potassium medication dehydration , infection and EDSON Patient does have chronic lymphedema, however otherwise MM tacky -ECG non acute (3) Hypertension: Plan: Hypertension Continue amlodipine (4) Depressive disorder: Plan: Anxiety/depression Continue fluoxetine (5) Hypothyroidism: Plan: Hypothyroidism Continue Synthroid (6) Hyperlipidemia: Plan: Hyperlipidemia Continue statin (7) Hyperkalemia: Plan DVT prophylaxis: Heparin due to EDSON Diet: Low potassium, heart healthy Disposition: PCU due to hyperkalemia CODE STATUS: Full code Admission and Anticipated Discharge Date Admission Date: May 18, 2023 Subjective pt is pleasant and oriented, has no complaints, her dysuria has resolved Physical Exam Constitutional: Patient is pleasant awake and oriented. Card exam is regular lungs are clear abdomen is obese normal bowel sounds Results & Data Results & Data Vital Signs (Past 12 Hours) Vital Signs Temp Pulse Pulse Resp BP BP BP 05/19/23 03:12 97.5 F L 63 19 151/84 H 05/18/23 23:42 98.2 F 63 18 158/80 H 05/18/23 22:11 58 L 05/18/23 21:34 79 05/18/23 21:30 05/18/23 22:19 05/18/23 21:38 97.7 F 79 18 158/93 H 05/18/23 21:29 18 172/92 H Pulse Ox Pulse Ox O2 Del Method O2 Del Method 05/19/23 03:12 96 Room Air 05/18/23 23:42 95 Room Air 05/18/23 22:11 05/18/23 21:34 05/18/23 21:30 Room Air 05/18/23 22:19 97 Room Air 05/18/23 21:38 97 Room Air 10/30/23 21:29 93 Laboratory Results Reviewed CBC Reviewed chemistry Reviewed UA showing greater than 100,000 gram-negative bacilli PG Care Time/CCT Total # of Minutes Spent Total Time Spent with Patient: Total time spent is greater than 50% in coordination of care (as documented) at patient's floor/unit and/or counseling patient: Coding Level of Care Code 65831 SUB INP/OBS CARE 2/35MIN Diagnoses Acute UTI N39.0 EDSON (acute kidney injury) N17.9 Hypertension I10 Depressive disorder F32.9 Hypothyroidism E03.9 Hyperlipidemia E78.5 Hyperkalemia E87.5
--- NOTE | 2023-05-19 08:00 | Electrocardiogram Report ---
Test Reason : Blood Pressure : / mmHG Vent. Rate : 061 BPM Atrial Rate : 061 BPM P-R Int : 220 ms QRS Dur : 076 ms QT Int : 400 ms P-R-T Axes : 042 004 006 degrees QTc Int : 402 ms Sinus rhythm with 1st degree A-V block Otherwise normal ECG When compared with ECG of 16-JUL-2021 01:02, IA interval has increased T wave inversion now evident in Inferior leads Nonspecific T wave abnormality now evident in Anterior leads Confirmed by Silvano Gant ([id number]) on 05/19/2023 8:00:02 AM Referred By: REFERRED SELF Confirmed By:Yusef Gant
[2023-05-19 09:15] LABS: iSTAT Creatinine 1.3 mg/dl (0.6-1.3); iSTAT Hemoglobin 12.2 g/dl (12.0-16.0); iSTAT Ionized Calcium 1.23 mmol/l (1.12-1.32); iSTAT Potassium 5.4 mmol/L (3.3-5.0)
[2023-05-19] MEDS: amLODIPine BESYLATE 5 MG TAB PO SCH (09:34)
[2023-05-19] MEDS: PANTOprazole 40 MG TAB PO SCH (09:34)
[2023-05-19] MEDS: PROPRANOLOL HCL LA 80 MG CAPCR PO SCH (09:35)
[2023-05-19] MEDS: FLUoxetine HCL 10 MG CAP PO SCH (09:36)
[2023-05-19] MEDS ORDERED: traMADol HCL 50 MG TABLET PO PRN (10:38)
[2023-05-19 12:03] LABS: BUN Creatinine Ratio 38.7 (10-20); Calcium 8.7 mg/dl (8.6-10.3); Creatinine Clr Calc Pharmacy 54.8 ml/min; Est GFR (African American) 85.4 ml/min; Est GFR (Non-African American) 73.7 ml/min; Potassium 5.1 mmol/L (3.5-5.1)
[2023-05-19] MEDS ORDERED: MAGNESIUM SULFATE / D5W 1 GM/100 ML BAG IV ONE (12:25)
[2023-05-19 13:19] LABS: BUN Creatinine Ratio 36.5 (10-20); Calcium 8.6 mg/dl (8.6-10.3); Creatinine Clr Calc Pharmacy 48.4 ml/min; Est GFR (African American) 73.4 ml/min; Est GFR (Non-African American) 63.4 ml/min; Magnesium 1.5 mg/dl (1.7-2.4); Potassium 5.1 mmol/L (3.5-5.1)
[2023-05-19] MEDS ORDERED: ERTAPENEM SODIUM 500 MG in SYRINGE 0 ML IV SCH (20:00)
[2023-05-19] MEDS: LATANOPROST 0.005% OP SOLN 2.5 ML BTL OPR SCH (20:00)
[2023-05-19] MEDS: SIMVASTATIN 10 MG TAB PO SCH (20:00)
[2023-05-20] MEDS: LEVOTHYROXINE SODIUM 88 MCG TABLET PO SCH (06:25)
[2023-05-20] MEDS: HEPARIN SOD 5,000 UNIT/0.5 ML VIAL SQ SCH (06:25)
[2023-05-20 07:26] LABS: Basophils # (auto) 0.03 K/uL (0.00-0.20); Basophils % (auto) 0.6 %; Eosinophils # (auto) 0.32 K/uL (0.00-0.50); Eosinophils % (auto) 6.7 %; Hematocrit (blood only) 41.2 % (37.0-47.0); Hemoglobin 12.7 g/dl (12.0-16.0); Immature Granulocytes # (auto) 0.02 K/uL (0.01-0.20); Immature Granulocytes % (auto) 0.4 %; Lymphocytes % (auto) 25.2 %; Mean Corpuscular Hemoglobin 30.1 pg (25.0-34.0); Mean Corpuscular Hgb Conc 30.8 g/dL (32.0-36.0); Mean Corpuscular Volume 97.6 fL (80.0-100.0); Mean Platelet Volume 9.2 fL (9.4-12.4); Monocytes % (auto) 8.4 %; Neutrophils # (auto) 2.79 K/uL (1.40-6.50); Neutrophils % (auto) 58.7 %; Platelet Count 258 K/uL (130-400); Red Blood Count 4.22 M/uL (4.20-5.40); White Blood Count 4.76 K/ul (4.8-10.8)
[2023-05-20 07:41] LABS: BUN Creatinine Ratio 28.9 (10-20); Calcium 8.8 mg/dl (8.6-10.3); Creatinine Clr Calc Pharmacy 54.8 ml/min; Est GFR (African American) 84.1 ml/min; Est GFR (Non-African American) 72.5 ml/min; Potassium 5.1 mmol/L (3.5-5.1)
[2023-05-20] MEDS ORDERED: MAGNESIUM SULFATE / D5W 1 GM/100 ML BAG IV ONE (08:15)
[2023-05-20] MEDS: SODIUM CHLORIDE 0.9% 1,000 ML IV SCH (09:02)
[2023-05-20] MEDS: amLODIPine BESYLATE 5 MG TAB PO SCH (09:03)
[2023-05-20] MEDS: PROPRANOLOL HCL LA 80 MG CAPCR PO SCH (09:04)
[2023-05-20] MEDS: FLUoxetine HCL 10 MG CAP PO SCH (09:04)
[2023-05-20] MEDS: PANTOprazole 40 MG TAB PO SCH (09:05)
--- NOTE | 2023-05-20 14:57 | Discharge Summary ---
Date of Service May 20, 2023 Admission HPI Per Admitting Provider Shraddha is an 83-year-old female with a past medical history of type 2 diabetes, hypothyroidism, hypertension, hypercholesterolemia, cerebral ischemia, PAD who presents with urinary pressure, polyuria, and with a history of ESBL on prior admission. No leukocytosis. Shraddha is seen at the bedside. She reports that she has had urinary pressure and difficulty urinating for the last 2 weeks. She was on a course of cefdinir and does not think this helped much. Has been taking Macrobid and this has also not helped. She does not have so much burning as a feeling of urgency and pressure, but is only able to void small amounts. She has not had any fever, chills, sweats, back pain, or flank pain. She notes that she has been peeing small amounts. She does have a problem with chronic urinary incontinence and wears adult diapers. She has seen urology for this and had cystoscopy which has not shown any abnormalities. She reports she has also had a history of high potassium numbers that go up to 7, she has no history of heart problems or heart disease and no kidney problems to her knowledge. She does not take any medications for high potassium, but notes that "in the fives is good for me ". Medical History: Reviewed Medications: Reviewed Surgical History: Reviewed Family history: Reviewed Allergies: Reviewed Social History: Reviewed Code Status: Full Principal Diagnosis non esbl uti poa Discharge Exam pt is awake and alert no new issues no urinary complaints Discharge Data Allergies Allergy/AdvReac Type Severity Reaction Status Date / Time pneumococcal vaccine Allergy Intermediate REDNESS , Verified 05/18/23 18:58 CHILLS, HIVES sulfamethoxazole Allergy Intermediate Hives Verified 05/18/23 18:58 trimethoprim Allergy Intermediate Hives Verified 05/18/23 18:58 Consultations 05/18/23 18:16 ED Decision to Admit Stat Hospital Course (1) Acute UTI: UTI, history of ESBL( also earl sensitive proteus) Patient has not improved on cefdinir, Macrobid history urine shows proteus vulgaris, earl sensitive will be discharged on Augmentin (2) EDSON (acute kidney injury): EDSON, hyperkalemia, hyperkalemia resolved 05/19/2023- resolved Patient reports some chronic hyperkalemia with her normal levels in fives. She has not had heart complications with this, and does not take any potassium medication dehydration , infection and EDSON Patient does have chronic lymphedema, however otherwise MM tacky -ECG non acute (3) Hypertension: Hypertension Continue amlodipine (4) Depressive disorder: Anxiety/depression Continue fluoxetine (5) Hypothyroidism: Hypothyroidism Continue Synthroid (6) Hyperlipidemia: Hyperlipidemia Continue statin (7) Hyperkalemia: Plan CODE STATUS: Full code Total Time Total Time Spent Total Time Spent (In Minutes): It required greater than 30 minutes to prepare this patient for discharge Discharge Plan Discharge Items Patient Disposition: Home - Self-Care Reason For Visit: ESBL UTI Discharge Diagnosis: urinary tract infection Activity: Resume your previous activity Non-emergency contact: Primary Care Provider Call non-emergency contact if: your symptoms worsen Follow-up/Referrals: Stefano Rodriguez MD [Primary Care Provider] - 05/26/23 11:30 am (Will see Gloria Martinez PA-C in Dr Rodriguez's office) Diet: Regular Addtl Attending Provider Instructions: A urinary tract infection, or UTI, is a general term for an infection anywhere between the kidneys and the urethra (where urine comes out). Most UTIs are bladder infections. They often cause pain or burning when you urinate. UTIs are caused by bacteria and can be cured with antibiotics. Be sure to complete your treatment so that the infection does not get worse. Follow-up care is a varma part of your treatment and safety.Be sure to make and go to all appointments, and call your doctor if you are having problems. It's also a good idea to know your test results and keep a list of the medicines you take. How can you care for yourself at home? * Take your antibiotics as directed. Do not stop taking them just because you feel better. You need to take the full course of antibiotics. * Drink extra water and other fluids for the next day or two. This will help make the urine less concentrated and help wash out the bacteria that are causing the infection. (If you have kidney, heart, or liver disease and have to limit fluids, talk with your doctor before you increase the amount of fluids you drink.) * Avoid drinks that are carbonated or have caffeine. They can irritate the bladder. * Urinate often. Try to empty your bladder each time. * To relieve pain, take a hot bath or lay a heating pad set on low over your lower belly or genital area. Never go to sleep with a heating pad in place. To prevent UTIs * Drink plenty of water each day. This helps you urinate often, which clears bacteria from your system. (If you have kidney, heart, or liver disease and have to limit fluids, talk with your doctor before you increase the amount of fluids you drink.) * Urinate when you need to. * If you are sexually active, urinate right after you have sex. * Change sanitary pads often. * Avoid douches, bubble baths, feminine hygiene sprays, and other feminine hygiene products that have deodorants. * After going to the bathroom, wipe from front to back. When should you call for help? Call your doctor nowor seek immediate medical care if: * Symptoms such as fever, chills, nausea, or vomiting get worse or appear for the first time. * You have new pain in your back just below your rib cage. This is called flank pain. * There is new blood or pus in your urine. * You have any problems with your antibiotic medicine. Watch closely for changes in your health, and be sure to contact your doctor if: * You are not getting better after taking an antibiotic for 2 days. * Your symptoms go away but then come back. 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 Provider Instructions: take probiotic or eat yogurt daily consider taking daily vitamin c 500IU or drinking cranberry daily Pending Studies at Discharge: No Stand-Alone Forms: My [facility], Smoking Cessation Medications and DC Order Prescriptions: New amoxicillin-pot clavulanate 875-125 mg Tablet 1 tab PO BIDM Qty: 12 0RF Continued cholecalciferol (vitamin D3) 5,000 unit capsule 5,000 units PO 5XWK Hold Instructions: SURGERY calcium citrate-vitamin D3 200 mg calcium -250 unit tablet 1 tab PO BID Hold Instructions: SURGERY mecobalamin (vitamin B12) 1,000 mcg tablet,disintegrating 1,000 mcg SL 3XWK Hold Instructions: SURGERY Patient Comments: MON, WED, FRI OR SAT amlodipine 10 mg tablet 10 mg PO QAM Qty: 90 3RF diclofenac sodium 75 mg tablet,delayed release (DR/EC) 75 mg PO BID Qty: 180 3RF Hold Instructions: SURGERY Patient Comments: ON HOLD FOR SURGERY levothyroxine 88 mcg tablet 88 mcg PO QAM Qty: 90 3RF pantoprazole [Protonix] 40 mg tablet,delayed release (DR/EC) 40 mg PO QAM Qty: 90 3RF propranolol 160 mg capsule,extended release 24 hr 160 mg PO QAM Qty: 90 3RF fluoxetine 20 mg tablet 20 mg PO QAM Qty: 90 3RF Rx Instructions: TOTAL DOSE 30 MG--TAKES WITH 10 MG fluoxetine 10 mg capsule 10 mg PO QAM Qty: 90 3RF Rx Instructions: TOTAL DOSE 30 MG--TAKES WITH 20 MG TAB. simvastatin [Zocor] 10 mg tablet 10 mg PO HS Qty: 90 3RF (DME) urinary incontinence pads See Rx Instructions .Route .MEDSUPPLY Qty: 1 0RF Rx Instructions: As directed econazole 1 % cream 1 applic topical BID Qty: 30 0RF latanoprost 0.005 % drops 1 drops OPR HS Patient Comments: RIGHT EYE diclofenac sodium 1 % Gel 1 - 2 g TOPICAL BID PRN (Reason: Pain) Hold Instructions: URGERY Discontinued cefdinir 300 mg capsule 300 mg PO BID Qty: 14 0RF Rx Instructions: Did not start yet Discharge Orders: Discharge Order (Routine); Ordered 05/20/23 Ordered By: Abran Gatica/Other Patient Handouts: Incontinence Tx Women, UTIs Understanding Admission Data Admit Date/Time: 05/18/23 19:45 Attending Provider: Abran Ugalde Admit Provider: Donavon Kaiser Primary Care Provider: Stefano Rodriguez Other Providers: Donavon Kaiser ; Siri,Fax Other Interventions: Discharge Summary Assessment (RN) Last Done: 05/20/23 12:49 Coding Level of Care Code 04137 INP/OBS DISCH >30 MIN Diagnoses Acute UTI N39.0 EDSON (acute kidney injury) N17.9 Hypertension I10 Depressive disorder F32.9 Hypothyroidism E03.9 Hyperlipidemia E78.5 Hyperkalemia E87.5
[2023-05-20] MEDS ORDERED: AMOXICILLIN/CLAVULANATE 875 MG TAB PO SCH (17:00)
== END 2023-05-20 14:01 | disposition home or self-care (01) | DRG 690 ==
LOC: ED 15:28 → 2E 19:45 → SUATTDRO 19:45 → 2E 21:29

== ENCOUNTER 2024-03-10 07:15 | Inpatient (IN) ==
[2024-03-10 08:13] LABS: Basophils # (auto) 0.03 K/uL (0.00-0.20); Basophils % (auto) 0.5 %; Eosinophils # (auto) 0.31 K/uL (0.00-0.50); Eosinophils % (auto) 5.7 %; Hematocrit (blood only) 38.7 % (37.0-47.0); Hemoglobin 11.6 g/dl (12.0-16.0); Immature Granulocytes # (auto) 0.02 K/uL (0.01-0.20); Immature Granulocytes % (auto) 0.4 %; Lymphocytes # (auto) 1.49 K/uL (1.20-3.40); Lymphocytes % (auto) 27.3 %; Mean Corpuscular Hemoglobin 26.7 pg (25.0-34.0); Mean Platelet Volume 8.9 fL (9.4-12.4); Monocytes # (auto) 0.54 K/uL (0.11-0.59); Monocytes % (auto) 9.9 %; Neutrophils # (auto) 3.07 K/uL (1.40-6.50); Neutrophils % (auto) 56.2 %; Platelet Count 280 K/uL (130-400); RDW Coefficient of Variation 13.4 % (11.5-14.5); RDW Standard Deviation 43.7 fL (36.4-46.3); Red Blood Count 4.35 M/uL (4.20-5.40); White Blood Count 5.46 K/ul (4.8-10.8)
--- NOTE | 2024-03-10 08:21 | Emergency Department Note ---
Impression & Plan AMS (altered mental status), Lymphedema of lower extremity ED Provider Note NAME: CANDACE BROUSSARD AGE: 84 SEX: F : 1940 ARRIVES VIA: Walk-In INFORMANT: Patient, the patient's significant other ED PROVIDER(S): Stefano Roberts DO CHIEF COMPLAINT: Altered mental status HPI: The patient is an 84-year-old female who presented to the emergency department for an evaluation of altered mental status. The patient has been having problems with memory loss especially over the course of the last several weeks. The patient has been seen by the primary care physician for the symptoms. The patient also has outpatient rehab for leg swelling. The thought was that the patient may require placement and she was told to come to the emergency department for possible placement. The patient himself offers no complaints. She denies having any chest pain or difficulty breathing. She has had no new medications. The patient denies having any recent trauma but she was seen several weeks ago after a fall and injured her nose. ROS: See above HPI for pertinent positives & negatives. A total of 10 systems reviewed and were otherwise negative. PAST MEDICAL HISTORY: See Below PAST SURGICAL HISTORY: See Below FAMILY HISTORY: See Below SOCIAL HISTORY: See Below HOME MEDICATIONS: See Below ALLERGIES: See Below VITALS: See Below PHYSICAL EXAMINATION: GENERAL: Patient is awake alert in no acute distress patient is resting comfortably and showing no signs of anxiety EYES: The conjunctivae are clear. The pupils are round and reactive. EARS, NOSE, MOUTH AND THROAT: The nose is without any evidence of any deformity. NECK: The neck is nontender and supple. RESPIRATORY: Normal respiratory effort is noted there is no evidence of wheezing rhonchi or rales CARDIOVASCULAR: Regular rate and rhythm noted there no murmurs rubs or gallops normal S1 normal S2. GASTROINTESTINAL: The abdomen is soft. Abdomen is nontender. MUSCULOSKELETAL/EXTREMITIES: There is no evidence of gross deformity full range of motion is noted in the hips and shoulders. SKIN: Bilateral lower extremity edema was noted. NEUROLOGIC: Patient is awake alert and oriented x3 MEDICAL DECISION MAKING: The patient is an 84-year-old female who presented to the emergency department with her . The patient's been having problems with mental status and decline of her memory. This appears to be periodic. The does note that it is worse at night. The patient was evaluated by her outpatient therapist for her lymphedema and at the request of her therapist as well as her primary care physician she was sent to the emergency department for possible placement. I discussed patient's laboratory and radiographic studies with her. I discussed her condition with the emergency department binder caser. They do not feel we would be able to place the patient without an inpatient stay at this time. For this reason I discussed her condition with the on-call [facility] hospitalist group. Triage Nursing notes reviewed. Prior medical records reviewed Vital Signs: reviewed and remarkable for elevated blood pressure. Differential diagnosis: Infection, hypoglycemia, electrolyte abnormalities, overdose, toxicologic, cardiac sources, intracerebral event, neurologic, trauma, as well as other pathologies. ER treatment provided: See below Diagnostics interpreted by me: ECG: EKG was obtained in the emergency department. My interpretation is sinus rhythm at 58 bpm. First-degree block is noted. There is no ectopy. This was compared to a tracing from February 05, 2024. No changes were noted. Cardiac Monitoring: An order was placed for continuous cardiac monitoring. The monitor shows a rate of 60 bpm with sinus rhythm. Laboratory studies: As stated above and show below. Imaging studies: See below. Radiographic imaging was reviewed by myself Consultation(s): I discussed this case with Dr. Martinez who is on-call for the [place] Hospitalist group. Past Med/Surg History Problem List (Updated 03/10/24 @ 10:10 by Stefano Roberts DO) AMS (altered mental status) (Acute) Weakness Common bile duct (CBD) obstruction Hyperlipidemia Acute UTI (Acute) Current use of proton pump inhibitor Chest pain (Acute 10/24/13) Hypertension Depressive disorder (Chronic) Myofascial pain (Chronic) SOB (shortness of breath) on exertion Gastric ulcer UNDER CONTROL WITH MEDS Hypothyroidism Peripheral neuropathy HANDS AND FEET Anemia DM w/o complication type II (Acute) Vulvitis (Acute) Vitamin D deficiency (Acute) Urinary incontinence (Acute) Urinary frequency (Acute) Transient cerebral ischemic attack (Acute) Osteopenia (Acute) Myelopathy (Acute) Lumbosacral radiculopathy at L5 (Acute) Lichen sclerosus et atrophicus (Acute) Insomnia (Acute) Candidiasis of esophagus (Acute) Generalized osteoarthritis of multiple sites (Acute) Gastroesophageal reflux disease (Acute) External hemorrhoids (Acute) Degenerative cervical spinal stenosis (Acute) Chronic cerebral ischemia (Acute) Carpal tunnel syndrome of right wrist (Acute) Carotid artery plaque (Acute) Benign essential tremor (Acute) Actinic keratoses (Acute) History of oophorectomy History of knee replacement Prolapse of vaginal vault after hysterectomy Memory change Impacted cerumen Fecal urgency Chronic diarrhea History of colon polyps Hyperkalemia Cervical radiculopathy Anxiety Pain in right lower leg Swelling of right lower extremity Lymphedema of lower extremity (Chronic) Fever (Acute) Fall (Acute) CHI (closed head injury) (Acute) Type II diabetes mellitus Wound of right lower extremity Surgical wound, non healing (Acute) PAD (peripheral artery disease) (Chronic) Encounter for pre-operative examination Leg wound, left Abscess of arm, right (Acute) Mixed stress and urge urinary incontinence Cervical radiculopathy at C7 Chronic acquired lymphedema (Chronic) Medical History Confusion EDSON (acute kidney injury) Lymphedema RT LEG Spinal stenosis History of anemia Glaucoma Nerve pain UPPER BACK AREA Transient ischemic attack (TIA) A LONG TIME AGO>STILL HAS MILD RT SIDED WEAKNESS (FOLLOWS WITH DR. VARGHESE) Irregular heart beat NO CARDS Hx of sleep apnea RESOLVED SINCE GASTRIC BYPASS AND TONSILLECTOMY History of COVID-19 02/2020>MILD CASE PER PATIENT *RESOLVED Anxiety and depression Wound of right lower extremity Hyponatremia Elevated serum creatinine Cellulitis of right lower leg FRONT OF RT LOWER LEG (WOUND VAC FOR 2 MONTHS) REQUIRING SKIN GRAFT FOR CLOSURE Encounter for pre-operative examination History of gastrointestinal ulcer IBS (irritable bowel syndrome) History of pancreatitis Diverticulosis of colon (without mention of hemorrhage) Osteoarthritis Tremor BENIGN ESSENTIAL LEFT HAND Hypothyroidism Hypercholesterolemia Surgical History H/O oral surgery S/P angiogram of extremity Abdominal aortogram and proximal right lower extremity angiogram S/P debridement X 2 06/2021 *CELLULITUS RLE (WOUND CLINIC PT): grade 2 view, glidescope 3, ETT 7. No postop issues per anesthesia progress note. History of lumbar laminectomy History of colonoscopy History of esophagogastroduodenoscopy (EGD) History of pharyngoplasty History of cataract surgery R/L H/O gastric bypass 2004 History of tonsillectomy History of eyelid surgery History of bilateral tubal ligation History of cholecystectomy History of total knee arthroplasty R/L History of hysterectomy History of fusion of cervical spine C5-T2 2017 - MILD ROM LIMITATION Family History Mother Family history of diabetes mellitus Breast cancer Father Family history of diabetes mellitus Heart disease Family/Other Family history of diabetes mellitus Sister Congestive heart failure Breast cancer Stroke syndrome Brother Coronary heart disease Myocardial infarction Other No family history of adverse response to anesthesia Denies family history of Ovarian cancer Prostate cancer Colorectal cancer Social History Smoking Status: Never smoker Second Hand Exposure: No; Do You Dip or Chew Tobacco: No; Hx Alcohol Use: No Hx Substance Use: No Preferred Language: Sinhala Communication Ability: Effective Visual Impairment: Partially Limited Hearing Ability: Use of Hearing Aid Through Freight Engineer Required: No Beliefs That Will Affect Care: None marital status: Current Living Situation: Spouse Current Living Situation Comment: Lives at [facility] current occupational status: retired Feels Safe at Home: Yes Childhood Exposure to Second-Hand Smoke: No Diet: regular Dental Care, Regularly: Yes Physical Activity Frequency: Does not Exercise Seatbelt Use: always Sunscreen Use: Yes Assistive Devices: Walker Allergies Allergies Allergy/AdvReac Type Severity Reaction Status Date / Time pneumococcal vaccine Allergy Intermediate REDNESS , Verified 03/10/24 08:53 CHILLS, HIVES sulfamethoxazole Allergy Intermediate Hives Verified 03/10/24 08:53 trimethoprim Allergy Intermediate Hives Verified 03/10/24 08:53 Home Meds Home Medications Medication Instructions Recorded Confirmed cholecalciferol (vitamin D3) 125 5,000 units PO 5XWK 05/31/18 03/10/24 mcg (5,000 unit) capsule mecobalamin (vitamin B12) 1,000 1,000 mcg sublingual 3XWK 05/31/18 03/10/24 mcg disintegrating tablet,sublingual latanoprost 0.005 % eye drops 1 drops OPR HS 02/21/20 03/10/24 diclofenac sodium 1 % topical gel 1 - 2 g topical BID PRN Pain 07/15/21 03/10/24 calcium citrate 200 mg 1 tab PO DAILY 10/05/23 03/10/24 calcium-vitamin D3 6.25 mcg (250 unit) tablet fluoxetine 10 mg capsule See Rx Instructions .Route .COMPLEX 03/10/24 03/10/24 fluoxetine 20 mg capsule See Rx Instructions .Route .COMPLEX 03/10/24 03/10/24 Previous Rx's Medication Instructions Recorded urinary incontinence pads #1 ea 09/30/22 simvastatin 10 mg tablet (Zocor) 10 mg PO HS #90 tabs 05/25/23 amlodipine 10 mg tablet 10 mg PO QAM #90 tabs 05/28/23 diclofenac sodium 75 mg 75 mg PO BID #180 tabs 08/03/23 tablet,delayed release pantoprazole 40 mg tablet,delayed 40 mg PO QAM #90 tabs 08/13/23 release (Protonix) levothyroxine 88 mcg tablet 88 mcg PO QAM #90 tabs 10/16/23 propranolol 160 mg capsule,24 160 mg PO QAM #90 caps 11/09/23 hr,extended release hydrochlorothiazide 25 mg tablet 25 mg PO DAILY #90 tabs 02/19/24 Results & Data (ED) Vital Signs Vital Signs - 24 hr 03/10/24 07:21 03/10/24 07:38 03/10/24 07:42 Temperature 36.8 C Temperature Source Temporal Artery Scan Pulse Rate 60 59 L Pulse Rate [Apical] 68 Respiratory Rate 16 18 Respiratory Effort / Characteristics Non-Labored Non-Labored Respiratory Depth Normal Normal Respiratory Pattern Blood Pressure 194/87 H Blood Pressure [Right Arm] 175/73 H Blood Pressure Mean 122 Blood Pressure Mean [Right Arm] 107 Pulse Oximetry 95 96 Oxygen Delivery Method Room Air Room Air Sepsis Recent Fever Within 48 Hours No Sepsis New/Unexplained Change in Mental Status No Sepsis Action Taken by Nursing No Action Required 03/10/24 09:36 03/10/24 09:36 Temperature Temperature Source Pulse Rate 55 L Pulse Rate [Apical] 55 L Respiratory Rate 18 18 Respiratory Effort / Characteristics Non-Labored Respiratory Depth Normal Respiratory Pattern Regular Blood Pressure Blood Pressure [Right Arm] 141/77 H Blood Pressure Mean Blood Pressure Mean [Right Arm] 98 Pulse Oximetry 97 98 Oxygen Delivery Method Room Air Room Air Sepsis Recent Fever Within 48 Hours Sepsis New/Unexplained Change in Mental Status Sepsis Action Taken by Prison Medications Current Medication List: was personally reviewed by me Laboratory Data Attestation: I reviewed the patient's lab results. 03/10/24 07:34 03/10/24 07:34 Lab Results 03/10/24 03/10/24 Range/Units 07:34 09:42 WBC 5.46 (4.8-10.8) K/ul RBC 4.35 (4.20-5.40) M/uL Hgb 11.6 L (12.0-16.0) g/dl Hct 38.7 (37.0-47.0) % MCV 89.0 (80.0-100.0) fL MCH 26.7 (25.0-34.0) pg MCHC 30.0 L (32.0-36.0) g/dL RDW Std Deviation 43.7 (36.4-46.3) fL RDW Coeff of Danielle 13.4 (11.5-14.5) % Plt Count 280 (130-400) K/uL MPV 8.9 L (9.4-12.4) fL Immature Gran % (Auto) 0.4 % Neut % (Auto) 56.2 % Lymph % (Auto) 27.3 % [place] % (Auto) 9.9 % Eos % (Auto) 5.7 % Baso % (Auto) 0.5 % Neut # (Auto) 3.07 (1.40-6.50) K/uL Lymph # (Auto) 1.49 (1.20-3.40) K/uL [place] # (Auto) 0.54 (0.11-0.59) K/uL Eos # (Auto) 0.31 (0.00-0.50) K/uL Baso # (Auto) 0.03 (0.00-0.20) K/uL Immature Gran # (Auto) 0.02 (0.01-0.20) K/uL PT 10.3 (9.0-12.0) Seconds INR 0.9 (0.9-1.1) APTT 22 (21-31) Seconds PTT Ratio 0.8 Sodium 138 (136-145) mmol/L Potassium 5.1 (3.5-5.1) mmol/L Chloride 105 (98-107) mmol/L Carbon Dioxide 30 (21-32) mmol/L Anion Gap 3 (3-11) BUN 33 H (6-23) mg/dl Creatinine 0.93 (0.6-1.2) mg/dl Est Cr Clr Drug Dosing 43.3 ml/min Est GFR ( Amer) 65.4 ml/min Est GFR (Non-Af Amer) 56.4 ml/min BUN/Creatinine Ratio 35.5 H (10-20) Glucose 93 (70-99(Fasting)) mg/dl Calcium 9.1 (8.6-10.3) mg/dl Magnesium 1.7 (1.7-2.4) mg/dl Total Bilirubin 0.5 (0.2-1.0) mg/dl AST 15 (13-39) U/L ALT 11 (7-52) U/L Alkaline Phosphatase 58 (34-104) U/L Troponin I High Sens 13.0 (0-14) pg/ml Total Protein 7.4 (6.0-8.3) gm/dl Albumin 4.1 (3.4-5.0) gm/dl Globulin 3.3 (2.5-4.0) gm/dl Albumin/Globulin Ratio 1.2 (0.9-2) TSH 2.363 (0.300-4.500) uIu/ml Urine Color Yellow Urine Appearance Clear (Clear) Urine pH 6.5 (4.5-7.5) Ur Specific [place] 1.012 (1.000-1.030) Urine Protein Negative (Negative) Urine Glucose (UA) Negative (Negative) Urine Ketones Negative (Negative) Urine Blood Negative (Negative) Urine Nitrite Negative (Negative) Urine Bilirubin Negative (Negative) Urine Urobilinogen Negative (Negative) Ur Leukocyte Esterase Trace H (Negative) Urine WBC (Auto) 0-5 (0-5) /hpf Urine RBC (Auto) 0-2 (0-2) /hpf U Hyaline Cast (Auto) 0-2 (0-2) /lpf U Epithel Cells (Auto) 0-2 (0-2) /hpf Urine Bacteria (Auto) 4+ H (None Seen) Imaging Data Attestation: I personally reviewed and interpreted this imaging study as follows: My Impression: 1 view chest x-ray was obtained in the emergency department. My interpretation is no free air or definite infiltrate, final report below. CT the brain was obtained in the emergency department. My interpretation is no intracranial hemorrhage or mass effect, final report below. Radiologist's Impression: Chest X-Ray 03/10/24 07:54 XR chest 1V portable CLINICAL HISTORY: weakness TECHNIQUE: Single frontal radiograph of the chest was obtained. Comparison: Comparison is made to chest radiograph 02/01/2024 FINDINGS: Cervical spine fixation hardware is seen. Cardiomegaly is noted. The aortic arch is calcified. The lungs are clear. No evidence of pleural effusion or pneumothorax. IMPRESSION: No acute chest disease. ACT 112: Negative or not required by law. Electronically signed by: Valentín Borden M.D. 03/10/2024 8:[address] 03/10/24 07:[address] DOSE: 547.75 mGy.cm HISTORY: Altered mental status. TECHNIQUE: Multiaxial CT images of the head were performed without the use of intravenous contrast. Automated exposure control was utilized for this study. A dose lowering technique was utilized adhering to the principles of ALARA. Comparison: Head CT 02/01/2024. Findings: The paranasal sinuses and mastoid air cells are clear. The calvarium and skull base are intact. There is no mass, hematoma, midline shift, acute infarct. White matter hypodensity is nonspecific but suggestive of microvascular ischemic change. The ventricles and sulci demonstrate mild age-related involutional changes. Old lacunar infarcts seen within the left basal ganglia and left cerebellar hemisphere, unchanged. Impression: No significant change compared to the prior study. No acute intracranial abnormality. ACT 112: Negative or not required by law. Electronically signed by: Darrell Tirado M.D. 03/10/2024 9:14 AM Discharge Plan Visit Data Chief Complaint: Referred by Doctor Stated Complaint: MEMORY LOSS, DIFFICULTY AMBULATING, REF BY DR RODRIGUEZ ED Provider: Stefano Roberts ED Midlevel Provider: Minerva Schultz Discharge Problem: AMS (altered mental status), Lymphedema of lower extremity Patient Disposition: Being Evaluated by Hospitalist Forms Stand Alone Forms: My [facility] [employer] Prescriptions Prescriptions: No Action cholecalciferol (vitamin D3) 5,000 unit capsule 5,000 units PO 5XWK Hold Instructions: SURGERY mecobalamin (vitamin B12) 1,000 mcg tablet,disintegrating 1,000 mcg SL 3XWK Hold Instructions: SURGERY Patient Comments: MON, WED, FRI OR SAT calcium citrate-vitamin D3 200 mg-6.25 mcg (250 unit) tablet 1 tab PO DAILY Hold Instructions: SURGERY simvastatin [Zocor] 10 mg tablet 10 mg PO HS Qty: 90 3RF amlodipine 10 mg tablet 10 mg PO QAM Qty: 90 3RF diclofenac sodium 75 mg tablet,delayed release (DR/EC) 75 mg PO BID Qty: 180 3RF Hold Instructions: SURGERY Patient Comments: ON HOLD FOR SURGERY pantoprazole [Protonix] 40 mg tablet,delayed release (DR/EC) 40 mg PO QAM Qty: 90 3RF levothyroxine 88 mcg tablet 88 mcg PO QAM Qty: 90 3RF propranolol 160 mg capsule,extended release 24 hr 160 mg PO QAM Qty: 90 3RF hydrochlorothiazide 25 mg tablet 25 mg PO DAILY Qty: 90 3RF (DME) urinary incontinence pads See Rx Instructions .Route .MEDSUPPLY Qty: 1 0RF Rx Instructions: As directed latanoprost 0.005 % drops 1 drops OPR HS Patient Comments: RIGHT EYE diclofenac sodium 1 % Gel 1 - 2 g TOPICAL BID PRN (Reason: Pain) Hold Instructions: URGERY fluoxetine 10 mg capsule See Rx Instructions .ROUTE .COMPLEX Rx Instructions: Take 10mg w/ 20mg to equal 30mg by mouth every morning. fluoxetine 20 mg capsule See Rx Instructions .ROUTE .COMPLEX Rx Instructions: Take 20mg w/ 10mg to equal 30mg by mouth every morning. Referrals Referrals: Stefano Rodriguez MD [Primary Care Provider] - Discharge Problem: AMS (altered mental status) Qualifiers: Altered mental status type: unspecified Qualified Code(s): R41.82 - Altered mental status, unspecified
[2024-03-10 08:36] LABS: INR 0.9 (0.9-1.1); Partial Thromboplastin Ratio 0.8; Partial Thromboplastin Time 22 Seconds (21-31); Prothrombin Time 10.3 Seconds (9.0-12.0)
[2024-03-10 08:41] LABS: Albumin Globulin Ratio 1.2 (0.9-2); Albumin Level 4.1 gm/dl (3.4-5.0); BUN Creatinine Ratio 35.5 (10-20); Bilirubin,Total 0.5 mg/dl (0.2-1.0); Calcium 9.1 mg/dl (8.6-10.3); Creatinine Clr Calc Pharmacy 43.3 ml/min; Est GFR (African American) 65.4 ml/min; Est GFR (Non-African American) 56.4 ml/min; Globulin 3.3 gm/dl (2.5-4.0); Magnesium 1.7 mg/dl (1.7-2.4); Potassium 5.1 mmol/L (3.5-5.1); Total Protein 7.4 gm/dl (6.0-8.3)
--- NOTE | 2024-03-10 08:45 | XRay Report ---
XR chest 1V portable CLINICAL HISTORY: weakness TECHNIQUE: Single frontal radiograph of the chest was obtained. Comparison: Comparison is made to chest radiograph 02/01/2024 FINDINGS: Cervical spine fixation hardware is seen. Cardiomegaly is noted. The aortic arch is calcified. The yoanna ngs are clear. No evidence of pleural effusion or pneumothorax. IMPRESSION: No acute chest disease. ACT 112: Negative or not required by law. Electronically signed by: Valentín Borden M.D. 03/10/2024 8:44 AM
[2024-03-10 08:57] LABS: Thyroid Stimulating Hormone 2.363 uIu/ml (0.300-4.500)
--- NOTE | 2024-03-10 09:16 | CT Scan Report ---
HEAD CT NONCONTRAST CT DOSE: 547.75 mGy.cm HISTORY: Altered mental status. TECHNIQUE: Multiaxial CT images of the head were performed without the use of intravenous contrast. A utomated exposure control was utilized for this study. A dose lowering technique was utilized adheri ng to the principles of ALARA. Comparison: Head CT 02/01/2024. Findings: The paranasal sinuses and mastoid air cells are clear. The calvarium and skull base are int act. There is no mass, hematoma, midline shift, acute infarct. White matter hypodensity is nonspecifi c but suggestive of microvascular ischemic change. The ventricles and sulci demonstrate mild age-rela jasson involutional changes. Old lacunar infarcts seen within the left basal ganglia and left cerebellar hemisphere, unchanged. Impression: No significant change compared to the prior study. No acute intracranial abnormality. ACT 112: Negative or not required by law. Electronically signed by: Darrell Tirado M.D. 03/10/2024 9:14 AM
[2024-03-10 09:53] LABS: Appearance Urine Clear (Clear); Bacteria Urine Automated 4+ (None Seen); Bilirubin Urine Negative (Negative); Blood Urine Negative (Negative); Cast Urine Automated 0-2 /lpf (0-2); Color Urine Yellow; Epithelial Cell Urine Auto 0-2 /hpf (0-2); Glucose Urine UA Negative (Negative); Ketones Urine Negative (Negative); Leukocyte Esterase Urine Trace (Negative); Nitrite Urine Negative (Negative); Protein Urine Negative (Negative); RBC Urine Automated 0-2 /hpf (0-2); Specific Gravity Urine 1.012 (1.000-1.030); Urobilinogen Urine Negative (Negative); WBC Urine Automated 0-5 /hpf (0-5); pH Urine 6.5 (4.5-7.5)
--- NOTE | 2024-03-10 10:20 | History & Physical Report ---
Date of Service March 10, 2024 Assessment & Plan (1) Acute UTI: Plan: Suspect cause of acute decline over last 2-3 weeks given bacteria on straight cath UA, lack of alternative explanation and sudden decline described by Given history of ESBL will treat with ertapenem pending urine culture results Frequent UTIs due to known bladder prolapse an incomplete emptying - consider methenamine as outpatient (2) Falls: Plan: Secondary to known peripheral neuropathy and lymphedema. Possible benign essential tremor also playing a role. Treat UTI and reassess PT/OT evals, requesting physical rehabilitation stay possibly in [place] (3) AMS (altered mental status): Plan: Acute on progressive decline. Significant decline over last 2-3 weeks per which may be explained by UTI but appears to have underlying memory issues in addition. Continue to monitor for improvement with IV antibiotics (4) Benign essential tremor: Plan: Continue propranolol. Consider primidone if felt to be contributing towards falls after treatment of UTI (5) Lymphedema of lower extremity: Plan: BREANA corbett. (6) Hypothyroidism: Plan: TSH WNL Continue levothyroxine Plan VTE Prophylaxis - Lovenox 40mg SQ daily Diet - low Na, low K Disposition - admit to med/surg In my clinical judgment this beneficiary meets acute admission criteria, established by [facility] that includes being hospitalized through two midnights. Admission and Anticipated Discharge Date Admission Date: March 10, 2024 History of Present Illness Chief Complaint: Generalized weakness, increased falls, confusion Primary Care Provider: Stefano Rodriguez MD Shraddha Baires is an 84 year old female who presents to the ER with 2 to 3 weeks of increasing generalized weakness, falls, worsening confusion especially at nighttime. On discussion with the in the room he feels she is not currently safe at home and is requesting rehab placement. He feels she has had a progressive decline over the years but a dramatic decline over the last 2 to 3 weeks in terms of ambulation, confusion and weakness. No change in speech, vision or unilateral weakness or sensation loss. She has fall multiple times in the past which she puts down to being unbalanced. No chest pain, shortness of breath, lightheadedness or dizziness prior to falling. She has been concerned about Parkinson's however her tremor is definitively an action tremor and previously diagnosed as benign essential tremor and she denies any rigidity. She does report a shuffling gait. She has known peripheral neuropathy and does not have much feeling in her feet bilaterally which is no worse than usual. She notes bilateral leg swelling however this is no worse than usual and no associated weight gain, shortness of breath, chest pain. She denies and urinary symptoms, fever or chills. She was recently admitted in October for choledocholithiasis with cholecystitis undergoing Axios stent placement with ERCP at [facility]. Her reports this was subsequently removed 2 weeks ago. Allergies Allergy/AdvReac Type Severity Reaction Status Date / Time pneumococcal vaccine Allergy Intermediate REDNESS , Verified 03/10/24 08:53 CHILLS, HIVES sulfamethoxazole Allergy Intermediate Hives Verified 03/10/24 08:53 trimethoprim Allergy Intermediate Hives Verified 03/10/24 08:53 Home Medications Medication Instructions Recorded Confirmed Type cholecalciferol (vitamin D3) 125 5,000 units PO 5XWK 05/31/18 03/10/24 History mcg (5,000 unit) capsule mecobalamin (vitamin B12) 1,000 1,000 mcg sublingual 3XWK 05/31/18 03/10/24 History mcg disintegrating tablet,sublingual latanoprost 0.005 % eye drops 1 drops OPR HS 02/21/20 03/10/24 History diclofenac sodium 1 % topical gel 1 - 2 g topical BID PRN Pain 07/15/21 03/10/24 History urinary incontinence pads #1 ea 09/30/22 02/04/24 Rx simvastatin 10 mg tablet (Zocor) 10 mg PO HS #90 tabs 05/25/23 03/10/24 Rx amlodipine 10 mg tablet 10 mg PO QAM #90 tabs 05/28/23 03/10/24 Rx diclofenac sodium 75 mg 75 mg PO BID #180 tabs 08/03/23 03/10/24 Rx tablet,delayed release pantoprazole 40 mg tablet,delayed 40 mg PO QAM #90 tabs 08/13/23 03/10/24 Rx release (Protonix) calcium citrate 200 mg 1 tab PO DAILY 10/05/23 03/10/24 History calcium-vitamin D3 6.25 mcg (250 unit) tablet levothyroxine 88 mcg tablet 88 mcg PO QAM #90 tabs 10/16/23 03/10/24 Rx propranolol 160 mg capsule,24 160 mg PO QAM #90 caps 11/09/23 03/10/24 Rx hr,extended release hydrochlorothiazide 25 mg tablet 25 mg PO DAILY #90 tabs 02/19/24 03/10/24 Rx fluoxetine 10 mg capsule See Rx Instructions .Route .COMPLEX 03/10/24 03/10/24 History fluoxetine 20 mg capsule See Rx Instructions .Route .COMPLEX 03/10/24 03/10/24 History Past Med/Surg History Problem List (Updated 03/10/24 @ 11:12 by Cody Martinez MD) Falls AMS (altered mental status) (Acute) Weakness Hyperlipidemia Acute UTI (Acute) Current use of proton pump inhibitor Hypertension Depressive disorder (Chronic) Myofascial pain (Chronic) SOB (shortness of breath) on exertion Gastric ulcer UNDER CONTROL WITH MEDS Hypothyroidism Peripheral neuropathy HANDS AND FEET Anemia Vulvitis (Acute) Vitamin D deficiency (Acute) Urinary incontinence (Acute) Urinary frequency (Acute) Transient cerebral ischemic attack (Acute) Osteopenia (Acute) Myelopathy (Acute) Lumbosacral radiculopathy at L5 (Acute) Lichen sclerosus et atrophicus (Acute) Insomnia (Acute) Candidiasis of esophagus (Acute) Generalized osteoarthritis of multiple sites (Acute) Gastroesophageal reflux disease (Acute) External hemorrhoids (Acute) Degenerative cervical spinal stenosis (Acute) Chronic cerebral ischemia (Acute) Carpal tunnel syndrome of right wrist (Acute) Carotid artery plaque (Acute) Benign essential tremor (Acute) Actinic keratoses (Acute) History of knee replacement Prolapse of vaginal vault after hysterectomy Memory change Impacted cerumen Fecal urgency Chronic diarrhea History of colon polyps Cervical radiculopathy Anxiety Swelling of right lower extremity Lymphedema of lower extremity (Chronic) CHI (closed head injury) (Acute) Surgical wound, non healing (Acute) PAD (peripheral artery disease) (Chronic) Mixed stress and urge urinary incontinence Cervical radiculopathy at C7 Chronic acquired lymphedema (Chronic) Medical History (Updated 03/10/24 @ 11:12 by Cody Martinez MD) Hyperkalemia Confusion EDSON (acute kidney injury) Lymphedema RT LEG Spinal stenosis History of anemia Glaucoma Nerve pain UPPER BACK AREA Transient ischemic attack (TIA) A LONG TIME AGO>STILL HAS MILD RT SIDED WEAKNESS (FOLLOWS WITH DR. VARGHESE) Irregular heart beat NO CARDS Hx of sleep apnea RESOLVED SINCE GASTRIC BYPASS AND TONSILLECTOMY History of COVID-19 02/2020>MILD CASE PER PATIENT *RESOLVED Anxiety and depression Wound of right lower extremity Hyponatremia Elevated serum creatinine Cellulitis of right lower leg FRONT OF RT LOWER LEG (WOUND VAC FOR 2 MONTHS) REQUIRING SKIN GRAFT FOR CLOSURE Encounter for pre-operative examination History of gastrointestinal ulcer IBS (irritable bowel syndrome) History of pancreatitis Diverticulosis of colon (without mention of hemorrhage) Osteoarthritis Tremor BENIGN ESSENTIAL LEFT HAND Hypothyroidism Hypercholesterolemia Surgical History (Updated 03/10/24 @ 11:12 by Cody Martinez MD) History of oophorectomy H/O oral surgery S/P angiogram of extremity Abdominal aortogram and proximal right lower extremity angiogram S/P debridement X 2 06/2021 *CELLULITUS RLE (WOUND CLINIC PT): grade 2 view, glidescope 3, ETT 7. No postop issues per anesthesia progress note. History of lumbar laminectomy History of colonoscopy History of esophagogastroduodenoscopy (EGD) History of pharyngoplasty History of cataract surgery R/L H/O gastric bypass 2005 History of tonsillectomy History of eyelid surgery History of bilateral tubal ligation History of cholecystectomy History of total knee arthroplasty R/L History of hysterectomy History of fusion of cervical spine C5-T2 2017 - MILD ROM LIMITATION Family History Mother Family history of diabetes mellitus Breast cancer Father Family history of diabetes mellitus Heart disease Family/Other Family history of diabetes mellitus Sister Congestive heart failure Breast cancer Stroke syndrome Brother Coronary heart disease Myocardial infarction Other No family history of adverse response to anesthesia Denies family history of Ovarian cancer Prostate cancer Colorectal cancer Social History Smoking Status: Never smoker Second Hand Exposure: No; Do You Dip or Chew Tobacco: No; Hx Alcohol Use: No Hx Substance Use: No Preferred Language: Mauritanian Communication Ability: Effective Visual Impairment: Partially Limited Hearing Ability: Use of Hearing Aid 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 current occupational status: retired Feels Safe at Home: Yes Childhood Exposure to Second-Hand Smoke: No Diet: regular Dental Care, Regularly: Yes Physical Activity Frequency: Does not Exercise Seatbelt Use: always Sunscreen Use: Yes Assistive Devices: Walker Review of Systems Review of Systems: All systems reviewed & are unremarkable except as noted in HPI & below Physical Exam Constitutional: WD/WN, vitals as above Eyes: PERRL, conjunctivae normal, anicteric sclerae ENMT: external ear and nose normal, oropharynx normal Respiratory: normal respiratory effort, lungs clear to auscultation Cardiovascular: Rate/Rhythm: regular rate and regular rhythm Heart Sounds: no murmur Extremities: normal capillary refill and + pedal edema (2+ b/l equal); no calf tenderness Gastrointestinal (Abdomen): normal bowel sounds, soft, nontender, no hepatosplenomegaly Musculoskeletal: no cyanosis or clubbing, extremities motor strength 5/5 Skin: no rashes, warm and dry Neurologic: moves all extremities and awake; not confused Psychiatric: A+Ox3, euthymic affect Genitourinary: no CVA tenderness Results & Data Results & Data Vital Signs (Past 12 Hours) Vital Signs Temp Pulse Pulse Resp BP BP Pulse Ox 03/10/24 09:36 55 L 18 141/77 H 98 03/10/24 09:36 55 L 18 97 03/10/24 07:42 68 18 175/73 H 96 03/10/24 07:38 59 L 03/10/24 07:21 36.8 C 60 16 194/87 H 95 O2 Del Method 03/10/24 09:36 Room Air 03/10/24 09:36 Room Air 03/10/24 07:42 Room Air 03/10/24 07:38 03/10/24 07:21 Room Air Laboratory Results Abnormal lab results 03/10/24 03/10/24 Range/Units 07:34 09:42 Hgb 11.6 L (12.0-16.0) g/dl MCHC 30.0 L (32.0-36.0) g/dL MPV 8.9 L (9.4-12.4) fL BUN 33 H (6-23) mg/dl BUN/Creatinine Ratio 35.5 H (10-20) Ur Leukocyte Esterase Trace H (Negative) Urine Bacteria (Auto) 4+ H (None Seen) Diagnostic Findings HEAD CT NONCONTRAST CT DOSE: 547.75 mGy.cm HISTORY: Altered mental status. TECHNIQUE: Multiaxial CT images of the head were performed without the use of intravenous contrast. Automated exposure control was utilized for this study. A dose lowering technique was utilized adhering to the principles of ALARA. Comparison: Head CT 02/01/2024. Findings: The paranasal sinuses and mastoid air cells are clear. The calvarium and skull base are intact. There is no mass, hematoma, midline shift, acute infarct. White matter hypodensity is nonspecific but suggestive of microvascular ischemic change. The ventricles and sulci demonstrate mild age-related involutional changes. Old lacunar infarcts seen within the left basal ganglia and left cerebellar hemisphere, unchanged. Impression: No significant change compared to the prior study. No acute intracranial abnormality. XR chest 1V portable CLINICAL HISTORY: weakness TECHNIQUE: Single frontal radiograph of the chest was obtained. Comparison: Comparison is made to chest radiograph 02/01/2024 FINDINGS: Cervical spine fixation hardware is seen. Cardiomegaly is noted. The aortic arch is calcified. The lungs are clear. No evidence of pleural effusion or pneumothorax. IMPRESSION: No acute chest disease. Medications Administered ER medications given: None ECG Rate (beats per minute): 58 Rhythm: normal sinus Findings: no acute ischemic change Comparison ECG Date: from (February 05, 2024) Change: no significant change Code Status & VTE Plan Code Status Full VTE Prophylaxis Plan VTE Prophylaxis will be ordered: Yes PG Care Time/CCT Total # of Minutes Spent Total Time Spent with Patient: Total time spent is greater than 50% in coordination of care (as documented) at patient's floor/unit and/or counseling patient: Coding Level of Care Code 37871 INT INP/OBS CARE 2/55MIN Diagnoses Acute UTI N39.0 Falls R29.6 AMS (altered mental status) R41.82 Altered mental status type: unspecified Benign essential tremor G25.0 Lymphedema of lower extremity I89.0 Hypothyroidism E03.9 (3) AMS (altered mental status) Altered mental status type: unspecified Qualified Code(s): R41.82 - Altered mental status, unspecified
--- OUTSIDE RECORDS SUMMARY | 2024-03-10 11:45 | External Medical Summary | Summary of Care ---
Author Name Unknown Organization [facility] Address [address] [facility] [place] [address] Phone [phone] Care Team Providers Care Tube Making Machine Operator Name Role Phone Pro, Stefano Jade MD Primary Care Provider [phone] Reason for Visit * Auth/Cert Specialty Diagnoses / Procedures Referred By Isha hemphill Referred To Contact Diagnoses Choledocholithiasis Choledocholithiasis [K80.50] Procedures ERCP W/ STENT EXCHANGE EGD, FLEXIBLE, DIAGNOSTIC ENDOSCOPIC RETROGRADE CHOLANGIOPANCREATOGRAPHY (ERCP) W/STENT REMOVAL AND EXCHANGE; INC DILATION, GUIDE WIRE AND SPHINCTEROTOMY ESOPHAGOGASTRODUODENOSCOPY (EGD), FLEXIBLE, TRANSORAL, DIAGNOSTIC Jimmy Fowler, [address] [place] [address] Or [facility] [address] [place] [address] Referral ID Status Reason Start Date Expiration Date Visits Re quested Visits Authorized [id number] Encounter Details Date Type Department Care Team (Latest Contact Info) Description 02/29/2024 7:22 AM EDT - 02/29/2024 10:51 AM EDT Hospital Encounter OR [facility], Operating Room, [facility] - 4th Floor [address] [place] [address] Jimmy Fowler, DO [address] [place] [id number] Various: ERCP,UGI Discharge Disposition: Home - Self Care Allergies Active Allergy Reactions Criticality Noted Date Comments Pneumococcal Vaccines Hives Medium 07/25/2021 Sulfamethoxazole-Trimethopr im Fever,Hives High 07/25/2021 Other Reaction(s): rash Trimethoprim High 05/26/2023 Other Reaction(s): Hives documented as of this encounter (statuses as of 02/29/2024) Medications Medication Sig Dispensed Refills Start Date End Date Status Calcium Citrate 150 MG Oral Capsule calcium citrate Acti ve amLODIPine Besylate 10 MG Oral Tablet (Norvasc) amlodipine 10 mg tablet Active FLUoxetine HCl 10 MG Oral Capsule (PROzac) 1 Capsule. 08/12/2023 Act solomon FLUoxetine HCl 20 MG Oral Tablet (PROzac) TAKE 1 TABLET BY MOUTH IN THE MORNING ALONG WITH 10MG 08/18/2023 Active Latanoprost 0.005 % Ophthalmic Solution (Xalatan) INSTILL 1 DROP INTO EACH EYE AT BEDTIME 07/22/2023 Active Levothyroxine Sodium 88 MCG Oral Tablet (Levoxyl) TAKE 1 TABLET BY MOUTH ONCE DAILY IN THE MORNING 08/13/2023 Active Olmesartan Medoxomil 5 MG Oral Tablet (Benicar) Take 5 mg by mouth in the morning. 08/24/2023 Active Pantoprazole Sodium 40 MG Oral Tablet Delayed Release (Protonix) TAKE 1 TABLET BY MOUTH ONCE DAILY IN THE MORNING Active Simvastatin 10 MG Oral Tablet (Zocor) simvastatin 10 mg tablet Active Propranolol HCl ER 160 MG Oral Capsule Extended Release 24 Hour 1 Capsule. 09/15/2022 Active Vitamin D3 125 MCG (5000 UT) Oral Tablet Disintegrating (Cholecalciferol) Take 1 Capsule by mouth once a week. Active Vitamin B-12 1000 MCG Oral Tablet (Cyanocobalamin) Take 1 Tablet by mouth in the morning. Active Diclofenac Sodium 75 MG Oral Tablet Delayed Release (Voltaren) Take 1 Tablet by mouth in the morning. 11/16/2023 Active Loperamide HCl 2 MG Oral Tablet (Immodium (A-D)) Take 1 Tablet by mouth 4 times a day as needed for Diarrhea. 15 Tablet 11/13/2023 Active Atenolol 25 MG Oral Tablet (Tenormin) Take 1 Tablet by mouth in the morning. Active hydroCHLOROthiazide 25 MG Oral Tablet (Hydrodiuril) Take 1 Tablet by mouth in the morning. Active Ciprofloxacin HCl 500 MG Oral Tablet (Cipro) Take 1 Tablet by mouth in the morning and 1 Tablet before bedtime. 10 Tablet 02/29/2024 Active documented as of this encounter (statuses as of 02/29/2024) Active Problems Problem Noted Date Diagnosed Date Cystocele, midline 11/23/2023 Rectocele 11/23/2023 Vaginal vault prolapse, posthysterectomy 024 Feeling of incomplete bladder emptying Type 2 diabetes mellitus wit h hemoglobin A1c goal of less than 7.0% 11/10/2023 History of cholecystectomy 11/10/2023 Elevated transaminase level 11/10/2023 Complicated UTI (urinary tract infection) 2023 Benign essential tremor 11/10/2023 Gastroesophageal reflux disease 11/10/2023 Medical marijuana use 11/10/2023 Hypertension 07/25/2021 Hypothyroidism 07/25/2021 documented as of this encounter (statuses as of 02/29/2024) Resolved Problems Problem Noted Date Diagnosed Date Resolved Date Choledocholithiasis 11/10/2023 11/13/19 24 documented as of this encounter (statuses as of 02/29/2024) Social History Tobacco Use Types Packs/Day Years Used Date Smoking Tobacco: Never Passive Smoke Exposure: Never Smokeless Tobacco: Never Alcohol Use Standard Drinks/Week Comments Not Currently 0 (1 standard drink = 0.6 oz pur e alcohol) occassional glass of wine Personal Safety Answer Date Recorded Do you feel unsafe or have concerns for your saf ety? No 11/10/2023 Do you have concerns for you r family's safety? (Household - for ages 0-17 years) Not on file 11/10/2023 Utilities Answer Date Recorded Do you have trouble paying y our heating, water, or electric bill? No 11/10/2023 Is your family able to pay t he heat, water, or electric bill? (Household - for ages 0-17 years) Not on file 11/10/2023 Does your family have access to good internet? (Household - for ages 0-17 years) Not on file 11/10/2023 Social Connections Answer Date Recorded How often do you feel lonely or isolated from those around you? (Adult - for ages 18 years and over) Not on file 01/05/2024 Transportation Needs Answer Date Record ed READ ONLY Do you have troubl e getting a ride to medical visits or work? Never True 11/10/2023 Does your family have a hard time getting a ride to doctors visits? (Household - for ages 0-17 years) Not on file 11/10/2023 Has lack of transportation k ept you from medical appointments, meetings, work, or from getting things needed for daily living? Check all that apply. (Adult - for ages 18 years and over) Not on file 11/10/2023 Do you (or your family) have trouble finding or paying for a ride (transportation)? (Household - for ages 0-17 years) Not on file 11/10/2023 Housing Stability Answer Date Recorded Do you currently live in a s helter or have no steady place to sleep at night? (Adult - for ages 18 years and over) Not on file 11/10/2023 READ ONLY Do you think you a re at risk of becoming homeless? No 11/10/2023 Does your family worry about paying for your home or becoming homeless? (Household - for ages 0-17 years) Not on file 0 11/10/2023 Are you homeless or worried that you might be in the future? (Adult - for ages 18 years and over) Not on file Are you (or your family) simone eless or worried that you might be in the future? (Household - for ages 0-17 years) Not on file Food Insecurity Answer Date Recorded Do you need food for this week? No 11/10/2023 Are you able to get enough f ood for your family? (Household - for ages 0-17 years) Not on file 11/10/2023 Does your family need food t his week? (Household - for ages 0-17 years) Not on file 11/10/2023 Do you always have enough fo od for your family? (Household - for ages 0-17 years) Not on file 11/10/2023 Sex and Gender Information Value Date Recorded Sex Assigned at Not on file Gender Identity Not on file Sexual Orientation Not on file Job Start Date Occupation Industry Not on file Not on file Not on file documented as of this encounter Last Filed Vital Signs Vital Sign Reading Time Taken Comments Blood Pressure 102/76 02/29/2024 10:20 AM EDT Pulse 54 02/29/2024 10:20 AM EDT Temperature 36 C (96.8 F) 02/29/2024 10:20 AM EDT Respiratory Rate 18 02/29/2024 10:20 AM EDT Oxygen Saturation 94% 02/29/2024 10:20 AM EDT Inhaled Oxygen Concentration - - Weight 89.4 kg (197 lb) 02/29/2024 7:43 AM EDT Height 149.9 cm (4' 11") 02/29/2024 7:43 AM EDT Body Mass Index 39.79 02/29/2024 7:43 AM EDT documented in this encounter Functional Status Functional Status Response Date of Assess ment Are you deaf or do you have serious difficulty hearing? Yes-+PICAYUNE wears bilateral hearing aides 11/10/2023 Are you blind or do you have serious difficulty seeing, even when wearing glasses? No-wears glasses 11/10/2023 Do you have serious difficul ty walking or climbing stairs? (5 years old or older) Yes-ambulates with walker 11/10/2023 Do you have difficulty dress ing or bathing? (5 years old or older) No 11/10/2023 Because of a physical, menta l, or emotional condition, do you have difficulty doing errands alone such as visiting a doctor s office or shopping? (15 years old or older) Yes-needs assistance - does not drive anymore 11/10/2023 Cognitive Status Response Date of Assessm ent Because of a physical, menta l, or emotional condition, do you have serious difficulty concentrating, remembering, or making decisions? (5 years old or older) No-its not bad but i noticed a change 11/10/2023 documented as of this encounter H&P Notes * Jimmy Fowler, - 02/29/2024 8:52 AM EDT Endoscopy Pre-Procedure Assessment Name: Shraddha Baires Date: 02/29/2024 Time: 8:52 AM Procedure(s): Upper GI Endoscopy; with Indication(s) of prior axios fistula creation, presents for axials removaltoday ERCP; with Indication(s) of stent removal or exchange Endoscopy Pre-Procedure Assessment: Prior to the procedure, the patient is identified. The patient's history, medications and allergieshave been reviewed. The patient is competent. The risks and benefits of the proposed procedure and the planned sedation have been discussed with the patient. All questions have been answered and informed consent for the procedure has been obtained. Prior to Admission medications Medication Sig Last Dose Discont. Atenolol 25 MG Oral Tablet (Tenormin) Take 1 Tablet by mouth in the morning. 02/29/2024 hydroCHLOROthiazide 25 MG Oral Tablet (Hydrodiuril) Take 1 Tablet by mouth in the morning. 02/29/2024 Diclofenac Sodium 75 MG Oral Tablet Delayed Release (Voltaren) Take 1 Tablet by mouth in the morning. 02/22/2024 Vitamin B-12 1000 MCG Oral Tablet (Cyanocobalamin) Take 1 Tablet by mouth in the morning. 02/28/2024 Vitamin D3 125 MCG (5000 UT) Oral Tablet Disintegrating (Cholecalciferol) Take 1 Capsule by mouth once a week. 02/28/2024 Propranolol HCl ER 160 MG Oral Capsule Extended Release 24 Hour 1 Capsule. 02/29/2024 amLODIPine Besylate 10 MG Oral Tablet (Norvasc) amlodipine 10 mg tablet 02/29/2024 Calcium Citrate 150 MG Oral Capsule calcium citrate 02/29/2024 FLUoxetine HCl 10 MG Oral Capsule (PROzac) 1 Capsule. 02/29/2024 FLUoxetine HCl 20 MG Oral Tablet (PROzac) TAKE 1 TABLET BY MOUTH IN THE MORNING ALONG WITH 10MG 02/29/2024 Levothyroxine Sodium 88 MCG Oral Tablet (Levoxyl) TAKE 1 TABLET BY MOUTH ONCE DAILY IN THE MORNING 02/29/2024 Olmesartan Medoxomil 5 MG Oral Tablet (Benicar) Take 5 mg by mouth in the morning. Unknown Pantoprazole Sodium 40 MG Oral Tablet Delayed Release (Protonix) TAKE 1 TABLET BY MOUTH ONCE DAILY IN THE MORNING 02/29/2024 Simvastatin 10 MG Oral Tablet (Zocor) simvastatin 10 mg tablet 02/28/2024 Amoxicillin-Pot Clavulanate 875-125 MG Oral Tablet (Augmentin) Take 1 Tablet by mouth in the morning and 1 Tablet before bedtime. Do all this for 11 days. Culturelle Oral Capsule Take 1 Capsule by mouth in the morning and 1 Capsule at noon and 1 Capsule before bedtime. Do all this for 14 days. Loperamide HCl 2 MG Oral Tablet (Immodium (A-D)) Take 1 Tablet by mouth 4 times a day as needed forDiarrhea. Latanoprost 0.005 % Ophthalmic Solution (Xalatan) INSTILL 1 DROP INTO EACH EYE AT BEDTIME Review of patient's allergies indicates: Allergen Reactions Sulfamethoxazole-Trimethoprim Fever and Hives Other Reaction(s): rash Trimethoprim Other Reaction(s): Hives Pneumococcal Vaccines Hives BP 150/67 | Pulse 62 | Temp 36.3 C (97.3 F) (Temporal Artery) | Resp 18 | Ht 1.499 m (4' 11") |Wt 89.4 kg (197 lb) | SpO2 96% | BMI 39.79 kg/m | BSA 1.93 m Physical Exam: Mental Status Examination: alert and oriented. Airway Examination: normal oropharyngeal airway and neck mobility. Respiratory Examination: clear to auscultation. CV Examination: systolic murmur. ASA Grade: III - A patient with severe systemic disease. Abdomen: soft This patient has undergone a preprocedural evaluation. A determination has been made to proceed with the planned procedure under [facility] procedural guidelines and the [facility] Non-Emergent, Elective Medical Services and Treatment Recommendations (published on 10-25-19). The community and hospital prevalence of COVID-19 has been discussed as well as this patient's specific risks associated with SARS-CoV-19 infection. Based upon the clinical acuity and patient-specific care considerations, this procedure is deemed a Tier II - Intermediate acuity treatment or service with either progression or the threat of progressive disease related to the delay in treatment. Not providing the service has the potential for increasing morbidity or mortality. After reviewing the risks and benefits, the patient is deemed in satisfactory condition to undergo the procedure. The anesthesia plan is to use general anesthesia. We have discussed the risks and benefits of upper endoscopy to include bleeding, infection, perforation, discomfort, aspiration and need for follow-up studies. We have discussed the risks and benefits of ERCP to include bleeding, infection, perforation, aspiration, pain, pancreatitis, and failed cannulation. We have discussed the potential for weight gain as the patient has gastric fistula we will likely remain open given the patient's age and comorbid medical conditions. Should significant weight gain be noticed we could certainly make arrangements for fistula closure at a future date. Jimmy Fowler DO 02/29/2024 documented in this encounter Procedure Notes * Stefano Rodriguez MD - 02/29/2024 8:59 AM EDTAssociated Order(s): UPPER GI ENDOSCOPY [facility] Patient Name: Shraddha Baires Procedure Date: 02/29/2024 8:59 AM Date of : 1940 Admit Type: Outpatient Note Status: Finalized Date of : 1940 Admit Type: Outpatient Age: 84 Room: OR 5 Gender: Female Note Status: Finalized Procedure: Upper GI endoscopy Indications: Stent removal Providers: Jimmy Fowler DO (Doctor) Referring MD: Stefano Rodriguez MD Medicines: General Anesthesia Complications: No immediate complications. Estimated blood loss: Minimal. Procedure: Pre-Anesthesia Assessment: - Prior to the procedure, a History and Physical was performed, and patient medications, allergies and sensitivities were reviewed. The patient's tolerance of previous anesthesia was reviewed. - The risks and benefits of the procedure and the sedation options and risks were discussed with the patient. All questions were answered and informed consent was obtained. - Patient identification and proposed procedure were verified prior to the procedure by the physician, the nurse and the pulp mill team leader. The procedure was verified in the procedure room. - Pre-procedure physical examination revealed no contraindications to sedation. - ASA Grade Assessment: III - A patient with severe systemic disease. - After reviewing the risks and benefits, the patient was deemed in satisfactory condition to undergo the procedure. - After reviewing the risks and benefits, the patient was deemed in satisfactory condition to undergo the procedure in an ambulatory setting. - The anesthesia plan was to use general anesthesia. - Immediately prior to administration of medications, the patient was re- assessed for adequacy to receive sedatives. - The heart rate, respiratory rate, oxygen saturations, blood pressure, adequacy of pulmonary ventilation, and response to care were monitored throughout the procedure. - The physical status of the patient was re-assessed after the procedure. After obtaining informed consent, the endoscope was passed under direct vision. All instruments were visually inspected immediately before and after removal from the patient to ensure they are fully intact. Throughout the procedure, the patient's blood pressure, pulse, and oxygen saturations were monitored continuously.The upper GI endoscopy was accomplished without difficulty. The patient tolerated the procedure well. The [id number] Endoscope ([id number]) was introduced through the mouth, and advanced to the third part of duodenum. Findings & Specimens: The examined esophagus was normal. 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 A gastric pouch with a small size was found containing Axios stent which had created the gastric fistula from the gastric pouch. After completion of the ERCP the Aios stent was removed from the fistula after cutting the pre-placed sutures the stent was removed with a rat-tooth forceps. as the patient has a very dilated common bile duct I elected to not close the gastric fistula today in case repeat ERCP is needed in the future.. The gastric body, incisura and gastric antrum were normal. A benign-appearing, intrinsic mild stenosis was found at the pylorus. This was traversed. A TTS dilator was passed through the scope. Dilation with a 15-16.5-18 mm pyloric balloon dilator was performed. The second portion of the duodenum was normal. Impression: - Normal esophagus. - Gastric bypass with a small-sized pouch and intact staple line. Gastrojejunal anastomosis characterized by healthy appearing mucosa. - Previously placed Axios stent removed - Normal gastric body, incisura and antrum. - Gastric stenosis was found at the pylorus. Dilated to 18 mm. - Normal second portion of the duodenum. - No specimens collected. Recommendation: - The patient will be observed post-procedure, until all discharge criteria are met. - Clear liquid diet today. Jimmy Fowler DO 02/29/2024 10:06:38 AM This report has been signed electronically. * Stefano Rodriguez MD - 02/29/2024 8:57 AM EDTAssociated Order(s): ERCP [facility] Patient Name: Shraddha Baires Procedure Date: 02/29/2024 8:57 AM Date of : 1940 Admit Type: Outpatient Note Status: Finalized Date of : 1940 Admit Type: Outpatient Age: 84 Room: OR 5 Gender: Female Note Status: Finalized Procedure: ERCP Indications: Follow-up of bile duct stone(s), Biliary stent removal Providers: Jimmy Fowler DO (Doctor) Referring MD: Stefano Rodriguez MD Medicines: General Anesthesia Complications: No immediate complications. Estimated blood loss: Minimal. Procedure: Pre-Anesthesia Assessment: - Prior to the procedure, a History and Physical was performed, and patient medications, allergies and sensitivities were reviewed. The patient's tolerance of previous anesthesia was reviewed. - The risks and benefits of the procedure and the sedation options and risks were discussed with the patient. All questions were answered and informed consent was obtained. - Patient identification and proposed procedure were verified prior to the procedure by the physician, the nurse and the pulp mill team leader. The procedure was verified in the procedure room. - Pre-procedure physical examination revealed no contraindications to sedation. - ASA Grade Assessment: III - A patient with severe systemic disease. - After reviewing the risks and benefits, the patient was deemed in satisfactory condition to undergo the procedure. - After reviewing the risks and benefits, the patient was deemed in satisfactory condition to undergo the procedure in an ambulatory setting. - The anesthesia plan was to use general anesthesia. - Immediately prior to administration of medications, the patient was re- assessed for adequacy to receive sedatives. - The heart rate, respiratory rate, oxygen saturations, blood pressure, adequacy of pulmonary ventilation, and response to care were monitored throughout the procedure. - The physical status of the patient was re-assessed after the procedure. After obtaining informed consent, the scope was passed under direct vision. All instruments were visually inspected immediately before and after removal from the patient to ensure they are fully intact. Throughout the procedure, the patient's blood pressure, pulse, and oxygen saturations were monitored continuously.The ERCP was accomplished without difficulty. The patient tolerated the procedure well. The Duodenoscope was introduced through the mouth, and advanced to the duodenum and used to inject contrast into the bile duct. Findings & Specimens: A well surveying engineer film of the abdomen was obtained. Surgical clips, consistent with a previous cholecystectomy, were seen in the area of the right upper quadrant of the abdomen. A biliary stent was visible on the well surveying engineer film. the ERCP endoscope was traversed through the pre placed Axios stent through the gastric fistula and into the duodenum. One covered metal and one plastic stent originating in the biliary tree were emerging from the major papilla. The stents were removed from the biliary tree using a rat-toothed forceps. The bile duct was deeply cannulated with the 18 mm balloon and guidewire. Contrast was injected. I personally interpreted the bile duct images. Contrast extended to the hepatic ducts. The main bile duct was moderately dilated. The largest diameter was 15 mm. To discover objects, the biliary tree was swept with an 18 mm balloon starting at the bifurcation. Sludge was swept from the duct. The endoscope was withdrawn from the patient. Indomethacin 100 mg was given via suppository to decreasethe risk of post-ERCP pancreatitis (PEP). Impression: - Two stents from the biliary tree were seen in the major papilla. - The entire main bile duct was moderately dilated. - The biliary tree was swept and sludge was found. - Indomethacin given to decrease risk of post-ERCP pancreatitis. Recommendation: - Clear liquid diet today. - Cipro (ciprofloxacin) 500 mg PO BID for 5 days. Jimmy Fowler DO 02/29/2024 10:02:07 AM This report has been signed electronically. Estimated Blood Loss: Estimated blood loss was minimal. documented in this encounter Nursing Notes * Sera Nick RN - 02/29/2024 9:42 AM EDT EGD/ERCP with stent removal completed in [facility] OR. Sedated by BRAKE MECHANIC. See anesthesia record for VS and medications given. Pt tolerated procedure well with minimal gagging. Abd soft. Airway patent. Pt to recovery on L side with HOB elevated. Report to recovery room nurse. Bedside cleaning done by Rich Hunter RN. documented in this encounter Plan of Treatment Scheduled Procedures Name Priority Associated Diagnoses Date/Ti me ENDOSCOPIC RETROGRADE CHOLANGIOPANCREATOGRAPHY (ERCP) W/STENT REMOVAL AND EXCHANGE; INC DILATION, GUIDE WIRE AND SPHINCTEROTOMY Choledocholithiasis 02/29/2024 8:55 AM EDT ESOPHAGOGASTRODUODENOSCOPY ( EGD), FLEXIBLE, TRANSORAL, DIAGNOSTIC Choledocholithiasis 02/29/2024 8:55 AM EDT Health Maintenance Due Date Last Done Comments HbA1c 02/05/1946 Pneumococcal Vaccine: 65+ Years (1 of 2 - PCV) 02/05/1946 Depression Screening 1952 Albumin/Creatinine Ratio 02/05/1958 Diabetic Eye Exam 02/05/1958 Diabetic Foot Exam 02/05/1958 DTaP,Tdap,and Td Vaccines (1 - Tdap) 02/05/1959 DXA Scan 02/05/2005 COVID-19 Vaccine (7 2022-24 season) 2023 04/26/2023, 06/06/2022, 12/31/2021, Additional history exists Influenza Vaccine (FLU shot) (#1) 2024 04/26/2023, 06/06/2022, 04/19/2021, Additional history exists TSH 11/09/2024 11/10/2023 GFR 11/12/2024 11/13/2023, 10/19, 11/11/2023, Additional history exists Zoster Vaccines Completed 11/02/2020, 05/08/2020 HPV (Gardasil) Vaccine Aged Out No lo nger eligible based on patient's age to complete this topic Hepatitis B Vaccine Aged Out No longe r eligible based on patient's age to complete this topic MENINGOCOCCAL (MENACTRA/MENVEO) Aged Out No longer eligible based on patient's age to complete this topic documented as of this encounter Medical Devices Explanted Type Area Office Clerk Device Identifier Shelf Expiration Date Model / Serial / Lot Stent Axios [id number] - [id number] Implanted:Qty: 1 on 11/11/2023 by Jimmy Fowler DO at OR [facility] Explanted:Qty: 1 on 02/29/2024 by Jimmy Fowler DO at OR [facility] [employer] : ENDOSCOPY [id number] 08/19/2024 [id number] / / [id number] Stent Wallflex [employer] Rx 10x60 - [id number] Implanted:Qty: 1 on 11/11/2023 by Jimmy Fowler DO at OR [facility] Explanted:Qty: 1 on 02/29/2024 by Jimmy Fowler DO at OR [facility] [employer] : ENDOSCOPY [id number] 06/08/2025 [id number] / / [id number] Stnt Pt Dbl [id number] [id number] - [id number] Implanted:Qty: 1 on 11/11/2023 by Jimmy Fowler DO at OR [facility] Explanted:Qty: 1 on 02/29/2024 by Jimmy Fowler DO at OR [facility] [employer] : ENDOSCOPY [id number] 09/20/2025 [id number] / / [id number] documented as of this encounter Procedures Procedure Name Priority Date/Time Associated Diagnosis Comments FLUORO ERCP Routine 02/29/2024 9:49 AM EDT UPPER GI ENDOSCOPY 02/29/2024 8: 59 AM EDT ERCP 02/29/2024 8:57 AM EDT documented in this encounter Results * FLUORO ERCP (02/29/2024 9:49 AM EDT) Narrative Scheduling, Silent - 02/29/2024 9:49 AM EDT This procedure will not be read by a Radiologist. Please see operative note. Jimmy Fowler DO RAD FLUOROSCOPY * UPPER GI ENDOSCOPY (02/29/2024 8:59 AM EDT) 02/29/2024 8:59 AM EDT Narrative Procedure Note Pro, Stefano Jade MD - 02/29/2024 8:59 AM EDT [facility] Patient Name: Shraddha Baires Procedure Date: 02/29/2024 8:59 AM Date of : 1940 Admit Type: Outpatient Note Status:Finalized Date of : 1940 Admit Type: Outpatient Age: 84 Room: OR 5 Gender: Female Note Status: Finalized Procedure: Upper GI endoscopy Indications: Stent removal Providers: Jimmy Fowler DO (Doctor) Referring MD: Stefano Rodriguez MD Medicines: General Anesthesia Complications: No immediate complications. Estimated blood loss:Minimal. Procedure: Pre-Anesthesia Assessment: - Prior to the procedure, a History and Physicalwas performed, and patient medications, allergies and sensitivities werereviewed. The patient's tolerance of previous anesthesia was reviewed. - The risks and benefits of the procedure and thesedation options and risks were discussed with the patient. All questions wereanswered and informed consent was obtained. - Patient identification and proposed procedurewere verified prior to the procedure by the physician, the nurse and the pulp mill team leader.The procedure was verified in the procedure room. - Pre-procedure physical examination revealed nocontraindications to sedation. - ASA Grade Assessment: III - A patient with severesystemic disease. - After reviewing the risks and benefits, thepatient was deemed in satisfactory condition to undergo the procedure. - After reviewing the risks and benefits, thepatient was deemed in satisfactory condition to undergo the procedure in an ambulatorysetting. - The anesthesia plan was to use generalanesthesia. - Immediately prior to administration ofmedications, the patient was re-assessed for adequacy to receive sedatives. - The heart rate, respiratory rate, oxygensaturations, blood pressure, adequacy of pulmonary ventilation, and response to care weremonitored throughout the procedure. - The physical status of the patient wasre-assessed after the procedure. After obtaining informed consent, the endoscope waspassed under direct vision. All instruments were visually inspected immediatelybefore and after removal from the patient to ensure they are fully intact. Throughoutthe procedure, the patient's blood pressure, pulse, and oxygen saturations weremonitored continuously.The upper GI endoscopy was accomplished without difficulty.The patient tolerated the procedure well. The [id number] Endoscope ([id number]) wasintroduced through the mouth, and advanced to the third part of duodenum. Findings & Specimens: The examined esophagus was normal. 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 as the patient has a very dilated common bileduct I elected to not close the gastric fistula today in case repeat ERCP is needed in the future.. The gastric body, incisura and gastric antrum were normal. A benign-appearing, intrinsic mild stenosis was found at the pylorus.This was traversed. A TTS dilator was passed through the scope. Dilation with a 15-16.5-18 mm pyloricballoon dilator was performed. The second portion of the duodenum was normal. Impression: - Normal esophagus. - Gastric bypass with a small-sized pouch andintact staple line. Gastrojejunal anastomosis characterized by healthy appearingmucosa. - Previously placed Axios stent removed - Normal gastric body, incisura and antrum. - Gastric stenosis was found at the pylorus.Dilated to 18 mm. - Normal second portion of the duodenum. - No specimens collected. Recommendation: - The patient will be observed post-procedure,until all discharge criteria are met. - Clear liquid diet today. Jimmy Fowler DO 02/29/2024 10:06:38 AM This report has been signed electronically. Stefano Rodriguez MD GASTRO UPPER * ERCP (02/29/2024 8:57 AM EDT) 02/29/2024 8:57 AM EDT Narrative Procedure Note Stefano Rodriguez MD - 02/29/2024 8:57 AM EDT [facility] Patient Name: Shraddha Baires Procedure Date: 02/29/2024 8:57 AM Date of : 1940 Admit Type: Outpatient Note Status:Finalized Date of : 1940 Admit Type: Outpatient Age: 84 Room: OR 5 Gender: Female Note Status: Finalized Procedure: ERCP Indications: Follow-up of bile duct stone(s), Biliary stentremoval Providers: Jimmy Fowler DO (Doctor) Referring MD: Stefano Rodriguez MD Medicines: General Anesthesia Complications: No immediate complications. Estimated blood loss:Minimal. Procedure: Pre-Anesthesia Assessment: - Prior to the procedure, a History and Physicalwas performed, and patient medications, allergies and sensitivities werereviewed. The patient's tolerance of previous anesthesia was reviewed. - The risks and benefits of the procedure and thesedation options and risks were discussed with the patient. All questions wereanswered and informed consent was obtained. - Patient identification and proposed procedurewere verified prior to the procedure by the physician, the nurse and the pulp mill team leader.The procedure was verified in the procedure room. - Pre-procedure physical examination revealed nocontraindications to sedation. - ASA Grade Assessment: III - A patient with severesystemic disease. - After reviewing the risks and benefits, thepatient was deemed in satisfactory condition to undergo the procedure. - After reviewing the risks and benefits, thepatient was deemed in satisfactory condition to undergo the procedure in an ambulatorysetting. - The anesthesia plan was to use generalanesthesia. - Immediately prior to administration ofmedications, the patient was re-assessed for adequacy to receive sedatives. - The heart rate, respiratory rate, oxygensaturations, blood pressure, adequacy of pulmonary ventilation, and response to care weremonitored throughout the procedure. - The physical status of the patient wasre-assessed after the procedure. After obtaining informed consent, the scope waspassed under direct vision. All instruments were visually inspected immediatelybefore and after removal from the patient to ensure they are fully intact. Throughout the procedure, the patient's bloodpressure, pulse, and oxygen saturations were monitored continuously.The ERCP wasaccomplished without difficulty. The patient tolerated the procedure well. The Duodenoscope wasintroduced through the mouth, and advanced to the duodenum and used to injectcontrast into the bile duct. Findings & Specimens: A well surveying engineer film of the abdomen was obtained. Surgical clips, consistentwith a previous cholecystectomy, were seen in the area of the right upper quadrant of the abdomen. Abiliary stent was visible on the well surveying engineer film. the ERCP endoscope was traversed through the pre placedAxios stent through the gastric fistula and into the duodenum. One covered metal and one plasticstent originating in the biliary tree were emerging from the major papilla. The stents were removed fromthe biliary tree using a rat-toothed forceps. The bile duct was deeply cannulated with the 18 mm balloonand guidewire. Contrast was injected. I personally interpreted the bile duct images. Contrastextended to the hepatic ducts. The main bile duct was moderately dilated. The largest diameter was 15mm. To discover objects, the biliary tree was swept with an 18 mm balloon starting at the bifurcation.Sludge was swept from the duct. The endoscope was withdrawn from the patient. Indomethacin 100 mg wasgiven via suppository to decrease the risk of post-ERCP pancreatitis (PEP). Impression: - Two stents from the biliary tree were seen in themajor papilla. - The entire main bile duct was moderatelydilated. - The biliary tree was swept and sludge wasfound. - Indomethacin given to decrease risk of post-ERCPpancreatitis. Recommendation: - Clear liquid diet today. - Cipro (ciprofloxacin) 500 mg PO BID for 5 days. Jimmy Fowler DO 02/29/2024 10:02:07 AM This report has been signed electronically. Estimated Blood Loss: Estimated blood loss was minimal. Stefano Rodriguez MD GASTRO UPPER documented in this encounter Visit Diagnoses Diagnosis Elevated transaminase level- Primary Nonspecific elevation of levels of transaminase or lactic acid dehydrogenase (LDH) documented in this encounter Administered Medications Inactive Administered Medications - up to 3 most recent administrations Medication Order MAR Action Action Date Dose Rate Site Indomethacin (Indocin) 100 mg supp 100 mg, Rectal, ONCE, On Thu02/29/24 at 0900, For 1 dose Given 02/29/2024 9:44 AM EDT 100 mg isolyte-S pH 7.4 infusion Intravenous, at 10 mL/hr, Plasma-LYTE 148, isolyte-S, and isolyte-S pH 7.4 are considered equivalent - including for MAR barcode scanning., CONTINUOUS, Starting on Thu02/29/24 at 0900, Until Thu02/29/24 at 1451 Continue from Pre-Op 02/29/2024 9:00 AM EDT 10 mL/hr New Bag 02/29/2024 8:17 AM EDT 10 mL/hr isolyte-S pH 7.4 infusion Intravenous, at 100 mL/hr, Plasma-LYTE 148, isolyte-S, and isolyte-S pH 7.4 are considered equivalent - including for MAR barcode scanning., CONTINUOUS, Starting on Thu02/29/24 at 0900, Until Thu02/29/24 at 1451, Pre-Op documented in this encounter Active and Recently Administered Medications Times are shown in EDT. Scheduled Medication Order 02/27/2024 02/28/2024 02/29/2024 ciprofloxacin (Cipro) in D5W ivpb 400 mg (COMPLETED) IV Piggyback, 400 mg, PREOP, 1 dose, First dose on Thu02/29/24 at 0900, Administer over 60 Minutes, Administer 60 minutes prior to skin incision., Pre-Op 0916 (Given - Provid er: Elma Cotto CRNA) Indomethacin (Indocin) 100 mg supp (COMPLETED) 100 mg, Rectal, ONCE, On Thu02/29/24 at 0900, For 1 dose 0944 (Given - Provid er: Sera Nick RN) Continuous Medication Order 02/27/2024 02/28/2024 02/29/2024 isolyte-S pH 7.4 infusion Intravenous, at 10 mL/hr, Plasma-LYTE 148, isolyte-S, and isolyte-S pH 7.4 are considered equivalent - including for MAR barcode scanning., CONTINUOUS, Starting on Thu02/29/24 at 0900, Until Thu02/29/24 at 1451 0817 (New Bag - Prov ider: Keiry Engle RN)0900 (Continue from Pre-Op - Provider: Elma Cotto CRNA)0951 (Anes Intra-Op Fluid - Provider: Elma Cotto CRNA) isolyte-S pH 7.4 infusion Intravenous, at 100 mL/hr, Plasma-LYTE 148, isolyte-S, and isolyte-S pH 7.4 are considered equivalent - including for MAR barcode scanning., CONTINUOUS, Starting on Thu02/29/24 at 0900, Until Thu02/29/24 at 1451, Pre-Op 0900 (Due) documented in this encounter Advance Directives Documents on File Type Date Recorded Patient Nurse Rn Bsn Expl anation Advance Directives and Living Will 11/10/2023 Dilma "Jose" Melody Baires [facility] POA & Living Will - signed 07/15/07 * Full Code (Latest Code Status on File) Date Activated Date Inactivated Comments 02/29/2024 9:56 AM 02/29/2024 2:56 PM This order r eflects the patients wishes and were consensually agreed upon. Question Answer Comments Discussion of Advance Direct nikole occurred with: Not Discussed due to patient's condition * Full Code Date Activated Date Inactivated Comments 02/29/2024 8:22 AM 02/29/2024 9:56 AM This order r eflects the patients wishes and were consensually agreed upon. Question Answer Comments Discussion of Advance Direct nikole occurred with: Not Discussed due to patient's condition * Full Code Date Activated Date Inactivated Comments 11/10/2023 1:09 AM 11/13/2023 6:37 PM This order r eflects the patients wishes and were consensually agreed upon. Question Answer Comments Discussion of Advance Directives occurred with: Patient Healthcare Agents on File Name Relationship Healthcare Agent Relationshi p Communication Dilma "Jose" Dequan Spouse Health Care Ag ent (per Health Care Power of Cigarette Machine Operator document) Price Baires Adult Child First Alternate Health Care Agent (per Health Care Power of Cigarette Machine Operator document) Care Teams Tube Making Machine Operator Relationship Specialty Start Date End Date Pro, Stefano Jade MD [address] [place] [facility] [place] [address] PCP - General Internal Medicine 07/09/16 documented as of this encounter
--- OUTSIDE RECORDS SUMMARY | 2024-03-10 11:45 | External Medical Summary | Summary of Care ---
Author Name Unknown Organization [facility] [address] [address] Phone [phone] Care Team Providers Care Lithographic Press Feeder Name Role Phone ProStefano MD Primary Care Provider [phone]- [phone] Reason for Visit * Reason Onset Date Comments Post-Op 03/01/2024 Encounter Details Date Type Department Care Team (Late st Contact Info) Description 03/01/2024 Telephone ENDO [facility], Endoscopy [address] [address] Jimmy Fowler, DO [address] [place] [address] Post-Op Allergies Active Allergy Reactions Criticality Noted Date Comments Pneumococcal Vaccines Hives Medium 07/25/2021 Sulfamethoxazole-Trimethopr im Fever,Hives High 07/25/2021 Other Reaction(s): rash Trimethoprim High 05/26/2023 Other Reaction(s): Hives documented as of this encounter (statuses as of 03/01/2024) Medications Medication Sig Dispensed Refills Start Date [...] as of this encounter (statuses as of 03/01/2024) Active Problems Problem Noted Date Diagnosed Date [...] as of this encounter (statuses as of 03/01/2024) Resolved Problems Problem Noted Date Diagnosed Date Resolved Date Choledocholithiasis 11/10/2023 11/13/19 24 documented as of this encounter (statuses as of 03/01/2024) Social History Tobacco Use Types Packs/Day Years [...] on file documented as of this encounter Functional Status Functional Status Response Date of Assess ment Are you deaf or do you have serious difficulty hearing? Yes-+[place] wears bilateral hearing aides 11/10/2023 Are you [...] change 11/10/2023 documented as of this encounter Miscellaneous Notes * Telephone Encounter - Yaritza Quintanilla RN - 03/01/2024 3:43 PM EDT Pt. called in with C/O soreness under her jaw, no other complaints. Stated it could be related to airway management for procedure. Advised to take Tylenol if needed. Pt. Verbalized understanding and aware to call back if discomfort persists. documented in this encounter Plan of Treatment Health Maintenance Due Date Last Done Comments HbA1c 02[birth year]05/1946 Pneumococcal Vaccine: 65+ Years (1 of 2 - PCV) 02/05/1946 Depression Screening 1952 Albumin/Creatinine Ratio 02/05/1958 Diabetic Eye Exam 02/05/1958 Diabetic Foot Exam 02/05/1958 DTaP,Tdap,and Td Vaccines (1 - Tdap) 02/05/1959 DXA Scan 02/05/2005 COVID-19 Vaccine (2022- season) 2023 04/26/2023, 06/06/2022, 12/31/2021, Additional history [...] documented as of this encounter Medical Devices Not on filedocumented as of this encounter Advance Directives Documents on File Type Date Recorded Patient Print Finishing Worker Expl anation Advance Directives and Living Will 11/10/2023 Dilma "Jose" Melody Baires Durable Health Care POA & Living Will - signed 07/15/07 [...] Agent Relationshi p Communication Dilma "Jose" Dequan [facility] Health Care Ag ent (per Health Care Power of Tour Operator document) Price Baires Adult Child First Alternate Health Care Agent (per Health Care Power of Tour Operator document) Care Teams Lithographic Press Feeder Relationship Specialty Start Date End Date Pro, Stefano Jade MD [address] [place] [address] PCP - General Internal Medicine 07/09/16 documented as of this encounter
--- OUTSIDE RECORDS SUMMARY | 2024-03-10 11:45 | External Medical Summary | Summary of Care ---
Author Name Unknown Organization [facility] Address [address] [place] [address] Phone [phone] Care Team Providers Care Telephone Service Representative Name Role Phone Pro, Stefano Jade MD Primary Care Provider [phone]- [phone] Reason for Referral * Precert (Within 10 days (routine)) - Pending Review Specialty Diagnoses / Procedures Referred By Contac t Referred To Contact Sleep Disorders Diagnoses MICHELLE (obstructive sleep apnea) Procedures SLEEP STUDY, W/O CPAP Leonor Harkins MD [address] [place] [address] [place] [address] Referral ID Status Reason Start Date Expiration Date V isits Requested Visits Authorized [id number] Pending Review 02/08/2024 999 999 Reason for Visit * Reason Onset Date Comments Follow Up 02/08/2024 Watch jimmy castillo Encounter Details Date Type Department Care Team (Late st Contact Info) Description 02/08/2024 Telephone [address] Disorders[address] [place] [address] Leonor Harkins MD [address] [place] [address] [place] [address] Follow Up (Watch pat testing) Allergies Active Allergy Reactions Criticality Noted Date Comments Pneumococcal Vaccines Hives Medium 07/25/2021 Sulfamethoxazole-Trimethopr im Fever,Hives High 07/25/2021 Other Reaction(s): rash Trimethoprim High 05/26/2023 Other Reaction(s): Hives documented as of this encounter (statuses as of 02/08/2024) Medications Medication Sig Dispensed Refills Start Date [...] needed for Diarrhea. 15 Tablet 11/13/2023 Active documented as of this encounter (statuses as of 02/08/2024) Active Problems Problem Noted Date Diagnosed Date [...] as of this encounter (statuses as of 02/08/2024) Resolved Problems Problem Noted Date Diagnosed Date Resolved Date Choledocholithiasis 11/10/2023 11/13/19 24 documented as of this encounter (statuses as of 02/08/2024) Social History Tobacco Use Types Packs/Day Years [...] or do you have serious difficulty hearing? 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 And after going over it with her and her they both voiced there concerns that she will not be able to do the appropriate steps needed for completion of the watch pat. They both voiced that she gets too frustrated with things like this. They are requesting the study to be done in lab. Thank you. documented in this encounter Plan of Treatment Upcoming Encounters Date Type Department Care Team (Latest Contact Info) Description 02/29/2024 11:28 AM EDT Hospital Encounter OR [facility], Operating Room, [facility] - 4th Floor [address] [place] [address] Jimmy Fowler, DO [address] [place] [address] 02/29/2024 11:28 AM EDT - 02/29/2024 12:16 PM EDT Surgery OR [facility], Operating Room, [facility] - 4th Floor [address] [place] [address] Jimmy Fowler, DO [address] [place] [address] ENDOSCOPIC RETROGRADE CHOLANGIOPANCREATOGRAPHY (ERCP) W/STENT REMOVAL AND EXCHANGE; INC DILATION, GUIDE WIRE AND SPHINCTEROTOMY Scheduled Orders Name Type Priority Associated Diagnoses Orde r Schedule SLEEP STUDY, W/O CPAP Procedures Routine MICHELLE (obstructive sleep apnea) Ordered: 02/08/2024 Scheduled Procedures Name Priority Associated Diagnoses Date/Ti me ENDOSCOPIC RETROGRADE CHOLANGIOPANCREATOGRAPHY (ERCP) W/STENT REMOVAL AND EXCHANGE; INC DILATION, GUIDE WIRE AND SPHINCTEROTOMY Choledocholithiasis 02/29/2024 11:28 AM EDT ESOPHAGOGASTRODUODENOSCOPY ( EGD), FLEXIBLE, TRANSORAL, DIAGNOSTIC Choledocholithiasis 02/29/2024 11:28 AM EDT Health Maintenance Due Date Last Done Comments HbA1c 02/05/1946 Pneumococcal Vaccine: 65+ Years (1 of 2 - PCV) 02/05/1946 Depression Screening 1952 Albumin/Creatinine Ratio 02/05/1958 Diabetic Eye Exam 02/05/1958 Diabetic Foot Exam 02/05/1958 DTaP,Tdap,and Td Vaccines (1 - Tdap) 02/05/1959 DXA Scan 02/05/2005 COVID-19 Vaccine ( - 2022- season) 2023 04/26/2023, 06/06/2022, 12/31/2021, Additional history [...] documented as of this encounter Medical Devices Implanted Type Area Mine Analyst Device Identifier Shelf Expiration Date Model / Serial / Lot Stent Axios [id number] - [id number] Implanted:Qty: 1 on 11/11/2023 by Jimmy Fowler DO at OR [facility] ENDOSCOPY [id number] 08/19/2024 [id number] / / [id number] Stent Wallflex Blaise Rx 10x60 - [id number] Implanted:Qty: 1 on 11/11/2023 by Jimmy Fowler DO at OR [facility] [email or web address] : ENDOSCOPY [id number] 06/08/2025 [id number] / / [id number] Stnt Pt Dbl [id number] 3219 - [id number] Implanted:Qty: 1 on 11/11/2023 by Jimmy Fowler DO at OR [facility] : ENDOSCOPY [id number] 09/20/2025 [id number] / / [id number] documented as of this encounter Visit Diagnoses Diagnosis MICHELLE (obstructive sleep apnea)- Primary Obstructive sleep apnea (adult) (pediatric) Choledocholithiasis Calculus of bile duct without mention of cholecystitis or obstruction documented in this encounter Advance Directives Documents on File Type Date Recorded Patient Automatic Quilling Machine Operator Expl anation Advance Directives and Living Will 11/10/2023 Dilma "Khalif Baires [facility] Health Care POA & Living Will - signed 07/15/07 * Full Code (Latest Code Status on File) Date Activated Date Inactivated Comments 11/10/2023 1:09 AM 11/13/2023 6:37 PM This order r eflects the patients wishes and were consensually agreed upon. Question Answer Comments Discussion of Advance Directives occurred with: Patient Healthcare Agents on File Name Relationship Healthcare Agent Relationshi p Communication Dilma "Jose" Dequan [facility] Health Care Ag ent (per Health Care Power of Net Developer Software Engineer C document) Price Baires Adult Child First Alternate Health Care Agent (per Health Care Power of Net Developer Software Engineer C document) Stefano Baires Second Alternate Health Care Agent (per Health Care Power of Net Developer Software Engineer C document) Leonid Baires Adult Child Third Alternate Health Care Agent (per Health Care Power of Net Developer Software Engineer C document) Care Teams Telephone Service Representative Relationship Specialty Start Date End Date Pro, Stefano Jade MD [address] [place] [address] PCP - General Internal Medicine 07/09/16 documented as of this encounter
--- OUTSIDE RECORDS SUMMARY | 2024-03-10 11:45 | External Medical Summary | Summary of Care ---
Author Name Unknown Organization [facility] Address [address] [facility] [place] [address] Phone [phone] Care Team Providers Care Barrel Reamer Name Role Phone Pro, Stefano Jade MD Primary Care Provider [phone]- [phone] Reason for Referral * Evaluate & Treat - Unlimited Visits (Within 3 days (urgent)) - Authorized Specialty Diagnoses / Procedures Referred By Contcamelia t Referred To Contact Otolaryngology Diagnoses Fracture of nasal bones, initial encounter for closed fracture Sarah Saunders PA-C [address] [place] [id number] Referral ID Status Reason Start Date Expiration Date Visits Requested Visits Authorized [id number] Authorized Specialty Services Required 02/08/[phone] Question Answer Referral Priority Within 3 days (urgent) Where should this appointment be scheduled? [facility] Reason for Referral Trauma/Plastic/Reconstructive Conditions Specific Condition: Nasal Trauma Comments Notes/ref scanned in [facility] Encounter Details Date Type Department Care Team (Late st Contact Info) Description 02/08/2024 Orders Only Access Center, [place] [address] [facility] *DO NOT REMOVE THIS DEPARTMENT* [place] [address] Request, External Referral Fracture of nasal bones, initial encounter for closed fracture* Allergies Active Allergy Reactions Criticality Noted Date [...] or do you have serious difficulty hearing? Yes-+KIVALINA wears bilateral hearing aides 11/10/2023 Are you [...] change 11/10/2023 documented as of this encounter Plan of Treatment Upcoming Encounters Date Type Department Care Team (Latest Contact Info) Description 02/29/2024 11:28 AM EDT Hospital Encounter OR [facility], Operating Room, [facility] - 4th Floor [address] [place] [address] Jimmy Fowler, DO [address] [place] [id number] 02/29/2024 11:28 AM EDT - 02/29/2024 12:16 PM EDT Surgery OR [facility], Operating Room, [facility] - [facility] Floor [address] [place] [address] Jimmy Fowler, DO [address] [place] [id number] ENDOSCOPIC RETROGRADE CHOLANGIOPANCREATOGRAPHY (ERCP) W/STENT REMOVAL AND EXCHANGE; INC DILATION, GUIDE WIRE AND SPHINCTEROTOMY Scheduled Procedures Name Priority Associated Diagnoses Date/Ti mt ENDOSCOPIC RETROGRADE CHOLANGIOPANCREATOGRAPHY (ERCP) W/STENT REMOVAL AND EXCHANGE; INC DILATION, GUIDE WIRE AND SPHINCTEROTOMY Choledocholithiasis 02/29/2024 11:28 AM EDT ESOPHAGOGASTRODUODENOSCOPY ( EGD), FLEXIBLE, TRANSORAL, DIAGNOSTIC Choledocholithiasis 02/29/2024 11:28 AM EDT Scheduled Referrals Name Type Priority Associated Diagnoses Order Schedule ADULT/PEDS OTOLARYNGOLOGY REFERRAL OP Referral Within 3 days (urgent) Fracture of nasal bones, initial encounter for closed fracture Ordered: 02/08/2024 Health Maintenance Due Date Last Done Comments HbA1c 02/05/1946 Pneumococcal Vaccine: 65+ Years (1 of 2 - PCV) 02/05/1946 Depression Screening 1952 Albumin/Creatinine Ratio 02/05/1958 Diabetic Eye Exam 02/05/1958 Diabetic Foot Exam 02/05/1958 DTaP,Tdap,and Td Vaccines (1 - Tdap) 02/05/1959 DXA Scan 02/05/2005 COVID-19 Vaccine (7 - 2022- season) 2023 04/26/2023, 06/06/2022, 12/31/2021, [...] this encounter Medical Devices Implanted Type Area Steam Meter Reader Device Identifier Shelf Expiration Date Model / Serial / Lot Stent Axios [id number] - [id number] Implanted:Qty: 1 on 11/11/2023 by Jimmy Fowler DO at OR [facility] [employer] : ENDOSCOPY [id number] 08/19/2024 [id number] / / [id number] Stent Wallflex Blaise Rx 10x60 - [id number] Implanted:Qty: 1 on 11/11/2023 by Jimmy Fowler DO at OR [facility] [employer] : ENDOSCOPY [id number] 06/08/2025 [id number] / / [id number] Stnt Pt Dbl [id number] 3219 - [id number] Implanted:Qty: 1 on 11/11/2023 by Jimmy Fowler DO at [facility] [employer] : ENDOSCOPY [id number] 09/20/2025 [id number] / / [id number] documented as of this encounter Visit Diagnoses Diagnosis Fracture of nasal bones, initial encounter for closed fracture- Primary Choledocholithiasis Calculus of bile duct without mention of cholecystitis or obstruction documented in this encounter Advance Directives Documents on File Type Date Recorded Patient Scrapper Expl anation Advance Directives and Living Will [...] Ag ent (per Health Care Power of Department Administrator document) Price Baires Adult Child First Alternate Health Care Agent (per Health Care Power of Department Administrator document) Stefano Baires Second Alternate Health Care Agent (per Health Care Power of Department Administrator document) Leonid Baires Adult Child Third Alternate Health Care Agent (per Health Care Power of Department Administrator document) Care Teams Barrel Reamer Relationship Specialty Start Date End Date Pro, Stefano Jade MD [address] [place] [address] PCP - General Internal Medicine 07/09/16 documented as of this encounter
--- OUTSIDE RECORDS SUMMARY | 2024-03-10 11:45 | External Medical Summary | Summary of Care ---
Author Name Unknown Organization [facility] Address [address] [place] [address] Phone [phone] Care Team Providers Care Data Analysis Assistant Name Role Phone ProStefano MD Primary Care Provider +1- [phone] Reason for Visit * Reason Onset Date Comments Follow Up 02/08/2024 Watch pat testin g Encounter Details Date Type Department Care Team (Late st Contact Info) Description 02/08/2024 Telephone Sleep Disorders, [address] [address] Leonor Gonzalez MD [address] [place] [id number] Follow Up (Watch pat testing) Allergies [...] or do you have serious difficulty hearing? Yes-+LAC COURTE OREILLES wears bilateral hearing aides 11/10/2023 Are you [...] encounter Miscellaneous Notes * Telephone Encounter - Malgorzata Quintero LPN - 02/08/2024 2:24 PM EDT Shraddha was here today to pickle maker her watch pat . And after going [...] 02/29/2024 11:28 AM EDT Hospital Encounter OR [facility], Operating Room, [facility] - 4th Floor [address] [place] [address] Jimmy Fowler, DO [address] [place] [id number] 02/29/2024 11:28 AM EDT - 02/29/2024 12:16 PM EDT Surgery OR [facility], Operating Room, [facility] - 4th Floor [address] [place] [address] Jimmy Fowler DO [address] [place] [address] ENDOSCOPIC RETROGRADE CHOLANGIOPANCREATOGRAPHY (ERCP) W/STENT REMOVAL AND EXCHANGE; INC DILATION, GUIDE WIRE AND SPHINCTEROTOMY Scheduled Procedures Name Priority Associated Diagnoses Date/Ti or ENDOSCOPIC RETROGRADE CHOLANGIOPANCREATOGRAPHY (ERCP) W/STENT REMOVAL AND [...] 02/05/1959 DXA Scan 02/05/2005 COVID-19 Vaccine ( season) 2023 04/26/2023, 06/06/2022, 12/31/2021, Additional history [...] this encounter Medical Devices Implanted Type Area Flotation Tank Operator Device Identifier Shelf Expiration Date Model / Serial / Lot Stent Axios [id number] - [id number] Implanted:Qty: 1 on 11/11/2023 by Jimmy Fowler DO at OR [facility] [employer] : ENDOSCOPY [id number] 08/19/2024 [id number] / / [id number] Stent Wallflex Blaise Rx 10x60 - [id number] Implanted:Qty: 1 on 11/11/2023 by Jimmy Fowler DO at OR [facility] [employer] : ENDOSCOPY [id number] 06/08/2025 [id number] / / [id number] Stnt Pt Dbl [id number] 3219 - [id number] Implanted:Qty: 1 on 11/11/2023 by Jimmy Fowler DO at OR [facility] [employer] : ENDOSCOPY [id number] 09/20/2025 [id number] / / [id number] documented as of this encounter Advance Directives Documents on File Type Date Recorded Patient Phlebotomy Director Expl anation Advance Directives and Living Will 11/10/2023 Dilma "Jose" Melody Garcia Baires Durable Health Care POA & Living [...] Ag ent (per Health Care Power of Low Raw Sugar Cutter document) Price Baires Adult Child First Alternate Health Care Agent (per Health Care Power of Low Raw Sugar Cutter document) Stefano Baires Second Alternate Health Care Agent (per Health Care Power of Low Raw Sugar Cutter document) Leonid Baires Adult Child Third Alternate Health Care Agent (per Health Care Power of Low Raw Sugar Cutter document) Care Teams Data Analysis Assistant Relationship Specialty Start Date End Date Pro, Stefano Jade MD [address] [place] [address] PCP - General Internal Medicine 07/09/16 documented as of this encounter
--- NOTE | 2024-03-10 13:00 | Electrocardiogram Report ---
Test Reason : Blood Pressure : */* mmHG Vent. Rate : 58 BPM Atrial Rate : * BPM P-R Int : * ms QRS Dur : 74 ms QT Int : 402 ms P-R-T Axes : * 19 47 degrees QTcB Int : 394 ms Poor data quality, interpretation may be adversely affected Sinus rhythm Normal ECG When compared with ECG of 05-Feb-2024 19:12, No significant change Confirmed by Arthur Harris ([id number]) on 03/10/2024 1:00:04 PM Referred By: Stefano Rodriguez Confirmed By: Arthur Harris
[2024-03-10] MEDS: ERTAPENEM SODIUM 1,000 MG in SYRINGE 0 ML IV SCH (13:39)
[2024-03-10] MEDS: SIMVASTATIN 10 MG TAB PO SCH (21:59)
[2024-03-10] MEDS: ENOXAPARIN INJ 40 MG/0.4 ML SYR SQ SCH (21:59)
[2024-03-10] MEDS: DICLOFENAC SODIUM 75 MG TABCR PO SCH (21:59)
[2024-03-10] MEDS: LATANOPROST 0.005% OP SOLN 2.5 ML BTL OPR SCH (23:20)
[2024-03-11] MEDS: LEVOTHYROXINE SODIUM 88 MCG TABLET PO SCH (06:03)
[2024-03-11 08:14] LABS: Basophils # (auto) 0.03 K/uL (0.00-0.20); Basophils % (auto) 0.7 %; Eosinophils # (auto) 0.23 K/uL (0.00-0.50); Eosinophils % (auto) 5.7 %; Hematocrit (blood only) 35.4 % (37.0-47.0); Hemoglobin 10.7 g/dl (12.0-16.0); Immature Granulocytes # (auto) 0.01 K/uL (0.01-0.20); Immature Granulocytes % (auto) 0.2 %; Lymphocytes # (auto) 1.22 K/uL (1.20-3.40); Lymphocytes % (auto) 30.3 %; Mean Corpuscular Hemoglobin 26.3 pg (25.0-34.0); Mean Corpuscular Hgb Conc 30.2 g/dL (32.0-36.0); Mean Platelet Volume 8.9 fL (9.4-12.4); Monocytes # (auto) 0.32 K/uL (0.11-0.59); Monocytes % (auto) 7.9 %; Neutrophils # (auto) 2.22 K/uL (1.40-6.50); Neutrophils % (auto) 55.2 %; Platelet Count 255 K/uL (130-400); RDW Coefficient of Variation 13.3 % (11.5-14.5); RDW Standard Deviation 42.7 fL (36.4-46.3); Red Blood Count 4.07 M/uL (4.20-5.40); White Blood Count 4.03 K/ul (4.8-10.8)
[2024-03-11 08:37] LABS: Calcium 8.9 mg/dl (8.6-10.3); Potassium 5.2 mmol/L (3.5-5.1)
[2024-03-11 08:43] LABS: BUN Creatinine Ratio 33.3 (10-20); Creatinine Clr Calc Pharmacy 49.7 ml/min; Est GFR (African American) 77.3 ml/min; Est GFR (Non-African American) 66.7 ml/min
[2024-03-11] MEDS: CYANOCOBALAMIN (B-12) 500 MCG TABLET PO SCH (09:04)
[2024-03-11] MEDS: FLUoxetine HCL 20 MG CAP PO SCH (09:04)
[2024-03-11] MEDS: hydroCHLOROthiazide 25 MG TAB PO SCH (09:04)
[2024-03-11] MEDS: FLUoxetine HCL 10 MG CAP PO SCH (09:04)
[2024-03-11] MEDS: PROPRANOLOL HCL LA 80 MG CAPCR PO SCH (09:05)
[2024-03-11] MEDS: PANTOprazole 40 MG TAB PO SCH (09:05)
[2024-03-11] MEDS: amLODIPine BESYLATE 5 MG TAB PO SCH (09:05)
--- NOTE | 2024-03-11 13:20 | Hospitalist Progress Note ---
Date of Service March 11, 2024 Assessment & Plan (1) Acute UTI: Plan: Gram-negative's isolated. Final identification and sensitivities pending. She remains on ertapenem, day 2, for now due to her history of ESBL infections (2) Falls: Plan: Supportive care. Continue OT and PT (3) AMS (altered mental status): Plan: Probably a degree of metabolic encephalopathy on admission due to UTI. I suspect she also has vascular dementia. Supportive care (4) Benign essential tremor: Plan: Stable. Currently on propranolol (5) Lymphedema of lower extremity: Plan: Chronic. BREANA hose. (6) Hypothyroidism: Plan: Stable. Continue levothyroxine Plan Hopeful discharge to either [facility] or [facility] on oral antibiotic when arrangements are finalized Admission and Anticipated Discharge Date Admission Date: March 10, 2024 Subjective Awake and alert. is at the bedside. She is now on ertapenem due to her history of ESBL infections of the urinary tract. Current urine culture growing gram-negative bacilli. PET CT scan reveals microvascular changes with old lacunar infarcts. I suspect she has vascular dementia. OT and PT assessments have been requested. She apparently will go to either [facility] or [facility] at discharge Review of Systems 2 Review of Systems: Constitutionalno fever or chills ENTno blurred vision, no double vision, no epistaxis, no sore throat Respiratoryno cough, no wheezing, no shortness of breath Cardiacno palpitations, no chest pain, no syncope Elena nausea, vomiting, diarrhea, melena, hematochezia GUno urinary retention, no urinary incontinence, no dysuria, no hematuria Musculoskeletalno joint pain, no muscle tenderness Skinno bruising, no rashes, no pruritus Neurono isolated weakness, no paresthesia, no weakness Psychno depression, no anxiety Physical Exam 2 Physical Exam: General-alert and oriented x2, no fever HEENT-head atraumatic and normocephalic, pupils equal and reactive to light, extraocular muscles intact Neck-no lymphadenopathy or thyromegaly, trachea midline Chest-clear to auscultation. No rales, wheezing or rhonchi Cardiac-regular rate and rhythm, normal S1 and S2 Abdomen-normal bowel sounds, no hepatosplenomegaly Extremities-no cyanosis, clubbing, or edema Neuro-cranial nerves II through XII intact, motor and sensory function within normal limits, strength symmetrical, no focal deficits Psych-normal affect, normal mood Results & Data Results & Data Vital Signs (Past 12 Hours) Vital Signs Temp Pulse Resp BP Pulse Ox O2 Del Method 03/11/24 08:03 36.9 C 58 L 16 159/69 H 95 Room Air Laboratory Results 03/11/24 07:21 03/11/24 07:21 PG Care Time/CCT Total # of Minutes Spent Total Time Spent with Patient: Total time spent is greater than 50% in coordination of care (as documented) at patient's floor/unit and/or counseling patient: Coding Level of Care Code 63211 SUB INP/OBS CARE 3/50MIN Diagnoses Acute UTI N39.0 Falls R29.6 AMS (altered mental status) R41.82 Altered mental status type: unspecified Benign essential tremor G25.0 Lymphedema of lower extremity I89.0 Hypothyroidism E03.9 (3) AMS (altered mental status) Altered mental status type: unspecified Qualified Code(s): R41.82 - Altered mental status, unspecified
[2024-03-12] MEDS ORDERED: MELATONIN 3 MG TAB PO PRN (02:08)
[2024-03-12 06:41] LABS: Basophils # (auto) 0.03 K/uL (0.00-0.20); Basophils % (auto) 0.6 %; Eosinophils # (auto) 0.31 K/uL (0.00-0.50); Eosinophils % (auto) 6.5 %; Hemoglobin 11.1 g/dl (12.0-16.0); Immature Granulocytes # (auto) 0.01 K/uL (0.01-0.20); Immature Granulocytes % (auto) 0.2 %; Lymphocytes # (auto) 1.32 K/uL (1.20-3.40); Lymphocytes % (auto) 27.7 %; Mean Corpuscular Hemoglobin 26.6 pg (25.0-34.0); Mean Corpuscular Hgb Conc 30.8 g/dL (32.0-36.0); Mean Corpuscular Volume 86.1 fL (80.0-100.0); Mean Platelet Volume 9.1 fL (9.4-12.4); Monocytes # (auto) 0.43 K/uL (0.11-0.59); Neutrophils # (auto) 2.66 K/uL (1.40-6.50); Platelet Count 255 K/uL (130-400); RDW Coefficient of Variation 13.2 % (11.5-14.5); RDW Standard Deviation 41.2 fL (36.4-46.3); Red Blood Count 4.18 M/uL (4.20-5.40); White Blood Count 4.76 K/ul (4.8-10.8)
[2024-03-12 06:47] LABS: Calcium 8.9 mg/dl (8.6-10.3)
[2024-03-12 06:53] LABS: Creatinine Clr Calc Pharmacy 46.3 ml/min; Est GFR (African American) 70.9 ml/min; Est GFR (Non-African American) 61.2 ml/min
--- NOTE | 2024-03-12 12:34 | Hospitalist Progress Note ---
Date of Service March 12, 2024 Assessment & Plan (1) Acute UTI: Plan: ESBL E. coli isolated. Currently on ertapenem, day 3. She will complete her antibiotic course by the time of discharge on Thursday. (2) Falls: Plan: Supportive care. Continue OT and PT (3) AMS (altered mental status): Plan: Probably a degree of metabolic encephalopathy on admission due to UTI. I suspect she also has vascular dementia. Supportive care (4) Benign essential tremor: Plan: Stable. Currently on propranolol. Dosage down titrated due to persistent bradycardia (5) Lymphedema of lower extremity: Plan: Chronic. BREANA hose. No response to hydrochlorothiazide which has been discontinued (6) Hypothyroidism: Plan: Stable. Continue levothyroxine (7) Sinus bradycardia: Plan: Persistent. Propranolol dosage has been down titrated today, March 12 (8) Essential hypertension: Plan: Hydralazine started for enhanced blood pressure control. Hydrochlorothiazide discontinued due to lack of efficacy for the lower extremity edema. Propranolol dosage has been down titrated due to persistent bradycardia. Plan [facility]ful discharge to either [facility] on March 14. [facility] is no longer an option. Admission and Anticipated Discharge Date Admission Date: March 10, 2024 Subjective Alert and oriented. ESBL E. coli isolated in the urine cultures. She remains on ertapenem, day 3. She was recently started on hydrochlorothiazide for the chronic lower extremity edema which has not helped at all. It has been discontinued. Propranolol dosage has been decreased due to persistent bradycardia. Hydralazine has been started to help with her hypertension. Hopefully she can go to [facility] on March 14 Review of Systems 2 Review of Systems: Constitutionalno fever or chills ENTno blurred vision, no double vision, no epistaxis, no sore throat Respiratoryno cough, no wheezing, no shortness of breath Cardiacno palpitations, no chest pain, no syncope Elena nausea, vomiting, diarrhea, melena, hematochezia GUno urinary retention, no urinary incontinence, no dysuria, no hematuria Musculoskeletalno joint pain, no muscle tenderness Skinno bruising, no rashes, no pruritus Neurono isolated weakness, no paresthesia, no weakness Psychno depression, no anxiety Physical Exam 2 Physical Exam: General-alert and oriented x2, no fever HEENT-head atraumatic and normocephalic, pupils equal and reactive to light, extraocular muscles intact Neck-no lymphadenopathy or thyromegaly, trachea midline Chest-clear to auscultation. No rales, wheezing or rhonchi Cardiac-bradycardic regular rhythm, normal S1 and S2 Abdomen-normal bowel sounds, no hepatosplenomegaly Omhzrjyaaom-9-8+ bilateral lower extremity chronic appearing edema below the knees Neuro-cranial nerves II through XII intact, motor and sensory function within normal limits, strength symmetrical, no focal deficits Psych-normal affect, normal mood Results & Data Results & Data Vital Signs (Past 12 Hours) Vital Signs Temp Pulse Resp BP Pulse Ox O2 Del Method 03/12/24 07:20 36.4 C L 58 L 18 187/79 H 94 Room Air 03/12/24 07:15 Room Air Laboratory Results 03/12/24 05:55 03/12/24 05:55 PG Care Time/CCT Total # of Minutes Spent Total Time Spent with Patient: Total time spent is greater than 50% in coordination of care (as documented) at patient's floor/unit and/or counseling patient: Coding Level of Care Code 07754 SUB INP/OBS CARE 3/50MIN Diagnoses Acute UTI N39.0 Falls R29.6 AMS (altered mental status) R41.82 Altered mental status type: unspecified Benign essential tremor G25.0 Lymphedema of lower extremity I89.0 Hypothyroidism E03.9 Sinus bradycardia R00.1 Essential hypertension I10 (3) AMS (altered mental status) Altered mental status type: unspecified Qualified Code(s): R41.82 - Altered mental status, unspecified
[2024-03-12] MEDS: hydrALAZINE 10 MG TAB PO SCH (13:11)
[2024-03-12] MEDS: ACETAMINOPHEN 325 MG TAB PO PRN (14:53)
[2024-03-12] MEDS ORDERED: Nursing to Pharmacy Communication SCH (16:00)
[2024-03-12] MEDS: POLYETHYLENE (MIRALAX) 17 GM PACK PO SCH (17:38)
[2024-03-13 06:10] LABS: Basophils # (auto) 0.03 K/uL (0.00-0.20); Basophils % (auto) 0.5 %; Eosinophils % (auto) 4.8 %; Hemoglobin 11.5 g/dl (12.0-16.0); Immature Granulocytes # (auto) 0.01 K/uL (0.01-0.20); Immature Granulocytes % (auto) 0.2 %; Lymphocytes % (auto) 24.2 %; Mean Corpuscular Hemoglobin 26.8 pg (25.0-34.0); Mean Corpuscular Hgb Conc 31.1 g/dL (32.0-36.0); Mean Corpuscular Volume 86.2 fL (80.0-100.0); Mean Platelet Volume 8.6 fL (9.4-12.4); Monocytes # (auto) 0.53 K/uL (0.11-0.59); Monocytes % (auto) 8.6 %; Neutrophils # (auto) 3.82 K/uL (1.40-6.50); Neutrophils % (auto) 61.7 %; Platelet Count 243 K/uL (130-400); RDW Coefficient of Variation 13.4 % (11.5-14.5); RDW Standard Deviation 42.1 fL (36.4-46.3); Red Blood Count 4.29 M/uL (4.20-5.40); White Blood Count 6.19 K/ul (4.8-10.8)
[2024-03-13 06:33] LABS: BUN Creatinine Ratio 31.3 (10-20); Creatinine Clr Calc Pharmacy 40.7 ml/min; Est GFR (African American) 60.6 ml/min; Est GFR (Non-African American) 52.3 ml/min; Potassium 5.1 mmol/L (3.5-5.1)
[2024-03-13] MEDS: PROPRANOLOL HCL 60 MG LA CAP PO SCH (08:16)
--- NOTE | 2024-03-13 15:07 | Hospitalist Progress Note ---
Date of Service March 13, 2024 Assessment & Plan (1) Acute UTI: Plan: ESBL E. coli isolated. Currently on ertapenem, day 4. She will complete her antibiotic course by the time of discharge on Thursday. (2) Falls: Plan: Supportive care. Continue OT and PT (3) AMS (altered mental status): Plan: Probably a degree of metabolic encephalopathy on admission due to UTI. I suspect she also has vascular dementia. Supportive care (4) Benign essential tremor: Plan: Stable. Currently on propranolol. Dosage down titrated due to persistent bradycardia (5) Lymphedema of lower extremity: Plan: Chronic. BREANA hose. No response to hydrochlorothiazide which has been discontinued (6) Hypothyroidism: Plan: Stable. Continue levothyroxine (7) Sinus bradycardia: Plan: Now resolved since propranolol dosage decreased on March 12 (8) Essential hypertension: Plan: Blood pressure is now on the low side. Both hydralazine and amlodipine dosages down titrated today, March 13. Will follow. Hydrochlorothiazide has been discontinued due to lack of efficacy for the lower extremity edema. Propranolol dosage has been down titrated due to persistent bradycardia. Plan Anticipate discharge to [facility] on March 14. Admission and Anticipated Discharge Date Admission Date: March 10, 2024 Subjective Alert and pleasant. Blood pressure is running on the low side but heart rate has improved since propranolol down titrated. Amlodipine and hydralazine dosages have both been down titrated today, March 13. Currently on ertapenem day 4. She will receive her fifth dose tomorrow, March 14, prior to discharge to [facility]. It does not appear she will need any further antibiotic treatment at discharge. Free T3 and free T4 levels are normal. I will contact her , less, today. Review of Systems 2 Review of Systems: Constitutionalno fever or chills ENTno blurred vision, no double vision, no epistaxis, no sore throat Respiratoryno cough, no wheezing, no shortness of breath Cardiacno palpitations, no chest pain, no syncope Elena nausea, vomiting, diarrhea, melena, hematochezia GUno urinary retention, no urinary incontinence, no dysuria, no hematuria Musculoskeletalno joint pain, no muscle tenderness Skinno bruising, no rashes, no pruritus Neurono isolated weakness, no paresthesia, no weakness Psychno depression, no anxiety Physical Exam 2 Physical Exam: General-alert and oriented x2, no fever HEENT-head atraumatic and normocephalic, pupils equal and reactive to light, extraocular muscles intact Neck-no lymphadenopathy or thyromegaly, trachea midline Chest-clear to auscultation. No rales, wheezing or rhonchi Cardiac-bradycardic regular rhythm, normal S1 and S2 Abdomen-normal bowel sounds, no hepatosplenomegaly Nispfjzfbhl-3-4+ bilateral lower extremity chronic appearing edema below the knees Neuro-cranial nerves II through XII intact, motor and sensory function within normal limits, strength symmetrical, no focal deficits Psych-normal affect, normal mood Results & Data Results & Data Vital Signs (Past 12 Hours) Vital Signs Temp Pulse Resp BP Pulse Ox O2 Del Method 03/13/24 14:45 62 96/64 L 03/13/24 14:35 36.8 C 45 L 18 108/73 95 Room Air 03/13/24 13:19 116/78 03/13/24 10:22 36.4 C L 52 L 18 122/69 93 Room Air Laboratory Results 03/13/24 05:45 03/13/24 05:45 PG Care Time/CCT Total # of Minutes Spent Total Time Spent with Patient: Total time spent is greater than 50% in coordination of care (as documented) at patient's floor/unit and/or counseling patient: Coding Level of Care Code 99507 SUB INP/OBS CARE 3/50MIN Diagnoses Acute UTI N39.0 Falls R29.6 AMS (altered mental status) R41.82 Altered mental status type: unspecified Benign essential tremor G25.0 Lymphedema of lower extremity I89.0 Hypothyroidism E03.9 Sinus bradycardia R00.1 Essential hypertension I10 (3) AMS (altered mental status) Altered mental status type: unspecified Qualified Code(s): R41.82 - Altered mental status, unspecified
--- NOTE | 2024-03-13 19:06 | Oral/Maxillofacial Consult ---
Date of Consultation March 13, 2024 Assessment & Plan (1) Fracture of nasal bone with routine healing: History of Present Illness Attending Physician: Ezio Suarez MD History of Present Illness I was consulted to see Shraddha regarding her nasal fracture sinus she never had any follow up except by her PCP She was admitted for 1) Acute UTI: Plan: ESBL E. coli isolated. Currently on ertapenem, day 4. She will complete her antibiotic course by the time of discharge on Thursday. (2) Falls: Plan: Supportive care. Continue OT and PT Facial Nasal Exam I reviewed the chart notes and CT scans Patient was referred for evaluation of nasal trauma. The injury happened on ---February 01 2024 CC--I was told that my nose is fractured, I have no problems with congestion or breathing. My nose does not look any different. No swelling noted Septum--looks to be slightly deviated on CT but this could be no acute Mucosal tissue healthy with congestion Sinus--no problems noted Nasal exam-healthy mucosa, no congestion, good air flow, no bleeding,no drainage or pain CT scan--after trauma nasal bone fractures are noted but clinical there are no cosmetic or functional issues. Plan Given that the event happened almost 5 weeks ago and Shraddha has no issues no treatment is needed or indicate. Overall I see no function problems or c osmetic changes due to recent trauma. The is now well healed w/o any sequela Past history notes On February 01, 2024 The patient is an 83-year-old female who presented to the emergency department after having a fall. The patient states that she has been having problems with her balance recently. She usually uses a walker. She was going to stand up and grabbed onto a table but missed the table and fell forward. The patient states that she normally tries to walk only with her walker. She had a nasal fracture was was to follow up with ENT. CT SCAN OF THE FACIAL BONES WITHOUT IV CONTRAST February 01, 2024 CLINICAL HISTORY: Fall. FINDINGS: The skeletal structures are osteopenic. There are comminuted bilateral nasal bone fractures with depressed fragments and overlying soft tissue edema. There is also fracture of the bony nasal septum. No additional facial bone fra cture is identified. The bony orbits are intact and the orbital contents are within normal limits noting bilateral ocular lens implants. The zygomatic arches and pterygoid plates are preserved. The maxilla and mandible are intact. There are no layering blood products within the paranasal sinuses. There is trace mucosal thickening and fluid within the left maxillary sinus and the right sphenoid sinus. The remaining paranasal sinuses are clear. The mastoid air cells are well pneumatized. The visualized calvarium and upper cervical spine are maintained. Spondylotic and postsurgical change is noted in the cervical spine. Partially imaged brain parenchyma is within normal limits. IMPRESSION: 1. Comminuted bilateral nasal bone fractures with depressed fragments. 2. There is also fracture of the bony nasal septum. 3. The bony orbits are intact. Allergies Allergy/AdvReac Type Severity Reaction Status Date / Time pneumococcal vaccine Allergy Intermediate REDNESS , Verified 03/10/24 08:53 CHILLS, HIVES sulfamethoxazole Allergy Intermediate Hives Verified 03/10/24 08:53 trimethoprim Allergy Intermediate Hives Verified 03/10/24 08:53 Home Medications Medication Instructions Recorded Confirmed Type cholecalciferol (vitamin D3) 125 5,000 units PO 5XWK 05/31/18 03/10/24 History mcg (5,000 unit) capsule mecobalamin (vitamin B12) 1,000 1,000 mcg sublingual 3XWK 05/31/18 03/10/24 History mcg disintegrating tablet,sublingual latanoprost 0.005 % eye drops 1 drops OPR HS 02/21/20 03/10/24 History diclofenac sodium 1 % topical gel 1 - 2 g topical BID PRN Pain 07/15/21 03/10/24 History urinary incontinence pads #1 ea 09/30/22 02/04/24 Rx simvastatin 10 mg tablet (Zocor) 10 mg PO HS #90 tabs 05/25/23 03/10/24 Rx amlodipine 10 mg tablet 10 mg PO QAM #90 tabs 05/28/23 03/10/24 Rx diclofenac sodium 75 mg 75 mg PO BID #180 tabs 08/03/23 03/10/24 Rx tablet,delayed release pantoprazole 40 mg tablet,delayed 40 mg PO QAM #90 tabs 08/13/23 03/10/24 Rx release (Protonix) calcium citrate 200 mg 1 tab PO DAILY 10/05/23 03/10/24 History calcium-vitamin D3 6.25 mcg (250 unit) tablet levothyroxine 88 mcg tablet 88 mcg PO QAM #90 tabs 10/16/23 03/10/24 Rx propranolol 160 mg capsule,24 160 mg PO QAM #90 caps 11/09/23 03/10/24 Rx hr,extended release hydrochlorothiazide 25 mg tablet 25 mg PO DAILY #90 tabs 02/19/24 03/10/24 Rx fluoxetine 10 mg capsule See Rx Instructions .Route .COMPLEX 03/10/24 03/10/24 History fluoxetine 20 mg capsule See Rx Instructions .Route .COMPLEX 03/10/24 03/10/24 History Patient History Medical History (Updated 03/13/24 @ 19:17 by Dilan Martins DMD) Hyperkalemia Confusion EDSON (acute kidney injury) Lymphedema RT LEG Spinal stenosis History of anemia Glaucoma Nerve pain UPPER BACK AREA Transient ischemic attack (TIA) A LONG TIME AGO>STILL HAS MILD RT SIDED WEAKNESS (FOLLOWS WITH DR. VARGHESE) Irregular heart beat NO CARDS Hx of sleep apnea RESOLVED SINCE GASTRIC BYPASS AND TONSILLECTOMY History of COVID-19 02/2020>MILD CASE PER PATIENT *RESOLVED Anxiety and depression Wound of right lower extremity Hyponatremia Elevated serum creatinine Cellulitis of right lower leg FRONT OF RT LOWER LEG (WOUND VAC FOR 2 MONTHS) REQUIRING SKIN GRAFT FOR CLOSURE Encounter for pre-operative examination History of gastrointestinal ulcer IBS (irritable bowel syndrome) History of pancreatitis Diverticulosis of colon (without mention of hemorrhage) Osteoarthritis Tremor BENIGN ESSENTIAL LEFT HAND Hypothyroidism Hypercholesterolemia Surgical History (Updated 03/10/24 @ 11:12 by Cody Martinez MD) History of oophorectomy H/O oral surgery S/P angiogram of extremity Abdominal aortogram and proximal right lower extremity angiogram S/P debridement X 2 06/2021 *CELLULITUS RLE (WOUND CLINIC PT): grade 2 view, glidescope 3, ETT 7. No postop issues per anesthesia progress note. History of lumbar laminectomy History of colonoscopy History of esophagogastroduodenoscopy (EGD) History of pharyngoplasty History of cataract surgery R/L H/O gastric bypass 2004 History of tonsillectomy History of eyelid surgery History of bilateral tubal ligation History of cholecystectomy History of total knee arthroplasty R/L History of hysterectomy History of fusion of cervical spine C5-T2 2017 - MILD ROM LIMITATION Family History Mother Family history of diabetes mellitus Breast cancer Father Family history of diabetes mellitus Heart disease Family/Other Family history of diabetes mellitus Sister Congestive heart failure Breast cancer Stroke syndrome Brother Coronary heart disease Myocardial infarction Other No family history of adverse response to anesthesia Denies family history of Ovarian cancer Prostate cancer Colorectal cancer Social History Smoking Status: Never smoker Second Hand Exposure: No; Do You Dip or Chew Tobacco: No; Tobacco Cessation Education Requested by Patient: No Hx Alcohol Use: No Hx Substance Use: No Preferred Language: Iranian Communication Ability: Effective Visual Impairment: Partially Limited Hearing Ability: Use of Hearing Aid Data Security Analyst Required: No Beliefs That Will Affect Care: Worship Worship Beliefs: ROMAN CATHOLIC marital status: Current Living Situation: Spouse Current Living Situation Comment: Lives at [facility] current occupational status: retired Other Information That Helps Us Care for You: No Feels Safe at Home: Yes Safety Concerns: Feels Safe At This Time Childhood Exposure to Second-Hand Smoke: No Diet: regular Dental Care, Regularly: Yes Physical Activity Frequency: Does not Exercise Seatbelt Use: always Sunscreen Use: Yes Assistive Devices: Scooter/Electric Scooter and Walker Assistive Devices Comment: caps on teeth takes out at h.s. has a scooter and w.c. Results & Data Vital Signs (Past 12 Hours) Vital Signs Temp Pulse Resp BP Pulse Ox O2 Del Method 03/13/24 14:45 62 96/64 L 03/13/24 14:35 36.8 C 45 L 18 108/73 95 Room Air 03/13/24 13:19 116/78 03/13/24 10:22 36.4 C L 52 L 18 122/69 93 Room Air PG Care Time/CCT Total # of Minutes Spent Total Time Spent with Patient: Total time spent is greater than 50% in coordination of care (as documented) at patient's floor/unit and/or counseling patient: Coding Level of Care Code 20823 INT INP/OBS CARE 1/40MIN Diagnoses Closed fracture of nasal bone with routine healing, subsequent encounter S02.2XXD Fracture type: closed (1) Fracture of nasal bone with routine healing Fracture type: closed Qualified Code(s): S02.2XXD - Fracture of nasal bones, subsequent encounter for fracture with routine healing
[2024-03-13] MEDS: hydrALAZINE 10 MG TAB PO SCH (20:15)
[2024-03-14 07:03] LABS: Basophils # (auto) 0.02 K/uL (0.00-0.20); Basophils % (auto) 0.3 %; Eosinophils # (auto) 0.37 K/uL (0.00-0.50); Eosinophils % (auto) 4.9 %; Hematocrit (blood only) 36.7 % (37.0-47.0); Hemoglobin 11.2 g/dl (12.0-16.0); Immature Granulocytes # (auto) 0.02 K/uL (0.01-0.20); Immature Granulocytes % (auto) 0.3 %; Lymphocytes # (auto) 1.32 K/uL (1.20-3.40); Lymphocytes % (auto) 17.6 %; Mean Corpuscular Hemoglobin 26.9 pg (25.0-34.0); Mean Corpuscular Hgb Conc 30.5 g/dL (32.0-36.0); Mean Platelet Volume 9.1 fL (9.4-12.4); Monocytes # (auto) 0.67 K/uL (0.11-0.59); Monocytes % (auto) 8.9 %; Platelet Count 241 K/uL (130-400); RDW Coefficient of Variation 13.3 % (11.5-14.5); RDW Standard Deviation 42.8 fL (36.4-46.3); Red Blood Count 4.17 M/uL (4.20-5.40)
[2024-03-14 07:23] LABS: BUN Creatinine Ratio 31.4 (10-20); Calcium 8.8 mg/dl (8.6-10.3); Creatinine Clr Calc Pharmacy 38.3 ml/min; Est GFR (African American) 56.5 ml/min; Est GFR (Non-African American) 48.7 ml/min; Potassium 4.8 mmol/L (3.5-5.1)
[2024-03-14] MEDS: amLODIPine BESYLATE 5 MG TAB PO SCH (07:43)
--- NOTE | 2024-03-14 09:21 | Infectious Disease Consult ---
Date of Consultation March 14, 2024 Assessment & Plan (1) Bacteriuria: (2) Falls: (3) AMS (altered mental status): Plan Problems: #ESBL E coli UTI vs colonization #TMP/SMX allergy: hives Micro: 03/10 UCx: ESBL E coli (R cipro, levo. S erta, nitrofurantoin, TMP/SMX, gentamicin, tobramycin) Abx: Ertapenem 03/10 - present Impression: 84 yo F with HTN, HLD, lymphedema, frequent falls who presented on 03/10 with altered mental status. She has had 2-3 weeks of increasing generalized weakness, falls, worsening confusion especially at nighttime. Pt denied any complaints, denied urinary symptoms, fevers, or chills. Her feels she is not safe at home and is requesting rehab placement. She has had a progressive decline over the years, but a dramatic decline over the last 2-3 weeks in terms of ambulation, confusion, weakness. On presentation, pt was afebrile, VSS. Labs were unremarkable. Straight cath was performed, UA with 0-5 WBCs, neg nitrites, trace leuk esterase, 4+ bacteria. CXR negative. 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 There was concern that her acute decline over the last 2-3 weeks was due to a UTI. She was started on ertapenem. Ucx grew ESBL E coli, which has grown in her prior urine cultures as well from 10/2023, 06/2023, 05/2023, 04/2023. Recommendations: -In the absence of urinary symptoms, UA with only 0-5 WBCs, the ESBL E coli seems more likely to be a colonizer. Regardless, she will have completed a 5 day course of ertapenem today, which would have treated an uncomplicated cystitis - Can discharge off antibiotics Will sign off Please page [facility] with further questions. Consultation Information This patient recommendation is based on a telemedicine consult request which was completed asynchronously through chart review and information provided by the primary physician. The patient was not seen or examined today. The evaluation is consultative in nature and all patient care and treatment decisions can either be accepted or rejected by the patient's primary hospital-based treating physician using their own independent medical judgment for their patient. Underwriting Support Manager contact information: Please call [facility] [phone]. (Phone Number For Physician Use Only) Time Spent Reviewing Chart: 31+ minutes History of Present Illness Reason for Consultation: ESBL UTI Attending Physician: Naren London DO History of Present Illness 84 yo F with HTN, HLD,lymphedema, prior cholecystectomy, choledocholithiasis s/p CBD stent, biliary sphincterotomy, and balloon stone extraction (11/11/23) s/p stent removal ~2 weeks prior, frequent falls who presented on 03/10 with altered mental status. She has had 2-3 weeks of increasing generalized weakness, falls, worsening confusion especially at nighttime. Pt denied any complaints, denied urinary symptoms, fevers, or chills. Her feels she is not safe at home and is requesting rehab placement. She has had a progressive decline over the years, but a dramatic decline over the last 2-3 weeks in terms of ambulation, confusion, weakness. On presentation, pt was afebrile, VSS. Labs showed no leukocytosis, Cr at baseline, normal LFTs. Straight cath was performed, UA with 0-5 WBCs, neg nitrites, trace leuk esterase, 4+ bacteria. CXR negative. 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 There was concern that her acute decline over the last 2-3 weeks was due to a UTI. She was started on ertapenem. Allergies Allergy/AdvReac Type Severity Reaction Status Date / Time pneumococcal vaccine Allergy Intermediate REDNESS , Verified 03/10/24 08:53 CHILLS, HIVES sulfamethoxazole Allergy Intermediate Hives Verified 03/10/24 08:53 trimethoprim Allergy Intermediate Hives Verified 03/10/24 08:53 Home Medications Medication Instructions Recorded Confirmed Type cholecalciferol (vitamin D3) 125 5,000 units PO 5XWK 05/31/18 03/10/24 History mcg (5,000 unit) capsule mecobalamin (vitamin B12) 1,000 1,000 mcg sublingual 3XWK 05/31/18 03/10/24 History mcg disintegrating tablet,sublingual latanoprost 0.005 % eye drops 1 drops OPR HS 02/21/20 03/10/24 History diclofenac sodium 1 % topical gel 1 - 2 g topical BID PRN Pain 07/15/21 03/10/24 History urinary incontinence pads #1 ea 09/30/22 02/04/24 Rx simvastatin 10 mg tablet (Zocor) 10 mg PO HS #90 tabs 05/25/23 03/10/24 Rx amlodipine 10 mg tablet 10 mg PO QAM #90 tabs 05/28/23 03/10/24 Rx diclofenac sodium 75 mg 75 mg PO BID #180 tabs 08/03/23 03/10/24 Rx tablet,delayed release pantoprazole 40 mg tablet,delayed 40 mg PO QAM #90 tabs 08/13/23 03/10/24 Rx release (Protonix) calcium citrate 200 mg 1 tab PO DAILY 10/05/23 03/10/24 History calcium-vitamin D3 6.25 mcg (250 unit) tablet levothyroxine 88 mcg tablet 88 mcg PO QAM #90 tabs 10/16/23 03/10/24 Rx propranolol 160 mg capsule,24 160 mg PO QAM #90 caps 11/09/23 03/10/24 Rx hr,extended release hydrochlorothiazide 25 mg tablet 25 mg PO DAILY #90 tabs 02/19/24 03/10/24 Rx fluoxetine 10 mg capsule See Rx Instructions .Route .COMPLEX 03/10/24 03/10/24 History fluoxetine 20 mg capsule See Rx Instructions .Route .COMPLEX 03/10/24 03/10/24 History Patient History Medical History (Updated 03/14/24 @ 10:07 by Viv Sauceda MD) Hyperkalemia Confusion EDSON (acute kidney injury) Lymphedema RT LEG Spinal stenosis History of anemia Glaucoma Nerve pain UPPER BACK AREA Transient ischemic attack (TIA) A LONG TIME AGO>STILL HAS MILD RT SIDED WEAKNESS (FOLLOWS WITH DR. VARGHESE) Irregular heart beat NO CARDS Hx of sleep apnea RESOLVED SINCE GASTRIC BYPASS AND TONSILLECTOMY History of COVID-19 02/2020>MILD CASE PER PATIENT *RESOLVED Anxiety and depression Wound of right lower extremity Hyponatremia Elevated serum creatinine Cellulitis of right lower leg FRONT OF RT LOWER LEG (WOUND VAC FOR 2 MONTHS) REQUIRING SKIN GRAFT FOR CLOSURE Encounter for pre-operative examination History of gastrointestinal ulcer IBS (irritable bowel syndrome) History of pancreatitis Diverticulosis of colon (without mention of hemorrhage) Osteoarthritis Tremor BENIGN ESSENTIAL LEFT HAND Hypothyroidism Hypercholesterolemia Surgical History (Updated 03/10/24 @ 11:12 by Cody Martinez MD) History of oophorectomy H/O oral surgery S/P angiogram of extremity Abdominal aortogram and proximal right lower extremity angiogram S/P debridement X 2 06/2021 *CELLULITUS RLE (WOUND CLINIC PT): grade 2 view, glidescope 3, ETT 7. No postop issues per anesthesia progress note. History of lumbar laminectomy History of colonoscopy History of esophagogastroduodenoscopy (EGD) History of pharyngoplasty History of cataract surgery R/L H/O gastric bypass 2005 History of tonsillectomy History of eyelid surgery History of bilateral tubal ligation History of cholecystectomy History of total knee arthroplasty R/L History of hysterectomy History of fusion of cervical spine C5-T2 2017 - MILD ROM LIMITATION Family History Mother Family history of diabetes mellitus Breast cancer Father Family history of diabetes mellitus Heart disease Family/Other Family history of diabetes mellitus Sister Congestive heart failure Breast cancer Stroke syndrome Brother Coronary heart disease Myocardial infarction Other No family history of adverse response to anesthesia Denies family history of Ovarian cancer Prostate cancer Colorectal cancer Social History Smoking Status: Never smoker Second Hand Exposure: No; Do You Dip or Chew Tobacco: No; Tobacco Cessation Education Requested by Patient: No Hx Alcohol Use: No Hx Substance Use: No Preferred Language: Serbian Communication Ability: Effective Visual Impairment: Partially Limited Hearing Ability: Use of Hearing Aid Airport Driver Required: No Beliefs That Will Affect Care: Uatsdin Uatsdin Beliefs: DRUZE marital status: Current Living Situation: Spouse Current Living Situation Comment: Lives at [facility] current occupational status: retired Other Information That Helps Us Care for You: No Feels Safe at Home: Yes Safety Concerns: Feels Safe At This Time Childhood Exposure to Second-Hand Smoke: No Diet: regular Dental Care, Regularly: Yes Physical Activity Frequency: Does not Exercise Seatbelt Use: always Sunscreen Use: Yes Assistive Devices: Scooter/Electric Scooter and Walker Assistive Devices Comment: caps on teeth takes out at h.s. has a scooter and w.c. Review of System Pt was not seen Physical Exam Physical Exam: Pt was not seen Results & Data Vital Signs (Past 12 Hours) Vital Signs Temp Pulse Resp BP Pulse Ox O2 Del Method 03/14/24 07:30 Room Air 03/14/24 07:13 36.4 C L 62 16 147/79 H 94 Room Air Laboratory Results Short CBC 03/14/24 Range/Units 06:14 WBC 7.50 (4.8-10.8) K/ul Hgb 11.2 L (12.0-16.0) g/dl Hct 36.7 L (37.0-47.0) % Plt Count 241 (130-400) K/uL BMP 03/14/24 06:14 Sodium 136 Potassium 4.8 Chloride 103 Carbon Dioxide 29 BUN 33 H Creatinine 1.05 Glucose 91 Calcium 8.8 Medications Administered Current Inpatient Medications Acetaminophen (Acetaminophen 325 Mg Tab) 650 mg PO Q4H PRN PRN Reason: pain/fever Stop: 04/09/24 12:58 Last Admin: 03/12/24 14:53 Dose: 650 mg Amlodipine Besylate (Amlodipine Besylate 5 Mg Tab) [facility] [place] Stop: 04/13/24 08:59 Last Admin: 03/14/24 07:43 Dose: 5 mg Cyanocobalamin (Cyanocobalamin (B-12) 500 Mcg Tablet) 1,000 mcg PO [id number] [facility] Stop: 04/10/24 08:59 Last Admin: 03/14/24 07:43 Dose: 1,000 mcg Diclofenac Sodium (Diclofenac Sodium 75 Mg Tabcr) 75 mg PO BID TONY Stop: 04/09/24 20:59 Last Admin: 03/14/24 07:44 Dose: 75 mg Enoxaparin Sodium (Enoxaparin Inj 40 Mg/0.4 Ml Syr) 40 mg SQ QPM TONY Stop: 04/09/24 20:59 Last Admin: 03/13/24 20:08 Dose: 40 mg Fluoxetine HCl (Fluoxetine Hcl 10 Mg Cap) 10 mg PO QAM [facility] Stop: 04/10/24 08:59 Last Admin: 03/14/24 07:44 Dose: 10 mg Fluoxetine HCl (Fluoxetine Hcl 20 Mg Cap) 20 mg PO QAM [facility] Stop: 04/10/24 08:59 Last Admin: 03/14/24 07:43 Dose: 20 mg Hydralazine HCl (Hydralazine 10 Mg Tab) 10 mg PO BID TONY Stop: 04/12/24 20:59 Last Admin: 03/14/24 07:43 Dose: 10 mg Ertapenem 1,000 mg/ Syringe 10 mls @ 2 mls/min IV Q24H TONY Stop: 03/15/24 12:59 Last Admin: 03/13/24 13:20 Dose: 2 mls/min Latanoprost (Latanoprost 0.005% Op Soln 2.5 Ml Btl) 1 drops OPR HS TONY Stop: 04/09/24 20:59 Last Admin: 03/13/24 20:06 Dose: 1 drops Levothyroxine Sodium (Levothyroxine Sodium 88 Mcg Tablet) 88 mcg PO DAILYBB TONY Stop: 04/10/24 06:29 Last Admin: 03/14/24 05:59 Dose: 88 mcg Melatonin (Melatonin 3 Mg Tab) 6 mg PO HS PRN PRN Reason: Sleep Stop: 04/11/24 02:07 Pantoprazole Sodium (Pantoprazole 40 Mg Tab) 40 mg PO QAM [facility] Stop: 04/10/24 08:59 Last Admin: 03/14/24 07:43 Dose: 40 mg Polyethylene Glycol (Polyethylene (Miralax) 17 Gm Pack) 17 gm PO DAILY@1800 [facility] Stop: 04/11/24 17:59 Last Admin: 03/13/24 18:19 Dose: Not Given Propranolol HCl (Propranolol Hcl 60 Mg La Cap) 120 mg PO QAM TONY Stop: 04/12/24 08:59 Last Admin: 03/14/24 07:44 Dose: 120 mg Simvastatin (Simvastatin 10 Mg Tab) 10 mg PO HS TONY Stop: 04/09/24 20:59 Last Admin: 03/13/24 20:05 Dose: 10 mg (3) AMS (altered mental status) Altered mental status type: unspecified Qualified Code(s): R41.82 - Altered mental status, unspecified
[2024-03-14] MEDS: LIDOCAINE 5% 1 PATCH TD SCH (11:11)
--- NOTE | 2024-03-14 15:42 | XRay Report ---
RIGHT SHOULDER 3 VIEWS CLINICAL HISTORY: Right shoulder pain. FINDINGS: 3 views of the right shoulder are obtained. No prior studies are available for comparison a t the time of dictation. The skeletal structures are osteopenic. There is no radiographic evidence of fracture or dislocation. Moderate osteoarthritic change is noted at the glenohumeral articulation. P roductive degenerative change is seen at the acromioclavicular joint. The overlying soft tissues are normal as imaged. Fusion hardware is seen at the cervicothoracic junction. The right lung parenchyma is clear as visualized. Calcified mediastinal lymph nodes are partially imaged. IMPRESSION: Osteopenia and arthritic change as above with no acute bony abnormality identified. Electronically signed by: David Sheth M.D. 03/14/2024 3:40 PM
--- NOTE | 2024-03-14 15:59 | Hospitalist Progress Note ---
Date of Service March 14, 2024 Assessment & Plan (1) Acute UTI: Plan: -ESBL E. coli isolated. -Completed ertapenem, 5 days. -ID consulted- no further antibiotics beyond 5 days (2) Falls: Plan: -Supportive care. Continue OT and PT (3) AMS (altered mental status): Plan: -Probably a degree of metabolic encephalopathy on admission due to UTI. -Suspect she also has vascular dementia. -Supportive care -Outpatient neuro-cognitive follow up (4) Benign essential tremor: Plan: -Stable. Currently on propranolol. Dosage down titrated due to persistent bradycardia (5) Lymphedema of lower extremity: Plan: -Chronic. -BREANA stockings -No response to hydrochlorothiazide which was previously discontinued (6) Hypothyroidism: Plan: -Stable. Continue levothyroxine (7) Sinus bradycardia: Plan: -Improved since propranolol dosage decreased on March 12 -Continue to monitor (8) Essential hypertension: Plan: -Previously blood pressure is now on the low side. Both hydralazine and aml odipine dosages down titrated on March 13. -BP slowly increased- will further titrate dosing based on trend -Propranolol dosage has been down titrated due to persistent bradycardia. -Hctz was discontinued previously Plan Pending auth to [facility] updated over the phone Admission and Anticipated Discharge Date Admission Date: March 10, 2024 Subjective Patient seen and evaluated this AM and this afternoon This AM was having shoulder pain- improved this afternoon after Lidoderm patches applied Completed course of Ertapenem this AM Pending auth to rehab Review of Systems Review of Systems: As per HPI Physical Exam Physical Exam: General-alert and oriented x2, no fever HEENT-head atraumatic and normocephalic, extraocular muscles intact Neck-no lymphadenopathy or thyromegaly, trachea midline Chest-clear to auscultation. No rales, wheezing or rhonchi Cardiac-bradycardic regular rhythm, normal S1 and S2 Abdomen-normal bowel sounds, no hepatosplenomegaly [id number]+ bilateral lower extremity chronic appearing edema below the knees. Right shoulder pain, no point tenderness Neuro-cranial nerves II through XII intact, motor and sensory function within normal limits, strength symmetrical, no focal deficits Psych-normal affect, normal mood Results & Data Results & Data Vital Signs (Past 12 Hours) Vital Signs Temp Pulse Resp BP Pulse Ox O2 Del Method 08/26/24 07:30 Room Air 03/14/24 07:13 36.4 C L 62 16 147/79 H 94 Room Air PG Care Time/CCT Total # of Minutes Spent Total Time Spent with Patient: Total time spent is greater than 50% in coordination of care (as documented) at patient's floor/unit and/or counseling patient: Coding Level of Care Code 34666 SUB INP/OBS CARE 2/35MIN Diagnoses Acute UTI N39.0 Falls R29.6 AMS (altered mental status) R41.82 Altered mental status type: unspecified Benign essential tremor G25.0 Lymphedema of lower extremity I89.0 Hypothyroidism E03.9 Sinus bradycardia R00.1 Essential hypertension I10 (3) AMS (altered mental status) Altered mental status type: unspecified Qualified Code(s): R41.82 - Altered mental status, unspecified
[2024-03-14 16:31] VITALS: RESP 18
[2024-03-14 19:41] VITALS: TEMP 97.9
[2024-03-15 07:52] VITALS: PULSE 53; O2SAT 92
--- NOTE | 2024-03-15 11:16 | Discharge Summary ---
Discharge Summary Date of Service March 15, 2024 Principal Dx & Hospital Course #1 = Principal Diagnosis (1) Acute UTI: -ESBL E. coli isolated. -Completed ertapenem, 5 days. -ID consulted- no further antibiotics beyond 5 days (2) Falls: -Supportive care. Continue OT and PT at rehab. (3) AMS (altered mental status): -Probably a degree of metabolic encephalopathy on admission due to UTI. -Suspect she also has vascular dementia. -Supportive care -Outpatient neuro-cognitive follow up (4) Benign essential tremor: -Stable.Currently on propranolol. Dosage down titrated due to persistent bradycardia (5) Lymphedema of lower extremity: -Chronic. -BREANA stockings -No response to hydrochlorothiazide which was previously discontinued (6) Hypothyroidism: -Stable. Continue levothyroxine (7) Sinus bradycardia: -Improved since propranolol dosage decreased on March 12 -Continue to monitor (8) Essential hypertension: -Previously blood pressureon the low side. Both hydralazine and amlodipine dosages down titrated on March 13. -Propranolol dosage down titrated due to persistent bradycardia. -Hctz was discontinued previously Notes For Next Care Provider Patient presented with concern for UTI. UTI with ESBL. Received 5 doses of Ertapenem and cleared by ID. Patient additionally had right shoulder pain. X ray consistent with arthritis. Pain improved with the administration of lidoderm patches. Admission HPI Per Admitting Provider Shraddha Baires is an 84 year old female who presents to the ER with 2 to 3 weeks of increasing generalized weakness, falls, worsening confusion especially at nighttime. On discussion with the in the room he feels she is not currently safe at home and is requesting rehab placement. He feels she has had a progressive decline over the years but a dramatic decline over the last 2 to 3 weeks in terms of ambulation, confusion and weakness. No change in speech, vision or unilateral weakness or sensation loss. She has fall multiple times in the past which she puts down to being unbalanced. No chest pain, shortness of breath, lightheadedness or dizziness prior to falling. She has been concerned a bout Parkinson's however her tremor is definitively an action tremor and previously diagnosed as benign essential tremor and she denies any rigidity. She does report a shuffling gait. She has known peripheral neuropathy and does not have much feeling in her feet bilaterally which is no worse than usual. She notes bilateral leg swelling however this is no worse than usual and no associated weight gain, shortness of breath, chest pain. She denies and urinary symptoms, fever or chills. She was recently admitted in October for choledocholithiasis with cholecystitis undergoing Axios stent placement with ERCP at [facility]. Her reports this was subsequently removed 2 weeks ago. Discharge Exam General-alert and oriented x2, no fever HEENT-head atraumatic and normocephalic, extraocular muscles intact Neck-no lymphadenopathy or thyromegaly, trachea midline Chest-clear to auscultation. No rales, wheezing or rhonchi Cardiac-bradycardic regular rhythm, normal S1 and S2 Abdomen-normal bowel sounds, no hepatosplenomegaly [id number]-4-7+ bilateral lower extremity chronic appearing edema below the knees. Right shoulder pain improving. Neuro-cranial nerves II through XII intact, motor and sensory function within normal limits, strength symmetrical, no focal deficits Psych-normal affect, normal mood Discharge Plan Discharge Items Patient Disposition: Transfer [facility] Reason For Visit: MEMORY LOSS, DIFFICULTY AMBULATING, REF BY DR RODRIGUEZ Discharge Diagnosis: UTI, Ambulatory dysfunction Activity: As commented below Activity Comment: Follow instructions of therapy team Non-emergency contact: Primary Care Provider and Surgeon Call non-emergency contact if: you have any medication questions, your pain is not controlled, your pain is worsening and you have a fever Follow-up/Referrals: Stefano Rodriguez MD [Primary Care Provider] - Diet: Heart Healthy Addtl Attending Provider Instructions: Please follow up with all providers as described. Please continue management as per therapy team. Pending Studies at Discharge: No Stand-Alone Forms: My [facility] Skilled Items Patient informed of condition?: Yes DNR: No Discharge Level of Care: Skilled Communicable Disease: No Discharge Prognosis: Improving Lines: None Urinary Catheter: No Medications and DC Order Prescriptions: New hydralazine 10 mg tablet 10 mg PO BID Qty: 60 0RF Continued cholecalciferol (vitamin D3) 5,000 unit capsule 5,000 units PO 5XWK Hold Instructions: SURGERY mecobalamin (vitamin B12) 1,000 mcg tablet,disintegrating 1,000 mcg SL 3XWK Hold Instructions: SURGERY Patient Comments: MON, WED, FRI OR SAT calcium citrate-vitamin D3 200 mg-6.25 mcg (250 unit) tablet 1 tab PO DAILY Hold Instructions: SURGERY simvastatin [Zocor] 10 mg tablet 10 mg PO HS Qty: 90 3RF diclofenac sodium 75 mg tablet,delayed release (DR/EC) 75 mg PO BID Qty: 180 3RF Hold Instructions: SURGERY Patient Comments: ON HOLD FOR SURGERY pantoprazole [Protonix] 40 mg tablet,delayed release (DR/EC) 40 mg PO QAM Qty: 90 3RF levothyroxine 88 mcg tablet 88 mcg PO QAM Qty: 90 3RF (DME) urinary incontinence pads See Rx Instructions .Route .MEDSUPPLY Qty: 1 0RF Rx Instructions: As directed latanoprost 0.005 % drops 1 drops OPR HS Patient Comments: RIGHT EYE diclofenac sodium 1 % Gel 1 - 2 g TOPICAL BID PRN (Reason: Pain) Hold Instructions: URGERY fluoxetine 10 mg capsule See Rx Instructions .ROUTE .COMPLEX Rx Instructions: Take 10mg w/ 20mg to equal 30mg by mouth every morning. fluoxetine 20 mg capsule See Rx Instructions .ROUTE .COMPLEX Rx Instructions: Take 20mg w/ 10mg to equal 30mg by mouth every morning. Changed amlodipine 5 mg tablet 5 mg PO DAILY Qty: 30 0RF propranolol 120 mg capsule,extended release 24hr 120 mg PO DAILY Qty: 30 0RF Discontinued hydrochlorothiazide 25 mg tablet 25 mg PO DAILY Qty: 90 3RF Discharge Orders: Discharge Order (Routine); Ordered 03/15/24 Ordered By: Naren Gatica/Other Patient Handouts: Urinary Tract Infections in Women, Osteoarthritis: Common Sites, Osteoarthritis Medicine, Overhead Arm Stretch, Shoulder Shrug Exercise Admission Data Admit Date/Time: 03/10/24 10:49 Attending Provider: Naren London Admit Provider: Cody Martinez Primary Care Provider: Stefano Rodriguez Other Providers: Cody Martinez; [place],[facility], [place]; Olayinka Ward [facility] Other Interventions: Discharge Summary Assessment (RN) Last Done: 03/15/24 11:42 Hospital Stay Data Consultations 03/10/24 10:10 ED Decision to Admit Stat 03/14/24 08:32 Consult Infectious Diseases Routine Diagnostic Imagining Performed 03/10/24 07:54 CT head/brain wo con Stat Pending Results Patient Have Any Pending Studies at Discharge: No Discharge Instructions Given to Patient (Per Discharging Provider) Please follow up with all providers as described. Please continue management as per therapy team. Total Time Total Time Spent Total Time Spent (In Minutes): >45 minutes Coding Level of Care Code 76855 INP/OBS DISCH >30 MIN Diagnoses Acute UTI N39.0 Falls R29.6 AMS (altered mental status) R41.82 Altered mental status type: unspecified Benign essential tremor G25.0 Lymphedema of lower extremity I89.0 Hypothyroidism E03.9 Sinus bradycardia R00.1 Essential hypertension I10
[2024-03-15 11:43] VITALS: BP 131/76
== END 2024-03-15 13:13 | DRG 689 ==
LOC: ED 07:15 → EDINP 10:49 → SUATTDRO 10:49 → 3N 12:59